=== PATIENT | female | born 1980 | race Caucasian/White ===

== ENCOUNTER 2020-06-14 08:00 | Outpatient (RCR) | payer MEDICAID, SELFPAY | END 2020-06-21 08:44 | disposition other institution (70) | LOC: HO.PT 08:00 | PROVIDERS: PCP Family Medicine; Visit Provider Neurological Surgery | DX: M79.601 Pain in right arm (principal) | CPT/HCPCS: 97110; 97140; 97162; 97530 ==

== ENCOUNTER → 2020-12-06 08:44 | Outpatient (BNVA) | payer MEDICAID, SELFPAY | PROVIDERS: Visit Provider Student in an Organized Health Care Education/Training Program | DX: M05.9 Rheumatoid arthritis with rheumatoid factor, unspecified (principal); Z79.899 Other long term (current) drug therapy | CPT/HCPCS: 99212 ==

== ENCOUNTER 2021-02-16 09:30 | Outpatient (REF) | payer MEDICAID, SELFPAY ==
[2021-02-16 10:20] LABS: MANUAL DIFF FLAG NO
[2021-02-16 10:25] LABS: Basophils Percent Auto 0.2 % (0-2); Eosinophils Absolute Auto 0.1 X10*3/uL (0.0-0.4); Eosinophils Percent Auto 0.9 % (0-4); Hematocrit 32.4 % (37-47); Imm Gran Abs Auto 0.03 X10*3/uL (0.00-0.03); Imm Gran Pct Auto 0.4 % (0.0-0.4); Lymphocytes Absolute Auto 1.7 X10*3/uL (1.2-4.9); Lymphocytes Percent Auto 21.1 % (20-40); Mean Corpuscular HGB Conc 30.9 g/dl (31.0-35.0); Mean Corpuscular Hemoglobin 25.9 pg (27.0-33.0); Mean Corpuscular Volume 83.9 fL (80-98); Mean Platelet Volume 9.6 fL (9.4-12.3); Monocytes Absolute Auto 0.6 X10*3/uL (0.1-1.2); Monocytes Percent Auto 7.2 % (2-11); Neutrophils Absolute Auto 5.8 X10*3/uL (2.0-8.3); Neutrophils Percent Auto 70.2 % (45-73); Platelet Count 301 X10*3/uL (160-400); Red Blood Count 3.86 X10*6/uL (4.20-5.50); Red Cell Distribution Width 16.2 % (11.0-16.0); White Blood Count 8.2 X10*3/uL (4.8-10.8)
[2021-02-16 10:50] LABS: Alanine Aminotransferase 28 U/L (0-31); Alkaline Phosphatase 71 U/L (39-117); Anion Gap 10 (12-20); Aspartate Amino Transferase 23 U/L (5-31); Bilirubin Total 0.3 mg/dL (0.0-1.0); Blood Urea Nitrogen 9 mg/dL (9-16); C Reactive Protein 0.48 mg/dL (< or = 0.50); Calcium 9.3 mg/dL (8.4-10.2); Carbon Dioxide 27 mmol/L (22-29); Chloride 106 mmol/L (96-108); Estimated Glomerular Filt Rate > 60; Glucose Random 121 mg/dL (60-115); Sodium 139 mmol/L (135-145); Total Protein 7.3 g/dL (6.5-8.0)
[2021-02-16 11:39] LABS: HBc Num1 0.11 S/CO (0.00-0.79); HBsAGNum1 0.17 S/CO (0.00-0.99); Hepatitis B Core Antibody Nonreactive (Nonreactive); Hepatitis B Surface Antigen Negative (Negative); ~HepC Num1 0.07 S/CO (0.00-0.79); ~Hepatitis C Antibody Nonreactive (Nonreactive)
[2021-02-16 11:44] LABS: Erythrocyte Sedimentation Rate 11 MM/HR (0-20)
[2021-02-17 08:58] LABS: HBS Num1 89.32 mIU/mL (0-7.99); Hepatitis A Antibody IgM 0.25 Index (0-0.79); ~Hepatitis A Antibody IgM Nonreactive (Nonreactive); ~Hepatitis B Surface Antibody REACTIVE (Nonreactive)
[2021-02-19 16:22] LABS: TS Negative Control Passed; TS Panel A 0; TS Panel B 1; TS Positive Control Passed; TSpotTB Negative (SeeBelow)
== END 2021-02-16 09:31 | disposition home or self-care (01) ==
LOC: HO.LAB 09:30
PROVIDERS: PCP Family Medicine; Visit Provider Student in an Organized Health Care Education/Training Program
DX: Z01.84 Encounter for antibody response examination (principal); Z11.1 Encounter for screening for respiratory tuberculosis; Z11.59 Encounter for screening for other viral diseases; M05.9 Rheumatoid arthritis with rheumatoid factor, unspecified
CPT/HCPCS: 36415; 80053; 85025; 85652; 86140; 86481; 86704; 86706; 86709; 86803; 87340

== ENCOUNTER 2021-05-03 13:44 | Outpatient (REF) | payer MEDICAID, SELFPAY ==
--- NOTE | ~2021-05-03 | MM_ITS ---
EXAMINATION: MM SCREENING DIGITAL BREAST TOMOSYNTHESIS, BILATERAL CLINICAL INFORMATION: Screening. Asymptomatic. The lifetime risk of breast cancer based on the Tyrer-Cuzick Model is 6.4%. COMPARISON: Mammography: May 20, 2019 TECHNIQUE: Digital breast tomosynthesis is performed in both the craniocaudal and mediolateral oblique views along with computer-aided detection (CAD). Synthesized 2D images are generated from the tomosynthesis. FINDINGS: The breasts are heterogeneously dense, which may obscure small masses (ACR BI-RADS breast composition Category c). There are no significant masses, abnormal calcifications, or other abnormalities. MM/MM tomosynthesis screening BI IMPRESSION: There are no significant changes from prior study. ASSESSMENT: BI-RADS 1: Negative RECOMMENDATION: Routine annual mammography screening. This patient's information was entered into a reminder system with a target due date for their next mammogram.
== END 2021-05-03 13:45 | disposition home or self-care (01) ==
LOC: HO.MAMMO 13:44
PROVIDERS: PCP Family Medicine; Visit Provider Family Medicine
DX: Z12.31 Encounter for screening mammogram for malignant neoplasm of breast (principal)
CPT/HCPCS: 77063; 77067

== ENCOUNTER 2021-09-12 08:29 | Outpatient (REF) | payer MEDICAID, SELFPAY ==
[2021-09-12 09:43] LABS: MANUAL DIFF FLAG NO
[2021-09-12 10:22] LABS: Basophils Percent Auto 0.5 % (0-2); Eosinophils Absolute Auto 0.1 X10*3/uL (0.0-0.4); Eosinophils Percent Auto 1.2 % (0-4); Hematocrit 35.2 % (37.0-47.0); Hemoglobin 11.1 g/dl (12.0-16.0); Imm Gran Abs Auto 0.03 X10*3/uL (0.00-0.03); Imm Gran Pct Auto 0.4 % (0.0-0.4); Lymphocytes Absolute Auto 2.1 X10*3/uL (1.2-4.9); Lymphocytes Percent Auto 28.9 % (20-40); Mean Corpuscular HGB Conc 31.5 g/dl (31.0-35.0); Mean Corpuscular Hemoglobin 27.1 pg (27.0-33.0); Mean Corpuscular Volume 85.9 fL (80.0-98.0); Mean Platelet Volume 9.9 fL (9.4-12.3); Monocytes Absolute Auto 0.4 X10*3/uL (0.1-1.2); Monocytes Percent Auto 5.7 % (2-11); Neutrophils Absolute Auto 4.6 x10*3/uL (2.0-8.3); Neutrophils Percent Auto 63.3 % (45-73); Platelet Count 343 X10*3/uL (160-400); Red Cell Distribution Width 15.4 % (11.0-16.0); White Blood Count 7.3 X10*3/uL (4.8-10.8)
[2021-09-12 11:00] LABS: Erythrocyte Sedimentation Rate 17 MM/HR (0-20)
[2021-09-12 11:21] LABS: Alanine Aminotransferase 11 U/L (0-31); Albumin Level 4.1 g/dL (3.5-5.0); Alkaline Phosphatase 64 U/L (39-117); Anion Gap 8 (12-20); Aspartate Amino Transferase 13 U/L (5-31); Bilirubin Total 0.2 mg/dL (0.0-1.0); Blood Urea Nitrogen 10 mg/dL (9-16); C Reactive Protein 0.56 mg/dL (< or = 0.50); Calcium 9.3 mg/dL (8.4-10.2); Carbon Dioxide 27 mmol/L (22-29); Chloride 108 mmol/L (96-108); Estimated Glomerular Filt Rate > 60; Glucose Random 86 mg/dL (60-115); Sodium 139 mmol/L (135-145); Total Protein 7.5 g/dL (6.5-8.0)
== END 2021-09-12 08:30 | disposition home or self-care (01) ==
LOC: HO.LAB 08:29
PROVIDERS: PCP Family Medicine; Visit Provider Nurse Practitioner Family
DX: M05.9 Rheumatoid arthritis with rheumatoid factor, unspecified (principal); Z79.899 Other long term (current) drug therapy
CPT/HCPCS: 36415; 80053; 85025; 85652; 86140; 99212

== ENCOUNTER 2021-11-10 07:52 | Outpatient (REF) | payer MEDICAID, SELFPAY ==
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
--- NOTE | ~2021-11-10 | XR_ITS ---
EXAMINATION: XR SHOULDER-RIGHT XR KNEE-LEFT CLINICAL INFORMATION: Right shoulder and left knee pain. COMPARISON: None TECHNIQUE: 4 views of the right shoulder and 3 upright views of the left knee were obtained. FINDINGS: Right shoulder: The bony alignments are intact. The cortices are intact. Articular margins, joint space appear unremarkable. The soft tissues are unremarkable. Left knee: Mild periarticular osteopenia is noted. The bony alignments are intact. The cortices are intact. No evidence of any joint effusion present. XR/XR knee LT 3V IMPRESSION: 1. Unremarkable radiographic appearance of the right shoulder. 2. Mild periarticular osteopenia left knee, otherwise unremarkable.
[2021-11-10 09:04] LABS: MANUAL DIFF FLAG NO
[2021-11-10 09:15] LABS: Basophils Absolute Auto 0.1 X10*3/uL (0.0-0.2); Basophils Percent Auto 0.8 % (0-2); Eosinophils Absolute Auto 0.1 X10*3/uL (0.0-0.4); Imm Gran Abs Auto 0.05 X10*3/uL (0.00-0.03); Imm Gran Pct Auto 0.8 % (0.0-0.4); Lymphocytes Absolute Auto 1.5 X10*3/uL (1.2-4.9); Lymphocytes Percent Auto 23.3 % (20-40); Mean Corpuscular HGB Conc 31.4 g/dl (31.0-35.0); Mean Corpuscular Hemoglobin 28.1 pg (27.0-33.0); Mean Corpuscular Volume 89.3 fL (80.0-98.0); Mean Platelet Volume 9.1 fL (9.4-12.3); Monocytes Absolute Auto 0.6 X10*3/uL (0.1-1.2); Monocytes Percent Auto 9.3 % (2-11); Neutrophils Absolute Auto 4.2 x10*3/uL (2.0-8.3); Neutrophils Percent Auto 63.8 % (45-73); Platelet Count 225 X10*3/uL (160-400); Red Blood Count 3.92 X10*6/uL (4.20-5.50); Red Cell Distribution Width 16.9 % (11.0-16.0); White Blood Count 6.6 X10*3/uL (4.8-10.8)
[2021-11-10 09:52] LABS: Alanine Aminotransferase 25 U/L (0-31); Albumin Level 3.9 g/dL (3.5-5.0); Alkaline Phosphatase 72 U/L (39-117); Anion Gap 8 (12-20); Aspartate Amino Transferase 17 U/L (5-31); Bilirubin Total 0.2 mg/dL (0.0-1.0); Blood Urea Nitrogen 13 mg/dL (9-16); Calcium 8.9 mg/dL (8.4-10.2); Carbon Dioxide 27 mmol/L (22-29); Chloride 108 mmol/L (96-108); Estimated Glomerular Filt Rate > 60; Glucose Random 87 mg/dL (60-115); Iron 36 mcg/dL (30-160); Percent Iron Saturation 12 % (15-50); Potassium 4.1 mmol/L (3.3-5.1); Sodium 139 mmol/L (135-145); Total Iron Binding Capacity 310 mcg/dL (228-428); Unsaturated Iron Binding 274 ug/dL
[2021-11-10 10:00] LABS: Ferritin 21 ng/mL (10-250)
[2021-11-10 10:08] LABS: Erythrocyte Sedimentation Rate 10 MM/HR (0-20)
== END 2021-11-10 07:53 | disposition home or self-care (01) ==
LOC: HO.LAB 07:52
PROVIDERS: PCP Family Medicine; Visit Provider Nurse Practitioner Family
DX: M05.9 Rheumatoid arthritis with rheumatoid factor, unspecified (principal); M25.562 Pain in left knee; M25.511 Pain in right shoulder; Z79.899 Other long term (current) drug therapy
CPT/HCPCS: 36415; 73030; 73562; 80053; 82728; 83540; 85025; 85652; 86140; 99212

== ENCOUNTER 2022-02-06 09:33 | Outpatient (REF) | payer MEDICAID, SELFPAY ==
[2022-02-06 09:52] LABS: MANUAL DIFF FLAG NO
[2022-02-06 10:32] LABS: Basophils Percent Auto 0.3 % (0-2); Eosinophils Absolute Auto 0.1 X10*3/uL (0.0-0.4); Eosinophils Percent Auto 1.7 % (0-4); Hematocrit 36.5 % (37.0-47.0); Hemoglobin 11.2 g/dl (12.0-16.0); Imm Gran Abs Auto 0.02 X10*3/uL (0.00-0.03); Imm Gran Pct Auto 0.3 % (0.0-0.4); Lymphocytes Absolute Auto 1.6 X10*3/uL (1.2-4.9); Lymphocytes Percent Auto 22.3 % (20-40); Mean Corpuscular HGB Conc 30.7 g/dl (31.0-35.0); Mean Corpuscular Hemoglobin 27.3 pg (27.0-33.0); Mean Platelet Volume 9.7 fL (9.4-12.3); Monocytes Absolute Auto 0.4 X10*3/uL (0.1-1.2); Monocytes Percent Auto 5.7 % (2-11); Neutrophils Percent Auto 69.7 % (45-73); Platelet Count 295 X10*3/uL (160-400); Red Cell Distribution Width 15.2 % (11.0-16.0); White Blood Count 7.2 X10*3/uL (4.8-10.8)
[2022-02-06 11:15] LABS: Alanine Aminotransferase 14 U/L (0-31); Albumin Level 3.9 g/dL (3.5-5.0); Alkaline Phosphatase 60 U/L (39-117); Anion Gap 10 (12-20); Aspartate Amino Transferase 15 U/L (5-31); Bilirubin Total 0.3 mg/dL (0.0-1.0); Blood Urea Nitrogen 12 mg/dL (9-16); C Reactive Protein 0.35 mg/dL (< or = 0.50); Calcium 8.9 mg/dL (8.4-10.2); Carbon Dioxide 26 mmol/L (22-29); Chloride 109 mmol/L (96-108); Estimated Glomerular Filt Rate > 60; Glucose Random 82 mg/dL (60-115); Potassium 4.4 mmol/L (3.3-5.1); Sodium 141 mmol/L (135-145)
[2022-02-06 11:32] LABS: Erythrocyte Sedimentation Rate 12 MM/HR (0-20)
== END 2022-02-06 09:34 | disposition home or self-care (01) ==
LOC: HO.LAB 09:33
PROVIDERS: PCP Family Medicine; Visit Provider Nurse Practitioner Family
DX: M05.9 Rheumatoid arthritis with rheumatoid factor, unspecified (principal)
CPT/HCPCS: 36415; 80053; 85025; 85652; 86140

== ENCOUNTER 2022-02-06 15:35 | Emergency (ER) | payer MEDICAID, SELFPAY ==
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
[2022-02-06 17:44] VITALS: BP 128/68; PULSE 90; RESP 18; TEMP 36.8; O2SAT 100; BMI 28.9
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
[2022-02-06] MEDS: oxyCODONE HCl Immed Release 5 MG TABLET PO (21:57)
[2022-02-06] MEDS: predniSONE 20 MG TABLET 60 MG PO (21:57)
== END 2022-02-06 22:15 | disposition home or self-care (01) ==
PROVIDERS: Emergency Provider Emergency Medicine; PCP Family Medicine
DX: S13.4XXA Sprain of ligaments of cervical spine, initial encounter (principal); M54.12 Radiculopathy, cervical region; M54.2 Cervicalgia; M25.511 Pain in right shoulder; V43.52XA Car driver injured in collision with other type car in traffic accident, initial encounter; Y93.9 Activity, unspecified; Y92.410 Unspecified street and highway as the place of occurrence of the external cause; Y99.9 Unspecified external cause status; Z79.899 Other long term (current) drug therapy
CPT/HCPCS: 72040; 72125; 73030; 99283; 99284

== ENCOUNTER → 2022-02-09 08:09 | Outpatient (BNVA) | payer MEDICAID, SELFPAY | PROVIDERS: PCP Family Medicine; Visit Provider Nurse Practitioner Family | DX: M05.9 Rheumatoid arthritis with rheumatoid factor, unspecified (principal); M25.511 Pain in right shoulder; M25.562 Pain in left knee; Z79.899 Other long term (current) drug therapy | CPT/HCPCS: 99212 ==

== ENCOUNTER 2022-05-09 09:19 | Outpatient (REF) | payer MEDICAID, SELFPAY ==
[2022-05-09 09:29] LABS: MANUAL DIFF FLAG NO
[2022-05-09 10:00] LABS: Basophils Percent Auto 0.5 % (0-2); Eosinophils Absolute Auto 0.1 X10*3/uL (0.0-0.4); Hematocrit 33.5 % (37.0-47.0); Hemoglobin 10.5 g/dl (12.0-16.0); Imm Gran Abs Auto 0.02 X10*3/uL (0.00-0.03); Imm Gran Pct Auto 0.3 % (0.0-0.4); Lymphocytes Absolute Auto 1.8 X10*3/uL (1.2-4.9); Lymphocytes Percent Auto 28.8 % (20-40); Mean Corpuscular HGB Conc 31.3 g/dl (31.0-35.0); Mean Corpuscular Hemoglobin 27.9 pg (27.0-33.0); Mean Corpuscular Volume 88.9 fL (80.0-98.0); Mean Platelet Volume 9.1 fL (9.4-12.3); Monocytes Absolute Auto 0.5 X10*3/uL (0.1-1.2); Monocytes Percent Auto 8.3 % (2-11); Neutrophils Absolute Auto 3.7 x10*3/uL (2.0-8.3); Neutrophils Percent Auto 60.1 % (45-73); Platelet Count 268 X10*3/uL (160-400); Red Blood Count 3.77 X10*6/uL (4.20-5.50); Red Cell Distribution Width 13.9 % (11.0-16.0); White Blood Count 6.1 X10*3/uL (4.8-10.8)
[2022-05-09 10:20] LABS: Alanine Aminotransferase 20 U/L (0-31); Albumin Level 3.9 g/dL (3.5-5.0); Alkaline Phosphatase 62 U/L (39-117); Anion Gap 12 (12-20); Aspartate Amino Transferase 17 U/L (5-31); Bilirubin Total 0.2 mg/dL (0.0-1.0); Blood Urea Nitrogen 13 mg/dL (9-16); C Reactive Protein 0.55 mg/dL (< or = 0.50); Calcium 8.9 mg/dL (8.4-10.2); Carbon Dioxide 25 mmol/L (22-29); Chloride 107 mmol/L (96-108); Estimated Glomerular Filt Rate > 60; Glucose Random 87 mg/dL (60-115); Potassium 3.8 mmol/L (3.3-5.1); Sodium 140 mmol/L (135-145); Total Protein 6.6 g/dL (6.5-8.0)
[2022-05-09 10:43] LABS: Erythrocyte Sedimentation Rate 10 MM/HR (0-20)
== END 2022-05-09 09:20 | disposition home or self-care (01) ==
LOC: HO.LAB 09:19
PROVIDERS: PCP Family Medicine; Visit Provider Nurse Practitioner Family
DX: M05.9 Rheumatoid arthritis with rheumatoid factor, unspecified (principal)
CPT/HCPCS: 36415; 80053; 85025; 85652; 86140

== ENCOUNTER 2022-06-13 12:28 | Emergency (ER) | payer MEDICAID, SELFPAY ==
--- NOTE | ~2022-06-13 | XR_ITS ---
EXAMINATION: XR ABDOMEN KUB CLINICAL INDICATION: Lower abdominal discomfort COMPARISON: None TECHNIQUE: AP view of the abdomen. FINDINGS: Small to moderate amount of formed stool in the right colon. Otherwise, no significant stool burden. No dilated air-filled bowel loops. Gas seen in the rectum. No gross large volume free air. Visualized left lung base grossly clear. No acute osseous injury. XR/XR KUB IMPRESSION: Nonobstructive bowel gas pattern.
[2022-06-13 12:36] VITALS: BP 124/77; BP 130/70; PULSE 110; PULSE 95; RESP 14; TEMP 36.7; O2SAT 98; BMI 29.2
--- NOTE | 2022-06-13 12:36 | ECG_ITS ---
Test Reason : SYNCOPE Blood Pressure : / mmHG Vent. Rate : 092 BPM Atrial Rate : 092 BPM P-R Int : 150 ms QRS Dur : 074 ms QT Int : 350 ms P-R-T Axes : 031 018 009 degrees QTc Int : 432 ms Normal sinus rhythm RSR' or QR pattern in V1 suggests right ventricular conduction delay Otherwise normal ECG No previous ECGs available Referred By: Roxie Conley Electronically Signed By:OSCAR KU MD
--- NOTE | 2022-06-13 13:20 | ED.DIZZY ---
HPI - Dizziness General Chief Complaint: Dizziness Stated Complaint: CHEST PRESSURE FOR DAYS Time Seen by Provider: 06/13/22 12:33 Source: patient and family Mode of arrival: EMS History of Present Illness HPI Narrative: 42-year-old female with history of fibromyalgia and arthritis presents via EMS with a couple of weeks headache, dizziness, continual menstruation for which she has not been evaluated and states that it stopped 5 days ago but then today she was very dizzy with associated nausea and vomiting but denies any diarrhea and states she has had some lower abdominal/pelvic discomfort with pain on urination. Patient is unsure if she ate contaminated food but states that after the vomiting her chest has felt tight. Patient test herself for COVID 3 days ago and was negative. Related Data Home Medications Medication Instructions Recorded Confirmed naproxen 500 mg tablet 500 mg PO BID 12/06/20 09/12/21 tramadol 50 mg tablet 50 mg PO TID PRN 12/06/20 09/12/21 gabapentin 800 mg tablet 800 mg PO TID 11/10/21 11/10/21 baclofen 10 mg tablet 10 mg PO BID 02/09/22 cyclobenzaprine 5 mg tablet 5 mg PO BEDTIME 02/09/22 Previous Rx's Medication Instructions Recorded oxycodone 5 mg tablet 5 mg PO Q6H PRN pain #10 tabs 02/06/22 prednisone 20 mg tablet 60 mg PO DAILY 3 days #9 tabs 02/06/22 ferrous sulfate 325 mg (65 mg 325 mg PO DAILY #90 tabs 04/25/22 iron) tablet folic acid 1 mg tablet 1 mg PO DAILY #30 tabs 04/25/22 methotrexate sodium 2.5 mg tablet 15 mg PO QWEEK #24 tabs 04/25/22 ondansetron 4 mg disintegrating 4 mg PO Q6H PRN nausea and 06/13/22 tablet vomiting #10 tabs Allergies Allergy/AdvReac Type Severity Reaction Status Date / Time No Known Allergies Allergy Verified 02/09/22 08:28 [No Known Allergies*] Review of Systems Review of Systems: Pertinent positives and negatives as stated in HPI 10 point review of systems is otherwise negative. PMFSH Past Medical History Source: nursing notes reviewed Medical History Seropositive rheumatoid arthritis Social History Social History Household Members: Significant Other and Children Housing: Apartment Alcohol intake: current Patient Tobacco Use Status: Never used Tobacco Advance Directives: No Advance Directives Information Provided: Yes Advance Directives Date on File: 05/31/20 Physical Exam Vital Signs: Vital Signs: Last Vital Signs Temp 98.1 F 06/13/22 12:36 Pulse 77 06/13/22 15:09 Resp 14 06/13/22 12:36 BP 111/65 06/13/22 15:09 Pulse Ox 98 06/13/22 12:36 O2 Del Method 06/13/22 12:36 BMI result Body Mass Index 29.2 VITAL SIGNS: Reviewed. GENERAL: Well developed, well nourished, in no acute distress. HEAD: Normocephalic/atraumatic EYES: PERRLA, EOMI EARS: Ext canals without abnormality OROPHARYNX: no oral lesions noted, posterior pharynx clear, no pallor NECK: Supple, no adenopathy LUNGS: Normal breath sounds. No adventitious sounds or accessory muscle use. SpO2<98> CARDIOVASCULAR: Tachycardic rate and rhythm without noted murmurs ABDOMEN: Soft, or abdominal discomfort without rebound, non-distended with bowel sounds. MUSCULOSKELETAL: No tenderness, deformities, or effusions noted on gross inspection. EXTREMITIES: No cyanosis, clubbing or edema. SKIN: Inspection of the skin reveals no rashes, no pallor NEUROLOGIC: Alert and oriented x 4. Strength and sensation to light touch were grossly intact x 4. Course Course Course Narrative: 42-year-old female with history and clinical presentation consistent with menorrhagia which likely contributed to her dizziness and headache and suspect possible early UTI which will be ruled out. Low clinical suspicion for cardiopulmonary etiology, patient is not on control nor does she smoke cigarettes. Patient was rehydrated and provided with antiemetics and on review of all investigations there is no evidence to suggest ACS, PE, pneumonia, acute blood loss anemia in the urine is negative for infection. We will p.o. challenge and patient was informed of all results and instructed to follow-up with her primary care provider and informed that she will be presumptively treated as a gastroenteritis. Patient is feeling much better, tolerating oral intake and is otherwise discharged home in stable condition MDM - Dizziness Lab Data Result diagrams: 06/13/22 14:07 06/13/22 14:07 Labs: Lab Results 06/13/22 06/13/22 06/13/22 Range/Units 14:07 14:07 14:07 WBC 9.9 (4.8-10.8) X10*3/uL RBC 3.66 L (4.20-5.50) X10*6/uL Hgb 10.4 L (12.0-16.0) g/dl Hct 32.8 L (37.0-47.0) % MCV 89.6 (80.0-98.0) fL MCH 28.4 (27.0-33.0) pg MCHC 31.7 (31.0-35.0) g/dl RDW 13.6 (11.0-16.0) % Plt Count 312 (160-400) X10*3/uL MPV 9.1 L (9.4-12.3) fL Immature Gran % (Auto) 0.3 (0.0-0.4) % Neut % (Auto) 79.1 H (45-73) % Lymph % (Auto) 15.5 L (20-40) % [place] % (Auto) 4.6 (2-11) % Eos % (Auto) 0.2 (0-4) % Baso % (Auto) 0.3 (0-2) % Lymph # (Auto) 1.5 (1.2-4.9) X10*3/uL [place] # (Auto) 0.5 (0.1-1.2) X10*3/uL Eos # (Auto) 0.0 (0.0-0.4) X10*3/uL Baso # (Auto) 0.0 (0.0-0.2) X10*3/uL Abs Immat Gran (auto) 0.03 (0.00-0.03) X10*3/uL Absolute Neuts (auto) 7.8 (2.0-8.3) x10*3/uL Absolute Nucleated RBC 0.000 (0.0-0.012) X10*3/uL Nucleated RBC % (auto) 0.0 (0.0-0.2) /100WBC D-Dimer High Sensitivty < 150 NG/ML Sodium 140 (135-145) mmol/L Potassium 4.0 (3.3-5.1) mmol/L Chloride 105 (96-108) mmol/L Carbon Dioxide 24 (22-29) mmol/L Anion Gap 15 (12-20) BUN 8 L (9-16) mg/dL Creatinine 0.71 (0.5-1.4) mg/dL Estim Creat Clear Calc 96.2 Estimated GFR > 60 Random Glucose 93 (60-115) mg/dL Calcium 9.5 D (8.4-10.2) mg/dL Total Bilirubin < 0.2 (0.0-1.0) mg/dL AST 20 (5-31) U/L ALT 22 (0-31) U/L Alkaline Phosphatase 70 (39-117) U/L Troponin I High Sens (<3.5-17.0) ng/L Total Protein 7.2 (6.5-8.0) g/dL Albumin 4.1 (3.5-5.0) g/dL Beta HCG, Quant < 2 mIU/mL Urine Color Urine Appearance Urine pH (5.0-9.0) Ur Specific [place] (1.005-1.025) Urine Protein (Neg-Trace) mg/dL Urine Glucose (UA) (Negative) mg/dL Urine Ketones (Negative) mg/dL Urine Blood (Negative) Urine Nitrite (Negative) Ur Leukocyte Esterase (Negative) Influenza Type A (PCR) (Negative) Influenza Type B (PCR) (Negative) RSV RNA Qual (PCR) (Negative) SARS-CoV-2 RNA (RT-PCR) (Negative) 06/13/22 06/13/22 06/13/22 Range/Units 14:07 14:07 14:10 WBC (4.8-10.8) X10*3/uL RBC (4.20-5.50) X10*6/uL Hgb (12.0-16.0) g/dl Hct (37.0-47.0) % MCV (80.0-98.0) fL MCH (27.0-33.0) pg MCHC (31.0-35.0) g/dl RDW (11.0-16.0) % Plt Count (160-400) X10*3/uL MPV (9.4-12.3) fL Immature Gran % (Auto) (0.0-0.4) % Neut % (Auto) (45-73) % Lymph % (Auto) (20-40) % [place] % (Auto) (2-11) % Eos % (Auto) (0-4) % Baso % (Auto) (0-2) % Lymph # (Auto) (1.2-4.9) X10*3/uL [place] # (Auto) (0.1-1.2) X10*3/uL Eos # (Auto) (0.0-0.4) X10*3/uL Baso # (Auto) (0.0-0.2) X10*3/uL Abs Immat Gran (auto) (0.00-0.03) X10*3/uL Absolute Neuts (auto) (2.0-8.3) x10*3/uL Absolute Nucleated RBC (0.0-0.012) X10*3/uL Nucleated RBC % (auto) (0.0-0.2) /100WBC D-Dimer High Sensitivty NG/ML Sodium (135-145) mmol/L Potassium (3.3-5.1) mmol/L Chloride (96-108) mmol/L Carbon Dioxide (22-29) mmol/L Anion Gap (12-20) BUN (9-16) mg/dL Creatinine (0.5-1.4) mg/dL Estim Creat Clear Calc Estimated GFR Random Glucose (60-115) mg/dL Calcium (8.4-10.2) mg/dL Total Bilirubin (0.0-1.0) mg/dL AST (5-31) U/L ALT (0-31) U/L Alkaline Phosphatase (39-117) U/L Troponin I High Sens < 3.5 (<3.5-17.0) ng/L Total Protein (6.5-8.0) g/dL Albumin (3.5-5.0) g/dL Beta HCG, Quant mIU/mL Urine Color Yellow Urine Appearance Clear Urine pH 7.0 (5.0-9.0) Ur Specific [place] <= 1.005 (1.005-1.025) Urine Protein Negative (Neg-Trace) mg/dL Urine Glucose (UA) Negative (Negative) mg/dL Urine Ketones Negative (Negative) mg/dL Urine Blood Negative (Negative) Urine Nitrite Negative (Negative) Ur Leukocyte Esterase Negative (Negative) Influenza Type A (PCR) NEGATIVE (Negative) Influenza Type B (PCR) NEGATIVE (Negative) RSV RNA Qual (PCR) NEGATIVE (Negative) SARS-CoV-2 RNA (RT-PCR) NEGATIVE (Negative) ECG Data Attestation: I personally reviewed and interpreted this ECG as follows: Prior ECG tracings: not available for review Interpretation: Normal sinus rhythm, HR-92, no STEMI, SC/QRS/QTC are within normal limits. Discharge Plan Discharge Clinical Impression: Gastroenteritis, Headache Patient Disposition: Home, Self-Care Instructions: Gastroenteritis (ED), General Headache (ED) Additional Instructions: 1. Tylenol 1000 mg, por v?a oral, cada 6 horas seg?n sea necesario para controlar el dolor. No exceda los 4000 mg dentro de las 24 horas. 2. Ibuprofeno 400 mg, por v?a oral con leche o alimentos, cada 6 horas seg?n sea necesario para controlar el dolor. Puede huseyin [place] medicamento con Tylenol ya que no interact?an entre s?. 3. Travon un seguimiento con bryant proveedor de atenci?n primaria llamando a la oficina en los pr?ximos 1 a 2 d?as. Si no tiene un proveedor de atenci?n primaria, establezca edd lo antes posible. Regrese a la julia de emergencias si los s?ntomas empeoran. Prescriptions: New ondansetron 4 mg tablet,disintegrating 4 mg PO Q6H PRN (Reason: nausea and vomiting) Qty: 10 0RF No Action folic acid 1 mg tablet 1 mg PO DAILY Qty: 30 4RF methotrexate sodium 2.5 mg tablet 15 mg PO QWEEK Qty: 24 0RF Rx Instructions: 6 tabs once per week ferrous sulfate 325 mg (65 mg iron) tablet 325 mg PO DAILY Qty: 90 0RF prednisone 20 mg tablet 60 mg PO DAILY 3 Days Qty: 9 0RF oxycodone 5 mg tablet 5 mg PO Q6H PRN (Reason: pain) Qty: 10 0RF Rx Instructions: Partial Fill upon patient request. tramadol 50 mg tablet 50 mg PO TID PRN naproxen 500 mg tablet 500 mg PO BID gabapentin 800 mg tablet 800 mg PO TID cyclobenzaprine 5 mg tablet 5 mg PO BEDTIME baclofen 10 mg tablet 10 mg PO BID Referrals: Yasmin Ortiz DO [Primary Care Provider] - Stand Alone Forms: Work/School Release Print Language: Cuban
[2022-06-13] MEDS: 0.9 % Sodium Chloride 1,000 ML 999 ML IV (14:00)
[2022-06-13] MEDS: ondansetron HCL 4 MG/2 ML VIAL IVPUSH (14:00)
[2022-06-13 14:15] LABS: MANUAL DIFF FLAG NO
[2022-06-13 14:17] LABS: Basophils Percent Auto 0.3 % (0-2); Eosinophils Percent Auto 0.2 % (0-4); Hematocrit 32.8 % (37.0-47.0); Hemoglobin 10.4 g/dl (12.0-16.0); Imm Gran Abs Auto 0.03 X10*3/uL (0.00-0.03); Imm Gran Pct Auto 0.3 % (0.0-0.4); Lymphocytes Absolute Auto 1.5 X10*3/uL (1.2-4.9); Lymphocytes Percent Auto 15.5 % (20-40); Mean Corpuscular HGB Conc 31.7 g/dl (31.0-35.0); Mean Corpuscular Hemoglobin 28.4 pg (27.0-33.0); Mean Corpuscular Volume 89.6 fL (80.0-98.0); Mean Platelet Volume 9.1 fL (9.4-12.3); Monocytes Absolute Auto 0.5 X10*3/uL (0.1-1.2); Monocytes Percent Auto 4.6 % (2-11); Neutrophils Absolute Auto 7.8 x10*3/uL (2.0-8.3); Neutrophils Percent Auto 79.1 % (45-73); Platelet Count 312 X10*3/uL (160-400); Red Blood Count 3.66 X10*6/uL (4.20-5.50); Red Cell Distribution Width 13.6 % (11.0-16.0); White Blood Count 9.9 X10*3/uL (4.8-10.8)
[2022-06-13 14:20] LABS: Appearance Urine Clear; Color Urine Yellow; Glucose Urine UA Negative (Negative); Leukocyte Esterase Urine Negative (Negative); Nitrite Urine Negative (Negative); Specific Gravity - Urine <= 1.005 (1.005-1.025); Urine Blood Negative (Negative); Urine Ketones Negative (Negative); Urine Protein Negative (Neg-Trace)
[2022-06-13 14:26] LABS: D Dimer High Sensitivity < 150 NG/ML
[2022-06-13 14:39] LABS: Alanine Aminotransferase 22 U/L (0-31); Albumin Level 4.1 g/dL (3.5-5.0); Alkaline Phosphatase 70 U/L (39-117); Anion Gap 15 (12-20); Aspartate Amino Transferase 20 U/L (5-31); Bilirubin Total < 0.2 mg/dL (0.0-1.0); Blood Urea Nitrogen 8 mg/dL (9-16); Calcium 9.5 mg/dL (8.4-10.2); Carbon Dioxide 24 mmol/L (22-29); Chloride 105 mmol/L (96-108); Creatinine Clr Calc Pharmacy 96.2; Estimated Glomerular Filt Rate > 60; Glucose Random 93 mg/dL (60-115); Sodium 140 mmol/L (135-145); Total Protein 7.2 g/dL (6.5-8.0)
[2022-06-13 14:44] LABS: HCG Quantitative < 2 mIU/mL; Troponin-I High Sensitivity < 3.5 ng/L (<3.5-17.0)
[2022-06-13 14:57] LABS: Influenza A PCR NEGATIVE (Negative); Influenza B PCR NEGATIVE (Negative); Resp Syncy Virus RNA Qual PCR NEGATIVE (Negative); SARS COV2 PCR INHOUSE NEGATIVE (Negative)
[2022-06-13] MEDS: Lidocaine HCl Viscous 2 % 15 ML SOLUTION 10 ML MUCOUS MEM (15:07)
[2022-06-13] MEDS: Magnesium Hydrox/Alum Hydrox 30 ML ORAL.SUSP PO (15:07)
[2022-06-13] MEDS: Acetaminophen 325 MG TABLET 975 MG PO (15:07)
[2022-06-13 15:09] VITALS: BP 111/65; PULSE 77
[2022-06-13] MEDS: diphenhydrAMINE HCL 50 MG/ML VIAL 25 MG IVPUSH (17:25)
[2022-06-13] MEDS: Metoclopramide HCl 10 MG/2 ML VIAL IVPUSH (17:29)
== END 2022-06-13 19:16 | disposition home or self-care (01) ==
PROVIDERS: Emergency Provider Student in an Organized Health Care Education/Training Program; PCP Family Medicine
DX: K52.9 Noninfective gastroenteritis and colitis, unspecified (principal); R42 Dizziness and giddiness; R07.89 Other chest pain; M79.7 Fibromyalgia; R51.9 Headache, unspecified; Z20.822 Contact with and (suspected) exposure to COVID-19; Z79.899 Other long term (current) drug therapy
CPT/HCPCS: 0241U; 36415; 74018; 80053; 81003; 84484; 84702; 85025; 85379; 93005; 96361; 96374; 96375; 99284; J1200; J2405; J2765

== ENCOUNTER 2022-09-18 12:16 | Outpatient (REF) | payer MEDICAID, SELFPAY ==
[2022-09-18 13:31] LABS: Iron 52 mcg/dL (30-160); Percent Iron Saturation 17 % (15-50); Total Iron Binding Capacity 312 mcg/dL (228-428); Unsaturated Iron Binding 260 ug/dL
[2022-09-18 13:47] LABS: Ferritin 18 ng/mL (10-250)
== END 2022-09-18 12:17 | disposition home or self-care (01) ==
LOC: HO.LAB 12:16
PROVIDERS: PCP Family Medicine; Visit Provider Nurse Practitioner Family
DX: D64.9 Anemia, unspecified (principal)
CPT/HCPCS: 36415; 82728; 83540

== ENCOUNTER → 2022-09-20 07:59 | Outpatient (BNVA) | payer MEDICAID, SELFPAY | PROVIDERS: PCP Family Medicine; Visit Provider Nurse Practitioner Family | DX: M05.9 Rheumatoid arthritis with rheumatoid factor, unspecified (principal); M25.511 Pain in right shoulder; Z79.899 Other long term (current) drug therapy | CPT/HCPCS: 99212 ==

== ENCOUNTER 2022-10-23 09:13 | Outpatient (REF) | payer MEDICAID, SELFPAY ==
[2022-10-23 09:23] LABS: MANUAL DIFF FLAG NO
[2022-10-23 09:44] LABS: Basophils Percent Auto 0.4 % (0-2); Eosinophils Absolute Auto 0.1 X10*3/uL (0.0-0.4); Eosinophils Percent Auto 1.3 % (0-4); Hematocrit 34.8 % (37.0-47.0); Hemoglobin 10.9 g/dl (12.0-16.0); Imm Gran Abs Auto 0.04 X10*3/uL (0.00-0.03); Imm Gran Pct Auto 0.5 % (0.0-0.4); Lymphocytes Percent Auto 24.2 % (20-40); Mean Corpuscular HGB Conc 31.3 g/dl (31.0-35.0); Mean Corpuscular Hemoglobin 26.5 pg (27.0-33.0); Mean Corpuscular Volume 84.7 fL (80.0-98.0); Mean Platelet Volume 8.8 fL (9.4-12.3); Monocytes Absolute Auto 0.4 X10*3/uL (0.1-1.2); Monocytes Percent Auto 5.2 % (2-11); Neutrophils Absolute Auto 5.6 x10*3/uL (2.0-8.3); Neutrophils Percent Auto 68.4 % (45-73); Platelet Count 326 X10*3/uL (160-400); Red Blood Count 4.11 X10*6/uL (4.20-5.50); Red Cell Distribution Width 17.6 % (11.0-16.0); White Blood Count 8.2 X10*3/uL (4.8-10.8)
[2022-10-23 10:13] LABS: Alanine Aminotransferase 17 U/L (0-31); Aspartate Amino Transferase 16 U/L (5-31); C Reactive Protein 0.78 mg/dL (< or = 0.50); Estimated Glomerular Filt Rate > 60
[2022-10-23 10:44] LABS: Erythrocyte Sedimentation Rate 17 MM/HR (0-20)
== END 2022-10-23 09:14 | disposition home or self-care (01) ==
LOC: HO.LAB 09:13
PROVIDERS: PCP Family Medicine; Visit Provider Nurse Practitioner Family
DX: M05.9 Rheumatoid arthritis with rheumatoid factor, unspecified (principal); Z79.899 Other long term (current) drug therapy
CPT/HCPCS: 36415; 82565; 84450; 84460; 85025; 85652; 86140

== ENCOUNTER 2022-11-06 19:02 | Emergency (ER) | payer MEDICAID, SELFPAY ==
--- NOTE | ~2022-11-06 | US_ITS ---
EXAMINATION: US PELVIS CLINICAL INFORMATION: Dizziness with vaginal bleeding COMPARISON: None TECHNIQUE: Ultrasound of the pelvis is performed using both transabdominal and transvaginal transducers along with Doppler. Transvaginal imaging is performed due to inadequate visualization transabdominally. FINDINGS: Uterus: The uterus is retroverted and measures 11.0 x 5.3 x 5.4 cm. The double wall endometrial thickness is 11 mm. The uterus is smooth in contour and has slightly heterogeneous myometrial echogenicity. No visible fibroid. Nabothian cysts are present. Adnexa: Both ovaries are visualized. There is normal symmetric color flow to the adnexa. There is no ovarian torsion. There is no pelvic ascites or fluid collection. Right ovary measures 1.8 x 2.8 x 1.5 cm for a volume of 4.0 mL Left ovary measures 1.7 x 2.5 x 1.7 cm for a volume of 4.0 mL US/US pelvic and transvaginal IMPRESSION: No significant abnormality is seen.
--- NOTE | ~2022-11-06 | XR_ITS ---
EXAMINATION: XR CHEST CLINICAL INFORMATION: Dizziness. Vaginal bleeding. COMPARISON: Rib and chest radiographs dated 03/14/2019. TECHNIQUE: 2 views of the chest were obtained. FINDINGS: The lungs are clear. The cardiomediastinal silhouette is normal in size. There is no pleural effusion or pneumothorax. No acute osseous abnormality. XR/XR chest 2V IMPRESSION: No acute cardiopulmonary findings.
--- NOTE | ~2022-11-06 | US_ITS ---
EXAMINATION: US PELVIS CLINICAL INFORMATION: Dizziness with vaginal bleeding COMPARISON: None TECHNIQUE: Ultrasound of the pelvis is performed using both transabdominal and transvaginal transducers along with Doppler. Transvaginal imaging is performed due to inadequate visualization transabdominally. FINDINGS: Uterus: The uterus is retroverted and measures 11.0 x 5.3 x 5.4 cm. The double wall endometrial thickness is 11 mm. The uterus is smooth in contour and has slightly heterogeneous myometrial echogenicity. No visible fibroid. Nabothian cysts are present. Adnexa: Both ovaries are visualized. There is normal symmetric color flow to the adnexa. There is no ovarian torsion. There is no pelvic ascites or fluid collection. Right ovary measures 1.8 x 2.8 x 1.5 cm for a volume of 4.0 mL Left ovary measures 1.7 x 2.5 x 1.7 cm for a volume of 4.0 mL US/US pelvic ovarian doppler IMPRESSION: No significant abnormality is seen.
[2022-11-06 19:23] VITALS: BP 124/73; PULSE 101; RESP 18; TEMP 36.9; O2SAT 100; BMI 31.6
--- NOTE | 2022-11-06 19:23 | ED.HA ---
HPI - Headache General Chief Complaint: Vaginal Bleeding <LARRY Rick - Last Filed: 11/06/22 19:28> Stated Complaint: Headaches/dizziness/ body hurts <LARRY Rick - Last Filed: 11/06/22 19:28> Time Seen by Provider: 11/06/22 23:21 <LARRY Rick - Last Filed: 11/06/22 19:28> Source: patient <Dread Blancas MD - Last Filed: 11/07/22 03:20> Mode of arrival: ambulatory <Dread Blancas MD - Last Filed: 11/07/22 03:20> Limitations: language barrier (Irish speaking only, protective officer used.) <Dread Blancas MD - Last Filed: 11/07/22 03:20> History of Present Illness HPI Narrative: 42-year-old female who presents emergency department for evaluation of dysfunctional vaginal bleeding. She states that her menses were regular until May of 2022. She states since then she has been bleeding continually. She states that she will have heavy menses for 1-3 days and then will have spotting for several days. She states that over the past week the bleeding has become more severe and she is as per day and she has noted large blood clots on the pads. She states that she did see her PCP who ordered an outpatient ultrasound however the patient had to go to [place] for a family emergency and was unable to complete the workup. She does not have a infectious diseases physician. She states that today she was bleeding heavily. She was feeling, lightheaded, dizzy and was having headache. States that her body felt very heavy and she was lethargic as well. She denied fever, chills, rhinorrhea, sore throat, cough, nausea, vomiting or diarrhea. <Dread Blancas MD - Last Filed: 11/07/22 03:20> Related Data Home Medications: Home Medications Medication Instructions Recorded Confirmed naproxen 500 mg tablet 500 mg PO BID 12/06/20 09/12/21 tramadol 50 mg tablet 50 mg PO TID PRN 12/06/20 09/12/21 gabapentin 800 mg tablet 800 mg PO TID 11/10/21 11/10/21 duloxetine 30 mg capsule,delayed 30 mg PO DAILY 09/20/22 release (Cymbalta) acetaminophen 650 mg 650 mg PO Q8H 10/05/22 tablet,extended release (Tylenol Arthritis Pain) baclofen 20 mg tablet 20 mg PO BID 10/05/22 cyclobenzaprine 10 mg tablet 10 mg PO BEDTIME 10/05/22 diclofenac sodium 1 % topical gel 2 g topical BID PRN 10/05/22 (Arthritis Pain (diclofenac)) docusate sodium 100 mg capsule 100 mg PO BID 10/05/22 (Colace) lidocaine 5 % topical patch 1 patch topical DAILY 10/05/22 naloxone 4 mg/actuation nasal 4 mg intranasal Q2M PRN 10/05/22 spray (Narcan) naproxen 500 mg tablet (Naprosyn) 500 mg PO BID 10/05/22 pantoprazole 40 mg tablet,delayed 40 mg PO DAILY 10/05/22 release sumatriptan succinate 50 mg tablet See Rx Instructions PO .COMPLEX 10/05/22 (Imitrex) Previous Rx's Medication Instructions Recorded methotrexate sodium 2.5 mg tablet 15 mg PO QWEEK #24 tabs 04/25/22 ondansetron 4 mg disintegrating 4 mg PO Q6H PRN nausea and 06/13/22 tablet vomiting #10 tabs folic acid 1 mg tablet 1 mg PO DAILY #30 tabs 10/18/22 ferrous sulfate 325 mg (65 mg 325 mg PO DAILY #90 tabs 10/25/22 iron) tablet <LARRY Rick - Last Filed: 11/06/22 19:28> Allergies/Adverse Reactions: Allergies Allergy/AdvReac Type Severity Reaction Status Date / Time No Known Allergies Allergy Verified 09/20/22 08:25 [No Known Allergies*] <LARRY Rick - Last Filed: 11/06/22 19:28> Review of Systems Review of Systems: Yes all other systems are reviewed and are negative <Dread Blancas MD - Last Filed: 11/07/22 03:20> [facility] Past Medical History [facility] Narrative: Past medical history: GERD, anemia, hemorrhoids, seropositive rheumatoid arthritis treated with methotrexate. Social history: She denies tobacco, alcohol and drug use. <Dread Blancas MD - Last Filed: 11/07/22 03:20> Medical History: Medical History Seropositive rheumatoid arthritis <LARRY Rick - Last Filed: 11/06/22 19:28> Surgical History: Surgical History Hx of appendectomy <LARRY Rick - Last Filed: 11/06/22 19:28> Family History Family History: Family History Father Cancer Mother Diabetes Hypertension Stroke Hypothyroidism Hypercholesteremia <LARRY Rick - Last Filed: 11/06/22 19:28> Social History Social History: Social History Household Members: Significant Other and Children Housing: Apartment Alcohol intake: current Patient Tobacco Use Status: Former Tobacco user Quit Date: 1999 Advance Directives: No Advance Directives Information Provided: No Advance Directives Date on File: 05/31/20 <LARRY Rick - Last Filed: 11/06/22 19:28> Physical Exam Vital Signs: Vital Signs: Last Vital Signs Temp 98.0 F 11/07/22 02:19 Pulse 80 11/07/22 02:19 Resp 14 11/07/22 02:19 BP 111/68 11/07/22 02:19 Pulse Ox 99 11/07/22 02:17 O2 Del Method Room Air 11/07/22 02:17 BMI result Body Mass Index 31.6 <LARRY Rick - Last Filed: 11/06/22 19:28> Vital Signs: Last Vital Signs Temp 98.0 F 11/07/22 02:19 Pulse 80 11/07/22 02:19 Resp 14 11/07/22 02:19 BP 111/68 11/07/22 02:19 Pulse Ox 99 11/07/22 02:17 O2 Del Method Room Air 11/07/22 02:17 BMI result Body Mass Index 31.6 <Dread Blancas MD - Last Filed: 11/07/22 03:20> Const: Other: Awake, alert, female patient, very pleasant and cooperative in no distress <Dread Blancas MD - Last Filed: 11/07/22 03:20> HEENT: Head: Yes normal to inspection, Yes normocephalic and Yes atraumatic <Dread Blancas MD - Last Filed: 11/07/22 03:20> Ears: external ears normal <Dread Blancas MD - Last Filed: 11/07/22 03:20> General nose exam: Normal external nose present <Dread Blancas MD - Last Filed: 11/07/22 03:20> Face and sinus: Yes normal facial exam <MD Chantelle Boston Last Filed: 11/07/22 03:20> Mouth: Normal oral and palatal mucosa present <MD Chantelle Boston Last Filed: 11/07/22 03:20> Throat: Yes posterior oropharynx normal <MD Chantelle Boston Last Filed: 11/07/22 03:20> Eyes: General: appearance normal, both eyes and all related structures <Dread Blancas MD - Last Filed: 11/07/22 03:20> Pupils: Equal, round and reactive pupils present <MD Chantelle Boston Last Filed: 11/07/22 03:20> Neck: Neck: Yes normal visual inspection, Yes no lymphadenopathy, Yes trachea midline and Yes supple <Dread Blancas MD - Last Filed: 11/07/22 03:20> Chest: Chest palpation & inspection: normal inspection of the chest and normal palpation of entire chest wall <Dread Blancas MD - Last Filed: 11/07/22 03:20> Resp: Effort & Inspection: normal respiratory effort and able to speak in complete sentences <MD Chantelle Boston Last Filed: 11/07/22 03:20> Auscultation: clear to auscultation bilaterally <MD Chantelle Boston Last Filed: 11/07/22 03:20> Cardio: Rate: regular rate <MD Chantelle Boston Last Filed: 11/07/22 03:20> Rhythm: regular rhythm <MD Chantelle Boston Last Filed: 11/07/22 03:20> Heart sounds: S1 normal heart sound present, S2 normal heart sound present and no murmurs <Dread Blancas MD - Last Filed: 11/07/22 03:20> GI: Inspection: Yes normal to inspection <Dread Blancas MD - Last Filed: 11/07/22 03:20> Palpation (GI): Soft to palpation, Tenderness to palpation present (GI) suprapubicly (Model) and no guarding <Dread Blancas MD - Last Filed: 11/07/22 03:20> Auscultation: normal bowel sounds <Dread Blancas MD - Last Filed: 11/07/22 03:20> : External Female Exam: normal external appearance <Dread Blancas MD - Last Filed: 11/07/22 03:20> Speculum Exam - Vagina: vaginal bleeding (Dark thin blood, clear with 6 large cotton swabs) <Dread Blancas MD - Last Filed: 11/07/22 03:20> Speculum Exam - Cervix: Cervical tenderness present (My) <Dread Blancas MD - Last Filed: 11/07/22 03:20> Bimanual exam- vagina & uterus: Cervical tenderness present (My) and other (Cervical os not visual, feels irregular, question poyp) <Dread Blancas MD - Last Filed: 11/07/22 03:20> Bimanual Exam- Adnexa, other: No adnexal tenderness <Dread Blancas MD - Last Filed: 11/07/22 03:20> OB/external & speculum: vaginal bleeding (Dark thin blood, clear with 6 large cotton swabs) <Dread Blancas MD - Last Filed: 11/07/22 03:20> Skin: General skin exam: no rashes or lesions noted <Dread Blancas MD - Last Filed: 11/07/22 03:20> Neuro: Cranial nerves: Yes CN's II-XII intact bilaterally and Yes Equal, round and reactive pupils present <Dread Blancas MD - Last Filed: 11/07/22 03:20> Cognition (Neuro): normal cognition <Dread Blancas MD - Last Filed: 11/07/22 03:20> Motor exam (neuro): 5/5 motor strength present throughout <Dread Blancas MD - Last Filed: 11/07/22 03:20> Extrem: General: Yes normal to inspection <Dread Blancas MD - Last Filed: 11/07/22 03:20> Psych: Appearance: grossly normal <Dread Blancas MD - Last Filed: 11/07/22 03:20> Speech and movement: Normal speech and movement present <Dread Blancas MD - Last Filed: 11/07/22 03:20> Affect: normal affect <Dread Blancas MD - Last Filed: 11/07/22 03:20> Attitude: cooperative <Dread Blancas MD - Last Filed: 11/07/22 03:20> Thought process: Normal thought process present <Dread Blancas MD - Last Filed: 11/07/22 03:20> Thought content: Normal thought content present <Dread Blancas MD - Last Filed: 11/07/22 03:20> Course Course Course Narrative: RME 19:25PM - 42yoF dizziness/lightheadedness, headaches, body aches started today and since May she has had her menstrual period although increasing vaginal bleeding with clots for the past 4 days. She reports she called her PCP and they ordered an ultrasound for tomorrow and she has a follow-up on November 13 although she does not feel like she can wait that long due to the clots that she is passing. 9-10 pads daily that are soaked with clots. Reports suprapubic abdominal pain. Reports she went to another provider a few weeks ago was toe she had anemia. Denies any fevers, nausea/vomiting, change in vision, chest pain or shortness of breath, palpitations or any other symptoms complaints or concerns at this time. Plan: Ovarian/Doppler/transvaginal ultrasound, UA, chest x-ray an EKG, type and screen, labs. Patient to be seen in the ED for further evaluation treatment <LARRY Rick - Last Filed: 11/06/22 19:28> Medications Administered Discontinued Medications Generic Name Dose Route Start Last Admin Trade Name Freq PRN Reason Stop Dose Admin Morphine Sulfate 4 mg 11/07/22 01:13 11/07/22 01:38 Morphine Sulfate 4 Mg/Ml Cartridge IVPUSH 11/07/22 01:14 4 mg ONCE STA Administration Protocol Ondansetron HCl 4 mg 11/07/22 01:13 11/07/22 01:38 Ondansetron Hcl 4 Mg/2 Ml Vial IVPUSH 11/07/22 01:14 4 mg ONCE ONE Administration <LARRY Rick - Last Filed: 11/06/22 19:28> Medications Administered Discontinued Medications Generic Name Dose Route Start Last Admin Trade Name Freq PRN Reason Stop Dose Admin Morphine Sulfate 4 mg 11/07/22 01:13 11/07/22 01:38 Morphine Sulfate 4 Mg/Ml Cartridge IVPUSH 11/07/22 01:14 4 mg ONCE STA Administration Protocol Ondansetron HCl 4 mg 11/07/22 01:13 11/07/22 01:38 Ondansetron Hcl 4 Mg/2 Ml Vial IVPUSH 11/07/22 01:14 4 mg ONCE ONE Administration <Dread Blancas MD - Last Filed: 11/07/22 03:20> Medical Decision Making Medical Decision Making MDM Narrative: 42-year-old female who presents emergency department for evaluation of dysfunctional vaginal bleed since May of 2022. Patient reports bleeding every day, 1-3 days heavy then spotting for period of time. The bleeding has become worse over the past week and she has been soaking through fall pads a day, she has noted blood clots also on the pads . She has become symptomatic with lightheadedness, dizziness come fatigued is a for bodies heavy pain. On examination the patient did have dark blood in her vagina with no blood clots, this was swabbed away with 6 large Q-tip swabs. I was not able to fully visualize the cervical loss but what I could see looked irregular. On manual exam the cervical os feels irregular and concerned that she may have a polyp. She had [id number] cervical motion tenderness and tenderness palpation over her adnexa bilaterally. My interpretation of the patient's laboratory evaluation is as follows: Anemia H&H of 8.2 and 26. This was compared to an H&H of 10.9 and 34.8 approximately a 1-2 unit drop. Potassium 3.2. Quantitative beta-hCG below detectable limits. COVID-19, influenza and RSV negative. I did discuss the patient's presentation and her laboratory evaluation with the covering infectious diseases physician, Dr. Maxwell Strauss. After this discussion I did order a unit packed RBCs. A new OB pad was placed on the patient and we will monitor how many pads she bleeds to over the next several hours while she is getting her transfusion. If her bleeding is minimal then the plan will be to have her follow-up and Dr. Strauss's office this morning at 08:30 hours for evaluation. If the bleeding continues or becomes severe then Dr. Carlos A jj will see here in the emergency department. [id number]: Start physician observation: The patient H&H did not go up after 1 unit of packed red blood cells therefore she was ordered to get a 2nd unit of packed red blood cells transfused we will repeat the H&H 1 hour after the transfusion is complete. The patient will be kept in the emergency department for observation to determine how many pads she bleeds through per hour, if she is stable then she can discharge from the emergency department and her can take her to Dr. Strauss his office prior to 08:30 a.m.. At the end of my shift, patient's care was turned over to my colleague, Dr. Norton. <Dread Blancas MD - Last Filed: 11/07/22 03:20> Differential Diagnosis Differential diagnosis includes was not limited to dysfunctional uterine bleeding , uterine fibroids, uterine cancer, cervical polyp <Dread Blancas MD - Last Filed: 11/07/22 03:20> Consult Healthcare Provider Management of the patient was discussed with: Head Silverman (Dr. Maxwell Strauss) <Dread Blancas MD - Last Filed: 11/07/22 03:20> Lab Data [facility] Lab Attestation statement: I reviewed the patient's lab results. <Dread Blancas MD - Last Filed: 11/07/22 03:20> Please see [facility] for discussion <Dread Blancas MD - Last Filed: 11/07/22 03:20> Result Diagrams: 11/06/22 20:32 03/28/23 20:32 <LARRY Rick - Last Filed: 11/06/22 19:28> Labs: Lab Results 11/06/22 11/06/22 11/06/22 Range/Units 20:32 20:32 20:32 WBC 6.8 (4.8-10.8) X10*3/uL RBC 3.05 L D (4.20-5.50) X10*6/uL Hgb 8.2 L D (12.0-16.0) g/dl Hct 26.1 L D (37.0-47.0) % MCV 85.6 (80.0-98.0) fL MCH 26.9 L (27.0-33.0) pg MCHC 31.4 (31.0-35.0) g/dl RDW 16.6 H (11.0-16.0) % Plt Count 271 (160-400) X10*3/uL MPV 9.3 L (9.4-12.3) fL Immature Gran % (Auto) 0.3 (0.0-0.4) % Neut % (Auto) 60.7 (45-73) % Lymph % (Auto) 31.4 (20-40) % Scott % (Auto) 6.0 (2-11) % Eos % (Auto) 1.0 (0-4) % Baso % (Auto) 0.6 (0-2) % Lymph # (Auto) 2.1 (1.2-4.9) X10*3/uL Scott # (Auto) 0.4 (0.1-1.2) X10*3/uL Eos # (Auto) 0.1 (0.0-0.4) X10*3/uL Baso # (Auto) 0.0 (0.0-0.2) X10*3/uL Abs Immat Gran (auto) 0.02 (0.00-0.03) X10*3/uL Absolute Neuts (auto) 4.1 (2.0-8.3) x10*3/uL Absolute Nucleated RBC 0.000 (0.0-0.012) X10*3/uL Nucleated RBC % (auto) 0.0 (0.0-0.2) /100WBC PT 11.5 (10.0-13.1) SEC INR 1.0 (0.9-1.1) Sodium 140 (135-145) mmol/L Potassium 3.2 L (3.3-5.1) mmol/L Chloride 109 H (96-108) mmol/L Carbon Dioxide 25 (22-29) mmol/L Anion Gap 9 L (12-20) BUN 9 (9-16) mg/dL Creatinine 0.93 (0.5-1.4) mg/dL Estim Creat Clear Calc 76.4 Estimated GFR > 60 Random Glucose 109 (60-115) mg/dL Calcium 8.3 L D (8.4-10.2) mg/dL Magnesium 1.9 (1.6-2.6) mg/dL Total Bilirubin < 0.2 (0.0-1.0) mg/dL AST 13 (5-31) U/L ALT 12 (0-31) U/L Alkaline Phosphatase 70 (39-117) U/L Total Protein 6.1 L (6.5-8.0) g/dL Albumin 3.5 (3.5-5.0) g/dL Lipase 33 (8-78) U/L Beta HCG, Quant mIU/mL Influenza Type A (PCR) (Negative) Influenza Type B (PCR) (Negative) RSV RNA Qual (PCR) (Negative) SARS-CoV-2 RNA (RT-PCR) (Negative) Blood Type Antibody Screen Crossmatch 11/06/22 11/06/22 11/06/22 Range/Units 20:32 20:32 20:32 WBC (4.8-10.8) X10*3/uL RBC (4.20-5.50) X10*6/uL Hgb (12.0-16.0) g/dl Hct (37.0-47.0) % MCV (80.0-98.0) fL MCH (27.0-33.0) pg MCHC (31.0-35.0) g/dl RDW (11.0-16.0) % Plt Count (160-400) X10*3/uL MPV (9.4-12.3) fL Immature Gran % (Auto) (0.0-0.4) % Neut % (Auto) (45-73) % Lymph % (Auto) (20-40) % Scott % (Auto) (2-11) % Eos % (Auto) (0-4) % Baso % (Auto) (0-2) % Lymph # (Auto) (1.2-4.9) X10*3/uL Scott # (Auto) (0.1-1.2) X10*3/uL Eos # (Auto) (0.0-0.4) X10*3/uL Baso # (Auto) (0.0-0.2) X10*3/uL Abs Immat Gran (auto) (0.00-0.03) X10*3/uL Absolute Neuts (auto) (2.0-8.3) x10*3/uL Absolute Nucleated RBC (0.0-0.012) X10*3/uL Nucleated RBC % (auto) (0.0-0.2) /100WBC PT (10.0-13.1) SEC INR (0.9-1.1) Sodium (135-145) mmol/L Potassium (3.3-5.1) mmol/L Chloride (96-108) mmol/L Carbon Dioxide (22-29) mmol/L Anion Gap (12-20) BUN (9-16) mg/dL Creatinine (0.5-1.4) mg/dL Estim Creat Clear Calc Estimated GFR Random Glucose (60-115) mg/dL Calcium (8.4-10.2) mg/dL Magnesium (1.6-2.6) mg/dL Total Bilirubin (0.0-1.0) mg/dL AST (5-31) U/L ALT (0-31) U/L Alkaline Phosphatase (39-117) U/L Total Protein (6.5-8.0) g/dL Albumin (3.5-5.0) g/dL Lipase (8-78) U/L Beta HCG, Quant < 2 mIU/mL Influenza Type A (PCR) NEGATIVE (Negative) Influenza Type B (PCR) NEGATIVE (Negative) RSV RNA Qual (PCR) NEGATIVE (Negative) SARS-CoV-2 RNA (RT-PCR) NEGATIVE (Negative) Blood Type O Positive Antibody Screen NEGATIVE Crossmatch See Detail 11/07/22 Range/Units 02:29 WBC (4.8-10.8) X10*3/uL RBC (4.20-5.50) X10*6/uL Hgb 8.8 L (12.0-16.0) g/dl Hct 26.8 L (37.0-47.0) % MCV (80.0-98.0) fL MCH (27.0-33.0) pg MCHC (31.0-35.0) g/dl RDW (11.0-16.0) % Plt Count (160-400) X10*3/uL MPV (9.4-12.3) fL Immature Gran % (Auto) (0.0-0.4) % Neut % (Auto) (45-73) % Lymph % (Auto) (20-40) % Scott % (Auto) (2-11) % Eos % (Auto) (0-4) % Baso % (Auto) (0-2) % Lymph # (Auto) (1.2-4.9) X10*3/uL Scott # (Auto) (0.1-1.2) X10*3/uL Eos # (Auto) (0.0-0.4) X10*3/uL Baso # (Auto) (0.0-0.2) X10*3/uL Abs Immat Gran (auto) (0.00-0.03) X10*3/uL Absolute Neuts (auto) (2.0-8.3) x10*3/uL Absolute Nucleated RBC (0.0-0.012) X10*3/uL Nucleated RBC % (auto) (0.0-0.2) /100WBC PT (10.0-13.1) SEC INR (0.9-1.1) Sodium (135-145) mmol/L Potassium (3.3-5.1) mmol/L Chloride (96-108) mmol/L Carbon Dioxide (22-29) mmol/L Anion Gap (12-20) BUN (9-16) mg/dL Creatinine (0.5-1.4) mg/dL Estim Creat Clear Calc Estimated GFR Random Glucose (60-115) mg/dL Calcium (8.4-10.2) mg/dL Magnesium (1.6-2.6) mg/dL Total Bilirubin (0.0-1.0) mg/dL AST (5-31) U/L ALT (0-31) U/L Alkaline Phosphatase (39-117) U/L Total Protein (6.5-8.0) g/dL Albumin (3.5-5.0) g/dL Lipase (8-78) U/L Beta HCG, Quant mIU/mL Influenza Type A (PCR) (Negative) Influenza Type B (PCR) (Negative) RSV RNA Qual (PCR) (Negative) SARS-CoV-2 RNA (RT-PCR) (Negative) Blood Type Antibody Screen Crossmatch <LARRY Rick - Last Filed: 11/06/22 19:28> Lab Results 11/06/22 11/06/22 11/06/22 Range/Units 20:32 20:32 20:32 WBC 6.8 (4.8-10.8) X10*3/uL RBC 3.05 L D (4.20-5.50) X10*6/uL Hgb 8.2 L D (12.0-16.0) g/dl Hct 26.1 L D (37.0-47.0) % MCV 85.6 (80.0-98.0) fL MCH 26.9 L (27.0-33.0) pg MCHC 31.4 (31.0-35.0) g/dl RDW 16.6 H (11.0-16.0) % Plt Count 271 (160-400) X10*3/uL MPV 9.3 L (9.4-12.3) fL Immature Gran % (Auto) 0.3 (0.0-0.4) % Neut % (Auto) 60.7 (45-73) % Lymph % (Auto) 31.4 (20-40) % Scott % (Auto) 6.0 (2-11) % Eos % (Auto) 1.0 (0-4) % Baso % (Auto) 0.6 (0-2) % Lymph # (Auto) 2.1 (1.2-4.9) X10*3/uL Scott # (Auto) 0.4 (0.1-1.2) X10*3/uL Eos # (Auto) 0.1 (0.0-0.4) X10*3/uL Baso # (Auto) 0.0 (0.0-0.2) X10*3/uL Abs Immat Gran (auto) 0.02 (0.00-0.03) X10*3/uL Absolute Neuts (auto) 4.1 (2.0-8.3) x10*3/uL Absolute Nucleated RBC 0.000 (0.0-0.012) X10*3/uL Nucleated RBC % (auto) 0.0 (0.0-0.2) /100WBC PT 11.5 (10.0-13.1) SEC INR 1.0 (0.9-1.1) Sodium 140 (135-145) mmol/L Potassium 3.2 L (3.3-5.1) mmol/L Chloride 109 H (96-108) mmol/L Carbon Dioxide 25 (22-29) mmol/L Anion Gap 9 L (12-20) BUN 9 (9-16) mg/dL Creatinine 0.93 (0.5-1.4) mg/dL Estim Creat Clear Calc 76.4 Estimated GFR > 60 Random Glucose 109 (60-115) mg/dL Calcium 8.3 L D (8.4-10.2) mg/dL Magnesium 1.9 (1.6-2.6) mg/dL Total Bilirubin < 0.2 (0.0-1.0) mg/dL AST 13 (5-31) U/L ALT 12 (0-31) U/L Alkaline Phosphatase 70 (39-117) U/L Total Protein 6.1 L (6.5-8.0) g/dL Albumin 3.5 (3.5-5.0) g/dL Lipase 33 (8-78) U/L Beta HCG, Quant mIU/mL Influenza Type A (PCR) (Negative) Influenza Type B (PCR) (Negative) RSV RNA Qual (PCR) (Negative) SARS-CoV-2 RNA (RT-PCR) (Negative) Blood Type Antibody Screen Crossmatch 11/06/22 11/06/22 11/06/22 Range/Units 20:32 20:32 20:32 WBC (4.8-10.8) X10*3/uL RBC (4.20-5.50) X10*6/uL Hgb (12.0-16.0) g/dl Hct (37.0-47.0) % MCV (80.0-98.0) fL MCH (27.0-33.0) pg MCHC (31.0-35.0) g/dl RDW (11.0-16.0) % Plt Count (160-400) X10*3/uL MPV (9.4-12.3) fL Immature Gran % (Auto) (0.0-0.4) % Neut % (Auto) (45-73) % Lymph % (Auto) (20-40) % Scott % (Auto) (2-11) % Eos % (Auto) (0-4) % Baso % (Auto) (0-2) % Lymph # (Auto) (1.2-4.9) X10*3/uL Scott # (Auto) (0.1-1.2) X10*3/uL Eos # (Auto) (0.0-0.4) X10*3/uL Baso # (Auto) (0.0-0.2) X10*3/uL Abs Immat Gran (auto) (0.00-0.03) X10*3/uL Absolute Neuts (auto) (2.0-8.3) x10*3/uL Absolute Nucleated RBC (0.0-0.012) X10*3/uL Nucleated RBC % (auto) (0.0-0.2) /100WBC PT (10.0-13.1) SEC INR (0.9-1.1) Sodium (135-145) mmol/L Potassium (3.3-5.1) mmol/L Chloride (96-108) mmol/L Carbon Dioxide (22-29) mmol/L Anion Gap (12-20) BUN (9-16) mg/dL Creatinine (0.5-1.4) mg/dL Estim Creat Clear Calc Estimated GFR Random Glucose (60-115) mg/dL Calcium (8.4-10.2) mg/dL Magnesium (1.6-2.6) mg/dL Total Bilirubin (0.0-1.0) mg/dL AST (5-31) U/L ALT (0-31) U/L Alkaline Phosphatase (39-117) U/L Total Protein (6.5-8.0) g/dL Albumin (3.5-5.0) g/dL Lipase (8-78) U/L Beta HCG, Quant < 2 mIU/mL Influenza Type A (PCR) NEGATIVE (Negative) Influenza Type B (PCR) NEGATIVE (Negative) RSV RNA Qual (PCR) NEGATIVE (Negative) SARS-CoV-2 RNA (RT-PCR) NEGATIVE (Negative) Blood Type O Positive Antibody Screen NEGATIVE Crossmatch See Detail 11/07/22 Range/Units 02:29 WBC (4.8-10.8) X10*3/uL RBC (4.20-5.50) X10*6/uL Hgb 8.8 L (12.0-16.0) g/dl Hct 26.8 L (37.0-47.0) % MCV (80.0-98.0) fL MCH (27.0-33.0) pg MCHC (31.0-35.0) g/dl RDW (11.0-16.0) % Plt Count (160-400) X10*3/uL MPV (9.4-12.3) fL Immature Gran % (Auto) (0.0-0.4) % Neut % (Auto) (45-73) % Lymph % (Auto) (20-40) % Scott % (Auto) (2-11) % Eos % (Auto) (0-4) % Baso % (Auto) (0-2) % Lymph # (Auto) (1.2-4.9) X10*3/uL Scott # (Auto) (0.1-1.2) X10*3/uL Eos # (Auto) (0.0-0.4) X10*3/uL Baso # (Auto) (0.0-0.2) X10*3/uL Abs Immat Gran (auto) (0.00-0.03) X10*3/uL Absolute Neuts (auto) (2.0-8.3) x10*3/uL Absolute Nucleated RBC (0.0-0.012) X10*3/uL Nucleated RBC % (auto) (0.0-0.2) /100WBC PT (10.0-13.1) SEC INR (0.9-1.1) Sodium (135-145) mmol/L Potassium (3.3-5.1) mmol/L Chloride (96-108) mmol/L Carbon Dioxide (22-29) mmol/L Anion Gap (12-20) BUN (9-16) mg/dL Creatinine (0.5-1.4) mg/dL Estim Creat Clear Calc Estimated GFR Random Glucose (60-115) mg/dL Calcium (8.4-10.2) mg/dL Magnesium (1.6-2.6) mg/dL Total Bilirubin (0.0-1.0) mg/dL AST (5-31) U/L ALT (0-31) U/L Alkaline Phosphatase (39-117) U/L Total Protein (6.5-8.0) g/dL Albumin (3.5-5.0) g/dL Lipase (8-78) U/L Beta HCG, Quant mIU/mL Influenza Type A (PCR) (Negative) Influenza Type B (PCR) (Negative) RSV RNA Qual (PCR) (Negative) SARS-CoV-2 RNA (RT-PCR) (Negative) Blood Type Antibody Screen Crossmatch <Dread Blancas MD - Last Filed: 11/07/22 03:20> Radiology Impression Discussion of test interpretation with radiology: I have reviewed the radiologist's reading. <Dread Blancas MD - Last Filed: 11/07/22 03:20> Radiologist Impression: XR chest 2V IMPRESSION: No acute cardiopulmonary findings. Dictated By:Parker Goodman MDSigned By:<Electronically signed by Parker Goodman MD in [place]>11/06/22 2100 US PELVIS CLINICAL INFORMATION: Dizziness with vaginal bleeding COMPARISON: None TECHNIQUE: Ultrasound of the pelvis is performed using both transabdominal and transvaginal transducers along with Doppler. Transvaginal imaging is performed due to inadequate visualization transabdominally. FINDINGS: Uterus: The uterus is retroverted and measures 11.0 x 5.3 x 5.4 cm. The double wall endometrial thickness is 11 mm. The uterus is smooth in contour and has slightly heterogeneous myometrial echogenicity. No visible fibroid. Nabothian cysts are present. Adnexa: Both ovaries are visualized. There is normal symmetric color flow to the adnexa. There is no ovarian torsion. There is no pelvic ascites or fluid collection. Right ovary measures 1.8 x 2.8 x 1.5 cm for a volume of 4.0 mL Left ovary measures 1.7 x 2.5 x 1.7 cm for a volume of 4.0 mL US/US pelvic and transvaginal IMPRESSION: No significant abnormality is seen. Dictated By:Som Oglesbyigned <Dread Blancas MD - Last Filed: 11/07/22 03:20> Discharge Plan Discharge Clinical Impression: DUB (dysfunctional uterine bleeding), Symptomatic anemia <LARRY Rick - Last Filed: 11/06/22 19:28> Patient Disposition: Still a Patient <LARRY Rick - Last Filed: 11/06/22 19:28> Additional Instructions: Dr. Carlos A zarate wants to see you in his office this morning at 08:30. <LARRY Rick - Last Filed: 11/06/22 19:28> Prescriptions: No Action methotrexate sodium 2.5 mg tablet 15 mg PO QWEEK Qty: 24 0RF Rx Instructions: 6 tabs once per week acetaminophen [Tylenol Arthritis Pain] 650 mg tablet extended release 650 mg PO Q8H baclofen 20 mg tablet 20 mg PO BID docusate sodium [Colace] 100 mg capsule 100 mg PO BID cyclobenzaprine 10 mg tablet 10 mg PO BEDTIME diclofenac sodium [Arthritis Pain (diclofenac)] 1 % gel 2 g topical BID PRN Rx Instructions: apply to single elbow, wrist or hand; for hand includes palm/fingers/back of hand sumatriptan succinate [Imitrex] 50 mg tablet See Rx Instructions PO .COMPLEX Rx Instructions: take 1 tab at onset of headache; if no relief may repeat 1 tab after at least 2 hrs; max = 4 tabs/24 hr PO lidocaine 5 % adhesive patch,medicated 1 patch topical DAILY Rx Instructions: leave on most painful area for up to 12 hrs naproxen [Naprosyn] 500 mg tablet 500 mg PO BID naloxone [Narcan] 4 mg/actuation spray,non-aerosol 4 mg intranasal Q2M PRN Rx Instructions: spray 1 dose into ONE nostril; alternate nostrils w each dose until help arrives pantoprazole 40 mg tablet,delayed release (/EC) 40 mg PO DAILY folic acid 1 mg tablet 1 mg PO DAILY Qty: 30 4RF ferrous sulfate 325 mg (65 mg iron) tablet 325 mg PO DAILY Qty: 90 0RF ondansetron 4 mg tablet,disintegrating 4 mg PO Q6H PRN (Reason: nausea and vomiting) Qty: 10 0RF tramadol 50 mg tablet 50 mg PO TID PRN naproxen 500 mg tablet 500 mg PO BID gabapentin 800 mg tablet 800 mg PO TID duloxetine [Cymbalta] 30 mg capsule,delayed release(DR/EC) 30 mg PO DAILY <LARRY Rick - Last Filed: 11/06/22 19:28> Referrals: Maxwell Strauss MD [Physician] - 11/07/22 1:24 am <LARRY Rick - Last Filed: 11/06/22 19:28>
--- NOTE | 2022-11-06 19:26 | ECG_ITS ---
Test Reason : BLEED Blood Pressure : / mmHG Vent. Rate : 089 BPM Atrial Rate : 089 BPM P-R Int : 132 ms QRS Dur : 076 ms QT Int : 360 ms P-R-T Axes : 036 017 016 degrees QTc Int : 438 ms Normal sinus rhythm Normal ECG When compared with ECG of 13-JUN-2022 12:37, No significant change was found Referred By: Paloma Teague Electronically Signed By:LIAM NGUYEN
[2022-11-06 20:39] LABS: MANUAL DIFF FLAG NO
[2022-11-06 20:49] LABS: Basophils Percent Auto 0.6 % (0-2); Eosinophils Absolute Auto 0.1 X10*3/uL (0.0-0.4); Hematocrit 26.1 % (37.0-47.0); Hemoglobin 8.2 g/dl (12.0-16.0); Imm Gran Abs Auto 0.02 X10*3/uL (0.00-0.03); Imm Gran Pct Auto 0.3 % (0.0-0.4); Lymphocytes Absolute Auto 2.1 X10*3/uL (1.2-4.9); Lymphocytes Percent Auto 31.4 % (20-40); Mean Corpuscular HGB Conc 31.4 g/dl (31.0-35.0); Mean Corpuscular Hemoglobin 26.9 pg (27.0-33.0); Mean Corpuscular Volume 85.6 fL (80.0-98.0); Mean Platelet Volume 9.3 fL (9.4-12.3); Monocytes Absolute Auto 0.4 X10*3/uL (0.1-1.2); Neutrophils Absolute Auto 4.1 x10*3/uL (2.0-8.3); Neutrophils Percent Auto 60.7 % (45-73); Platelet Count 271 X10*3/uL (160-400); Red Blood Count 3.05 X10*6/uL (4.20-5.50); Red Cell Distribution Width 16.6 % (11.0-16.0); White Blood Count 6.8 X10*3/uL (4.8-10.8)
[2022-11-06 21:04] LABS: Alanine Aminotransferase 12 U/L (0-31); Albumin Level 3.5 g/dL (3.5-5.0); Alkaline Phosphatase 70 U/L (39-117); Anion Gap 9 (12-20); Aspartate Amino Transferase 13 U/L (5-31); Bilirubin Total < 0.2 mg/dL (0.0-1.0); Blood Urea Nitrogen 9 mg/dL (9-16); Calcium 8.3 mg/dL (8.4-10.2); Carbon Dioxide 25 mmol/L (22-29); Chloride 109 mmol/L (96-108); Creatinine Clr Calc Pharmacy 76.4; Estimated Glomerular Filt Rate > 60; Glucose Random 109 mg/dL (60-115); Lipase 33 U/L (8-78); Magnesium 1.9 mg/dL (1.6-2.6); Potassium 3.2 mmol/L (3.3-5.1); Sodium 140 mmol/L (135-145); Total Protein 6.1 g/dL (6.5-8.0)
[2022-11-06 21:16] LABS: HCG Quantitative < 2 mIU/mL
[2022-11-06 21:30] LABS: Influenza A PCR NEGATIVE (Negative); Influenza B PCR NEGATIVE (Negative); Resp Syncy Virus RNA Qual PCR NEGATIVE (Negative); SARS COV2 PCR INHOUSE NEGATIVE (Negative)
[2022-11-06 21:31] LABS: Prothrombin Time 11.5 SEC (10.0-13.1)
[2022-11-06 22:54] VITALS: BP 114/67; PULSE 92; RESP 14; TEMP 36.5; O2SAT 98
--- NOTE | 2022-11-06 23:02 | PC.NURSE ---
Pt aox4 resting at the bedside in no apparent distress. Breaths are even, regular, and unlabored. Abd is soft and tender. Skin warm pink and dry. VSS. Reports lower abd pain 6/10. Pending urine sample and physician eval. Will continue to monitor.
--- NOTE | 2022-11-06 23:12 | PC.NURSE ---
Pt unable to provide urine sample.
[2022-11-07] VITALS (9 sets, daily range): BP systolic 106–121; BP diastolic 64–74; PULSE 69–98; RESP 12–16; TEMP 36.5–36.8; O2SAT 99–100
--- NOTE | 2022-11-07 00:05 | P.CONOB_ITS ---
[facility] - CN: HPI Data of Consult Consult date: 11/07/22 Primary Care Provider: Unknown Physician Consult Narrative Narrative: I was consulted at 11:[address] Jared Blancas on Dilcia Cross who is a 42 year old female presented to emergency room history of abnormal irregular heavy menstrual cycle associated with passage of blood clots over the last 5 months, her vaginal bleeding got heavier over the last week.? The patient is complaining of feeling lightheaded, lethargic, dizzy and was having headache, no fever, chills, no nausea, vomiting or diarrhea. cc:: CC: OB [facility] Past Medical History Medical History Seropositive rheumatoid arthritis Family History Family History Father Cancer Mother Diabetes Hypertension Stroke Hypothyroidism Hypercholesteremia Surgical History Surgical History Hx of appendectomy Social History Social History Household Members: Significant Other and Children Housing: Apartment Alcohol intake: current Alcohol intake frequency: does not drink Patient Tobacco Use Status: Former Tobacco user Quit Date: 1999 Smoked in Last 30 Days: No Use of substances other than those prescribed or required for medical reasons: No Advance Directives: No Advance Directives Information Provided: No Advance Directives Date on File: 05/31/20 Patient : No Meds Allergies Allergy/AdvReac Type Severity Reaction Status Date / Time No Known Allergies Allergy Verified 09/20/22 08:25 [No Known Allergies*] Home Medications Medication Instructions Recorded Confirmed Last Taken Type naproxen 500 mg tablet 500 mg PO BID 12/06/20 09/12/21 Unknown History tramadol 50 mg tablet 50 mg PO TID PRN 12/06/20 09/12/21 Unknown History gabapentin 800 mg tablet 800 mg PO TID 11/10/21 11/10/21 Unknown History duloxetine 30 mg capsule,delayed 30 mg PO DAILY 09/20/22 Unknown History release (Cymbalta) acetaminophen 650 mg 650 mg PO Q8H 10/05/22 Unknown History tablet,extended release (Tylenol Arthritis Pain) baclofen 20 mg tablet 20 mg PO BID 10/05/22 Unknown History cyclobenzaprine 10 mg tablet 10 mg PO BEDTIME 10/05/22 Unknown History diclofenac sodium 1 % topical gel 2 g topical BID PRN 10/05/22 Unknown History (Arthritis Pain (diclofenac)) docusate sodium 100 mg capsule 100 mg PO BID 10/05/22 Unknown History (Colace) lidocaine 5 % topical patch 1 patch topical DAILY 10/05/22 Unknown History naloxone 4 mg/actuation nasal 4 mg intranasal Q2M PRN 10/05/22 Unknown History spray (Narcan) naproxen 500 mg tablet (Naprosyn) 500 mg PO BID 10/05/22 Unknown History pantoprazole 40 mg tablet,delayed 40 mg PO DAILY 10/05/22 Unknown History release sumatriptan succinate 50 mg tablet See Rx Instructions PO .COMPLEX 10/05/22 Unknown History (Imitrex) [facility] [employer] [facility] Physical Exam Vitals Vital signs: Temp Pulse Resp BP Pulse Ox O2 Del Method 97.7 F 92 14 114/67 98 Room Air 11/06/22 22:54 11/06/22 22:54 11/06/22 22:54 11/06/22 22:54 11/06/22 22:54 11/06/22 22:54 BMI result Body Mass Index 31.6 Additional Comments: Reported by Dr. Blancas as the following: Abdominal exam: Mild tenderness no guarding or rebound Pelvic exam: Blood per vagina, Dark thin blood, clear with 6 large cotton swabs, mild cervical tenderness, no adnexal or uterine tenderness, no evidence of active bleeding [facility] [employer] [facility] - Results Labs 11/06/22 20:32 11/06/22 20:32 Labs: Short CBC 11/06/22 Range/Units 20:32 WBC 6.8 (4.8-10.8) X10*3/uL Hgb 8.2 L D (12.0-16.0) g/dl Hct 26.1 L D (37.0-47.0) % Plt Count 271 (160-400) X10*3/uL BMP 11/06/22 20:32 Sodium 140 Potassium 3.2 L Chloride 109 H Carbon Dioxide 25 BUN 9 Creatinine 0.93 Calcium 8.3 L D Liver Function 11/06/22 Range/Units 20:32 Total Bilirubin < 0.2 (0.0-1.0) mg/dL AST 13 (5-31) U/L ALT 12 (0-31) U/L Alkaline Phosphatase 70 (39-117) U/L Albumin 3.5 (3.5-5.0) g/dL Antibody Screen Antibody Screen NEGATIVE 11/06/22 20:32 Imaging US - abdomen: Radiologist's impression: ITS Impressions Doppler Study Ultrasound 11/06/22 19:46 IMPRESSION: No significant abnormality is seen. Pelvic/Transvag US 11/06/22 19:46 IMPRESSION: No significant abnormality is seen. Chest X-Ray 11/06/22 20:09 IMPRESSION: No acute cardiopulmonary findings. Assessment and Plan (1) Abnormal uterine bleeding: Status: Acute Plan Recommended the following to Dr. Blancas: Transfuse 1-2 units of packed RBC and keep the patient in the emergency room for observation for few hours for vaginal bleeding; if there is no evidence of active vaginal bleeding and the patient symptoms improve with stable vital signs , discharge the patient home to be seen in my office at 08:00 this morning for an evaluation, endometrial biopsy to rule out endometrial pathology including endometrial hyperplasia, polyp and /or endometrial malignancy and possible levo norgestrel IUD insertion. Otherwise, the patient is to stay in the emergency room if heavy bleeding continues, vital signs are unstable or patient's symptoms do not improve, and to please call me back, will treat according. I spent a total of 20 minutes reviewing the chart, communicated the emergency room provider and documenting in the medical record Time Spent With Patient Time: Total time managing care of this patient today ____ minutes.
--- NOTE | 2022-11-07 01:02 | PC.NURSE ---
Pt aox4 resting at the beside in no apparent distress. One unit of RBC's started with no complications. Consent form on file. Pt aware of plan of care. Will continue to monitor at the bedside.
--- NOTE | 2022-11-07 01:16 | PC.NURSE ---
Pt aox4 resting at the bedside in no apparent distress. Breaths are even regular and unlabored. NSR on monitor with HR 95. VSS. Denies chest pain, sob, fever/chills. One unit of RBC's transfusing with no complications. Will continue to monitor.
[2022-11-07] MEDS: ondansetron HCL 4 MG/2 ML VIAL IVPUSH (01:38)
[2022-11-07] MEDS: Morphine Sulfate 4 MG/ML CARTRIDGE IVPUSH (01:38)
--- NOTE | 2022-11-07 02:20 | PC.NURSE ---
One unit of RBC's completed with no complications. Pt tolerated well. VSS
[2022-11-07 02:34] LABS: Hematocrit 26.8 % (37.0-47.0); Hemoglobin 8.8 g/dl (12.0-16.0)
--- NOTE | 2022-11-07 03:28 | PC.NURSE ---
Pt aox4 resting at the bedside in no apparent distress. Second unit of RBC'S started with no complications. VSS. Will continue to monitor at the bedside.
--- NOTE | 2022-11-07 03:40 | PC.NURSE ---
Second unit of RBC's transfusing. VSS. Pt tolerating well.
--- NOTE | 2022-11-07 04:32 | PC.NURSE ---
Second unit of RBC's transfused with no complications or reactions. VSS. Pt aware of plan of care.
--- NOTE | 2022-11-07 05:44 | PC.NURSE ---
Pt aox4 resting at the bedside in no apparent distress. VSS. IV line removed with no complications. Pt tolerated well. Discharge instructions reviewed with pt. Pt verbalizes understanding.
[2022-11-07 05:46] LABS: Appearance Urine Clear; Color Urine Yellow; Glucose Urine UA Negative (Negative); Leukocyte Esterase Urine Negative (Negative); Nitrite Urine Negative (Negative); PH 5.5 (5.0-9.0); Specific Gravity - Urine 1.015 (1.005-1.025); UMIC TRIGGER UACC YES; Urine Blood Large (3+) (Negative); Urine Ketones Negative (Negative); Urine Protein Negative (Neg-Trace)
[2022-11-07 06:00] LABS: Bacteria Urine None Seen (None Seen); Hyaline Casts Urine 0-2 /LPF (0-2); RBC Urine >20 /HPF (0-2); Squamous Epithelial Cell Urine 0-2 /HPF (0-2); WBC Urine 0-5 /HPF (0-5)
== END 2022-11-07 05:45 | disposition home or self-care (01) ==
PROVIDERS: Emergency Medicine Emergency Medical Services; Physician Assistant Medical; Emergency Provider Internal Medicine
DX: N93.8 Other specified abnormal uterine and vaginal bleeding (principal); D64.9 Anemia, unspecified; Z79.899 Other long term (current) drug therapy; Z20.822 Contact with and (suspected) exposure to COVID-19; Z20.828 Contact with and (suspected) exposure to other viral communicable diseases
CPT/HCPCS: 0241U; 36415; 36430; 71046; 76830; 76856; 80053; 81001; 83690; 83735; 84702; 85014; 85018; 85025; 85610; 86850; 86900; 86901; 86923; 93005; 93975; 96374; 96375; 99285; J2270; J2405; P9016

== ENCOUNTER 2022-11-07 | Outpatient (REF) | payer MEDICAID, SELFPAY | END 2022-11-07 00:01 | disposition home or self-care (01) | LOC: HO.US | PROVIDERS: PCP Family Medicine; Visit Provider Family Medicine | DX: N93.9 Abnormal uterine and vaginal bleeding, unspecified (principal); Z30.430 Encounter for insertion of intrauterine contraceptive device | CPT/HCPCS: 57500; 58100; 58110; 58300; 99212; J7298 ==

== ENCOUNTER 2022-11-07 09:53 | Outpatient (REF) | payer MEDICAID, SELFPAY ==
[2022-11-07 13:15] LABS: CT PCR NOT DETECTED (Not Detect.); NG PCR NOT DETECTED (Not Detect.)
[2022-11-09 09:28] LABS: HPV mRNA E6/E7 rflx Not Detected (Not Detected)
== END 2022-11-07 09:54 | disposition home or self-care (01) ==
LOC: HO.LNP 09:53
PROVIDERS: Visit Provider Obstetrics & Gynecology
DX: Z12.4 Encounter for screening for malignant neoplasm of cervix (principal); Z11.51 Encounter for screening for human papillomavirus (HPV); N88.9 Noninflammatory disorder of cervix uteri, unspecified; N93.8 Other specified abnormal uterine and vaginal bleeding; N93.9 Abnormal uterine and vaginal bleeding, unspecified
CPT/HCPCS: 0353U; 87624; 88142; 88305

== ENCOUNTER 2022-11-20 07:57 | Outpatient (REF) | payer MEDICAID, SELFPAY ==
[2022-11-20 09:07] LABS: Hematocrit 34.4 % (37.0-47.0); Hemoglobin 11.1 g/dl (12.0-16.0); Mean Corpuscular HGB Conc 32.3 g/dl (31.0-35.0); Mean Corpuscular Hemoglobin 28.3 pg (27.0-33.0); Mean Corpuscular Volume 87.8 fL (80.0-98.0); Mean Platelet Volume 8.9 fL (9.4-12.3); Platelet Count 287 X10*3/uL (160-400); Red Blood Count 3.92 X10*6/uL (4.20-5.50); Red Cell Distribution Width 15.9 % (11.0-16.0); White Blood Count 7.4 X10*3/uL (4.8-10.8)
[2022-11-20 10:01] LABS: HCG Quantitative < 2 mIU/mL; TSH reflex Free T4 0.29 uIU/mL (0.32-4.0)
[2022-11-20 11:20] LABS: Free T4 (Free Thyroxine) 0.92 ng/dL (0.71-1.85)
== END 2022-11-20 07:58 | disposition home or self-care (01) ==
LOC: HO.LAB 07:57
PROVIDERS: PCP Family Medicine; Visit Provider Obstetrics & Gynecology
DX: N88.9 Noninflammatory disorder of cervix uteri, unspecified (principal); N93.9 Abnormal uterine and vaginal bleeding, unspecified
CPT/HCPCS: 36415; 81025; 84439; 84443; 84702; 85027; 99212

== ENCOUNTER → 2022-12-21 07:58 | Outpatient (BNVA) | payer MEDICAID, SELFPAY | PROVIDERS: PCP Family Medicine; Visit Provider Nurse Practitioner Family | DX: M05.9 Rheumatoid arthritis with rheumatoid factor, unspecified (principal) | CPT/HCPCS: 99212 ==

== ENCOUNTER 2023-01-31 07:34 | Outpatient (REF) | payer MEDICAID, SELFPAY ==
[2023-01-31 07:47] LABS: MANUAL DIFF FLAG NO
[2023-01-31 08:03] LABS: Basophils Percent Auto 0.4 % (0-2); Eosinophils Absolute Auto 0.1 X10*3/uL (0.0-0.4); Eosinophils Percent Auto 1.6 % (0-4); Hematocrit 37.8 % (37.0-47.0); Imm Gran Abs Auto 0.03 X10*3/uL (0.00-0.03); Imm Gran Pct Auto 0.4 % (0.0-0.4); Lymphocytes Absolute Auto 1.6 X10*3/uL (1.2-4.9); Lymphocytes Percent Auto 24.1 % (20-40); Mean Corpuscular HGB Conc 31.7 g/dl (31.0-35.0); Mean Corpuscular Volume 88.1 fL (80.0-98.0); Mean Platelet Volume 9.4 fL (9.4-12.3); Monocytes Absolute Auto 0.5 X10*3/uL (0.1-1.2); Monocytes Percent Auto 7.2 % (2-11); Neutrophils Absolute Auto 4.5 x10*3/uL (2.0-8.3); Neutrophils Percent Auto 66.3 % (45-73); Platelet Count 292 X10*3/uL (160-400); Red Blood Count 4.29 X10*6/uL (4.20-5.50); Red Cell Distribution Width 15.4 % (11.0-16.0); White Blood Count 6.8 X10*3/uL (4.8-10.8)
[2023-01-31 08:17] LABS: Alanine Aminotransferase 11 U/L (0-31); Albumin Level 3.7 g/dL (3.5-5.0); Alkaline Phosphatase 61 U/L (39-117); Anion Gap 11 (12-20); Aspartate Amino Transferase 14 U/L (5-31); Bilirubin Total 0.4 mg/dL (0.0-1.0); Blood Urea Nitrogen 13 mg/dL (9-16); C Reactive Protein 0.68 mg/dL (< or = 0.50); Calcium 9.2 mg/dL (8.4-10.2); Carbon Dioxide 24 mmol/L (22-29); Chloride 107 mmol/L (96-108); Estimated Glomerular Filt Rate > 60; Glucose Random 96 mg/dL (60-115); Potassium 3.8 mmol/L (3.3-5.1); Sodium 138 mmol/L (135-145); Total Protein 7.1 g/dL (6.5-8.0)
[2023-01-31 09:55] LABS: Erythrocyte Sedimentation Rate 10 MM/HR (0-20)
[2023-02-01 05:46] LABS: HBS Num1 65.36 mIU/mL (0-7.99); HBc Num1 0.07 S/CO (0.00-0.79); HBsAGNum1 0.47 S/CO (0.00-0.99); Hepatitis A Antibody IgM 0.26 Index (0-0.79); Hepatitis B Core Antibody Nonreactive (Nonreactive); Hepatitis B Surface Antigen Negative (Negative); ~Hepatitis A Antibody IgM Nonreactive (Nonreactive); ~Hepatitis B Surface Antibody REACTIVE (Nonreactive); ~Hepatitis C Antibody Nonreactive (Nonreactive)
[2023-02-02 16:29] LABS: TS Negative Control Passed; TS Panel A 0; TS Panel B 1; TS Positive Control Passed; TSpotTB Negative (Negative)
== END 2023-01-31 07:35 | disposition home or self-care (01) ==
LOC: HO.LAB 07:34
PROVIDERS: Visit Provider Nurse Practitioner Family
DX: M05.9 Rheumatoid arthritis with rheumatoid factor, unspecified (principal)
CPT/HCPCS: 36415; 80053; 85025; 85652; 86140; 86481; 86704; 86706; 86709; 86803; 87340

== ENCOUNTER 2023-03-01 10:43 | Outpatient (REF) | payer MEDICAID, SELFPAY ==
--- NOTE | ~2023-03-01 | XR_ITS ---
EXAMINATION: XR HAND, BILATERAL CLINICAL INFORMATION: Pain. No injury. COMPARISON: Frontal view right hand and wrist 04/26/14 Frontal view left hand 04/30/18 TECHNIQUE: Three views of the right hand. Three views of the left hand. FINDINGS: There is no acute fracture or subluxation. No suspicious focal bony lesion. No aggressive periosteal new bone formation. MINERALIZATION: Normal. ALIGNMENT: Normal. SOFT TISSUE CALCIFICATIONS: None. JOINT SPACES: Maintained. OSTEOPHYTES: None. CYSTS/EROSIONS: None. SOFT TISSUE SWELLING: None. OTHER: None. XR/XR hand LT min 3V IMPRESSION: No acute fracture or subluxation. No significant arthritic changes No suspicious interval change
--- NOTE | ~2023-03-01 | XR_ITS ---
EXAMINATION: XR HAND, BILATERAL CLINICAL INFORMATION: Pain. No injury. COMPARISON: Frontal view right hand and wrist 04/26/14 Frontal view left hand 04/30/18 TECHNIQUE: Three views of the right hand. Three views of the left hand. FINDINGS: There is no acute fracture or subluxation. No suspicious focal bony lesion. No aggressive periosteal new bone formation. MINERALIZATION: Normal. ALIGNMENT: Normal. SOFT TISSUE CALCIFICATIONS: None. JOINT SPACES: Maintained. OSTEOPHYTES: None. CYSTS/EROSIONS: None. SOFT TISSUE SWELLING: None. OTHER: None. XR/XR hand RT min 3V IMPRESSION: No acute fracture or subluxation. No significant arthritic changes No suspicious interval change
== END 2023-03-01 10:44 | disposition home or self-care (01) ==
LOC: HO.XRAY 10:43
PROVIDERS: PCP Family Medicine; Visit Provider Nurse Practitioner Family
DX: M79.641 Pain in right hand (principal); M79.642 Pain in left hand
CPT/HCPCS: 73130

== ENCOUNTER 2023-04-03 12:11 | Outpatient (REF) | payer MEDICAID, SELFPAY ==
[2023-04-03 14:32] LABS: Anion Gap 10 (12-20); Blood Urea Nitrogen 12 mg/dL (9-16); Calcium 9.5 mg/dL (8.4-10.2); Carbon Dioxide 25 mmol/L (22-29); Chloride 107 mmol/L (96-108); Estimated Glomerular Filt Rate > 60; Glucose Random 74 mg/dL (60-115); Iron 98 mcg/dL (30-160); Percent Iron Saturation 40 % (15-50); Potassium 3.6 mmol/L (3.3-5.1); Sodium 138 mmol/L (135-145); Total Iron Binding Capacity 244 mcg/dL (228-428); Unsaturated Iron Binding 146 ug/dL
[2023-04-03 14:38] LABS: Ferritin 52 ng/mL (10-250); Free T4 (Free Thyroxine) 0.85 ng/dL (0.71-1.85); Thyroid Stimulating Hormone 0.29 uIU/mL (0.32-4.0)
== END 2023-04-03 12:12 | disposition home or self-care (01) ==
LOC: HO.HHCL 12:11
PROVIDERS: Visit Provider Family Medicine
DX: R79.89 Other specified abnormal findings of blood chemistry (principal); D64.9 Anemia, unspecified
CPT/HCPCS: 36415; 80048; 82728; 83540; 84439; 84443

== ENCOUNTER 2023-04-10 08:27 | Outpatient (AMB) | payer MEDICAID, SELFPAY ==
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
[2023-04-10 08:40] VITALS: BP 148/68; PULSE 101; TEMP 37.5; O2SAT 97; BMI 29.6
== END 2023-04-10 09:33 | disposition home or self-care (01) ==
PROVIDERS: PCP Family Medicine; Visit Provider Internal Medicine Rheumatology
DX: M05.79 Rheumatoid arthritis with rheumatoid factor of multiple sites without organ or systems involvement (principal); M75.81 Other shoulder lesions, right shoulder; R76.8 Other specified abnormal immunological findings in serum; M79.7 Fibromyalgia
CPT/HCPCS: 99215

== ENCOUNTER → 2023-04-10 08:27 | Outpatient (BNVA) | payer MEDICAID, SELFPAY | PROVIDERS: PCP Family Medicine; Visit Provider Internal Medicine Rheumatology | DX: M75.81 Other shoulder lesions, right shoulder (principal); M79.7 Fibromyalgia; R76.8 Other specified abnormal immunological findings in serum; Z87.891 Personal history of nicotine dependence | CPT/HCPCS: 99212 ==

== ENCOUNTER 2023-04-23 08:09 | Outpatient (REF) | payer MEDICAID, SELFPAY | END 2023-04-23 08:10 | disposition home or self-care (01) | LOC: HO.MAMMO 08:09 | PROVIDERS: PCP Family Medicine; Visit Provider Family Medicine | DX: Z12.31 Encounter for screening mammogram for malignant neoplasm of breast (principal) | CPT/HCPCS: 77063; 77067 ==

== ENCOUNTER → 2023-04-23 08:12 | Outpatient (BNV) | payer MEDICAID, SELFPAY | PROVIDERS: PCP Family Medicine; Visit Provider Radiology Diagnostic Radiology | DX: Z12.31 Encounter for screening mammogram for malignant neoplasm of breast (principal) | CPT/HCPCS: 77063; 77067 ==

== ENCOUNTER 2023-04-24 08:09 | Outpatient (AMB) | payer MEDICAID, SELFPAY ==
[2023-04-24 08:15] VITALS: BP 130/70; BMI 29.6
--- NOTE | 2023-04-24 08:15 | A.OFFVIS_ITS ---
Intake Vital Signs 04/24/23 08:15 Height 5 ft 2 in Weight 162 lb BMI 29.6 BP 130/70 Intake Visit Reasons: 3 month Follow up Repairer Hairspring Required: Yes Repairer Hairspring Language: Laser Beam Machine Operator Name: Mary Alice Saleh Information Interpreted: non-clinical & clinical Engineering Program Analyst: Engineering Program Analyst Present (Mary Alice) Allergies No Known Allergies [No Known Allergies*] Allergy (Verified 04/24/23 08:16) Is last menstrual period known: Yes Last menstrual period: 04/07/23 Post menopausal: No HPI HPI Comments History of Present Illness Details Presenting for 3 month follow-up regarding abnormal uterine bleeding after Mirena IUD insertion. The patient is doing well, her menstrual cycles back to normal very light , she has been iron sulfate 325 mg p.o. t.i.d., H&H done on 02/01 was 12/37.8 up from 8.8/26.8 on 11/07 in the emergency room. The patient is complaining of vaginal discharge associated with foul odor PFSH Medical History Seropositive rheumatoid arthritis Surgical History Hx of appendectomy Family History Father Cancer Mother Diabetes Hypertension Stroke Hypothyroidism Hypercholesteremia Social History Household Members: Significant Other and Children Housing: Apartment Alcohol intake: current Alcohol intake frequency: does not drink Patient Tobacco Use Status: Former Tobacco user Quit Date: 1999 Advance Directives Date on File: 05/31/20 Female Reproductive History Menstrual Date of last menstrual period: 04/07/23 control method: progestin IUCD Date of last pap smear: 11/07/22 (negative) Review of Systems Const All systems reviewed & are unremarkable except as noted in HPI and below Physical Exam Vital Signs: Last Vital Signs BP 130/70 04/24/23 08:15 BMI result Body Mass Index 29.6 General: Yes no CVA tenderness External Female Exam: normal external appearance and normal appearance of the urethra Speculum Exam - Vagina: normal appearance of the vagina, normal palpation, no lesions and no masses Speculum Exam - Cervix: normal appearance of the cervix, normal palpation, no lesions, no masses and nontender Bimanual exam- vagina & uterus: normal bimanual exam, normal palpation, uterine size normal, normal palpation, uterine shape normal, No Cervical tenderness present and non-tender Bimanual Exam- Adnexa, other: normal adnexae Back/Spine/Pelvis Back: no CVA tenderness Assessment & Plan Assessment & Plan (1) Abnormal uterine bleeding: Code(s): N93.9 - Abnormal uterine and vaginal bleeding, unspecified Plan: Urine test done in the office was negative. Discussed with the patient the most recent results of her H&H being normal. Instructions given to the patient to discontinue iron sulfate, schedule annual exam appointment in 6 months and to call back in case of recurrence of her abnormal uterine (2) Bacterial vaginosis: Code(s): N76.0 - Acute vaginitis; B96.89 - Other specified bacterial agents as the cause of diseases classified elsewhere Plan: GC and chlamydia cultures with BV panel taken. Will treat with Flagyl 500 mg p.o. b.i.d. x 7 days, Instructions given to the patient to refrain from sexual activity or to use condoms consistently and correctly during the BV treatment regimen, not to douch, it might increase the risk for relapse, and to call if symptoms persist or recur. Medications: New metronidazole 500 mg PO BID 7 days 14 tabs 0RF Coding Level of Care Code Est Pt Level 3 (59441) Diagnoses Abnormal uterine bleeding N93.9 Bacterial vaginosis N76.0; B96.89
== END 2023-04-24 08:48 | disposition home or self-care (01) ==
PROVIDERS: PCP Family Medicine; Visit Provider Obstetrics & Gynecology
DX: N93.9 Abnormal uterine and vaginal bleeding, unspecified (principal); N76.0 Acute vaginitis; B96.89 Other specified bacterial agents as the cause of diseases classified elsewhere
CPT/HCPCS: 99213

== ENCOUNTER 2023-04-24 08:09 | Outpatient (REF) | payer MEDICAID, SELFPAY ==
[2023-04-25 04:54] LABS: CT PCR NOT DETECTED (Not Detect.); NG PCR NOT DETECTED (Not Detect.)
[2023-04-25 11:36] LABS: BV Int Neg Control Negative (Negative); BV Int Pos Control Positive (Positive)
== END 2023-04-24 08:10 | disposition home or self-care (01) ==
LOC: HO.LNP 08:09
PROVIDERS: PCP Family Medicine; Visit Provider Obstetrics & Gynecology
DX: N93.9 Abnormal uterine and vaginal bleeding, unspecified (principal); N76.0 Acute vaginitis; B96.89 Other specified bacterial agents as the cause of diseases classified elsewhere
CPT/HCPCS: 0353U; 87480; 87510; 87660; 99212

== ENCOUNTER 2023-05-14 15:38 | Outpatient (AMB) | payer MEDICAID, SELFPAY ==
--- NOTE | 2023-05-14 15:41 | MHC.OFFVIS ---
Intake Vital Signs 05/14/23 15:42 Height 5 ft 2 in Weight 160 lb 7.944 oz BMI 29.4 BP 100/62 Blood Pressure Location Rt brachial Position Sitting Pulse 83 Pulse Source Palpation Intake Visit Reasons: Low TSH, CONFIRMED Intake Note: New patient present today for low TSH office visit. Diamond Die Polisher Required: Yes Diamond Die Polisher Language: Fuel Attendant Name: Elio, Medical Staff Information Interpreted: non-clinical & clinical Accompanied by: Self / Same As Patient Allergies No Known Allergies [No Known Allergies*] Allergy (Verified 05/14/23 15:42) HPI HPI Comments History of Present Illness Details 42 YO F with who is seen in consultation for slightly low TSH level. No hx of thyroid problems Currently [denies] any dysphagia or hoarseness of voice. Denies sensation of swelling in the neck or difficulty breathing while lying flat. Denies any tenderness in the neck. Denies any palpitations, tremors, weight loss, frequent bowel movements. Denies any ocular complaints, blurred or double vision. Denies hair loss, dry skin, +heat intolerance, inability to lose weight , -confusion. Denies any history of head or neck irradiation. Denies any family history of thyroid cancer or thyroid problems No use of steroids Labs: [facility] Medical History (Updated 05/14/23 @ 15:54 by Robert Merritt MD) Abnormal TSH Seropositive rheumatoid arthritis Surgical History Hx of appendectomy Family History Father Cancer Mother Diabetes Hypertension Stroke Hypothyroidism Hypercholesteremia Social History Household Members: Significant Other and Children Housing: Apartment Alcohol intake: current Alcohol intake frequency: does not drink Patient Tobacco Use Status: Former Tobacco user Quit Date: 1999 Advance Directives Date on File: 05/31/20 Physical Exam Vital Signs: Last Vital Signs Pulse 83 05/14/23 15:42 BP 100/62 05/14/23 15:42 BMI result Body Mass Index 29.4 HEENT reveals absence of lid lag , stare or proptosis or eyebrow loss. Thyroid gland measure gms . No nodules or tenderness palpated. There is no cervical adenopathy palpated. Lungs CTA. Heart S1, S2 Reg R/R -M/R/G. Abdominal exam benign. Skin exam reveals absence of dryness or thyroid dermopathy or vitiligo. Nail exam reveals absence of thyroid acropachy or oncholysis. Neurologic exam reveals 2+ reflexes . Muscle Strength is 5/5 proximally. There are no tremors in upper extremities. Assessment & Plan Assessment & Plan (1) Abnormal TSH: Code(s): R79.89 - Other specified abnormal findings of blood chemistry Plan: This is a 42-year-old female found to have a slightly low TSH level. Differential includes laboratory error versus mild hyperthyroidism due to Graves disease. The plan is to repeat a TSH, free T4 and free T3 at [facility] lab to verify. If TSH >0.1 with normal free T4 and free T3, would continue to observe and send patient back to primary care provider. If TSH declines further to <0.1, will then pursue the etiology with further workup Coding Level of Care Code New Pt Level 4 (18609) Diagnoses Abnormal TSH R79.89
[2023-05-14 15:42] VITALS: BP 100/62; PULSE 83; BMI 29.4
== END 2023-05-14 16:17 | disposition home or self-care (01) ==
PROVIDERS: PCP Family Medicine; Visit Provider Internal Medicine Endocrinology, Diabetes & Metabolism
DX: R79.89 Other specified abnormal findings of blood chemistry (principal)
CPT/HCPCS: 99204

== ENCOUNTER → 2023-05-14 15:38 | Outpatient (BNVA) | payer MEDICAID, SELFPAY | PROVIDERS: Visit Provider Internal Medicine Endocrinology, Diabetes & Metabolism ==

== ENCOUNTER 2023-05-30 10:04 | Outpatient (REF) | payer MEDICAID, SELFPAY ==
[2023-05-30 15:09] LABS: CT PCR NOT DETECTED (Not Detect.); NG PCR NOT DETECTED (Not Detect.)
[2023-05-31 11:13] LABS: BV Int Neg Control Negative (Negative); BV Int Pos Control Positive (Positive)
== END 2023-05-30 10:05 | disposition home or self-care (01) ==
LOC: HO.LNP 10:04
PROVIDERS: PCP Family Medicine; Visit Provider Obstetrics & Gynecology
DX: N76.0 Acute vaginitis (principal); B96.89 Other specified bacterial agents as the cause of diseases classified elsewhere
CPT/HCPCS: 0353U; 87480; 87510; 87660; 99212

== ENCOUNTER 2023-05-30 10:04 | Outpatient (AMB) | payer MEDICAID, SELFPAY ==
[2023-05-30 10:07] VITALS: BP 110/70; BMI 29.0
--- NOTE | 2023-05-30 10:07 | MHC.OFFVIS ---
Intake Vital Signs 05/30/23 10:07 Height 5 ft 2 in Weight 158 lb 11.725 oz BMI 29.0 BP 110/70 Intake Visit Reasons: Vaginal discharge ? BV Director Biology Required: Yes Director Biology Language: Formulator Compounder Name: Mary Alice TURPIN Information Interpreted: non-clinical & clinical Speeder Frame Tender: Speeder Frame Tender Present (Mary Alice TURPIN) Accompanied by: Self / Same As Patient Allergies No Known Allergies [No Known Allergies*] Allergy (Verified 05/30/23 10:12) Is last menstrual period known: No (mirena) HPI HPI Comments History of Present Illness Details Presenting complaining of recurrence of her vaginal discharge associated with foul odor. The patient was diagnosed BV few weeks ago, cardinal a vaginalis was positive on BV panel, was treated with metronidazole 500 mg p.o. b.i.d. for 7 days her symptoms improved for a couple of weeks but recurred. STD screen was negative [facility] Medical History Abnormal TSH Seropositive rheumatoid arthritis Surgical History Hx of appendectomy Family History Father Cancer Mother Diabetes Hypertension Stroke Hypothyroidism Hypercholesteremia Social History Household Members: Significant Other and Children Housing: Apartment Alcohol intake: current Alcohol intake frequency: does not drink Patient Tobacco Use Status: Former Tobacco user Quit Date: 1999 Advance Directives Date on File: 05/31/20 Female Reproductive History Menstrual control method: progestin IUCD Review of Systems Const All systems reviewed & are unremarkable except as noted in HPI and below Physical Exam Vital Signs: Last Vital Signs BP 110/70 05/30/23 10:07 BMI result Body Mass Index 29.0 General: Yes no CVA tenderness External Female Exam: normal external appearance and normal appearance of the urethra Speculum Exam - Vagina: normal appearance of the vagina, normal palpation, no lesions and no masses Speculum Exam - Cervix: normal appearance of the cervix, normal palpation, no lesions, no masses and nontender Bimanual exam- vagina & uterus: normal bimanual exam, normal palpation, uterine size normal, normal palpation, uterine shape normal, No Cervical tenderness present and non-tender Bimanual Exam- Adnexa, other: normal adnexae Back/Spine/Pelvis Back: no CVA tenderness Assessment & Plan Assessment & Plan (1) Bacterial vaginosis: Code(s): N76.0 - Acute vaginitis; B96.89 - Other specified bacterial agents as the cause of diseases classified elsewhere Plan: GC/CT with BV panel collected. Will treat with clindamycin cream 2%, one 5 mg applicator intravaginally at bedtime for 7 days. Instructions given to patient not have unprotected intercourse for a week, to call in case symptoms not improve or recur. If there is evidence of recurrent BV, will treat with CDC recurrent BV protocol regiment. All questions answered, the patient verbalized understanding Orders: Orders Bacterial Vaginosis Panel Today B96.89 - Other specified bacterial agents as the cause of diseases classified elsewhere, N76.0 - Acute vaginitis CT NG by PCR Today B96.89 - Other specified bacterial agents as the cause of diseases classified elsewhere, N76.0 - Acute vaginitis Medications: New clindamycin phosphate 2% for 3 days 1 appful vaginal BEDTIME 40 grams 0RF 7 days Coding Level of Care Code Est Pt Level 3 (11011) Diagnoses Bacterial vaginosis N76.0; B96.89
== END 2023-05-30 12:24 | disposition home or self-care (01) ==
PROVIDERS: PCP Family Medicine; Visit Provider Obstetrics & Gynecology
DX: N76.0 Acute vaginitis (principal); B96.89 Other specified bacterial agents as the cause of diseases classified elsewhere
CPT/HCPCS: 99213

== ENCOUNTER 2023-06-18 07:19 | Outpatient (REF) | payer MEDICAID, SELFPAY ==
--- NOTE | ~2023-06-18 | MR_ITS ---
EXAMINATION: MR SHOULDER WITHOUT CONTRAST, RIGHT CLINICAL INFORMATION: Right shoulder pain. COMPARISON: Multiple priors including most recent right shoulder radiographs dated 02/06/2022 and MRI dated 04/18/2016. TECHNIQUE: MRI of the shoulder without contrast was performed on a high-field scanner. FINDINGS: ROTATOR CUFF: Minimal supraspinatus tendinosis. No rotator cuff tendon tear. No muscle atrophy or fatty infiltration. BICEPS: Intact. CORACOACROMIAL ARCH: The undersurface of the acromion is curved with no subacromial spur. Moderate acromioclavicular osteoarthritis with mild edema. Fluid within the subacromial-subdeltoid bursa, consistent with mild bursitis and increased when compared to the prior examination. LABRUM/CAPSULE: Intermediate signal within the undersurface of the superior labrum which could represent normal variation versus degeneration or a nondisplaced undersurface tear. This appears new when compared to the prior examination. Intact joint capsule. GLENOHUMERAL JOINT/MARROW: Unremarkable. MR/MR shoulder RT wo con IMPRESSION: 1. Minimal supraspinatus tendinosis. No rotator cuff tendon tear. 2. Moderate acromioclavicular osteoarthritis with mild edema, similar when compared to the prior examination. 3. Intermediate signal within the undersurface of the superior labrum which could represent normal variation versus degeneration or a nondisplaced undersurface tear. This appears new when compared to the prior examination.
== END 2023-06-18 07:20 | disposition home or self-care (01) ==
LOC: HO.MRI 07:19
PROVIDERS: PCP Family Medicine; Visit Provider Internal Medicine Rheumatology
DX: M75.81 Other shoulder lesions, right shoulder (principal)
CPT/HCPCS: 73221

== ENCOUNTER 2023-07-10 07:57 | Outpatient (AMB) | payer MEDICAID, SELFPAY ==
--- NOTE | 2023-07-10 08:05 | MHC.OFFVIS ---
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 The patient describes her pain as sharp in nature. Her pain has gotten worse over the last few years in spite of continued non operative treatments. She has done physical therapy for 12 weeks over the last 6 months which aggravated her pain. She has also tried Tylenol and anti-inflammatory medicines which gave her minimal relief. She has had injections in the past which gave her no relief. Allergies No Known Allergies [No Known Allergies*] Allergy (Verified 05/30/23 10:12) Medication List - Last Reconciled 07/10/23 by Jayce Short MD acetaminophen ER (Tylenol Arthritis Pain) 650 mg PO Q8H baclofen 20 mg PO BID clindamycin phosphate 2% 1 appful vaginal BEDTIME 7 days cyclobenzaprine 10 mg PO BEDTIME diclofenac sodium 1% (Arthritis Pain (diclofenac)) 2 grams topical BID PRN docusate sodium (Colace) 100 mg PO BID duloxetine (Cymbalta) 30 mg PO DAILY gabapentin 800 mg PO TID levonorgestrel (Mirena) intrauterine lidocaine 5% 1 patch topical DAILY metronidazole 500 mg PO BID 7 days naloxone 4 mg/actuation (Narcan) 4 mg intranasal Q2M PRN naproxen (Naprosyn) 500 mg PO BID ondansetron 4 mg PO Q6H PRN pantoprazole 40 mg PO DAILY sumatriptan succinate (Imitrex) take 1 tab at onset of headache; if no relief may repeat 1 tab after at least 2 hrs; max = 4 tabs/24 hr PO tramadol 50 mg PO TID PRN PFSH Medical History Abnormal TSH Seropositive rheumatoid arthritis Surgical History Hx of appendectomy Family History Father Cancer Mother Diabetes Hypertension Stroke Hypothyroidism Hypercholesteremia Social History Household Members: Significant Other and Children Housing: Apartment Alcohol intake: current Alcohol intake frequency: does not drink Patient Tobacco Use Status: Former Tobacco user Quit Date: 1999 Advance Directives Date on File: 05/31/20 Physical Exam Vital Signs: BMI result Body Mass Index 28.9 Const Other: Well-nourished well-developed very friendly female awake alert and oriented x3 in no acute distress Lungs - clear to auscultation bilaterally with symmetric expansion Cardiovascular exam - regular rate and rhythm Abdominal exam - soft nontender nondistended Extrem Other: Bilateral upper extremity examination shows good capillary refill, no skin lesions noted, normal sensation light touch Right shoulder examination shows decreased range of motion when compared to her left shoulder, 4+ out of 5 strength with supraspinatus testing, positive impingement signs, tenderness over her acromioclavicular joint, no instability Results Reviewed Results Reviewed: MRI of the right shoulder shows severe acromioclavicular joint narrowing, a type 3 acromion, no acute bony abnormalities Assessment & Plan Assessment & Plan (1) Impingement of right shoulder: Code(s): M25.811 - Other specified joint disorders, right shoulder Plan Ms. Willian Cross presents with progressively worsening right shoulder pain due to impingement syndrome and acromioclavicular joint arthritis as well as adhesive capsulitis. I had a lengthy discussion with the patient regarding the treatment options. At this point she has failed continued non operative treatments. The risks and benefits of right shoulder surgery were discussed at length with the patient. The patient wishes to proceed with surgery. Surgery will most likely involve right shoulder diagnostic arthroscopy with distal clavicle excision, acromioplasty, anterior capsular release and manipulation under anesthesia. The patient will contact my office to pick a surgery date. She will follow-up as instructed. Feel free to call me at any time should questions regarding her orthopedic management arise. Thank you very much for asking me to see this very pleasant patient. I spent 22 minutes in reviewing the patient's records and imaging studies, seeing the patient and documenting in the medical record. Coding Level of Care Code New Pt Level 2 (20595) Diagnoses Impingement of right shoulder M25.811
[2023-07-10 08:06] VITALS: BMI 28.9
== END 2023-07-10 08:28 | disposition home or self-care (01) ==
PROVIDERS: PCP Family Medicine; Referring Provider Family Medicine; Visit Provider Orthopaedic Surgery
DX: M25.811 Other specified joint disorders, right shoulder (principal)
CPT/HCPCS: 99202

== ENCOUNTER → 2023-07-10 07:57 | Outpatient (BNVA) | payer MEDICAID, SELFPAY | PROVIDERS: PCP Family Medicine; Visit Provider Orthopaedic Surgery | DX: M25.811 Other specified joint disorders, right shoulder (principal) | CPT/HCPCS: 99202 ==

== ENCOUNTER 2023-08-09 07:56 | Day surgery (SDC) | payer MEDICAID, SELFPAY ==
[2023-08-06 16:52] VITALS: BMI 28.3
--- NOTE | 2023-08-08 09:45 | P.CONAN_ITS ---
Documented by User: Telma Mcnally NP 08/08/23 09:46 HPI - Anesthesia Eval Consult details Narrative: 43yo F for Right Shoulder Arthroscopy, distal clavicle excision, acromioplasty, capsular release manipulation PMFSH Active Problems Active Problems: All Active Problems (Updated 08/06/23 @ 16:44 by Regina Mercer RN) Impingement of right shoulder (Acute) Bacterial vaginosis (Acute) Cyclic citrullinated peptide (CCP) antibody positive (Acute) Tendinitis of right rotator cuff (Acute) Fibromyalgia (Acute) IUD check up (Acute) Abnormal cervix finding (Acute) Abnormal uterine bleeding (Acute) Seborrheic keratosis (Acute) GERD (gastroesophageal reflux disease) (Acute) Anemia (Acute) Acne vulgaris (Acute) Chronic constipation (Acute) Hemorrhoids (Acute) Migraine (Acute) 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 (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) Abnormal TSH (Acute) Seropositive rheumatoid arthritis (Acute) Past Medical History Medical History (Updated 08/06/23 @ 16:44 by Regina Mercer RN) Right shoulder pain Rheumatoid arthritis Hx of nausea and vomiting Constipation History of blood transfusion Anemia GERD (gastroesophageal reflux disease) Migraines Fibromyalgia Abnormal TSH Seropositive rheumatoid arthritis Family History Family History Father Cancer Mother Diabetes Hypertension Stroke Hypothyroidism Hypercholesteremia Surgical History Surgical History (Updated 08/06/23 @ 16:44 by Regina Mercer RN) Hx of cervical discectomy Hx of appendectomy Social History Social History (Updated 08/06/23 @ 16:49 by Regina Mercer RN) Household Members: Significant Other and Children Household Members Other:: son Housing: Apartment Are you a primary residential care officer to a significant other at home: No Do you presently have visiting nurse or other home services: No Alcohol intake: current Alcohol intake frequency: does not drink Patient Tobacco Use Status: Former Tobacco user Quit Date: 1999 Tobacco use type: Cigarette Use of substances other than those prescribed or required for medical reasons: No Are you DNR?: No Advance Directives: Yes Advance Directives Information Provided: No Advance Directives on File: Yes Advance Directives Date on File: 05/31/20 Recently lost weight without trying: No Nutrition Risks: No Nutritional Risk Patient : No : No Meds Allergies Allergy/AdvReac Type Severity Reaction Status Date / Time No Known Allergies Allergy Verified 08/06/23 16:44 [No Known Allergies*] Active Medications: Current Medications Cefazolin Sodium/Dextrose (Ancef) 2 gm in 50 mls @ 100 mls/hr IV PREOP ONE Stop: 08/09/23 07:12 Home Medications Medication Instructions Recorded Confirmed Last Taken Type tramadol 50 mg tablet 50 mg PO TID PRN Pain 12/06/20 08/06/23 Unknown History gabapentin 800 mg tablet 800 mg PO TID 11/10/21 08/06/23 Unknown History duloxetine 30 mg capsule,delayed 30 mg PO DAILY 09/20/22 08/06/23 Unknown History release (Cymbalta) diclofenac sodium 1 % topical gel 2 g topical BID PRN Pain 10/05/22 08/06/23 Unknown History (Arthritis Pain (diclofenac)) docusate sodium 100 mg capsule 100 mg PO BID 10/05/22 08/06/23 Unknown History (Colace) lidocaine 5 % topical patch 1 patch topical DAILY 10/05/22 08/06/23 Unknown History naloxone 4 mg/actuation nasal 4 mg intranasal Q2M PRN Opioid 10/05/22 08/06/23 Unknown History spray (Narcan) Overdose pantoprazole 40 mg tablet,delayed 40 mg PO DAILY 10/05/22 08/06/23 Unknown History release sumatriptan succinate 50 mg tablet See Rx Instructions PO .COMPLEX 10/05/22 08/06/23 Unknown History (Imitrex) levonorgestrel 21 mcg/24 hours (8 intrauterine 11/20/22 07/10/23 Unknown History yrs) 52 mg intrauterine device (Mirena) hydroxyzine HCl PRN Anxiety 08/06/23 08/06/23 Unknown History Exam Height,Weight and Vital Signs: Height 5 ft 2 in Weight 70.307 kg Pertinent Lab Results Pertinent Lab Results: Laboratory Tests 01/31/23 04/03/23 07:46 12:17 WBC 6.8 Hgb 12.0 Hct 37.8 Plt Count 292 Sodium 138 Potassium 3.6 Chloride 107 Carbon Dioxide 25 BUN 12 Creatinine 0.70 Assessment and Plan Assessment Anesthesia Assessment: Chart Reviewed Documented by User: Alvarado Padilla MD 08/09/23 08:06 [facility] Past Medical History Medical History (Updated 08/06/23 @ 16:44 by Regina Mercer RN) Right shoulder pain Rheumatoid arthritis Hx of nausea and vomiting Constipation History of blood transfusion Anemia GERD (gastroesophageal reflux disease) Migraines Fibromyalgia Abnormal TSH Seropositive rheumatoid arthritis Family History Family History Father Cancer Mother Diabetes Hypertension Stroke Hypothyroidism Hypercholesteremia Family history of problems with anesthesia: No Surgical History Surgical History (Updated 08/06/23 @ 16:44 by Regina Mercer, RN) Hx of cervical discectomy Hx of appendectomy History of Problems with Anesthesia: No Social History Social History (Updated 08/06/23 @ 16:49 by Regina Mercer RN) Household Members: Significant Other and Children Household Members Other:: son Housing: Apartment Are you a primary residential care officer to a significant other at home: No Do you presently have visiting nurse or other home services: No Alcohol intake: current Alcohol intake frequency: does not drink Patient Tobacco Use Status: Former Tobacco user Quit Date: 1999 Tobacco use type: Cigarette Use of substances other than those prescribed or required for medical reasons: No Are you DNR?: No Advance Directives: Yes Advance Directives Information Provided: No Advance Directives on File: Yes Advance Directives Date on File: 05/31/20 Recently lost weight without trying: No Nutrition Risks: No Nutritional Risk Patient : No : No Meds Allergies Allergy/AdvReac Type Severity Reaction Status Date / Time No Known Allergies Allergy Verified 08/06/23 16:44 [No Known Allergies*] Home Medications Medication Instructions Recorded Confirmed Last Taken Type tramadol 50 mg tablet 50 mg PO TID PRN Pain 12/06/20 08/06/23 Unknown History gabapentin 800 mg tablet 800 mg PO TID 11/10/21 08/06/23 Unknown History duloxetine 30 mg capsule,delayed 30 mg PO DAILY 09/20/22 08/06/23 Unknown History release (Cymbalta) diclofenac sodium 1 % topical gel 2 g topical BID PRN Pain 10/05/22 08/06/23 Unknown History (Arthritis Pain (diclofenac)) docusate sodium 100 mg capsule 100 mg PO BID 10/05/22 08/06/23 Unknown History (Colace) lidocaine 5 % topical patch 1 patch topical DAILY 10/05/22 08/06/23 Unknown History naloxone 4 mg/actuation nasal 4 mg intranasal Q2M PRN Opioid 10/05/22 08/06/23 Unknown History spray (Narcan) Overdose pantoprazole 40 mg tablet,delayed 40 mg PO DAILY 10/05/22 08/06/23 Unknown History release sumatriptan succinate 50 mg tablet See Rx Instructions PO .COMPLEX 10/05/22 08/06/23 Unknown History (Imitrex) levonorgestrel 21 mcg/24 hours (8 intrauterine 11/20/22 07/10/23 Unknown History yrs) 52 mg intrauterine device (Mirena) hydroxyzine HCl PRN Anxiety 08/06/23 08/06/23 Unknown History Exam Airway Mallampati Class: II TM Dist: >3cm Neck ROM: Limited Heart: rrr Lungs: cta Assessment and Plan Assessment Anesthesia Assessment: Anesthesia Plan Discussed Final Anesthetic Review Family History of Problems with Anesthesia: No History of Problems with Anesthesia: No NPO: Yes ASA Class: III Final Preanesthetic Review: No Changes in Pt Med Stat, Meds/Allgs Chart Reviewed, Consent Obtained/Reviewed and Anes Risks/Benef Reviewed Patient Risk: Intermediate Procedure Risk: Intermediate Anesthetic Plan Anesthetic Plan: GA, Regional Block and Agree w/ Assess. and Plan Disposition: Standard PACU
[2023-08-09] VITALS (9 sets, daily range): BP systolic 117–142; BP diastolic 67–99; PULSE 63–89; RESP 16; TEMP 36.2–36.5; O2SAT 96–100; BMI 27.7
[2023-08-09 08:31] LABS: UPreg QC Valid YES; Urine Pregnancy NEGATIVE (NEGATIVE)
[2023-08-09] MEDS: Lactated Ringers 1,000 ML 100 ML IVCONT (08:34)
--- NOTE | 2023-08-09 11:41 | PM.OP ---
Brief Operative Note Date of Service: 08/09/23 Pre-op diagnosis: Right shoulder impingement syndrome, right shoulder acromioclavicular joint arthritis Post-op diagnosis: same Procedure: Right shoulder diagnostic arthroscopy with right shoulder arthroscopic distal clavicle excision, right shoulder arthroscopic acromioplasty Implants: none Surgeon: Jayce Short MD Anesthesia: GLMA and regional Was an Off Premise Service Representative used for this Procedure?: No Estimated blood loss (mL): 10 Pathology: none sent Condition: stable Disposition: PACU
--- NOTE | 2023-08-09 11:42 | P.OP_ITS ---
Operative Note Operative Note Date of Service: 08/09/23 Narrative: After the patient was identified as Dilcia Cross and her right shoulder was initialed by myself the patient was brought to the holding area where a right shoulder interscalene regional block was performed by the anesthesiologist in routine fashion. The patient was then brought to the operating room where general anesthesia was induced by the anesthesiologist in routine fashion. The patient was given 2 g of IV Ancef preoperatively for infection prophylaxis. Examination under anesthesia of the patient's right shoulder showed full passive range of motion of the patient's left shoulder when compared to the left. The patient was gently positioned in the beach chair position with all bony prominences well padded. The patient's right shoulder region and upper extremity were prepped and draped in sterile fashion. A formal time-out was completed. A #11 scalpel blade was used to make a posterior portal 2 cm inferior and 1 cm medial to the posterolateral corner of the acromion. Blunt trocar technique was used to enter the glenohumeral joint in routine fashion. An anterior portal was made just lateral to the coracoid process after proper positioning was confirmed using a spinal needle. Diagnostic arthroscopy showed minimal degenerative changes of the glenoid and humeral head articular surfaces. There was no evidence of rotator cuff tearing. There was no evidence of injury to the biceps tendon or its insertion onto the glenoid. There was no inflammation of the anterior joint capsule. The arthroscope was then placed from the posterior portal into the subacromial space. A lateral portal was made 2 fingerbreadths lateral to the anterior lateral corner of the acromion. The ArthroCare Wand was used to ablate soft tissues along the undersurface of the acromion as well as to excise the coracoacromial ligament. There was a sharp spur along the undersurface of the acromion which was removed using the hooded bur. The arthroscope was then placed into the lateral portal and the acrom ioplasty was completed with the bur in the posterior portal using the posterior aspect of the acromion as a cutting block. The ArthroCare Wand was then brought in through the anterior portal and was used to ablate soft tissues along the acromioclavicular joint and distal clavicle. The posterior and superior ligamentous structures were left intact. A distal clavicle excision of 8 mm was performed using the hooded bur. Any remaining bursal tissue was removed using the arthroscopic shaver. The subacromial space was irrigated and then drained. All arthroscopic instruments were removed. The 3 portals were closed with 3-0 nylon interrupted suture. The subacromial space was injected with Marcaine. Dry sterile dressing was placed over all incisions. The patient's right upper extremity was placed into a sling. The patient was awoken and extubated in the operating room. The patient was transferred to the recovery room in stable condition.
[2023-08-09] MEDS: cefTRIAXone sodium 1 GM in 0.9 % Sodium Chloride 50 ML IV (12:04)
== END 2023-08-09 14:17 | disposition home or self-care (01) ==
PROVIDERS: Nurse Practitioner; PCP Family Medicine; Visit Provider Orthopaedic Surgery
PROC: (CPT 29805; principal; 2023-08-09 09:40)
DX: M75.41 Impingement syndrome of right shoulder (principal); M19.011 Primary osteoarthritis, right shoulder; M75.01 Adhesive capsulitis of right shoulder; M05.9 Rheumatoid arthritis with rheumatoid factor, unspecified; Z79.899 Other long term (current) drug therapy; Z87.891 Personal history of nicotine dependence
CPT/HCPCS: 29824; 29826; 81025; J0171; J0690; J0696; J1100; J1885; J2704; J2795

== ENCOUNTER → 2023-08-09 07:56 | Outpatient (BNV) | payer MEDICAID, SELFPAY | PROVIDERS: PCP Family Medicine; Visit Provider Orthopaedic Surgery | DX: M75.41 Impingement syndrome of right shoulder (principal); M19.011 Primary osteoarthritis, right shoulder | CPT/HCPCS: 29824; 29826 ==

== ENCOUNTER 2023-08-22 09:16 | Outpatient (AMB) | payer MEDICAID, SELFPAY ==
--- NOTE | 2023-08-22 09:18 | A.OFFVIS_ITS ---
Intake Intake Visit Reasons: PO-Rt Shld 08/09/23 Intake Note: Dilcia jj 43 year old female presents today for a post operative right shoulder , DOS 08/09/23 Patient reports about 3-4 days ago she had a fall on the stairs and is now having an increase of pain. 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 Name: [id number] Allergies No Known Allergies [No Known Allergies*] Allergy (Verified 08/22/23 09:24) Medication List - Last Reconciled 08/22/23 by Go Taylor PA-C acetaminophen ER (Tylenol Arthritis Pain) 650 mg PO Q8H baclofen 20 mg PO BID PRN clindamycin phosphate 2% 1 appful vaginal BEDTIME 7 days cyclobenzaprine 10 mg PO BEDTIME diclofenac sodium 1% (Arthritis Pain (diclofenac)) 2 grams topical BID PRN docusate sodium (Colace) 100 mg PO BID duloxetine (Cymbalta) 30 mg PO DAILY gabapentin 800 mg PO TID [hydroxyzine HCl PRN] ibuprofen 800 mg PO Q8H PRN 30 days levonorgestrel (Mirena) intrauterine lidocaine 5% 1 patch topical DAILY metronidazole 500 mg PO BID 7 days naloxone 4 mg/actuation (Narcan) 4 mg intranasal Q2M PRN naproxen (Naprosyn) 500 mg PO BID ondansetron 4 mg PO Q6H PRN oxycodone 5 mg PO Q6H PRN pantoprazole 40 mg PO DAILY sumatriptan succinate (Imitrex) take 1 tab at onset of headache; if no relief may repeat 1 tab after at least 2 hrs; max = 4 tabs/24 hr PO tramadol 50 mg PO TID PRN HPI PO-Rt Shld 08/09/23 HPI Details 42-year-old female who returns to the [facility] today with an computer system specialist for post-op right shoulder , 08/09/[address] Short. She reports she sustained a fall on the stairs about 3 days ago which aggravated her pain. She takes oxycodone for her pain with benefits. She is doing well otherwise and has no other concerns today. [facility] Medical History Right shoulder pain Rheumatoid arthritis Hx of nausea and vomiting Constipation History of blood transfusion Anemia GERD (gastroesophageal reflux disease) Migraines Fibromyalgia Abnormal TSH Seropositive rheumatoid arthritis Surgical History Hx of cervical discectomy Hx of appendectomy Family History Father Cancer Mother Diabetes Hypertension Stroke Hypothyroidism Hypercholesteremia Social History Household Members: Significant Other and Children Household Members Other:: son Housing: Apartment Are you a primary care mgr to a significant other at home: No Do you presently have visiting nurse or other home services: No Alcohol intake: current Alcohol intake frequency: does not drink Patient Tobacco Use Status: Former Tobacco user Quit Date: 1999 Tobacco use type: Cigarette Advance Directives Date on File: 05/31/20 Review of Systems Const All systems reviewed & are unremarkable except as noted in HPI and below Physical Exam Extrem Other: Right shoulder: Incision clean, dry and intact. No erythema or drainage. Forward flexion to 100 degrees, external rotation to 90 degrees. NVI. Results Reviewed Results Reviewed: Pre-op diagnosis: Right shoulder impingement syndrome, right shoulder acromioclavicular joint arthritis Post-op diagnosis: same Procedure: Right shoulder diagnostic arthroscopy with right shoulder arthroscopic distal clavicle excision, right shoulder arthroscopic acromioplasty Implants: none Surgeon: Jayce Short MD Assessment & Plan Assessment & Plan (1) Impingement of right shoulder: Code(s): M25.811 - Other specified joint disorders, right shoulder Plan Sutures removed today, steri strips applied. I put her on course of physical therapy to work on ROM, periscapular stabilization and RTC strengthening. I did give her a refill of oxycodone 5 mg to take every 6-8 hours as needed along with a prescription of ibuprofen to help with her discomfort. I would like to see her back in [address] Short, sooner if needed. Orders: Orders PT Evaluation and Treatment Today M25.811 - Other specified joint disorders, right shoulder Medications: New ibuprofen 800 mg PO Q8H PRN 90 tabs 3RF pain 30 days S52.209D - Unspecified fracture of shaft of unspecified ulna, subsequent encounter for closed fracture with routine healing Changed From oxycodone Partial Fill upon patient request. 10 mg (2 x 5 mg) PO Q4H PRN 40 tabs 0RF pain To oxycodone Partial Fill upon patient request. 5 mg PO Q6H PRN 28 tabs 0RF pain Patient Instructions: Scribed for Go Taylor PA-C, by Peterson Vega manager medical writing, on 08/22/2023 at 9:00 AM EST. I, Go Taylor PA-C, have personally reviewed and agree with the information entered by the scribe. Coding Level of Care Code Global (92018) Diagnoses Impingement of right shoulder M25.811
== END 2023-08-22 09:52 | disposition home or self-care (01) ==
LOC: HO.HOS 09:16
PROVIDERS: PCP Family Medicine; Visit Provider Physician Assistant
DX: M25.811 Other specified joint disorders, right shoulder (principal)
CPT/HCPCS: 99024

== ENCOUNTER → 2023-08-22 09:16 | Outpatient (BNVA) | payer MEDICAID, SELFPAY | PROVIDERS: PCP Family Medicine; Visit Provider Physician Assistant | DX: M25.811 Other specified joint disorders, right shoulder (principal) | CPT/HCPCS: 99212 ==

== ENCOUNTER 2023-09-19 08:56 | Outpatient (AMB) | payer MEDICAID, SELFPAY ==
--- NOTE | 2023-09-19 08:57 | MHC.OFFVIS ---
Intake Intake Visit Reasons: PO-Rt Shld 08/09/23 Intake Note: Dilcia is a 43 year old female who presents for her post operative appointment of her Right shoulder 08/09/2023 . The patient reports continued moderate discomfort in her right shoulder. She denies any fevers or chills. She continues taking oxycodone as needed for discomfort. She continues to go to formal physical therapy. 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 Name: [id number] Allergies No Known Allergies [No Known Allergies*] Allergy (Verified 09/19/23 09:05) Medication List - Last Reconciled 09/19/23 by Jayce Short MD acetaminophen ER (Tylenol Arthritis Pain) 650 mg PO Q8H baclofen 20 mg PO BID PRN clindamycin phosphate 2% 1 appful vaginal BEDTIME 7 days cyclobenzaprine 10 mg PO BEDTIME diclofenac sodium 1% (Arthritis Pain (diclofenac)) 2 grams topical BID PRN docusate sodium (Colace) 100 mg PO BID duloxetine (Cymbalta) 30 mg PO DAILY gabapentin 800 mg PO TID [hydroxyzine HCl PRN] ibuprofen 800 mg PO Q8H PRN 30 days levonorgestrel (Mirena) intrauterine lidocaine 5% 1 patch topical DAILY metronidazole 500 mg PO BID 7 days naloxone 4 mg/actuation (Narcan) 4 mg intranasal Q2M PRN naproxen (Naprosyn) 500 mg PO BID ondansetron 4 mg PO Q6H PRN oxycodone 5 mg PO Q8H PRN oxycodone 5 mg PO Q8H PRN pantoprazole 40 mg PO DAILY sumatriptan succinate (Imitrex) take 1 tab at onset of headache; if no relief may repeat 1 tab after at least 2 hrs; max = 4 tabs/24 hr PO tramadol 50 mg PO TID PRN PFSH Medical History (Updated 09/19/23 @ 09:26 by Jayce Short MD) Right shoulder pain Rheumatoid arthritis Hx of nausea and vomiting Constipation History of blood transfusion Anemia GERD (gastroesophageal reflux disease) Migraines Fibromyalgia Abnormal TSH Seropositive rheumatoid arthritis Surgical History Hx of cervical discectomy Hx of appendectomy Family History Father Cancer Mother Diabetes Hypertension Stroke Hypothyroidism Hypercholesteremia Social History Household Members: Significant Other and Children Household Members Other:: son Housing: Apartment Are you a primary director of healthcare systems to a significant other at home: No Do you presently have visiting nurse or other home services: No Alcohol intake: current Alcohol intake frequency: does not drink Patient Tobacco Use Status: Former Tobacco user Quit Date: 1999 Tobacco use type: Cigarette Advance Directives Date on File: 05/31/20 Physical Exam Extrem Other: Physical examination of the patient's right shoulder shows that the surgical incisions are well healed, no erythema, slightly decreased range of motion when compared to her left shoulder, mild to moderate discomfort with range of motion, no instability Assessment & Plan Assessment & Plan (1) Right shoulder pain: Code(s): M25.511 - Pain in right shoulder Plan Ms. Willian Cross continues to do fairly well after undergoing right shoulder arthroscopic surgery on 03/09/2023. I discussed with the patient the fact that her discomfort will continue to improve over the next few months. She will continue focusing on range of motion exercises to prevent stiffness. I did refill her prescription for oxycodone. She will contact me prior to her follow-up appointment in 2 months should any questions or concerns arise. Feel free to call me at any time should questions regarding her orthopedic management arise. Medications: New oxycodone Partial Fill upon patient request. 5 mg PO Q8H PRN 30 tabs 0RF pain Coding Level of Care Code Global (22979) Diagnoses Right shoulder pain M25.511
== END 2023-09-19 09:25 | disposition home or self-care (01) ==
PROVIDERS: PCP Family Medicine; Visit Provider Orthopaedic Surgery
DX: M25.511 Pain in right shoulder (principal)
CPT/HCPCS: 99024

== ENCOUNTER → 2023-09-19 08:56 | Outpatient (BNVA) | payer MEDICAID, SELFPAY | PROVIDERS: PCP Family Medicine; Visit Provider Orthopaedic Surgery | DX: M25.511 Pain in right shoulder (principal) | CPT/HCPCS: 99212 ==

== ENCOUNTER 2023-09-24 08:00 | Outpatient (RCR) | payer MEDICAID, SELFPAY ==
--- NOTE | 2023-10-23 10:57 | MHC.PT.DC ---
[facility] [place] Office [place] Office [place] Office [address] Fallon Gray [address] [phone] F: [phone] F: [phone] F: [phone] F: [phone] Physical Therapy Discharge Report Diagnosis: SHOULDER PAIN (KP) Date of Surgery: 08/09/23 Date of Evaluation: 09/06/23 Date of Discharge: 10/23/23 Treatments to Date: 5 Cancellations to Date: 0 No Shows to Date: 0 Discharge Status: Patient Elected to Stop Recommend MD Follow-up Visit Non-compliance Discharge Summary: At last attended visit note states Pt presents with pain in the R shoulder, is unable to complete UT stretch using the R arm. Limited ROM during snow angels. Pain is not made worse during exercises but pt is preseverating on pain during exercises. The pt then No Showed for last two scheduled visits and we were unable to reach pt by phone. Current status is unknown. As pt appears unable to fuly participate on PT due to pain we recommend MD follow up. Electronically signed by: Ashley Cantor PT DPT Please sign and return to therapist. Thank you for your referral.
== END 2023-10-23 10:57 | disposition home or self-care (01) ==
LOC: HO.PT 08:00
PROVIDERS: PCP Family Medicine; Visit Provider Physician Assistant
DX: M25.811 Other specified joint disorders, right shoulder (principal)
CPT/HCPCS: 97110; 97140; 97161

== ENCOUNTER 2023-10-04 09:36 | Outpatient (REF) | payer MEDICAID, SELFPAY ==
[2023-10-04 11:40] LABS: Hematocrit 38.5 % (37.0-47.0); Hemoglobin 12.3 g/dl (12.0-16.0); Mean Corpuscular HGB Conc 31.9 g/dl (31.0-35.0); Mean Corpuscular Hemoglobin 29.1 pg (27.0-33.0); Mean Platelet Volume 9.8 fL (9.4-12.3); Platelet Count 333 X10*3/uL (160-400); Red Blood Count 4.23 X10*6/uL (4.20-5.50); Red Cell Distribution Width 13.8 % (11.0-16.0); White Blood Count 10.2 X10*3/uL (4.8-10.8)
[2023-10-04 11:50] LABS: Estimated Average Glucose 88 mg/dL; Hemoglobin A1c % 4.7 % (<6.0)
[2023-10-04 12:04] LABS: Alanine Aminotransferase 16 U/L (0-31); Alkaline Phosphatase 85 U/L (39-117); Anion Gap 10 (12-20); Aspartate Amino Transferase 13 U/L (5-31); Bilirubin Direct < 0.2 mg/dL (0.0-0.5); Bilirubin Total 0.2 mg/dL (0.0-1.0); Blood Urea Nitrogen 13 mg/dL (9-16); Calcium 9.3 mg/dL (8.4-10.2); Carbon Dioxide 28 mmol/L (22-29); Chloride 107 mmol/L (96-108); Cholesterol 149 mg/dL (<200); Estimated Glomerular Filt Rate > 60; Glucose Random 61 mg/dL (60-115); HDL Cholesterol 50 mg/dL (>40); Iron 81 mcg/dL (30-160); LDL Cholesterol Calculated 82 mg/dL (<100); Percent Iron Saturation 34 % (15-50); Sodium 141 mmol/L (135-145); Total Iron Binding Capacity 240 mcg/dL (228-428); Total Protein 7.7 g/dL (6.5-8.0); Triglycerides 88 mg/dL (<150); Unsaturated Iron Binding 159 ug/dL
[2023-10-04 12:21] LABS: Ferritin 80 ng/mL (10-250); Free T4 (Free Thyroxine) 0.92 ng/dL (0.71-1.85); Thyroid Stimulating Hormone 0.31 uIU/mL (0.32-4.0); Vitamin D 25-OH Total 31.5 ng/mL (>30)
[2023-10-04 12:23] LABS: Folate 13.6 ng/mL (> or = 4.0); Vitamin B12 368 pg/mL (200-900)
== END 2023-10-04 09:37 | disposition home or self-care (01) ==
LOC: HO.HHCL 09:36
PROVIDERS: Visit Provider Family Medicine
DX: D64.9 Anemia, unspecified (principal); Z00.00 Encounter for general adult medical examination without abnormal findings
CPT/HCPCS: 36415; 80048; 80061; 80076; 82306; 82607; 82728; 82746; 83036; 83540; 84439; 84443; 85027

== ENCOUNTER 2023-11-19 08:51 | Outpatient (AMB) | payer MEDICAID, SELFPAY ==
--- NOTE | 2023-11-19 08:54 | MHC.OFFVIS ---
Intake Intake Visit Reasons: OV-Rt Shld 08/09/23 Intake Note: Dilcia is a 43 year old female who presents for her post operative appointment of her Right shoulder 08/09/2023 . Patient states she has a little pain she can't lay on her shoulder without pain. She was doing physical therapy but it was causing more pain. She denies any fevers or chills. She is due to follow-up with the Rheumatology service in the near future. Perinatal Breastfeeding Assistant Name: [id number] Allergies No Known Allergies [No Known Allergies*] Allergy (Verified 11/19/23 09:05) Medication List - Last Reconciled 11/19/23 by Jayce Short MD acetaminophen ER (Tylenol Arthritis Pain) 650 mg PO Q8H baclofen 20 mg PO BID PRN clindamycin phosphate 2% 1 appful vaginal BEDTIME 7 days cyclobenzaprine 10 mg PO BEDTIME diclofenac sodium 1% (Arthritis Pain (diclofenac)) 2 grams topical BID PRN docusate sodium (Colace) 100 mg PO BID duloxetine (Cymbalta) 30 mg PO DAILY gabapentin 800 mg PO TID [hydroxyzine HCl PRN] ibuprofen 800 mg PO Q8H PRN 30 days levonorgestrel (Mirena) intrauterine lidocaine 5% 1 patch topical DAILY metronidazole 500 mg PO BID 7 days naloxone 4 mg/actuation (Narcan) 4 mg intranasal Q2M PRN naproxen (Naprosyn) 500 mg PO BID ondansetron 4 mg PO Q6H PRN oxycodone 5 mg PO Q8H PRN oxycodone 5 mg PO Q24H PRN pantoprazole 40 mg PO DAILY sumatriptan succinate (Imitrex) take 1 tab at onset of headache; if no relief may repeat 1 tab after at least 2 hrs; max = 4 tabs/24 hr PO tramadol 50 mg PO TID PRN PFSH Medical History Right shoulder pain Rheumatoid arthritis Hx of nausea and vomiting Constipation History of blood transfusion Anemia GERD (gastroesophageal reflux disease) Migraines Fibromyalgia Abnormal TSH Seropositive rheumatoid arthritis Surgical History Hx of cervical discectomy Hx of appendectomy Family History Father Cancer Mother Diabetes Hypertension Stroke Hypothyroidism Hypercholesteremia Social History Household Members: Significant Other and Children Household Members Other:: son Housing: Apartment Are you a primary personal care service provider to a significant other at home: No Do you presently have visiting nurse or other home services: No Alcohol intake: current Alcohol intake frequency: does not drink Patient Tobacco Use Status: Former Tobacco user Quit Date: 1999 Tobacco use type: Cigarette Advance Directives Date on File: 05/31/20 Physical Exam Const Other: Well-nourished well-developed very friendly female awake alert and oriented x3 in no acute distress Extrem Other: Bilateral upper extremity examination shows good capillary refill, no skin lesions noted, normal sensation light touch Right shoulder examination shows that the surgical incisions are well healed, no erythema, almost full range motion when compared to her left shoulder, minimal discomfort with range of motion Assessment & Plan Assessment & Plan (1) Right shoulder pain: Code(s): M25.511 - Pain in right shoulder Plan Ms. Willian Cross is doing well after undergoing right shoulder arthroscopic surgery on 08/09/2023. She will continue with her home stretching program to prevent stiffness. The do's and don'ts of lifting were discussed at length with the patient. She may have some residual discomfort due to her rheumatoid arthritis and her fibromyalgia. She will follow up with the rheumatoid Service as scheduled. She will contact me prior to her follow-up appointment in 3 months should any questions or concerns arise. Feel free to call me at any time should questions regarding her orthopedic management arise. I spent 22 minutes in reviewing the patient's records and imaging studies, seeing the patient and documenting in the medical record. Coding Level of Care Code Est Pt Level 2 (12518) Diagnoses Right shoulder pain M25.511
== END 2023-11-19 09:19 | disposition home or self-care (01) ==
PROVIDERS: PCP Family Medicine; Visit Provider Orthopaedic Surgery
DX: M25.511 Pain in right shoulder (principal)
CPT/HCPCS: 99213

== ENCOUNTER → 2023-11-19 08:51 | Outpatient (BNVA) | payer MEDICAID, SELFPAY | PROVIDERS: PCP Family Medicine; Visit Provider Orthopaedic Surgery | DX: M25.511 Pain in right shoulder (principal) | CPT/HCPCS: 99212 ==

== ENCOUNTER 2024-02-18 08:45 | Outpatient (AMB) | payer MEDICAID, SELFPAY ==
--- NOTE | 2024-02-18 08:53 | MHC.OFFVIS ---
Intake Visit Reasons: Neck pain Intake Note: Dilcia is a 43 year old female who presents with complaints of progressively worsening neck pain which radiates down her right arm to her right hand. The patient states that she did undergo cervical spine surgery at another facility 3-4 years ago. She states that initially she got good relief from the surgery. She states that her neck pain has gotten worse over the last year in spite of continued non operative treatments. She also reports intermittent weakness in her right arm. She did undergo right shoulder arthroscopic surgery on 08/09/2023. She reports minimal discomfort in her right shoulder. She has taken Tylenol and anti-inflammatory medicines which gave her minimal relief. She has also done physical therapy which aggravated her symptoms. She has failed the last 6 weeks of conservative treatment. Allergies No Known Allergies [No Known Allergies*] Allergy (Verified 02/18/24 08:53) Medication List - Last Reconciled 02/18/24 by Jayce Short MD acetaminophen ER (Tylenol Arthritis Pain) 650 mg PO Q8H baclofen 20 mg PO BID PRN clindamycin phosphate 2% 1 appful vaginal BEDTIME 7 days cyclobenzaprine 10 mg PO BEDTIME diclofenac sodium 1% (Arthritis Pain (diclofenac)) 2 grams topical BID PRN docusate sodium (Colace) 100 mg PO BID duloxetine (Cymbalta) 30 mg PO DAILY gabapentin 800 mg PO TID [hydroxyzine HCl PRN] ibuprofen 800 mg PO Q8H PRN 30 days levonorgestrel (Mirena) intrauterine lidocaine 5% 1 patch topical DAILY naloxone 4 mg/actuation (Narcan) 4 mg intranasal Q2M PRN naproxen (Naprosyn) 500 mg PO BID ondansetron 4 mg PO Q6H PRN pantoprazole 40 mg PO DAILY sumatriptan succinate (Imitrex) take 1 tab at onset of headache; if no relief may repeat 1 tab after at least 2 hrs; max = 4 tabs/24 hr PO tramadol 50 mg PO TID PRN PFSH Medical History Right shoulder pain Rheumatoid arthritis Hx of nausea and vomiting Constipation History of blood transfusion Anemia GERD (gastroesophageal reflux disease) Migraines Fibromyalgia Abnormal TSH Seropositive rheumatoid arthritis Surgical History Hx of cervical discectomy Hx of appendectomy Family History Father Cancer Mother Diabetes Hypertension Stroke Hypothyroidism Hypercholesteremia Social History Household Members: Significant Other and Children Household Members Other:: son Housing: Apartment Are you a primary long term care phlebotomist to a significant other at home: No Do you presently have visiting nurse or other home services: No Alcohol intake: current Alcohol intake frequency: does not drink Patient Tobacco Use Status: Former Tobacco user Tobacco use type: Cigarette Advance Directives Date on File: 05/31/20 Physical Exam Const Other: Well-nourished well-developed very friendly female awake alert and oriented x3 in no acute distress Neck Other: Cervical spine examination shows pain with range of motion, right-sided paraspinal muscle tenderness, positive Spurling's test, 4/5 strength with testing of her right biceps and wrist extensors when compared to 5/5 strength on her left side Assessment & Plan Assessment & Plan (1) Neck pain: Code(s): M54.2 - Cervicalgia Category: Medical Plan Ms. Willian Wayne presents with progressively worsening neck pain which radiates into her right arm with associated right arm weakness possibly due to cervical stenosis versus a disc herniation. Thus, I will send her for an MRI of her cervical spine for further evaluation. I will see her back once the MRI is completed to discuss the findings and treatment options. She will contact me prior to her MRI should her symptoms worsen in any way. Feel free to call me at any time should questions regarding her orthopedic management arise. I spent 20 minutes in reviewing the patient's records and imaging studies, seeing the patient and documenting in the medical record. Orders: Orders MR cervical spine wo con Today M54.2 - Cervicalgia Coding Level of Care Code Est Pt Level 3 (66496) Diagnoses Neck pain M54.2
== END 2024-02-18 08:59 | disposition home or self-care (01) ==
PROVIDERS: PCP Family Medicine; Referring Provider Family Medicine; Visit Provider Orthopaedic Surgery
DX: M54.2 Cervicalgia (principal)
CPT/HCPCS: 99213

== ENCOUNTER → 2024-02-18 08:45 | Outpatient (BNVA) | payer MEDICAID, SELFPAY | PROVIDERS: PCP Family Medicine; Visit Provider Orthopaedic Surgery | DX: M54.2 Cervicalgia (principal) | CPT/HCPCS: 99212 ==

== ENCOUNTER 2024-03-12 07:59 | Outpatient (AMB) | payer MEDICAID, SELFPAY ==
--- NOTE | 2024-03-12 08:12 | A.OFFVIS_ITS ---
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 Complaining of vulvovaginal itching with no foul odor. In addition, the patient is interested in STD screen Last Pap/HPV was negative in 11/01 Last Mammogram was BI-RADS 1 in 05/04 [facility] Medical History Right shoulder pain Rheumatoid arthritis Hx of nausea and vomiting Constipation History of blood transfusion Anemia GERD (gastroesophageal reflux disease) Migraines Fibromyalgia Abnormal TSH Seropositive rheumatoid arthritis Surgical History Hx of cervical discectomy Hx of appendectomy Family History Father Cancer Mother Diabetes Hypertension Stroke Hypothyroidism Hypercholesteremia Social History Household Members: Significant Other and Children Household Members Other:: son Housing: Apartment Are you a primary career services representative to a significant other at home: No Do you presently have visiting nurse or other home services: No Alcohol intake: current Alcohol intake frequency: does not drink Patient Tobacco Use Status: Former Tobacco user Tobacco use type: Cigarette Advance Directives Date on File: 05/31/20 Female Reproductive History Menstrual control method: progestin IUCD Total pregnancies: 6 Full term: 2 Number of Living Children: 2 Ab spontaneous: 4 Date of last pap smear: 11/07/22 Date of Mammogram: 04/23/23 Review of Systems Const All systems reviewed & are unremarkable except as noted in HPI and below Card Reports as per HPI Resp Reports as per HPI GI Reports as per HPI and Reports no additional complaints Reports as per HPI Physical Exam Vital Signs: Last Vital Signs BP 112/66 03/12/24 08:16 BMI result Body Mass Index 28.0 Const General: cooperative, healthy appearing and comfortable Chest Chest palpation & inspection: normal inspection of the chest and normal palpation of entire chest wall Breast/axilla inspection: normal inspection of the breasts and normal inspection of the axillae Breast/axilla palpation: normal palpation of the breasts, normal palpation of the axillae and no axillary lymphadenopathy Resp Effort & Inspection: normal respiratory effort Auscultation: clear to auscultation bilaterally Percussion: percussion normal Cardio Palpation: normal PMI Rate: regular rate Rhythm: regular rhythm Heart sounds: no murmurs and no rubs Peripheral pulses: Peripheral pulses 2+ throughout GI Inspection: Yes normal to inspection Palpation (GI): Soft to palpation, nontender, no guarding, not rigid and No hepatosplenomegaly present Percussion: Yes normal to percussion Auscultation: normal bowel sounds Rectal Exam - Female: deferred General: Yes bladder normal to palpation External Female Exam: No lesion Speculum Exam - Vagina: normal appearance of the vagina, normal palpation, normal vaginal discharge and not erythematous Speculum Exam - Cervix: normal appearance of the cervix and normal palpation Bimanual exam- vagina & uterus: normal bimanual exam, normal palpation, uterine size normal, bladder normal to palpation, consistency normal and normal palpation Bimanual Exam- Adnexa, other: normal adnexae, no masses and no tenderness Assessment & Plan Assessment & Plan (1) Well woman exam: Code(s): Z01.419 - Encounter for gynecological examination (general) (routine) without abnormal findings Category: Medical Plan: Cotesting not indicated this year. Instructions given the patient to schedule next screen Mammogram in 05/05. Counseled the patient about the recommended dietary allowance of 1000 mg of Calcium & 600 IU of vitamin D. The patient was instructed to perform monthly self-breast exams and to schedule an annual exam in a year; All questions answered and the patient verbalized understanding. Instructed the patient to schedule annual exam in a year (2) Vulvovaginitis due to Siomara: Code(s): B37.31 - Acute candidiasis of vulva and vagina Category: Medical Plan: GC/CT, Bacterial Vaginosis panel taken, Terazol 0.8% q.h.s. for 3 days was sent to the patient's pharmacy. The patient was instructed to call if symptoms don't improve in 48 hours. (3) Screen for STD (sexually transmitted disease): Code(s): Z11.3 - Encounter for screening for infections with a predominantly sexual mode of transmission Category: Medical Plan: STD screening tests done includes: BV panel for trichomonas, GC/CT will send patient for serology std screening for HIV, RPR, Hep b s Ag, HepC Ab. Instructions given the patient to schedule a follow-up appointment for repeat serology screen in 6 months for possible false negatives. Orders: Orders HIV Ab/Ag Today Z20.2 - Contact with and (suspected) exposure to infections with a predominantly sexual mode of transmission Syphilis Screen Today Z20.2 - Contact with and (suspected) exposure to infections with a predominantly sexual mode of transmission Hepatitis B Surface Antigen Today Z20.2 - Contact with and (suspected) exposure to infections with a predominantly sexual mode of transmission Hepatitis C Antibody Today Z20.2 - Contact with and (suspected) exposure to infections with a predominantly sexual mode of transmission Medications: New terconazole 0.8% 1 appful vaginal BEDTIME 3 days 20 grams 0RF Coding Level of Care Code Est Pt Prev Care 40-64y(96965) Diagnoses Well woman exam Z01.419 Vulvovaginitis due to Siomara B37.31 Screen for STD (sexually transmitted disease) Z11.3
[2024-03-12 08:16] VITALS: BP 112/66; BMI 28.0
== END 2024-03-12 08:31 | disposition home or self-care (01) ==
PROVIDERS: PCP Family Medicine; Referring Provider Family Medicine; Visit Provider Obstetrics & Gynecology
DX: Z01.419 Encounter for gynecological examination (general) (routine) without abnormal findings (principal); B37.31 Acute candidiasis of vulva and vagina; Z11.3 Encounter for screening for infections with a predominantly sexual mode of transmission
CPT/HCPCS: 99396

== ENCOUNTER 2024-03-12 07:59 | Outpatient (REF) | payer MEDICAID, SELFPAY ==
[2024-03-12 09:51] LABS: Syphilis Screen Nonreactive (Nonreactive)
[2024-03-12 09:53] LABS: HBsAGNum1 0.25 S/CO (0.00-0.99); HIV AB/AG Nonreactive (Nonreactive); HIV Num 1 0.04 S/CO (0.00-0.99); Hepatitis B Surface Antigen Negative (Negative); ~HepC Num1 0.12 S/CO (0.00-0.79); ~Hepatitis C Antibody Nonreactive (Nonreactive)
[2024-03-12 15:22] LABS: Bacterial Vaginosis PCR NEGATIVE (Negative); Candida Group PCR DETECTED (Not Detect); Candida glab krusei PCR NOT DETECTED (Not Detect); Trichomonas vaginalis PCR NOT DETECTED (Not Detect)
[2024-03-12 15:45] LABS: CT PCR NOT DETECTED (Not Detect.); NG PCR NOT DETECTED (Not Detect.)
== END 2024-03-12 08:00 | disposition home or self-care (01) ==
LOC: HO.LAB 07:59
PROVIDERS: PCP Family Medicine; Visit Provider Obstetrics & Gynecology
DX: Z01.419 Encounter for gynecological examination (general) (routine) without abnormal findings (principal); Z11.4 Encounter for screening for human immunodeficiency virus [HIV]; Z11.3 Encounter for screening for infections with a predominantly sexual mode of transmission; Z20.2 Contact with and (suspected) exposure to infections with a predominantly sexual mode of transmission; B37.31 Acute candidiasis of vulva and vagina
CPT/HCPCS: 0352U; 36415; 86780; 86803; 87340; 87389; 87491; 87591; 99396

== ENCOUNTER 2024-03-12 08:45 | Outpatient (REF) | payer MEDICAID, SELFPAY | END 2024-03-12 08:46 | disposition home or self-care (01) | LOC: HO.LNP 08:45 | PROVIDERS: Visit Provider Obstetrics & Gynecology | DX: Z13.89 Encounter for screening for other disorder (principal) ==

== ENCOUNTER 2024-03-24 18:47 | Emergency (ER) | payer MEDICAID, SELFPAY ==
[2024-03-24 19:10] VITALS: BP 136/79; PULSE 87; RESP 16; TEMP 37.1; O2SAT 99; BMI 28.8
[2024-03-24 20:21] VITALS: BP 140/95; PULSE 83; RESP 18; TEMP 36.6; O2SAT 99
--- NOTE | 2024-03-24 21:12 | ED_ITS ---
HPI - General Adult General Chief complaint: Extremity Problem Stated complaint: neck/ear pain Time Seen by Provider: 03/24/24 19:58 Source: patient Mode of arrival: ambulatory Limitations: no limitations History of Present Illness ED Provider: Dr. Jodi Esparza HPI narrative: Patient comes to the emergency room complaining of chronic right shoulder pain for approximately 10+ months now. Patient has had MRIs, shoulder surgery. Patient states that she is still having pain for the last 10 months. Patient states that now when she sleeps she has worsening pain. Patient denies any new injuries. Denies numbness tingling of the arm, patient states that the pain is localized in the suprascapular area on the right Related Data Home Medications ?Medication ?Instructions ?Recorded ?Confirmed tramadol 50 mg tablet 50 mg PO TID PRN Pain 12/06/20 02/18/24 gabapentin 800 mg tablet 800 mg PO TID 11/10/21 02/18/24 duloxetine 30 mg capsule,delayed 30 mg PO DAILY 09/20/22 02/18/24 release (Cymbalta) diclofenac sodium 1 % topical gel 2 g topical BID PRN Pain 10/05/22 02/18/24 (Arthritis Pain (diclofenac)) docusate sodium 100 mg capsule 100 mg PO BID 10/05/22 02/18/24 (Colace) lidocaine 5 % topical patch 1 patch topical DAILY 10/05/22 02/18/24 naloxone 4 mg/actuation nasal 4 mg intranasal Q2M PRN Opioid 10/05/22 02/18/24 spray (Narcan) Overdose pantoprazole 40 mg tablet,delayed 40 mg PO DAILY 10/05/22 02/18/24 release sumatriptan succinate 50 mg tablet See Rx Instructions PO .COMPLEX 10/05/22 02/18/24 (Imitrex) levonorgestrel 21 mcg/24 hr (up to intrauterine 11/20/22 02/18/24 8 years) 52 mg intrauterine device (Mirena) hydroxyzine HCl PRN Anxiety 08/06/23 02/18/24 levonorgestrel 21 mcg/24 hr (up to intrauterine 03/12/24 8 years) 52 mg intrauterine device (Mirena) Previous Rx's ?Medication ?Instructions ?Recorded ondansetron 4 mg disintegrating 4 mg PO Q6H PRN nausea and 06/13/22 tablet vomiting #10 tabs acetaminophen 650 mg 650 mg PO Q8H #90 tabs 03/05/23 tablet,extended release (Tylenol Arthritis Pain) cyclobenzaprine 10 mg tablet 10 mg PO BEDTIME #30 tabs 03/05/23 naproxen 500 mg tablet (Naprosyn) 500 mg PO BID #60 tabs 03/05/23 clindamycin phosphate 2 % vaginal 1 appful vaginal BEDTIME 7 days 05/30/23 cream #40 grams baclofen 20 mg tablet 20 mg PO BID PRN for muscle spasm 07/22/23 #60 tabs ibuprofen 800 mg tablet 800 mg PO Q8H PRN pain 30 days #90 08/22/23 tabs clotrimazole-betamethasone 1 1 appl topical BID 5 days #45 grams 03/12/24 %-0.05 % topical cream terconazole 0.8 % vaginal cream 1 appful vaginal BEDTIME 3 days 03/12/24 #20 grams oxycodone 5 mg tablet 5 mg PO BID PRN pain #7 tabs 03/24/24 Allergies Allergy/AdvReac Type Severity Reaction Status Date / Time No Known Allergies Allergy Verified 03/24/24 19:13 [No Known Allergies*] Review of Systems Review of Systems: Constitutional : No Weight loss, No Fever, No Chills, No Night Sweats, No Fatigue, No Malaise ENT/Mouth : No Hearing loss, No Ear Pain, No Nasal Congestion, No Sinus Pain, No Hoarseness, No sore throat, No Rhinorrhea, No Swallowing Difficulty Eyes: No Eye Pain, No Swelling, No Redness, No Foreign Body, No Discharge, No Vision Changes Cardiovascular : No Chest Pain, No SOB, No Dyspnea on Exertion, No Orthopnea, No Edema, No Palpitations Respiratory : No Cough, No Sputum, No Wheezing, No Smoke Exposure, No Dyspnea Gastrointestinal : No Nausea, No Vomiting, No Diarrhea, No Constipation, No abdominal Pain, No Hematochezia, No Melena Genitourinary : no irregular bleeding, No Dysuria, No Urinary Frequency, No Hematuria, No Urinary Incontinence, No Urgency, No Flank Pain, No Urinary Flow Changes, No Hesitancy Musculoskeletal : Chronic pain in the suprascapular area on the right Skin : No Skin Lesions, No rash Neuro : No Weakness, No Numbness, No Paresthesias, No Loss of Consciousness, No Dizziness, No Headache Psych : No Anxiety/Panic, No Depression, No SI/HI/AH/VH, No Social Issues, Heme/Lymph: No Bruising, No Bleeding,No Lymphadenopathy Endocrine : No Polyuria, No Polydipsia, No Temperature Intolerance [facility] Past Medical History Medical History Right shoulder pain Rheumatoid arthritis Hx of nausea and vomiting Constipation History of blood transfusion Anemia GERD (gastroesophageal reflux disease) Migraines Fibromyalgia Abnormal TSH Seropositive rheumatoid arthritis Surgical History Hx of cervical discectomy Hx of appendectomy Family History Family History Father Cancer Mother Diabetes Hypertension Stroke Hypothyroidism Hypercholesteremia Social History Social History Household Members: Significant Other and Children Household Members Other:: son Housing: Apartment Are you a primary care manager to a significant other at home: No Do you presently have visiting nurse or other home services: No Alcohol intake: current Alcohol intake frequency: does not drink Patient Tobacco Use Status: Former Tobacco user Tobacco use type: Cigarette Advance Directives: No Advance Directives Information Provided: No Advance Directives Date on File: 05/31/20 Do you have a plan to hurt others: No Plan Physical Exam ED Vital Signs: Vital Signs - 24 hr 03/24/24 19:10 03/24/24 20:21 Temperature 98.8 F 97.8 F Pulse Rate 87 83 Respiratory Rate 16 18 Blood Pressure 136/79 140/95 H Pulse Oximetry 99 99 Oxygen Delivery Method Room Air Room Air BMI result Body Mass Index 28.8 Const Other: Appearance: Alert. Oriented X3. No acute distress. Eyes: Pupils equal, round and reactive to light. ENT: Pharynx normal. Neck: Normal inspection. Neck supple. No lymph nodes noted. No crepitus CVS: Normal heart rate and rhythm. Pulses normal. Normal S1 and S2 Respiratory: No respiratory distress. Breath sounds normal. No Wheezing. No rales Abdomen: Soft and nontender. No rigidity. No distention. Skin: Skin warm and dry. Normal skin color. Normal skin turgor. Extremities: No lower extremity edema. No Lacerations. No Rash normal range of motion, able to abduct the arm Neuro: Oriented X 3. No motor deficit. No sensory deficit. Moving all extremities. No slurred speech. CN 2 through 12 grossly intact Psych: calm, cooperative, normal affect Medical Decision Making Medical Decision Making MDM Narrative: I reviewed patient's MRI from 2022, patient likely had tendonitis versus osteoarthritis or a small tear. Patient states she had shoulder surgery after the MRI. Patient is scheduled for an MRI next week -I discussed with the patient that at this time, from here in emergency room, we can provide her with pain medication. However, we will not be able to provide a definitive cure. Patient instructed to follow-up with her orthopedics surgeon, patient may need physical therapy -patient agrees with plan Differential Diagnosis Differential Diagnoses: The differential diagnosis associated with the presentation includes (Chronic right shoulder pain, chronic supraclavicular pain on the right) Discharge Plan Discharge Clinical Impression: Musculoskeletal pain Patient Disposition: Home, Self-Care Instructions: Musculoskeletal Pain (ED) Additional Instructions: Please follow-up with your primary care physician tomorrow. If you have any worsening or new symptoms, please return to the emergency room or call 911 Prescriptions: New oxycodone 5 mg tablet 5 mg PO BID PRN (Reason: pain) Qty: 7 0RF Rx Instructions: Partial Fill upon patient request. No Action docusate sodium [Colace] 100 mg capsule 100 mg PO BID diclofenac sodium [Arthritis Pain (diclofenac)] 1 % gel 2 g topical BID PRN (Reason: Pain) Rx Instructions: apply to single elbow, wrist or hand; for hand includes palm/fingers/back of hand sumatriptan succinate [Imitrex] 50 mg tablet See Rx Instructions PO .COMPLEX Rx Instructions: take 1 tab at onset of headache; if no relief may repeat 1 tab after at least 2 hrs; max = 4 tabs/24 hr PO lidocaine 5 % adhesive patch,medicated 1 patch topical DAILY Rx Instructions: leave on most painful area for up to 12 hrs naloxone [Narcan] 4 mg/actuation spray,non-aerosol 4 mg intranasal Q2M PRN (Reason: Opioid Overdose) Rx Instructions: spray 1 dose into ONE nostril; alternate nostrils w each dose until help arrives pantoprazole 40 mg tablet,delayed release (DR/EC) 40 mg PO DAILY naproxen [Naprosyn] 500 mg tablet 500 mg PO BID Qty: 60 5RF acetaminophen [Tylenol Arthritis Pain] 650 mg tablet extended release 650 mg PO Q8H Qty: 90 5RF cyclobenzaprine 10 mg tablet 10 mg PO BEDTIME Qty: 30 3RF baclofen 20 mg tablet 20 mg PO BID PRN (Reason: for muscle spasm) Qty: 60 0RF ondansetron 4 mg tablet,disintegrating 4 mg PO Q6H PRN (Reason: nausea and vomiting) Qty: 10 0RF hydroxyzine HCl PRN (Reason: Anxiety) tramadol 50 mg tablet 50 mg PO TID PRN (Reason: Pain) gabapentin 800 mg tablet 800 mg PO TID duloxetine [Cymbalta] 30 mg capsule,delayed release(DR/EC) 30 mg PO DAILY Mirena 21 mcg/24 hr (8 yrs) 52 mg intrauterine device intrauterine terconazole 0.8 % cream 1 appful vaginal BEDTIME 3 Days Qty: 20 0RF clotrimazole-betamethasone 1-0.05 % cream 1 appl topical BID 5 Days Qty: 45 0RF Mirena 21 mcg/24 hours (8 yrs) 52 mg intrauterine device intrauterine clindamycin phosphate 2 % cream 1 appful vaginal BEDTIME 7 Days Qty: 40 0RF Rx Instructions: for 3 days ibuprofen 800 mg tablet 800 mg PO Q8H PRN (Reason: pain) 30 Days Qty: 90 3RF Print Language: Chinese
[2024-03-24] MEDS: Ketorolac Tromethamine 60 MG/2 ML VIAL IM (21:23)
[2024-03-24 21:33] VITALS: BP 140/95; PULSE 83; RESP 18; TEMP 36.6; O2SAT 99
== END 2024-03-24 21:34 | disposition home or self-care (01) ==
PROVIDERS: Emergency Provider Emergency Medicine; PCP Family Medicine
DX: M25.511 Pain in right shoulder (principal)
CPT/HCPCS: 96372; 99283; 99284; J1885

== ENCOUNTER 2024-03-31 07:20 | Outpatient (REF) | payer MEDICAID, SELFPAY ==
--- NOTE | ~2024-03-31 | MR_ITS ---
EXAMINATION: MR CERVICAL SPINE WITHOUT CONTRAST CLINICAL INFORMATION: Cervicalgia. COMPARISON: CT scan of the cervical spine 02/06/2022. MRI scan of the cervical spine 04/22/2019. TECHNIQUE: MRI of the cervical spine was obtained using routine sequences without contrast. FINDINGS: VERTEBRAL BODIES AND PARASPINAL SOFT TISSUES: There is overall straightening of the normal cervical lordosis. The study redemonstrates an interbody device/prosthetic intervertebral disc replacement at C5-C6. The hardware causes moderate susceptibility artifact. Intervertebral disc heights are slightly narrowed at C3-C4 and C4-C5. Vertebral body heights are maintained and no fractures are demonstrated. Overall, marrow signal is homogenous. There are a few nonenlarged cervical lymph nodes at multiple levels in the neck. The other regional soft tissues are unremarkable. CERVICOMEDULLARY JUNCTION AND VISUALIZED POSTERIOR FOSSA: There is a partially empty sella. The cerebellar tonsils have normal contour and position. Posterior fossa structures are unremarkable. Accounting for artifact, spinal cord signal appears normal. SPINAL LEVELS: C2-C3: The facet joints appear normal bilaterally. Posterior disc contour is normal. There is no spinal cord compression or central stenosis. The neural foramina are patent bilaterally. C3-C4: The facets appear normal bilaterally. There is a small soft disc protrusion in the midline which indents the thecal sac and impinges on the ventral spinal cord, but there is no central stenosis or cord compression. The neural foramina are patent bilaterally. C4-C5: The facet joints appear normal bilaterally. There is a small right paracentral soft disc protrusion without mass effect. There is no spinal cord compression or central stenosis. The neural foramina are patent bilaterally. C5-C6: The facet joints appear normal bilaterally. Posterior vertebral body contours appear normal and there is no cord compression or central stenosis. The neural foramina are patent bilaterally. C6-C7: The facet joints appear normal bilaterally. Posterior disc contour is normal. There is no spinal cord compression or central stenosis. The neural foramina are patent bilaterally. C7-T1: The facet joints appear normal bilaterally. Posterior disc contour is normal. There is no spinal cord compression or central stenosis. The neural foramina are patent bilaterally. MR/MR cervical spine wo con IMPRESSION: 1. The study redemonstrates an interbody device/prosthetic intervertebral disc replacement at C5-C6. There is no spinal cord compression or central stenosis. The neural foramina are patent. 2. At C3-C4 there is a small soft disc protrusion in the midline which indents the thecal sac and impinges on the ventral spinal cord, but there is no central stenosis or cord compression. The neural foramina are patent. 3. At C4-C5 there is a small right paracentral soft disc protrusion without mass effect. There is no spinal cord compression or central stenosis. The neural foramina are patent. Electronically signed by: Ramiro Pollack MD 04/17/2024 01:51 PM EDT RP
== END 2024-03-31 07:21 | disposition home or self-care (01) ==
LOC: HO.MRI 07:20
PROVIDERS: PCP Family Medicine; Visit Provider Orthopaedic Surgery
DX: M54.2 Cervicalgia (principal)
CPT/HCPCS: 72141

== ENCOUNTER 2024-04-16 09:18 | Outpatient (AMB) | payer MEDICAID, SELFPAY ==
--- NOTE | 2024-04-16 09:19 | MHC.OFFVIS ---
Intake Visit Reasons: MRI Neck follow up Intake Note: Dilcia is a 43 year old female who presents with complaints of progressively worsening neck pain which radiates down her right arm to her right hand. The patient states that she did undergo cervical spine surgery at another facility 3-4 years ago. She states that initially she got good relief from the surgery. She states that her neck pain has gotten worse over the last year in spite of continued non operative treatments. She also reports intermittent weakness in her right arm. She did undergo right shoulder arthroscopic surgery on 08/09/2023. She reports minimal to moderate discomfort in her right shoulder. She has taken Tylenol, , anti-inflammatory medicines, muscle relaxants, gabapentin and oxycodone which gave her minimal relief. She has also done physical therapy which aggravated her symptoms. She states that she has been to the emergency room on 2 occasions because of her pain. Crop And Soil Scientist Required: Yes Crop And Soil Scientist Language: Crop Nutrition Scientist Services: Crop And Soil Scientist Present Crop And Soil Scientist Name: RaulPAPI/JOSHUA Allergies No Known Allergies [No Known Allergies*] Allergy (Verified 04/16/24 09:19) Medication List - Last Reconciled 04/16/24 by Jayce Short MD acetaminophen ER (Tylenol Arthritis Pain) 650 mg PO Q8H baclofen 20 mg PO BID PRN clindamycin phosphate 2% 1 appful vaginal BEDTIME 7 days clotrimazole-betamethasone 1-0.05 % 1 appl topical BID 5 days cyclobenzaprine 10 mg PO BEDTIME diclofenac sodium 1% (Arthritis Pain (diclofenac)) 2 grams topical BID PRN docusate sodium (Colace) 100 mg PO BID duloxetine (Cymbalta) 30 mg PO DAILY gabapentin 800 mg PO TID [hydroxyzine HCl PRN] ibuprofen 800 mg PO Q8H PRN 30 days levonorgestrel (Mirena) intrauterine levonorgestrel (Mirena) intrauterine lidocaine 5% 1 patch topical DAILY naloxone 4 mg/actuation (Narcan) 4 mg intranasal Q2M PRN naproxen (Naprosyn) 500 mg PO BID ondansetron 4 mg PO Q6H PRN oxycodone 5 mg PO BID PRN pantoprazole 40 mg PO DAILY sumatriptan succinate (Imitrex) take 1 tab at onset of headache; if no relief may repeat 1 tab after at least 2 hrs; max = 4 tabs/24 hr PO terconazole 0.8% 1 appful vaginal BEDTIME 3 days tramadol 50 mg PO TID PRN PFSH Medical History Right shoulder pain Rheumatoid arthritis Hx of nausea and vomiting Constipation History of blood transfusion Anemia GERD (gastroesophageal reflux disease) Migraines Fibromyalgia Abnormal TSH Seropositive rheumatoid arthritis Surgical History Hx of cervical discectomy Hx of appendectomy Family History Father Cancer Mother Diabetes Hypertension Stroke Hypothyroidism Hypercholesteremia Social History Household Members: Significant Other and Children Household Members Other:: son Housing: Apartment Are you a primary career development manager to a significant other at home: No Do you presently have visiting nurse or other home services: No Alcohol intake: current Alcohol intake frequency: does not drink Patient Tobacco Use Status: Former Tobacco user Tobacco use type: Cigarette Advance Directives Date on File: 05/31/20 Physical Exam Neck Other: Cervical spine examination shows right-sided paraspinal muscle tenderness, pain with range of motion, positive Spurling's test Results Reviewed Results Reviewed: MRI of the patient's cervical spine was performed on 03/31/2024, no official report is yet available, possible central stenosis by my reading Assessment & Plan Assessment & Plan (1) Cervical stenosis of spinal canal: Code(s): M48.02 - Spinal stenosis, cervical region Category: Medical Plan Ms. Willian Cross presents with progressively worsening neck pain which radiates down her right arm possibly due to cervical stenosis. Although the official radiology report is not available I will put in a referral for an evaluation in our neurosurgery department here at [facility] because of the severity of her symptoms. She will continue taking her pain medicine regimen for now. She will follow-up as instructed. Feel free to call me should any questions regarding her orthopedic management arise. I spent 21 minutes in reviewing the patient's records and imaging studies, seeing the patient and documenting in the medical record. Orders: Referrals Neuro Spine Referral M48.02 - Spinal stenosis, cervical region Coding Level of Care Code Est Pt Level 3 (27454) Complex EM visit Add On G2961 Diagnoses Cervical stenosis of spinal canal M48.02
== END 2024-04-16 09:41 | disposition home or self-care (01) ==
PROVIDERS: PCP Family Medicine; Referring Provider Family Medicine; Visit Provider Orthopaedic Surgery
DX: M48.02 Spinal stenosis, cervical region (principal)
CPT/HCPCS: 99213

== ENCOUNTER → 2024-04-16 09:18 | Outpatient (BNVA) | payer MEDICAID, SELFPAY | PROVIDERS: PCP Family Medicine; Visit Provider Orthopaedic Surgery | DX: M48.02 Spinal stenosis, cervical region (principal); M25.511 Pain in right shoulder | CPT/HCPCS: 99212 ==

== ENCOUNTER 2024-04-20 13:33 | Outpatient (AMB) | payer MEDICAID, SELFPAY ==
--- NOTE | 2024-04-20 13:43 | A.SPINEOV_ITS ---
Intake Visit Reasons: neck pain Intake Note: Ms. Willian Cross is here today c/o neck pain. Wire Communications Engineer Required: Yes Wire Communications Engineer Name: Tablet Allergies No Known Allergies [No Known Allergies*] Allergy (Verified 04/16/24 09:19) Assessment & Plan Assessment & Plan (1) Cervical stenosis of spinal canal: Code(s): M48.02 - Spinal stenosis, cervical region Category: Medical Plan Dear Dr. Short, Thank you for referring Dilcia to our office today. She is a pleasant 43 y/o female who comes in today with a chief complaint of right-sided neck and shoulder pain. She denies any radiation of the pain down her arm. She reports this has been ongoing for the past couple of years, and never fully resolved from her previous C5-6 cervical fusion surgery. She reports the surgery was completed by Dr. Landry at [facility] roughly 3-4 years ago. When describing the pain she says it is severe in nature and is keeping her awake at night. She denies any alleviating/aggravating factors. She is currently taking Tylenol, baclofen, diclofenac gel, gabapentin, ibuprofen all in an attempt to help mitigate her pain. She is also taken oxycodone and tramadol in the past. She denies any numbness/tingling/weakness in her upper extremities. She denies any difficulties with ambulation or issues with dexterity. PMH: Rheumatoid arthritis, migraines, hemorrhoids, chronic constipation, anemia, seborrheic keratosis, abnormal uterine bleeding, fibromyalgia. Social hx: The patient does not smoke, reports no substance use. Medications: Tramadol, oxycodone, Zofran, pantoprazole, sumatriptan, ondansetron, naproxen, lidocaine patches, ibuprofen, baclofen, diclofenac, gabapentin, Mirena, duloxetine. Allergies: NKDA. Physical exam: The patient has 5/5 strength in her upper and lower extremities. She has no significant sensational deficits. Her reflexes are 2+ intact. She rises from a seated position without difficulty and ambulates without issue. Her gait is non spastic. She has no issues with articulation. (-) Lhermitte's, (-) clonus, (-) Cabrera's, (-) bilateral straight leg raise. Imaging review: MRI of the cervical spine completed here at [facility] appears to show stable placement of surgical construct on axial view. Unfortunately orientation on sagittal is not possible due to the implant interacting with the magnetic resonance imaging. No obvious indication of myelomalacia or signal change. No significant central canal or bilateral foraminal stenosis. Impression: Dilcia is a pleasant 43-year-old female comes in today with a chief complaint of right-sided neck/shoulder pain. This has been ongoing since her previous C5-6 cervical fusion surgery and did not improve despite cervical interventions which attempted to solve her problem. It is difficult to get a clear view on sagittal imaging of the surgical construct, however the axial views extremely reassuring as it shows no obvious foraminal stenosis. I believe that the patient's symptoms are unrelated to the cervical spine in terms of neuroanatomy / impingement. I recommend the patient follow-up with one of our physiatry colleagues to discuss pain control options. Her symptoms very well may be residual from surgery, or could be related to her rheumatoid arthritis/fibromyalgia. Thank you for allowing us to care for your patient. The total time spent with this visit with this patient was 45 minutes reviewing history, physical exam, MRI imaging review, and implementation of treatment plan or further diagnostic testing Virgilio Archer MD,PhD [facility] Orders: Referrals Pain Management Referral M48.02 - Spinal stenosis, cervical region Coding Level of Care Code New Pt Level 4 (68065) Diagnoses Cervical stenosis of spinal canal M48.02
== END 2024-04-20 14:45 | disposition home or self-care (01) ==
PROVIDERS: PCP Family Medicine; Referring Provider Orthopaedic Surgery; Visit Provider Physician Assistant
DX: M48.02 Spinal stenosis, cervical region (principal)
CPT/HCPCS: 99204

== ENCOUNTER → 2024-04-20 13:33 | Outpatient (BNVA) | payer MEDICAID, SELFPAY | PROVIDERS: PCP Family Medicine; Visit Provider Physician Assistant | DX: M48.02 Spinal stenosis, cervical region (principal) | CPT/HCPCS: 99212 ==

== ENCOUNTER 2024-05-01 09:01 | Outpatient (REF) | payer MEDICAID, SELFPAY ==
[2024-05-01 11:40] LABS: Hematocrit 41.3 % (37.0-47.0); Hemoglobin 12.9 g/dl (12.0-16.0); Mean Corpuscular HGB Conc 31.2 g/dl (31.0-35.0); Mean Corpuscular Hemoglobin 27.7 pg (27.0-33.0); Mean Corpuscular Volume 88.8 fL (80.0-98.0); Mean Platelet Volume 9.7 fL (9.4-12.3); Platelet Count 298 X10*3/uL (160-400); Red Blood Count 4.65 X10*6/uL (4.20-5.50); White Blood Count 6.7 X10*3/uL (4.8-10.8)
[2024-05-01 12:15] LABS: Estimated Average Glucose 103 mg/dL; Hemoglobin A1c % 5.2 % (<6.0)
[2024-05-01 12:18] LABS: Alanine Aminotransferase 16 U/L (0-31); Albumin Level 3.9 g/dL (3.5-5.0); Alkaline Phosphatase 62 U/L (39-117); Anion Gap 9 (12-20); Aspartate Amino Transferase 17 U/L (5-31); Bilirubin Direct 0.2 mg/dL (0.0-0.5); Bilirubin Total 0.3 mg/dL (0.0-1.0); Blood Urea Nitrogen 8 mg/dL (9-16); Calcium 8.9 mg/dL (8.4-10.2); Carbon Dioxide 26 mmol/L (22-29); Chloride 108 mmol/L (96-108); Cholesterol 160 mg/dL (<200); Estimated Glomerular Filt Rate > 60; Glucose Random 82 mg/dL (60-115); HDL Cholesterol 49 mg/dL (>40); Iron 98 mcg/dL (30-160); LDL Cholesterol Calculated 96 mg/dL (<100); Percent Iron Saturation 42 % (15-50); Sodium 139 mmol/L (135-145); Total Iron Binding Capacity 231 mcg/dL (228-428); Total Protein 7.5 g/dL (6.5-8.0); Triglycerides 79 mg/dL (<150); Unsaturated Iron Binding 133 ug/dL
[2024-05-01 12:20] LABS: Ferritin 118 ng/mL (10-250); Free T4 (Free Thyroxine) 0.86 ng/dL (0.71-1.85); Thyroid Stimulating Hormone 0.32 uIU/mL (0.32-4.0); Vitamin D 25-OH Total 36.1 ng/mL (>30)
[2024-05-01 12:23] LABS: Folate 14.1 ng/mL (> or = 4.0); Vitamin B12 360 pg/mL (200-900)
[2024-05-01 12:25] LABS: Hepatitis A Antibody IgG REACTIVE (Nonreactive); ~Hepatitis A Antibody IgG 2.33 S/CO (0.00-0.99)
[2024-05-01 12:28] LABS: HBS Num1 70.68 mIU/mL (0-7.99); HBc Num1 0.23 S/CO (0.00-0.79); HBsAGNum1 0.47 S/CO (0.00-0.99); HIV AB/AG Nonreactive (Nonreactive); HIV Num 1 0.05 S/CO (0.00-0.99); Hepatitis B Core Antibody Nonreactive (Nonreactive); Hepatitis B Surface Antigen Negative (Negative); ~HepC Num1 0.11 S/CO (0.00-0.79); ~Hepatitis B Surface Antibody REACTIVE (Nonreactive); ~Hepatitis C Antibody Nonreactive (Nonreactive)
[2024-05-01 13:37] LABS: CT PCR NOT DETECTED (Not Detect.); NG PCR NOT DETECTED (Not Detect.)
[2024-05-04 15:39] LABS: RPR Rapid Plasma Reagin NON-REACTIVE (NON-REACTIVE)
== END 2024-05-01 09:02 | disposition home or self-care (01) ==
LOC: HO.HHCL 09:01
PROVIDERS: Visit Provider Family Medicine
DX: Z00.00 Encounter for general adult medical examination without abnormal findings (principal); F41.9 Anxiety disorder, unspecified; D64.9 Anemia, unspecified; G43.909 Migraine, unspecified, not intractable, without status migrainosus; M06.9 Rheumatoid arthritis, unspecified; M79.7 Fibromyalgia; M25.511 Pain in right shoulder; G89.29 Other chronic pain; K59.09 Other constipation; Z68.39 Body mass index [BMI] 39.0-39.9, adult; Z23 Encounter for immunization
CPT/HCPCS: 36415; 80048; 80061; 80076; 82306; 82607; 82728; 82746; 83036; 83540; 84439; 84443; 85027; 86592; 86704; 86706; 86708; 86803; 87340; 87389; 87491; 87591

== ENCOUNTER 2024-05-20 07:48 | Outpatient (AMB) | payer MEDICAID, SELFPAY ==
--- NOTE | 2024-05-20 07:50 | MHC.OFFVIS ---
Vital Signs 05/20/24 07:52 Height 5 ft 2 in Weight 159 lb 2.78 oz BMI 29.1 BP 112/78 Blood Pressure Location Rt brachial Position Sitting Pulse 95 Pulse Source Pulse Oximeter Pulse Oximetry (%) 97 Oxygen Delivery Method Room Air Intake Visit Reasons: FM/CM Intake Note: Patient presents for FM. Regulatory Affairs Specialist Required: Yes Regulatory Affairs Specialist Language: Health Physicist Services: Regulatory Affairs Specialist Present Regulatory Affairs Specialist Name: Eduardo [id number] Information Interpreted: non-clinical & clinical Allergies No Known Allergies [No Known Allergies*] Allergy (Verified 05/20/24 07:53) Medication List - Last Reconciled 05/20/24 by Padmini Cleary MD acetaminophen ER (Tylenol Arthritis Pain) 650 mg PO Q8H baclofen 20 mg PO BID PRN clindamycin phosphate 2% 1 appful vaginal BEDTIME 7 days clotrimazole-betamethasone 1-0.05 % 1 appl topical BID 5 days cyclobenzaprine 10 mg PO BEDTIME diclofenac sodium 1% (Arthritis Pain (diclofenac)) 2 grams topical BID PRN docusate sodium (Colace) 100 mg PO BID duloxetine (Cymbalta) 30 mg PO DAILY gabapentin 800 mg PO TID [hydroxyzine HCl PRN] ibuprofen 800 mg PO Q8H PRN 30 days levonorgestrel (Mirena) intrauterine levonorgestrel (Mirena) intrauterine lidocaine 5% 1 patch topical DAILY naloxone 4 mg/actuation (Narcan) 4 mg intranasal Q2M PRN naproxen (Naprosyn) 500 mg PO BID ondansetron 4 mg PO Q6H PRN oxycodone 5 mg PO BID PRN pantoprazole 40 mg PO DAILY sumatriptan succinate (Imitrex) take 1 tab at onset of headache; if no relief may repeat 1 tab after at least 2 hrs; max = 4 tabs/24 hr PO terconazole 0.8% 1 appful vaginal BEDTIME 3 days HPI Comments Details: This is a 43-year-old female with history of fibromyalgia and previously diagnosed with rheumatoid arthritis who presents for follow-up. Patient has a strong positive anti CCP antibody. She was on methotrexate for approximately 3 years without much improvement. It was discontinued sometime in 2021. Patient states that she has pain, swelling and stiffness of her hands in the morning that lasts about 30 minutes, improves with oxycodone and naproxen. She also gets pain in her elbows, knees and ankles. This is in addition to her total body pain which is there all the time [facility] Medical History Right shoulder pain Rheumatoid arthritis Hx of nausea and vomiting Constipation History of blood transfusion Anemia GERD (gastroesophageal reflux disease) Migraines Fibromyalgia Abnormal TSH Seropositive rheumatoid arthritis Surgical History Hx of cervical discectomy Hx of appendectomy Family History Father Cancer Mother Diabetes Hypertension Stroke Hypothyroidism Hypercholesteremia Social History Household Members: Significant Other and Children Household Members Other:: son Housing: Apartment Are you a primary care coordinator to a significant other at home: No Do you presently have visiting nurse or other home services: No Alcohol intake: current Alcohol intake frequency: does not drink Patient Tobacco Use Status: Former Tobacco user Tobacco use type: Cigarette Advance Directives Date on File: 05/31/20 Female Reproductive History Menstrual control method: progestin IUCD Total pregnancies: 6 Full term: 2 Number of Living Children: 2 Ab spontaneous: 4 Review of Systems Musc Reports arthralgias, Reports joint swelling and Reports stiffness Physical Exam Vital Signs: Last Vital Signs Pulse 95 05/20/24 07:52 BP 112/78 05/20/24 07:52 Pulse Ox 97 05/20/24 07:52 Oxygen Delivery Method Room Air 05/20/24 07:52 BMI result Body Mass Index 29.1 Const General: cooperative, healthy appearing and comfortable Nutritional Appearance: overweight Orientation/consciousness: patient oriented x3 Limitations: no limitations HEENT Head: Yes normocephalic and Yes atraumatic Mouth: moist mucous membranes Resp Effort & Inspection: normal respiratory effort and able to speak in complete sentences Auscultation: clear to auscultation bilaterally Cardio Rate: regular rate Rhythm: regular rhythm Skin General skin exam: no rashes or lesions noted Neuro General: patient oriented x3 Extrem Other: Puffy hands without significant swelling Bilateral tender wrists and pain with flexion-extension Bilateral diffusely tender MCPs and PIP is, only minimal DIP tenderness Bilateral knee pain with flexion and extension R>L Bilateral ankle tenderness Assessment & Plan Assessment & Plan (1) Cyclic citrullinated peptide (CCP) antibody positive: Code(s): R76.8 - Other specified abnormal immunological findings in serum Category: Medical Plan: This is a 43-year-old female previously diagnosed with CCP positive rheumatoid arthritis who presents for follow-up. She was on methotrexate for about 3 years which was discontinued due to continued pain. Patient continues to have pain and morning stiffness of her hands associated with swelling On exam she has puffy hands but no significant swelling but multiple tender joints. I will order a right hand MRI to evaluate for inflammatory arthritis Plan I spent 20 minutes reviewing patient's chart, evaluating patient, ordering diagnostic workup, counseling patient and documenting in the chart Orders: Orders MR hand RT w con Today M05.9 - Rheumatoid arthritis with rheumatoid factor, unspecified Medications: Changed From naproxen (Naprosyn) 500 mg PO BID 60 tabs 5RF M05.9 - Rheumatoid arthritis with rheumatoid factor, unspecified To naproxen (Naprosyn) 500 mg PO BID PRN 60 tabs 1RF pain M05.9 - Rheumatoid arthritis with rheumatoid factor, unspecified Coding Level of Care Code Est Pt Level 3 (86352) Diagnoses Cyclic citrullinated peptide (CCP) antibody positive R76.8
[2024-05-20 07:52] VITALS: BP 112/78; PULSE 95; O2SAT 97; BMI 29.1
== END 2024-05-20 08:16 | disposition home or self-care (01) ==
PROVIDERS: PCP Family Medicine; Referring Provider Family Medicine; Visit Provider Student in an Organized Health Care Education/Training Program
DX: R76.8 Other specified abnormal immunological findings in serum (principal)
CPT/HCPCS: 99213

== ENCOUNTER → 2024-05-20 07:48 | Outpatient (BNVA) | payer MEDICAID, SELFPAY | PROVIDERS: PCP Family Medicine; Visit Provider Student in an Organized Health Care Education/Training Program | DX: R76.8 Other specified abnormal immunological findings in serum (principal); M79.7 Fibromyalgia | CPT/HCPCS: 99212 ==

== ENCOUNTER 2024-07-14 09:49 | Outpatient (REF) | payer MEDICAID, SELFPAY | END 2024-07-14 09:50 | disposition home or self-care (01) | LOC: HO.HOSX 09:49 | PROVIDERS: Visit Provider Orthopaedic Surgery | DX: Z13.89 Encounter for screening for other disorder (principal) ==

== ENCOUNTER 2024-07-17 10:17 | Outpatient (REF) | payer MEDICAID, SELFPAY | END 2024-07-17 10:18 | disposition home or self-care (01) | LOC: HO.XRAY 10:17 | PROVIDERS: PCP Family Medicine; Visit Provider Orthopaedic Surgery | DX: M25.561 Pain in right knee (principal) | CPT/HCPCS: 73562 ==

== ENCOUNTER 2024-07-21 08:22 | Outpatient (REF) | payer MEDICAID, SELFPAY ==
[2024-07-21] MEDS: gadobutroL 7.5 ML VIAL IVPUSH (09:19)
== END 2024-07-21 08:23 | disposition home or self-care (01) ==
LOC: HO.MRI 08:22
PROVIDERS: PCP Family Medicine; Visit Provider Student in an Organized Health Care Education/Training Program
DX: M05.9 Rheumatoid arthritis with rheumatoid factor, unspecified (principal)
CPT/HCPCS: 73220; A9585

== ENCOUNTER 2024-08-17 13:58 | Outpatient (REF) | payer MEDICAID, SELFPAY ==
[2024-08-17 16:39] LABS: Hematocrit 39.5 % (37.0-47.0); Hemoglobin 12.5 g/dl (12.0-16.0)
[2024-08-17 16:49] LABS: Iron 77 mcg/dL (30-160); Percent Iron Saturation 31 % (15-50); Total Iron Binding Capacity 246 mcg/dL (228-428); Unsaturated Iron Binding 169 ug/dL
== END 2024-08-17 13:59 | disposition home or self-care (01) ==
LOC: HO.HHCL 13:58
PROVIDERS: Visit Provider Nurse Practitioner Primary Care
DX: D64.9 Anemia, unspecified (principal)
CPT/HCPCS: 36415; 83540; 85014; 85018

== ENCOUNTER 2024-09-23 16:01 | Outpatient (REF) | payer MEDICAID, SELFPAY ==
--- NOTE | ~2024-09-23 | XR_ITS ---
EXAMINATION: XR LUMBAR SPINE 2-3 VIEWS HISTORY: fall COMPARISON: There are no prior studies for comparison. FINDINGS: AP, lateral, and coned down views of the lumbar spine are submitted. Osseous mineralization is normal. Five nonrib-bearing lumbar vertebral bodies are identified, maintaining normal height and alignment without evidence of fracture or spondylolisthesis. The intervertebral disc spaces are preserved. The posterior elements are intact. An IUD is noted in the midline of the pelvis. XR/XR lumbar spine 2-3V IMPRESSION: Unremarkable examination of the lumbar spine. Electronically signed by: Robert Mcintosh MD 09/24/2024 07:14 AM [facility]
--- OUTSIDE RECORDS SUMMARY | 2024-09-23 16:34 | XMS_ITS | Encounter Summary ---
Author Organization [employer] Address [address] [place] [address] Care Team Providers Care Boardmarker Name Role Phone Yasmin Ortiz DO Primary Care Provider [phone] Reason for Visit * Reason Onset Date Comments Med Refill 03/26/2023 Encounter Details Date Type Department Care Team ([facility] Contact Info) Description 03/26/2023 Telephone [facility] [address] [place], [place] [phone] Yasmin Ortiz DO [address] [place], [place] [phone] Med Refill Social History Tobacco Use Types Packs/Day Years Used Date Smoking Tobacco: Former Cigarettes Passive Smoke Exposure: Past Smokeless Tobacco: Never Alcohol Use Standard Drinks/Week Comments Never 0 (1 standard drink = 0.6 oz pur e alcohol) Depression Answer Date Recorded Patient Health Questionnaire-9 Score 2 04/20/2024 Patient Health Questionnaire-9 Score 2 04/20/2024 Last PHQ-9: Questionnaire Data Not on file 0 04/20/2024 Housing Stability Answer Date Recorded What is your housing situation today? I have mariluz gaffney 02/25/[address] you li ve. Do you have problems with any of the following? None of the above 02/25/2024 Food Insecurity Answer Date Recorded Within the past 12 months, y ou worried that your food would run out before you got money to buy more: Never True 02/25/2024 Within the past 12 months,th e food you bought just didn't last and you didn't have enough money to get more: Never True Transportation Answer Date Recorded In the past 12 months, has l ack of transportation kept you from medical appts, meetings, work or from getting things needed for daily living? No 02/25/2024 Utilities Answer Date Recorded In the past 12 months, has t he electric, gas, oil or water company threatened to shut off services in your home? No 02/25/2024 Depression Answer Date Recorded Patient Health Questionnaire-2 Score 0 04/20/2024 Internet Access Answer Date Recorded Internet Access Q1 Yes 04/10/2024 Internet Access Q2 Not on file 04/10/2024 Comments Unknown Sex and Gender Information Value Date Recorded Sex Assigned at Female 06/11/2022 10:21 AM EDT Legal Sex Female 10:21 AM EDT Gender Identity Female 06/11/2022 10:21 AM EDT Sexual Orientation Straight 06/11/2022 10 :21 AM EDT documented as of this encounter Miscellaneous Notes * Telephone Encounter - Meredith Stapleton - 03/26/2023 9:26 AM EDT Tc from pt requesting a refill for tramadol 50 mg documented in this encounter Plan of Treatment Upcoming Encounters Date Type Department Care Team (Late st Contact Info) Description 11/18/2024 9:00 AM EDT Clinical Support [facility] [address] [place] [address] Annalise Barajas RN documented as of this encounter Visit Diagnoses Not on filedocumented in this encounter Additional Health Concerns Assessment Noted Time PHQ-9 Depression Total Score: 0 12/22/19 23 10:44 AM EDT documented as of this encounter Care Teams Boardmarker Relationship Specialty Start Date End Date Yasmin Ortiz DO [address] [place] [address] PCP - General Family Medicine 06/22/13 documented as of this encounter
--- OUTSIDE RECORDS SUMMARY | 2024-09-23 16:35 | XMS_ITS | Encounter Summary ---
Author Organization [employer] Address [address] [place] [address] Care Team Providers Care Matcher [employer] Name Role Phone Yasmin Ortiz DO Primary Care Provider + [phone] Reason for Referral * Imaging (Routine) - Closed Specialty Diagnoses / Procedures Referred By Vivian t Referred To Contact Diagnoses Abnormal uterine bleeding Procedures US Pelvis Transvaginal Yasmin Ortiz DO [address] [place] [address] Phone: tel: fax: [facility] [place] MRI and CT Scan [address] [place] [address] Phone: tel: fax: Referral ID Status Reason Start Date Expiration Date Visits Re quested Visits Authorized [id number] Closed 10/18/2022 04/16/2023 1 1 * Imaging (Routine) - Closed Specialty Diagnoses / Procedures Referred By Contac t Referred To Contact Diagnoses Abnormal uterine bleeding Procedures Us Pelvis complete Yasmin Ortiz DO [address] [place] [address] Phone: tel: fax: [facility] [place] MRI and CT Scan [address], [place] Phone: tel: fax: Referral ID Status Reason Start Date Expiration Date Visits Re quested Visits Authorized [id number] Closed 10/18/2022 04/16/2023 1 1 Encounter Details Date Type Department Care Team (Late Contact Info) Description 10/18/2022 Orders Only [address] [address] Yasmin Ortiz DO [address] [place] [address] Abnormal uterine bleeding (Primary Dx) Social History Tobacco Use Types Packs/Day Years Used Date Smoking Tobacco: Former Cigarettes Smokeless Tobacco: Never Comments Unknown Sex and Gender Information Value Date Recorded Sex Assigned at Female 06/11/2022 10:21 AM EDT Legal Sex Female 10:21 AM EDT Gender Identity Female 06/11/2022 10:21 AM EDT Sexual Orientation Straight 06/11/2022 10 :21 AM EDT documented as of this encounter Plan of Treatment Upcoming Encounters Date Type Department Care Team (Late Contact Info) Description 11/18/2024 9:00 AM EDT Clinical Support [address] [address] Annalise Barajas, [employer] Scheduled Orders Name Type Priority Associated Diagnoses Orde r Schedule Us Pelvis complete Imaging Routine Abnormal uterine bleeding Expected: 10/18/2022, Expires: 10/19/2023 US Pelvis Transvaginal Imaging Routine Abnormal uterine bleeding Expected: 10/18/2022, Expires: 10/19/2023 documented as of this encounter Visit Diagnoses Diagnosis Abnormal uterine bleeding- Primary Unspecified disorder of menstruation and other abnormal bleeding from female genital tract documented in this encounter Care Teams Matcher Leather Parts Relationship Specialty Start Date End Date Yasmin Ortiz DO [address] [place] [id number] PCP - General Family Medicine 06/22/13 documented as of this encounter
--- OUTSIDE RECORDS SUMMARY | 2024-09-23 16:35 | XMS_ITS | Encounter Summary ---
Author Organization [employer] Address [address] [place] [address] Care Team Providers Care Advanced Practice Professional Name Role Phone Yasmin Ortiz DO Primary Care Provider + [phone] Reason for Visit * Reason Comments Med Refill Encounter Details Date Type Department Care Team ([facility] st Contact Info) Description 07/19/2023 Refill [facility] [address] [place], [place] [phone] Yasmin Ortiz DO [address] [place] [address] Seborrheic dermatitis Social History Tobacco Use Types Packs/Day Years Used Date Smoking Tobacco: Former Cigarettes Passive Smoke Exposure: Past Smokeless Tobacco: Never Alcohol Use Standard Drinks/Week Comments Never 0 (1 standard drink = 0.6 oz pur e alcohol) Depression Answer Date Recorded Patient Health Questionnaire-9 Score 10 06/03/2023 Patient Health Questionnaire-9 Score 10 06/03/2023 Last PHQ-9: Questionnaire Data Not on file 1 Housing Stability Answer Date Recorded What is your housing situation today? I have mariluz gaffney 05/27/[address] you li ve. Do you have problems with any of the following? None of the above 05/27/2023 Food Insecurity Answer Date Recorded Within the past 12 months, y ou worried that your food would run out before you got money to buy more: Never True 05/27/2023 Within the past 12 months,th e food you bought just didn't last and you didn't have enough money to get more: Never True Transportation Answer Date Recorded In the past 12 months, has l ack of transportation kept you from medical appts, meetings, work or from getting things needed for daily living? No 05/27/2023 Utilities Answer Date Recorded In the past 12 months, has t he electric, gas, oil or water company threatened to shut off services in your home? No 05/27/2023 Depression Answer Date Recorded Patient Health Questionnaire-2 Score 3 06/03/2023 Comments Unknown Sex and Gender Information Value [...] Description 11/18/2024 9:00 AM EDT Clinical Support [facility] [address] [place] [id number] Annalise Barajas RN documented as of this encounter Visit Diagnoses Diagnosis Seborrheic dermatitis Unspecified seborrheic dermatitis documented in this encounter Additional Health Concerns Assessment Noted Time PHQ-9 Depression Total Score: 10 023 8:17 AM EDT documented as of this encounter Care Teams Advanced Practice Professional Relationship Specialty Start Date End Date Yasmin Ortiz DO [address] [place] [id number] PCP - General Family Medicine 06/22/13 documented as of this encounter
--- OUTSIDE RECORDS SUMMARY | 2024-09-23 16:35 | XMS_ITS | Encounter Summary ---
Author Organization [employer] Address [address] [place] [address] Care Team Providers Care Final Touch Up Painter Name Role Phone Yasmin Ortiz DO Primary Care Provider + [phone] Encounter Details Date Type Department Care Team (Late st Contact Info) Description 09/23/2024 Telephone [facility] [address] [place] [address] Bairon, Inez, OD [address] [place] [address] Social History Tobacco Use Types Packs/Day Years [...] Description 11/18/2024 9:00 AM EDT Clinical Support [facility] [address] [place] [address] Annalise Barajas RN documented as of this encounter Visit Diagnoses Not on filedocumented in this encounter Additional Health Concerns Assessment Noted Time PHQ-9 Depression Total Score: 2 04/20/20 24 9:42 AM EDT documented as of this encounter Care Teams Final Touch Up Painter Relationship Specialty Start Date End Date Yasmin Ortiz DO [address] [place] [phone] PCP - General Family Medicine 06/22/13 documented as of this encounter
--- OUTSIDE RECORDS SUMMARY | 2024-09-23 16:35 | XMS_ITS | Encounter Summary ---
Author Organization [employer] Address [address] [place] [address] Care Team Providers Care Suction Plate Carrier Cleaner Name Role Phone Yasmin Ortiz DO Primary Care Provider [phone] Reason for Visit * Reason Onset Date Comments Appointment Request 04/09/2024 Encounter Details Date Type Department Care Team ([facility] Contact Info) Description 04/09/2024 Telephone [facility] [address] [place], [place] [phone] Yasmin Ortiz DO [address] [place], [place] [phone] Appointment Request Social History Tobacco Use Types Packs/Day Years Used Date Smoking Tobacco: Former Cigarettes Passive Smoke Exposure: Past Smokeless Tobacco: Never Alcohol Use Standard Drinks/Week Comments Never 0 (1 standard drink = 0.6 oz pur e alcohol) Depression Answer Date Recorded Patient Health Questionnaire-9 Score 13 08/30/2023 Patient Health Questionnaire-9 Score 13 08/30/2023 Last PHQ-9: Questionnaire Data Not on file 0 08/30/2023 Housing Stability Answer Date Recorded What is [...] Answer Date Recorded Patient Health Questionnaire-2 Score 4 08/30/2023 Internet Access Answer Date Recorded Internet Access [...] encounter Miscellaneous Notes * Telephone Encounter - Sixto Rodríguez - 04/09/2024 2:02 PM EDT Tc from pt requesting PE with pcp. Please contact pt at [phone]. documented in this encounter Plan of Treatment Upcoming Encounters Date Type Department Care Team (Late st Contact Info) Description 11/18/2024 9:00 AM EDT Clinical Support [facility] [address] [place] [address] Annalise Barajas RN documented as of this encounter Visit Diagnoses Not on filedocumented in this encounter Additional Health Concerns Assessment Noted Time PHQ-9 Depression Total Score: 13 024 9:49 AM EST documented as of this encounter Care Teams Suction Plate Carrier Cleaner Relationship Specialty Start Date End Date Yasmin Ortiz DO [address] [place] [address] PCP - General Family Medicine 06/22/13 documented as of this encounter
--- OUTSIDE RECORDS SUMMARY | 2024-09-23 16:35 | XMS_ITS | Encounter Summary ---
Author Organization [employer] Address [address] [place] [address] Care Team Providers Care Fresh Foods Clerk Name Role Phone Yasmin Ortiz DO Primary Care Provider + [phone] Encounter Details Date Type Department Care Team (Late st Contact Info) Description 09/23/2024 2:40 PM EST Office Visit [facility] [address], [place] [phone] Lumbar back pain (Primary Dx); Pain Social History Tobacco Use Types Packs/Day Years [...] AM EDT documented as of this encounter Last Filed Vital Signs Vital Sign Reading Time Taken Comments Blood Pressure 110/71 09/23/2024 2:38 PM EST Pulse 91 09/23/2024 2:38 PM EST Temperature 36.8 ??C (98.2 ??F) 09/23/2024 2:38 PM ES T Respiratory Rate 17 09/23/2024 2:38 PM EST Oxygen Saturation 98% 09/23/2024 2:38 PM EST Inhaled Oxygen Concentration - - Weight 70.3 kg (155 lb) 09/23/2024 2:38 PM EST Height 157.5 cm (5' 2 ) 09/23/2024 2:38 PM EST Body Mass Index 28.35 09/23/2024 2:38 PM EST documented in this encounter Miscellaneous Notes * Patient Education Note - Juany Montoya NP - 09/23/2024 8:39 PM EST Images from the original note were not included. Patient Education Table of Contents Back Exercises To view videos and all your education online visit, [email or web address] or scan this QR code with your smartphone. Access to this content will in one year. Back Exercises The following exercises strengthen the muscles that help to support the trunk (torso) and back. They also help to keep the lower back flexible. Doing these exercises can help to prevent or lessen existing low back pain. If you have back pain or discomfort, try doing these exercises 2?3 times each day or as told by your health care provider. As your pain improves, do them once each day, but increase the number of times that you repeat the steps for each exercise (do more repetitions). To prevent the recurrence of back pain, continue to do these exercises once each day or as told by your health care provider. Do exercises exactly as told by your health care provider and adjust them as directed. It is normalto feel mild stretching, pulling, tightness, or discomfort as you do these exercises, but you should stop right away if you feel sudden pain or your pain gets worse. Exercises Single knee to chest Repeat these steps 3?5 times for each le. Lie on your back on a firm bed or the floor with your legs extended. Bring one knee to your chest. Your other leg should stay extended and in contact with the floor. Hold your knee in place by grabbing your knee or thigh with both hands and hold. Pull on your knee until you feel a gentle stretch in your lower back or buttocks. Hold the stretch for 10?30 seconds. Slowly release and straighten your leg. Pelvic tilt Repeat these steps 5?10 times: 1. Lie on your back on a firm bed or the floor with your legs extended. Bend your knees so they are pointing toward the ceiling and your feet are flat on the floor. Tighten your lower abdominal muscles to press your lower back against the floor. This motion will tilt your pelvis so your tailbone points up toward the ceiling instead of pointing to your feet or the floor. With gentle tension and even breathing, hold this position for 5?10 seconds. Cat-cow Repeat these steps until your lower back becomes more flexible: 1. Get into a safxk-djv-trjyw position on a firm bed or the floor. Keep your hands under your shoulders, and keep your knees under your hips. You may place padding under your knees for comfort. Let your head hang down toward your chest. Contract your abdominal muscles and point your tailbone toward the floor so your lower back becomes rounded like the back of a cat. Hold this position for 5 seconds. Slowly lift your head, let your abdominal muscles relax, and point your tailbone up toward the ceiling so your back forms a sagging arch like the back of a cow. Hold this position for 5 seconds. Press-ups Repeat these steps 5?10 times: 1. Lie on your abdomen (face-down) on a firm bed or the floor. Place your palms near your head, about shoulder-width apart. Keeping your back as relaxed as possible and keeping your hips on the floor, slowly straighten yourarms to raise the top half of your body and lift your shoulders. Do not use your back muscles to raise your upper torso. You may adjust the placement of your hands to make yourself more comfortable. Hold this position for 5 seconds while you keep your back relaxed. Slowly return to lying flat on the floor. Bridges Repeat these steps 10 times: 1. Lie on your back on a firm bed or the floor. Bend your knees so they are pointing toward the ceiling and your feet are flat on the floor. Your arms should be flat at your sides, next to your body. Tighten your buttocks muscles and lift your buttocks off the floor until your waist is at almost the same height as your knees. You should feel the muscles working in your buttocks and the back of your thighs. If you do not feel these muscles, slide your feet 1?2 inches (2.5?5 cm) farther away fromyour buttocks. Hold this position for 3?5 seconds. Slowly lower your hips to the starting position, and allow your buttocks muscles to relax completely. If this exercise is too easy, try doing it with your arms crossed over your chest. Abdominal crunches Repeat these steps 5?10 times: 1. Lie on your back on a firm bed or the floor with your legs extended. Bend your knees so they are pointing toward the ceiling and your feet are flat on the floor. Cross your arms over your chest. Tip your chin slightly toward your chest without bending your neck. Tighten your abdominal muscles and slowly raise your torso high enough to lift your shoulder bladesa tiny bit off the floor. Avoid raising your torso higher than that because it can put too much stress on your lower back and does not help to strengthen your abdominal muscles. Slowly return to your starting position. Back lifts Repeat these steps 5?10 times: 1. Lie on your abdomen (face-down) with your arms at your sides, and rest your forehead on the floor. Tighten the muscles in your legs and your buttocks. Slowly lift your chest off the floor while you keep your hips pressed to the floor. Keep the back of your head in line with the curve in your back. Your eyes should be looking at the floor. Hold this position for 3?5 seconds. Slowly return to your starting position. Contact a health care provider if: Your back pain or discomfort gets much worse when you do an exercise. Your worsening back pain or discomfort does not lessen within 2 hours after you exercise. If you have any of these problems, stop doing these exercises right away. Do not do them again unless your health care provider says that you can. Get help right away if: You develop sudden, severe back pain. If this happens, stop doing the exercises right away. Do not do them again unless your health care provider says that you can. This information is not intended to replace advice given to you by your health care provider. Make sure you discuss any questions you have with your health care provider. Document Released: 2005-09-05 Document Updated: 2023-09-01 Document Reviewed: 2021-10-11 Elsevier Patient Education ? 2023 [employer] documented in this encounter Plan of Treatment Upcoming Encounters Date Type Department Care Team (Late st Contact Info) Description 11/18/2024 9:00 AM EDT Clinical Support [facility] [address] [place] [address] Annalise Barajas RN Scheduled Orders Name Type Priority Associated Diagnoses Orde r Schedule XR Lumbar Spine 2-3 Views Imaging Routine Lumbar back pain Expected: 09/23/2024, Expires: 09/23/2025 documented as of this encounter Visit Diagnoses Diagnosis Lumbar back pain- Primary Lumbago Pain Generalized pain documented in this encounter Additional Health Concerns Assessment Noted Time PHQ-9 Depression Total Score: 2 04/20/20 24 9:42 AM EDT documented as of this encounter Care Teams Fresh Foods Clerk Relationship Specialty Start Date End Date Yasmin Ortiz DO [address] [place] [address] PCP - General Family Medicine 06/22/13 documented as of this encounter
--- OUTSIDE RECORDS SUMMARY | 2024-09-23 16:35 | XMS_ITS | Encounter Summary ---
Author Organization [employer] Address [address] [place] [address] Care Team Providers Care Pricing Strategist Name Role Phone Diana Yasmin Primary Care Provider + [phone] Encounter Details Date Type Department Care Team (Latest Contact Info) Description 08/24/2024 Travel Social History Tobacco Use Types Packs/Day Years [...] Description 11/18/2024 9:00 AM EDT Clinical Support [facility] [address] [place] [address] Annalise Barajas RN documented as of this encounter Visit Diagnoses Not on filedocumented in this encounter Additional Health Concerns Assessment Noted Time PHQ-9 Depression Total Score: 2 04/20/20 24 9:42 AM EDT documented as of this encounter Care Teams Pricing Strategist Relationship Specialty Start Date End Date Yasmin Ortiz DO [address] [place] [address] PCP - General Family Medicine 06/22/13 documented as of this encounter
--- OUTSIDE RECORDS SUMMARY | 2024-09-23 16:35 | XMS_ITS | Clinical Summary ---
Author Organization [facility] Address [address] [place] [address] Care Team Providers Care Sole Molder Name Role Phone Yasmin Ortiz DO Primary Care Provider Social History Tobacco Use Types Packs/Day Years Used Date Smoking Tobacco: Never Assessed Sex and Gender Information Value Date Recorded Sex Assigned at Not on file Gender Identity Not on file Sexual Orientation Not on file Plan of Treatment Health Maintenance Due Date Last Done Comments Hepatitis B Vaccines (1 of 3 - 3-dose series) 1980 Hepatitis C Screening 1980 COVID-19 Vaccine (#1) 1980 Depression Screening 1992 Preventative Health Evaluation 1998 DTap / Tdap / Td (1 - Tdap) 1999 Cervical Cancer Screening (P ap Smear) 2001 Influenza Vaccine (#1) 2024 Pneumococcal Vaccine Aged Out No long er eligible based on patient's age to complete this topic RSV Ped < 20 months Aged Out No longe r eligible based on patient's age to complete this topic Care Teams Sole Molder Relationship Specialty Start Date End Date Yasmin Ortiz DO [address] [place] [id number] PCP - General Family Medicine 04/28/19
--- OUTSIDE RECORDS SUMMARY | 2024-09-23 16:35 | XMS_ITS | Encounter Summary ---
Author Organization [employer] Address [address] [place] [address] Care Team Providers Care Marketing Communications Leader Name Role Phone Yasmin Ortiz DO Primary Care Provider [phone] Reason for Visit * Reason Onset Date Comments Nurse Triage 04/12/2023 Encounter Details Date Type Department Care Team ([facility] st Contact Info) Description 04/12/2023 Telephone [facility] [address] [place], [place] [phone] Yasmin Ortiz DO [address] [place], [place] [phone] Nurse Triage Social History Tobacco Use Types Packs/Day Years Used Date Smoking Tobacco: Former Cigarettes Passive Smoke Exposure: Past Smokeless Tobacco: Never Alcohol Use Standard Drinks/Week Comments Never 0 (1 standard drink = 0.6 oz pur e alcohol) Depression Answer Date Recorded Patient Health Questionnaire-9 Score 0 12/21/2022 Depression Answer Date Recorded Patient Health Questionnaire-2 Score 0 12/21/2022 Comments Unknown Sex and Gender Information Value Date Recorded Sex Assigned at Female 06/11/2022 10:21 AM EDT Legal Sex Female 10:21 AM EDT Gender Identity Female 06/11/2022 10:21 AM EDT Sexual Orientation Straight 06/11/2022 10 :21 AM EDT documented as of this encounter Miscellaneous Notes * Telephone Encounter - Hetal Bond - 04/12/2023 2:44 PM EDT Symptom: Skin Lump (back area) Outcome: Schedule an appointment to be seen within 3 days Reason: Caller denied all higher acuity questions The caller accepted this outcome Patient speaks upper sorbian. documented in this encounter Plan of Treatment Upcoming Encounters Date Type Department Care Team (Late st Contact Info) Description 11/18/2024 9:00 AM EDT Clinical Support [facility] [address] [place] [address] Annalise Barajas RN documented as of this encounter Visit Diagnoses Not on filedocumented in this encounter Additional Health Concerns Assessment Noted Time PHQ-9 Depression Total Score: 0 12/22/19 23 10:44 AM EDT documented as of this encounter Care Teams Marketing Communications Leader Relationship Specialty Start Date End Date Yasmin Ortiz DO [address] [place] [id number] PCP - General Family Medicine 06/22/13 documented as of this encounter
--- OUTSIDE RECORDS SUMMARY | 2024-09-23 16:35 | XMS_ITS | Clinical Summary ---
Author Organization [employer] Address [address] [place] [address] Care Team Providers Care Central Supply Supervisor Name Role Phone Diana Yasmin Primary Care Provider [phone] Allergies No known active allergies Medications * This document contains information received from the source organization and may not represent a complete record from that organization. multivitamin with minerals (Centrum) 9-200 mg-mcg tablet split tablet take 1 tablet by oral route every day with food 021 Active ferrous sulfate 325 (65 Fe) MG tablet Take 1 tablet by mouth 1 (one) time each day. 022 Active folic acid (Folvite) 1 MG tablet Take 1 tablet by mouth 1 (one) time each day. Active naloxone (Narcan) 4 mg/0.1 mL nasal spray Administer 0.1 mL into affected nostril(s). 022 Active sodium chloride ([place]) 0.65 % nasal spray 1-2 spray on each nostril every 2-3 hours as needed for nasal congestion 022 Active ketoconazole (NIZOral) 2 % shampooIndicati ons:Seborrheic dermatitis APPLY TOPICALLY 1 (ONE) TIME PER WEEK. 120 mL 1 023 Active Clobetasol Propionate 0.05 % shampooIndicati ons:Seborrheic dermatitis Use twice weekly 118 mL 3 024 Active hydrOXYzine pamoate (Vistaril) 25 MG capsule Take 1 capsule (25 mg) by mouth every 6 (six) hours if needed for anxiety. 60 capsule 1 024 Active traZODone (Desyrel) 50 MG tablet Take 1-2 tablets (50-100 mg) by mouth if needed at bedtime for sleep. 60 tablet 3 024 Active melatonin 5 MG tablet Take 1-2 tablets (5-10 mg) by mouth if needed at bedtime (insomnia). 60 tablet 3 Active betamethasone dipropionate 0.05 % creamIndication s:Acne vulgaris Apply topically if needed in the morning and at bedtime for rash. 45 g 1 024 Active acetaminophen (Tylenol 8 Hour) 650 MG ER tablet Take 1 tablet (650 mg) by mouth every 8 (eight) hours if needed for mild pain. 50 tablet 1 024 Active baclofen (Lioresal) 20 MG tabletIndicatio ns:Muscle spasm Take 1 tablet (20 mg) by mouth if needed in the morning and at bedtime for muscle spasms. 60 tablet 3 Active docusate sodium (Stool Softener) 100 MG capsule TAKE 1 CAPSULE BY MOUTH TWICE A DAY 180 capsule 024 Active Diclofenac Sodium 1 % gelIndications: Chronic right shoulder pain APPLY (2G) BY TOPICAL ROUTE 2 TIMES EVERY DAY TO THE AFFECTED AREA(S) 100 g Active cyclobenzaprine (Flexeril) 10 MG tabletIndicatio ns:Other chronic pain take 1 tablet by oral route at bedtime as needed for MM SPASM or PAIN 30 tablet 3 Active cetirizine (ZyrTEC) 10 MG tablet Take 1 tablet (10 mg) by mouth Once per day. 90 tablet 024 Active gabapentin (Neurontin) 800 MG tabletIndicatio ns:Other chronic pain Take 1 tablet by mouth three times a day 90 tablet Active lidocaine (Lidoderm) 5 % patch Apply 1 patch topically Once per day. 30 patch 024 2024 Active SUMAtriptan (Imitrex) 50 MG tabletIndicatio ns:Nonintractab le chronic migraine take 1 Tablet by oral route once at onset of PORTER, may repeat after 2 hours if headache returns 9 tablet 2 024 Active sertraline (Zoloft) 100 MG tablet Take 1 tablet (100 mg) by mouth Once per day. 90 tablet 024 2024 Active sennosides (Senna-Time) 8.6 MG tablet TAKE 2 TABLETS BY MOUTH DAILY NEEDED ESTRENIMIENTO 180 tablet 1 Active pantoprazole (ProtoNix) 40 MG EC tablet take 1 tablet by oral route every day before meal 90 tablet 1 Active triamcinolone (Nasacort Allergy 24HR) 55 MCG/ACT nasal inhaler Administer 2 sprays into each nostril Once per day. 16.5 g 3 Active busPIRone (Buspar) 5 MG tablet Take 1 tablet (5 mg) by mouth 2 times daily. 60 tablet 3 024 2024 Active lactulose (Chronulac) 10 GM/15ML solution Take 15 mL (10 g) by mouth if needed in the morning and at bedtime (constipation). 473 mL 2 Active naloxone (Narcan) 4 mg/0.1 mL nasal sprayIndication s:Chronic right shoulder pain Administer 1 spray (4 mg) into affected nostril(s) if needed for opioid reversal. May repeat every 2-3 minutes if needed, alternating nostrils, until medical assistance becomes available. 2 each 3 025 2025 Active oxyCODONE (Roxicodone) 5 MG immediate release tabletIndicatio ns:Chronic right shoulder pain Take 1 tablet (5 mg) by mouth every 6 (six) hours if needed for severe pain for up to 28 days. 112 tablet 025 2024 Active naproxen (Naprosyn) 500 MG tabletIndicatio ns:Pain,Lumbar back pain take 1 tablet (500MG) by oral route 2 times every day with food as needed for PAIN 40 tablet 025 Active naproxen (Naprosyn) 500 MG tabletIndicatio ns:Pain take 1 tablet (500MG) by oral route 2 times every day with food as needed for PAIN 40 tablet 2 02/26/ 023 2024 Discontinued(R eorder (will not trigger notification to Pharmacy)) meclizine (Antivert) 25 MG tabletIndicatio ns:Dizziness Take 1 tablet (25 mg) by mouth if needed in the morning, at noon, and at bedtime for dizziness for up to 10 days. 30 tablet 025 2024 oxyCODONE (Roxicodone) 5 MG immediate release tabletIndicatio ns:Chronic right shoulder pain Take 1 tablet (5 mg) by mouth every 6 (six) hours if needed for severe pain for up to 28 days. 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 04/20/2024 Fibromyalgia 04/20/2024 Depression 06/03/2023 Anxiety 12/24/2022 Assessment & Plan (10/16/2023 11:31 AM EST): With probable depression, sx significantly improved -she denies any SI/HI -she has the number for crisis -she agrees to increase zoloft to 50mg daily, consider trial at bedtime -encouraged hydroxyzine prn -awaiting new therapist at Assessment & Plan (08/30/2023 10:06 AM EST): During IBH Consult Dilcia presenting with depressed mood, loss of interests/pleasure , changes in sleep difficulty falling asleep, trouble concentrating, thoughts of worthlessness or guilt, fatigue/loss of energy, inappropriate guilt , hopelessness, difficulty concentrating and excessive worry/anxiety, difficulty controlling worry, restless/keyed up/On edge, easily fatigued, difficulty concentrating/Mind going blank , irritability, muscle tension, and sleep disturbance difficulty falling asleep; for a period of 18+ mo, for all symptoms in the context of divorce/separation and marriage. Dilcia reported symptoms have been part of her everyday on and off. End of marriage is main stressor for symptoms. Family problems and life stressors are also contributing to depressive and anxiety sx. PLAN: (check all that apply) Continue with current services (defined as services in the past 12 months) . Dilcia has been added to a wait list for OP individual therapy with Willy Whaley. Dilcia said she called agency and was assured her turn is coming up. No other referral needed at this time. clinician will follow-up with pt as needed. Acne vulgaris 01/17/2018 Chronic right shoulder pain 12/20/2015 Anemia 06/22/2015 Chronic constipation 06/22/2015 Chronic gastroesophageal reflux disease 06/22/20 15 Chronic migraine 06/22/2015 Resolved Problems Problem Noted Date Diagnosed Date Resolved Date Tendinitis of right rotator cuff 04/20/2024 04/20/2024 Marital problem 06/03/2023 04/20/2024 Depression, unspecified 06/03/2023 09/0 04/2024 Assessment & Plan (08/30/2023 10:06 AM EST): During IBH Consult Dilcia presenting with depressed mood, loss of interests/pleasure , changes in sleep difficulty falling asleep, trouble concentrating, thoughts of worthlessness or guilt, fatigue/loss of energy, inappropriate guilt , hopelessness, difficulty concentrating and excessive worry/anxiety, difficulty controlling worry, restless/keyed up/On edge, easily fatigued, difficulty concentrating/Mind going blank , irritability, muscle tension, and sleep disturbance difficulty falling asleep; for a period of 18+ mo, for all symptoms in the context of divorce/separation and marriage. Dilcia reported symptoms have been part of her everyday on and off. End of marriage is main stressor for symptoms. Family problems and life stressors are also contributing to depressive and anxiety sx. PLAN: (check all that apply) Continue with current services (defined as services in the past 12 months) . Dilcia has been added to a wait list for OP individual therapy with Willy Whaley. Dilcia said she called agency and was assured her turn is coming up. No other referral needed at this time. clinician will follow-up with pt as needed. Senile hyperkeratosis 01/17/20182022 Encounters Date Type Department Care Team Description 09/23/2024 2:40 PM EST Office Visit [facility] [address] [place] [address] Lumbar back pain (Primary Dx); Pain 09/23/2024 Telephone [facility] [address] [place] [address] Inez Waddell, XOCHITL 09/21/2024 Refill [facility] [address] [place] [address] Yasmin Ortiz DO Chronic right shoulder pain 08/24/2024 Travel 08/20/2024 Telephone [facility] [address] [place] [phone] Geraldine Smiley MA Recall Appt 08/19/2024 9:00 AM EST Clinical Support [address] [address] Annalise Barajas, teacher dramatics right shoulder pain (Primary Dx) 08/19/[address] [address] Annalise Barajas RN Chronic right shoulder pain 08/19/2024 Travel 08/19/[address] [address] Annalise Barajas RN Recommend ASSEMBLER PING PONG TABLE Tier 2 08/17/2024 1:40 PM EST Office Visit [facility] [address] [place] [phone] Ladi Shaffer ANP Anemia, unspecified type (Primary Dx); Viral URI; Dizziness 08/17/[address] [address] Yasmin Ortiz DO Nurse Triage 07/21/2024 Orders Only [facility] External Provider, [facility] 07/17/2024 Orders Only [facility] External Provider, [facility] 07/16/[address] [address] Yasmin Ortiz DO Chronic right shoulder pain from Last 3 Months Immunizations Name Administration Dates Next Due Influenza injectable quadriv alent IIV4 with preservative 04/29/2018,05/03/2016,06/22/2015 Influenza injectable quadriv alent preservative free 05/21/2023,09/12/2022,05/05/2021,2019,05/11/2019 Influenza, IIV3, injectable 04/19/2014 Influenza, Split (incl. shahab fied surface antigen) 06/22/2013 Influenza, seasonal, injecta ble, preservative free 05/12/2024 [place] SARS-CoV-2 Vaccination 11/19/2020 MMR 04/09/2024 Pfizer Covid-19 Vaccine 12+ 05/12/2024, 3,08/22/2021 Pfizer Covid-19 Vaccine 12+ Bivalent 08/03/2022 Tdap 04/20/2024,04/19/2014 Family History Medical History Relation Name Comments Cancer Father Asthma Mother Diabetes Mother Hypertension Mother Stroke Mother Relation Name Status Comments Father Mother Social History Tobacco Use Types Packs/Day Years Used Date Smoking Tobacco: Former Cigarettes Passive Smoke Exposure: Past Smokeless Tobacco: Never Tobacco Cessation:Counseling Given: Not Answered Alcohol Use Standard Drinks/Week Comments Never 0 [...] Orientation Straight 06/11/2022 10 :21 AM EDT Last Filed Vital Signs Vital Sign Reading [...] Mass Index 28.35 09/23/2024 2:38 PM EST Plan of Treatment Upcoming Encounters Date Type Department Care Team (Late st Contact Info) Description 11/18/2024 9:00 AM EDT Clinical Support [facility] [address] [place] [phone] Annalise Barajas, RN Health Maintenance Due Date Last Done Comments Alcohol/Substance Use Screening 1992 Family Planning (PISQ) 1995 Hepatitis B Vaccines (1 of 3 - 19+ 3-dose series) 1999 SDOH Screening 02/24/2025 02/25/2024 Depression Screening 04/20/2025 04/20/2024, 04/20/20 24 Mammogram 04/23/2025 04/23/2023, 04/13, 05/03/2021, Additional history exists Tobacco Screening 09/23/2025 09/23/2024 Pap Smear 11/07/2025 11/07/2022, 10/27/2021 Cervical Cancer Screening 11/08/2027 HPV/Cotest 11/08/2027 11/07/2022, 10/10, 12/07/2016 Zoster Vaccines (1 of 2) 2030 DTaP/Tdap/Td Vaccines (3 - Td or Tdap) 04/20/2034 04/20/2024, 04/19/2014 RSV Patients and Patients Aged 60 years or older (1 - 1-dose 75+ series) 2055 HIV Screening Completed 05/01/2024, 08/0 08/2023, 12/19/2022, Additional history exists Hepatitis C Screening Completed 05/01/2024 , 03/12/2024, 12/19/2022, Additional history exists COVID-19 Vaccine Completed 05/12/2024, 05/2023, 08/03/2022, Additional history exists Influenza Vaccine Completed 05/12/2024, , 09/12/2022, Additional history exists HIB Vaccines Aged Out No longer eligi ble based on patient's age to complete this topic HPV Vaccines Aged Out No longer eligi ble based on patient's age to complete this topic Hepatitis A Vaccines Aged Out No long er eligible based on patient's age to complete this topic IPV Vaccines Aged Out No longer eligi ble based on patient's age to complete this topic Meningococcal Vaccine Aged Out No vitaliy huber eligible based on patient's age to complete this topic Pneumococcal Vaccine: Pediatrics (0 to 5 Years) and At-Risk Patients (6 to 49) Years) Aged Out No longer eligible based on patient's age to complete this topic RSV under 20 months Aged Out No longe r eligible based on patient's age to complete this topic Rotavirus Vaccines Aged Out No longer eligible based on patient's age to complete this topic Procedures Procedure Name Priority Date/Time Associated Diagnosis Comments POCT YOEL-14 URINE DRUG SCREEN Routine 08/19/2024 8:51 AM EST Chronic right shoulder pain IRON AND TOTAL IRON BINDING CAPACITY Routine 08/17/2024 1:59 PM EST Anemia, unspecified type HEMOGLOBIN + HEMATOCRIT Routine 08/17/2024 1:59 PM EST Anemia, unspecified type POCT INFLUENZA B (ID NOW RAPID MOLECULAR) Routine 08/17/2024 1:39 PM EST Viral URI POCT INFLUENZA A (ID NOW RAPID MOLECULAR) Routine 08/17/2024 1:39 PM EST Viral URI POCT RAPID COVID ANTIGEN Routine 08/17/2024 1:39 PM EST Viral URI MR HAND W AND WO CONTRAST RIGHT Routine 07/21/2024 8:43 AM EST XR KNEE 3 VIEWS RIGHT Routine 07/17/2024 10:35 AM EST HEPATITIS C AB W/REFL TO HCV RNA, QN, PCR Routine 05/01/2024 9:04 AM EDT Routine history and physical examination of adult Anxiety Anemia, unspecified type Chronic migraine Rheumatoid arthritis, involving unspecified site, unspecified whether rheumatoid factor present (CMS/HCC) Fibromyalgia Chronic right shoulder pain Chronic constipation BMI 29.0-29.9,adult Encounter for immunization HIV 1/2 ANTIGEN/ANTIBODY, FOURTH GENERATION W/RFL Routine 05/01/2024 9:04 AM EDT Routine history and physical examination of adult Anxiety Anemia, unspecified type Chronic migraine Rheumatoid arthritis, involving unspecified site, unspecified whether rheumatoid factor present (CMS/HCC) Fibromyalgia Chronic right shoulder pain Chronic constipation BMI 29.0-29.9,adult Encounter for immunization BI MAMMOGRAM SCREENING TOMOSYNTHESIS BILATERAL Routine 04/23/2023 8:28 AM EDT HPV MRNA E6/E7 REFLEX TO HPV 16, 18/45 Routine 11/07/2022 9:53 AM EDT PAP SMEAR Routine 11/07/2022 9:53 AM EDT from Last 3 Months or Most Recently Relevant to Health Maintenance Results * POCT YOEL-14 Urine Drug Screen (08/19/2024 8:51 AM EST) TCA, Urine Positive Oxycodone Screen, Urine Positive Urine Urine specimen obtained by clean catch procedure / Unknown 08/19/2024 8:51 AM EST Annalise Marsh RN - 08/19/2024 8:51 AM EST UTOX cup Lot#[id number] Exp. 05/06/26 Internal Pass Control Yasmin Ortiz DO POINT OF CARE TEST ENTER/ELLI T ORDERABLES Final Result * Iron And Total Iron Binding Capacity (08/17/2024 1:59 PM EST) Pathologist [facility] Iron 77 30 - 160 mcg/dL [facility] Total Iron Binding Capacity 246 228 - 428 mcg/dL [facility] Percent Iron Saturation 31 15 - 50 % [facility] Unsaturated Iron Binding 169 ug/dL [facility] Blood Venous blood specimen / Unknown 08/17/2024 1:59 PM EST 08/17/2024 4:16 PM EST Ladi Shaffer ANP LAB BLOOD ORDERABLES Final Resul t Performing Organization Address City/[facility]/ZIP Co de Phone Number [facility] [address] [place] [phone] * Hemoglobin and Hematocrit (08/17/2024 1:59 PM EST) [facility] Hemoglobin 12.5 12.0 - 16.0 g/dl [facility] Hematocrit 39.5 37.0 - 47.0 % [facility] Blood Venous blood specimen / Unknown 08/17/2024 1:59 PM EST 08/17/2024 4:16 PM EST Ladi Shaffer ANP LAB BLOOD ORDERABLES Final Resul t Performing Organization Address City/[facility]/ZIP Co de Phone Number [facility] [address] [place] [phone] * Influenza B (ID NOW Rapid Molecular) (08/17/2024 1:39 PM EST) Pathologist [facility] Influenza B Negative Negative, Indeterminate [facility] Swab 08/17/2024 1:39 PM EST Ladi Shaffer ANP POINT OF CARE TEST ENTER/EDIT OR DERABLES Final Result Performing Organization Address [facility] de Phone Number [facility] [address] [place] [phone] * Influenza A (ID NOW Rapid Molecular) (08/17/2024 1:39 PM EST) Influenza A Negative Negative, Indeterminate [facility] Swab 08/17/2024 1:39 PM EST Ladi Shaffer ANP POINT OF CARE TEST ENTER/EDIT OR DERABLES Final Result Performing Organization Address [facility] Phone Number [facility] [address] [place] [phone] * POCT Rapid COVID Ag (08/17/2024 1:39 PM EST) Rapid COVID Ag Negative [facility] Swab 08/17/2024 1:39 PM EST us Ladi Shaffer ANP POINT OF CARE TEST ENTER/EDIT OR DERABLES Final Result Performing Organization Address [facility] Phone Number [facility] [address] [place] [phone] * MR Hand w/ and w/o Contrast Right (07/21/2024 8:43 AM EST) Anatomical Region Laterality Modality Upper Extremities, Hand Right Magnetic Resonance 07/21/2024 8:43 AM EST Narrative 07/27/2024 4:36 PM EST ? [facility] ?[address] ?[place] [address] ? Magnetic Resonance Report ? Signed ? Patient: Dorsey Tay,Maitee ?MR#: ?? [id number] ? : 1980 ?Acct:[id number] ? Age/Sex: 44 / F ?ADM Date: 12/10/24 ? Loc: HO.MRI ? Attending Dr: Padmini Cleary MD ? Ordering Physician: Padmini Cleary MD ?? Date of Service: 07/21/24 ?? Procedure(s): MR hand RT wo/w con ?? Accession Number(s): [id number] ? cc: Yasmin Ortiz DO; Padmini Cleary MD ? EXAMINATION: ?? MRI HAND WITHOUT AND WITH CONTRAST, RIGHT ? CLINICAL INFORMATION: ?? Right hand pain for 3 months. Rheumatoid arthritis. ? COMPARISON: ?? Radiographs 03/01/2023 ? TECHNIQUE: ?? MRI without and with intravenous administration of 7 mL of Gadavist is ?? performed on the right hand. ? FINDINGS: ?? There are no joint effusions. No abnormal synovial thickening or ?? enhancement. No periarticular erosions. ? Bone marrow signal is normal. ? Flexor and extensor tendons appear intact with no abnormal enhancing ?? tenosynovitis. ? There is a small ganglion or joint recess volar to the radial styloid ?? which is a common finding. ? MR/MR hand RT wo/w con ?? IMPRESSION: ?? Unremarkable examination. No evidence of an active inflammatory ?? arthritis. ? Electronically signed by: ??Kwame Celaya MD ??07/27/2024 04:33 PM ?? EST RP ? Dictated By: ?Kwame Celaya MD ? Signed By: ?<Electronically signed by Kwame Celaya MD in OV> ? 07/27/24 1633 ? DD/ 0843 ? TD/TT: 07/21/[address] ? Mix Maker: DM ? Procedure Note Anders Robles - 07/27/[address] [address] Magnetic Resonance Report Signed Patient: Guille MartinezQi#: [id number] : 1980Acct:[id number] Age/Sex: 44 / FADM Date: 07/21/24 Loc: HO.MRI Attending Dr: Padmini Cleary MD Ordering Physician: Padmini Cleary MD Date of Service: 07/21/24 Procedure(s): MR hand RT wo/w con Accession Number(s): [id number] cc: Yasmin Ortiz DO; Padmini Cleary MD EXAMINATION: MRI HAND WITHOUT AND WITH CONTRAST, RIGHT CLINICAL INFORMATION: Right hand pain for 3 months. Rheumatoid arthritis. COMPARISON: Radiographs 03/01/2023 TECHNIQUE: MRI without and with intravenous administration of 7 mL of Gadavist is performed on the right hand. FINDINGS: There are no joint effusions. No abnormal synovial thickening or enhancement. No periarticular erosions. Bone marrow signal is normal. Flexor and extensor tendons appear intact with no abnormal enhancing tenosynovitis. There is a small ganglion or joint recess volar to the radial styloid which is a common finding. MR/MR hand RT wo/w con IMPRESSION: Unremarkable examination. No evidence of an active inflammatory arthritis. Electronically signed by: Kwame Celaya MD 07/27/2024 04:33 PM EST Dictated By: Kwame Celaya MD Signed By: <Electronically signed by Kwame Celaya MD inOV> 07/27/24 1633 DD/ 0843 TD/TT: 07/21/24 0925 Mix Maker: TORIBIO [facility] External Provider IMG MRI PROCEDURES Edited Result - Final * XR Knee 3 Views Right (07/17/2024 10:35 AM EST) Anatomical Region Laterality Modality Lower Extremities, Knee Right Radiogra phic Imaging 07/17/2024 10:3 5 AM EST Narrative 08/04/2024 11:30 AM EST ? [facility] ?[address] ?[place] [address] ?XRay Report ? Signed ? Patient: Dorseymakeda Cross,Sulmae ?MR#: ?? [id number] ? : 1980 ?Acct:[id number] ? Age/Sex: 44 / F ?ADM Date: 12/06/24 ? Loc: HO.XRAY ? Attending Dr: Jayce Short MD ? Ordering Physician: Jayce Short MD ?? Date of Service: 07/17/24 ?? Procedure(s): XR knee RT 3V ?? Accession Number(s): [id number] ? cc: Yasmin Ortiz DO; Jayce Short MD ? EXAMINATION: ?? XR KNEE RIGHT ? CLINICAL INFORMATION: ?? Pain in right knee M25.561. ? COMPARISON: ?? None available ? TECHNIQUE: ?? Three views of the right knee. ? FINDINGS: ?? No fracture or joint effusion. Alignment is anatomic. Joint spaces are ?? maintained. No abnormal soft tissue calcification. ? XR/XR knee RT 3V ?? IMPRESSION: ?? Normal right knee. ? Electronically signed by: ??Anirudh Royal MD ??08/04/2024 11:27 AM EST RP ? Dictated By: ?Anirudh Royal MD ? Signed By: ?<Electronically signed by Anirudh Royal MD in OV> ? 08/04/24 1127 ? DD/ 1035 ? TD/TT: 07/17/24 1038 ? Mix Maker: ? Procedure Note Margaret, Anders - 08/04/[address] [address] XRay Report Signed Patient: Ivania Martinez#: [id number] : 1980Acct:[id number] Age/Sex: 44 / FADM Date: 07/17/24 Loc: [facility] Attending Dr: Jayce Short MD Ordering Physician: Jayce Short MD Date of Service: 07/17/24 Procedure(s): XR knee RT 3V Accession Number(s): [id number] cc: Yasmin Ortiz DO; Jayce Short MD EXAMINATION: XR KNEE RIGHT CLINICAL INFORMATION: Pain in right knee M25.561. COMPARISON: None available TECHNIQUE: Three views of the right knee. FINDINGS: No fracture or joint effusion. Alignment is anatomic. Joint spaces are maintained. No abnormal soft tissue calcification. XR/XR knee RT 3V IMPRESSION: Normal right knee. Electronically signed by: Anirudh Royal MD 08/04/2024 11:27 AM EST Dictated By: Anirudh Royal MD Signed By: <Electronically signed by Anirudh Royal MD in OV> 08/04/24 1127 DD/ 1035 TD/TT: 07/17/24 1038 Mix Maker: [facility] External Provider IMG XR PROCEDURES Edited Result - Final * Hepatitis C Antibody with Reflex to HCV, RNA, Quantitative, Real-Time PCR (05/01/2024 9:04 AM EDT) Hepatitis C Antibody Nonreactive Nonreactive [facility] Comment:Antibodies to HCV no t detected; does not exclude early acuteHCV infection. Blood Venous blood specimen / Unknown 05/01/2024 9:04 AM EDT 05/01/2024 11:27 AM EDT Yasmin Ortiz DO LAB BLOOD ORDERABLES Final R esult [facility] [address] [place] [phone] * HIV-1/2 Antigen and Antibodies, Fourth Generation, with Reflexes (05/01/2024 9:04 AM EDT) HIV AB/AG Nonreactive Nonreactive [facility] Comment:HIV-1 p24 Ag and/or HIV-1/HIV-2 Ab not detected.A test result that is nonreactive does not exclude thepossibility of exposure to or infection with HIV-1 and/orHIV-2. Nonreactive results in this assay for individualswith prior exposure to HIV-1 and/or HIV-2 may be due toantigen and antibody levels that are below the limit ofdetection of this assay.The [employer] HIV Ag/Ab Combo assay result andsupplemental assay results should be interpreted inconjunction with the patient's clinical presentation,history and other laboratory results. If the results areinconsistent with clinical evidence, additional testing issuggested to confirm the result. Blood Venous blood specimen / Unknown 05/01/2024 9:04 AM EDT 05/01/2024 11:27 AM EDT us Yasmin Ortiz DO LAB BLOOD ORDERABLES Final R esult [facility] [address] [place] [address] [phone] * BI Mammogram Screening Tomosynthesis Bilateral (04/23/2023 8:28 AM EDT) Anatomical Region Laterality Modality Breast Bilateral Mammography 04/23/2023 8:28 AM EDT Narrative 05/09/2023 1:08 PM EDT ? [facility] ? [address] ?[place] [address] ? Mammography Report ? Signed ? Patient: Dilcia Martinez ?MR#: ?? [id number] ? : 1980 ?Acct:[id number] ? Age/Sex: 42 / F ?ADM Date: 04/23/23 ? Loc: HO.MAMMO ? Attending Carolyn Ortiz DO ? Ordering Physician: Maxwell Strauss MD ?Results: 1Negativ ?? e ? Date of Service: 04/23/23 ?Follow Up: 1 Year From Orig ?? inal Mammogram ? Procedure(s): MM tomosynthesis screening BI ?? Accession Number(s): [id number] ? cc: Yasmin Ortiz DO; Maxwell Strauss MD ? EXAMINATION: ?? MM SCREENING DIGITAL BREAST TOMOSYNTHESIS, BILATERAL ? CLINICAL INFORMATION: ? Screening. Asymptomatic. ? COMPARISON: ?? Mammography: This study is compared with prior exams dating back to ?? 2019. ? TECHNIQUE: ?? Digital breast tomosynthesis is performed in both the craniocaudal and ?? mediolateral oblique views along with computer-aided detection (CAD). ?? Synthesized 2D images are generated from the tomosynthesis. ? FINDINGS: ?? The breasts are heterogeneously dense, which may obscure small masses ?? (ACR BI-RADS breast composition Category c). ? There are no significant masses, abnormal calcifications, or other ?? abnormalities. ? MM/MM tomosynthesis screening BI ?? IMPRESSION: ?? No mammographic evidence of malignancy. ? ASSESSMENT: ? BI-RADS BI-RADS 1 - Negative ? RECOMMENDATION: ?? Routine annual mammography screening. ? 1 year F/U ? This examination should not preclude the clinical evaluation of a ?? suspicious palpable abnormality. ? This patient's information was entered into a reminder system with a ?? target due date for their next mammogram. ? Dictated By: ?Carmen Dooley MD ? Signed By: ?<Electronically signed by Carmen Dooley MD in OV> ? 05/09/23 1304 ? DD/ 7 ? TD/TT: ? Mix Maker: ? Procedure Note Anders Robles - 05/09/2023 [facility] [address] [place] [address] Mammography Report Signed Patient: Sulma MartinezRoberth#: [id number] : 1980Acct:[id number] Age/Sex: 42 / FADM Date: 04/23/23 Loc: [facility]ELLA Attending Dr: Yasmin Ortiz DO Ordering Physician: Maxwell Straussesults: 1Negativ e Date of Service: 04/23/23Follow Up: 1 Year From Orig inal Mammogram Procedure(s): MM tomosynthesis screening BI Accession Number(s): [id number] cc: Yasmin Ortiz DO; Maxwell Strauss MD EXAMINATION: MM SCREENING DIGITAL BREAST TOMOSYNTHESIS, BILATERAL CLINICAL INFORMATION: Screening. Asymptomatic. COMPARISON: Mammography: This study is compared with prior exams dating back to 2019. TECHNIQUE: Digital breast tomosynthesis is performed in both the craniocaudal and mediolateral oblique views along with computer-aided detection (CAD). Synthesized 2D images are generated from the tomosynthesis. FINDINGS: The breasts are heterogeneously dense, which may obscure small masses (ACR BI-RADS breast composition Category c). There are no significant masses, abnormal calcifications, or other abnormalities. MM/MM tomosynthesis screening BI IMPRESSION: No mammographic evidence of malignancy. ASSESSMENT: BI-RADS BI-RADS 1 - Negative RECOMMENDATION: Routine annual mammography screening. 1 year F/U This examination should not preclude the clinical evaluation of a suspicious palpable abnormality. This patient's information was entered into a reminder system with a target due date for their next mammogram. Dictated By: Carmen Dooley MD Signed By: <Electronically signed by Carmen Dooley MD in OV> 05/09/23 1304 DD/ TD/TT: Mix Maker: [facility] External Provider IMG BI PROCEDURES Final Result * HPV mRNA E6/E7 w/Reflex to HPV Genotypes 16, 18/45 (11/07/2022 9:53 AM EDT) HPV nRNA E6/E7 Not Detected Not Detected [facility] Comment:Methodology: Transcr iption-Mediated AmplificationThis assay detects E6/E7 viral messenger RNA (mRNA) from 14high-risk HPV types (16,18,31,33,35,39,45,51,52,56,58,59,66,68).Cervical sources are required for HPV testing.If a vaginal source from a patient who has had atotal hysterectomy with removal of cervix wassubmitted, please contact the testing laboratoryfor alternative testing options.For additional information, please refer tohttp://education.[employer]/faq/LXD206i2(This link if provided for information/educational purposes only.)THIS TEST WAS PERFORMED AT:[facility] [place] [id number] ASCENCIO MD HPV mRNA E6/E7 TNP [facility] HPV 16 RNA TNP [facility] HPV 18/45 RNA TNP [facility] 11/07/2022 9:53 AM EDT 11/07/2022 11:30 AM EDT us [facility] External Provider LAB CYT OLOGY ORDERABLES Final Result [facility] [address] [place] [address] [phone] * Pap Smear (11/07/2022 9:53 AM EDT) 11/07/2022 9:53 AM EDT 11/07/2022 11:30 AM EDT Narrative [facility] - 11/12/2022 12:10 PM EDT ----- ------- Name: Dilcia Martinez ?Age/Sex: 42/F ? : 1980 Unit#: [id number] ?? Attend Dr: Maxwell Strauss MD ?Re11/07/22 ?Status: DEP REF ? Location: HO.LNP ?Disch: ? ----- ------- SPEC : [id number] ? RECD: 11/07/22 ? STATUS: ??SOUT ? REQ NUM: [id number] ? BRANDON: 11/07/22 ? SUBM DR: Maxwell Strauss MD ? ENTERED: ??11/07/22 ?SP TYPE: Pap Smr ?OTHR : ? ORDERED: ??Pap Smear ? Interpretation ?? Satisfactory for evaluation. ?? Negative for intraepithelial lesion or malignancy. ? HPV mRNA E6/E7: ?NOT DETECTED ? This assay detects E6/E7 viral messenger RNA (mRNA) from 14 high-risk HPV types (16, 18, ?? 31, 33, 35, 39, 45, 51, 52, 56, 58, 59, 66, 68) ? HPV testing performed by [facility], [place], [place]. ??See reference laboratory ?? portion of the EMR for entire report. ?Clinical Information LMP: Unknown Previous PAP test: Unknown ? Material Received ?? ThinPrep-Cervical ----- ------- Signed (signature on file) Raisa Shirin Pena 11/12/221209 ? ----- ------- ? END OF REPORT ? [facility] External Provider LAB [facility] OLOG ORDERABLES Final Result [facility] [address] [place] [phone] from Last 3 Months or Most Recently Relevant to Health Maintenance [facility] Care Teams Central Supply Supervisor Relationship Specialty Start Date End Date Yasmin Ortiz DO [address] [place] [address] PCP - General Family Medicine 06/22/13
--- OUTSIDE RECORDS SUMMARY | 2024-09-23 16:35 | XMS_ITS | Encounter Summary ---
Author Organization [employer] Address [address] [place] [address] Care Team Providers Care Primer Charger Name Role Phone Yasmin Ortiz DO Primary Care Provider [phone] Reason for Visit * Reason Onset Date Comments Med Refill 09/21/2024 Encounter Details Date Type Department Care Team ([facility] st Contact Info) Description 09/21/[address] [facility] [address] [place] [address] Yasmin Ortiz DO [address] [place] [address] Chronic right shoulder pain Social History Tobacco Use Types Packs/Day Years [...] encounter Miscellaneous Notes * Telephone Encounter - Nadeem Hauser - 09/21/2024 12:19 PM EST TC from pt requesting medication refill. Medications needing refill : oxyCODONE (Roxicodone) 5 MG immediate release tablet To be sent to: [address] [facility] documented in this encounter Plan of Treatment Upcoming Encounters Date Type Department Care Team (Late st Contact Info) Description 11/18/2024 9:00 AM EDT Clinical Support [facility] [address] [place] [address] Annalise Barajas, SUMIT documented as of this encounter Visit Diagnoses Diagnosis Chronic right shoulder pain Pain in joint, shoulder region documented in this encounter Additional Health Concerns Assessment Noted Time PHQ-9 Depression Total Score: 2 04/20/20 24 9:42 AM EDT documented as of this encounter Care Teams Primer Charger Relationship Specialty Start Date End Date Yasmin Ortiz DO [address] [place] [address] PCP - General Family Medicine 06/22/13 documented as of this encounter
--- OUTSIDE RECORDS SUMMARY | 2024-09-23 16:35 | XMS_ITS | Encounter Summary ---
Author Organization [employer] Address [address] [place] [address] Care Team Providers Care Marketing And Promotions Manager Name Role Phone Yasmin Ortiz DO Primary Care Provider [phone] Reason for Visit * Reason Onset Date Comments Reschedule 07/08/2023 Encounter Details Date Type Department Care Team ([facility] Contact Info) Description 07/08/2023 Telephone [facility] [address] [place], [place] [phone] Yasmin Ortiz DO [address] [place], [place] [phone] Reschedule Social History Tobacco Use Types Packs/Day Years [...] encounter Miscellaneous Notes * Telephone Encounter - Andra Gabo - 07/08/2023 3:49 PM EST Tc from pt requesting to r/s 07/01 [facility] appointment. Please contact pt for scheduling at [phone] (Kiswahili) documented in this encounter Plan of Treatment Upcoming Encounters Date Type Department Care Team (Late st Contact Info) Description 11/18/2024 9:00 AM EDT Clinical Support [facility] [address] [place] [address] Annalise Barajas, RN documented as of this encounter Visit Diagnoses Not on filedocumented in this encounter Additional Health Concerns Assessment Noted Time PHQ-9 Depression Total Score: 10 023 8:17 AM EDT documented as of this encounter Care Teams Marketing And Promotions Manager Relationship Specialty Start Date End Date Yasmin Ortiz DO [address] [place] [address] PCP - General Family Medicine 06/22/13 documented as of this encounter
--- OUTSIDE RECORDS SUMMARY | 2024-09-23 16:35 | XMS_ITS | Encounter Summary ---
Author Organization [employer] Address [address] [place] [address] Care Team Providers Care Foil Cutter Name Role Phone Yasmin Ortiz DO Primary Care Provider + [phone] Reason for Visit * Reason Comments Med Refill Encounter Details Date Type Department Care Team ([facility] st Contact Info) Description 09/19/2023 Refill [facility] [address] [place], [place] [phone] Vashti Niño MD [address] [place] [address] Nonintractable chronic migraine Social History Tobacco Use Types Packs/Day Years [...] Recorded Patient Health Questionnaire-2 Score 4 08/30/2023 Comments Unknown Sex and Gender Information Value [...] Description 11/18/2024 9:00 AM EDT Clinical Support [facility] [address] [place] [phone] Annalise Barajas RN documented as of this encounter Visit Diagnoses Diagnosis Nonintractable chronic migraine documented in this encounter Additional Health Concerns Assessment Noted Time PHQ-9 Depression Total Score: 13 024 9:49 AM EST documented as of this encounter Care Teams Foil Cutter Relationship Specialty Start Date End Date Yasmin Ortiz DO [address] [place] [address] PCP - General Family Medicine 06/22/13 documented as of this encounter
== END 2024-09-23 16:02 | disposition home or self-care (01) ==
LOC: HO.HHCX 16:01
PROVIDERS: Visit Provider Nurse Practitioner
DX: M54.50 Low back pain, unspecified (principal)
CPT/HCPCS: 72100

== ENCOUNTER → 2024-09-23 16:01 | Outpatient (BNV) | payer MEDICAID, SELFPAY | PROVIDERS: Visit Provider Radiology Diagnostic Radiology | DX: S39.92XA Unspecified injury of lower back, initial encounter (principal); W19.XXXA Unspecified fall, initial encounter | CPT/HCPCS: 72100 ==

== ENCOUNTER 2024-11-09 08:28 | Outpatient (AMB) | payer MEDICAID, SELFPAY ==
--- NOTE | 2024-11-09 08:30 | A.OFFVIS_ITS ---
Vital Signs 11/09/24 08:31 Height 5 ft 2 in Weight 159 lb BMI 29.1 Intake Visit Reasons: Left knee pain and giving way Intake Note: Dilcia is a 44 year old female who presents with complaints of progressively worsening left knee pain and giving way. She also has intermittent right knee discomfort. She states that her right knee discomfort is tolerable to her at this time. She states that she injured her left knee approximately 1 year ago. She twisted her knee and had acute onset of pain. She has failed the last 6 weeks of conservative treatment which has included a home exercise program, Tylenol, anti-inflammatory medicines and baclofen. She states that her left knee will give out several times per day. Neurocritical Care Physician Required: Yes Neurocritical Care Physician Language: Professor Of English Services: Neurocritical Care Physician Present Neurocritical Care Physician Name: RaulPAPI/JOSHUA Allergies No Known Allergies [No Known Allergies*] Allergy (Verified 11/09/24 08:34) Medication List - Last Reconciled 11/09/24 by Jayce Short MD acetaminophen ER (Tylenol Arthritis Pain) 650 mg PO Q8H baclofen 20 mg PO BID PRN clindamycin phosphate 2% 1 appful vaginal BEDTIME 7 days clotrimazole-betamethasone 1-0.05 % 1 appl topical BID 5 days cyclobenzaprine 10 mg PO BEDTIME diclofenac sodium 1% (Arthritis Pain (diclofenac)) 2 grams topical BID PRN docusate sodium (Colace) 100 mg PO BID duloxetine (Cymbalta) 30 mg PO DAILY gabapentin 800 mg PO TID [hydroxyzine HCl PRN] ibuprofen 800 mg PO Q8H PRN 30 days levonorgestrel (Mirena) intrauterine lidocaine 5% 1 patch topical DAILY naloxone 4 mg/actuation (Narcan) 4 mg intranasal Q2M PRN naproxen (Naprosyn) 500 mg PO BID PRN ondansetron 4 mg PO Q6H PRN oxycodone 5 mg PO BID PRN pantoprazole 40 mg PO DAILY sumatriptan succinate (Imitrex) take 1 tab at onset of headache; if no relief may repeat 1 tab after at least 2 hrs; max = 4 tabs/24 hr PO terconazole 0.8% 1 appful vaginal BEDTIME 3 days PFSH Medical History Right shoulder pain Rheumatoid arthritis Hx of nausea and vomiting Constipation History of blood transfusion Anemia GERD (gastroesophageal reflux disease) Migraines Fibromyalgia Abnormal TSH Seropositive rheumatoid arthritis Surgical History Hx of cervical discectomy Hx of appendectomy Family History Father Cancer Mother Diabetes Hypertension Stroke Hypothyroidism Hypercholesteremia Social History Household Members: Significant Other and Children Household Members Other:: son Housing: Apartment Are you a primary direct care staffer to a significant other at home: No Do you presently have visiting nurse or other home services: No Alcohol intake: current Alcohol intake frequency: does not drink Patient Tobacco Use Status: Former Tobacco user Tobacco use type: Cigarette Advance Directives Date on File: 05/31/20 Physical Exam Vital Signs: BMI result Body Mass Index 29.1 Const Other: Well-nourished well-developed very friendly female awake alert and oriented x3 in no acute distress Extrem Other: Bilateral lower extremity examination shows good capillary refill, no skin lesions noted, normal sensation light touch Left knee examination shows a minimal effusion, minimal crepitus with range of motion, tenderness along her medial joint line, positive Ken's test, no instability Results Reviewed Results Reviewed: X-rays of the patient's knee show mild diffuse joint space narrowing, no acute bony abnormalities Assessment & Plan Assessment & Plan (1) Tear of medial meniscus of left knee: Code(s): S83.242A - Other tear of medial meniscus, current injury, left knee, initial encounter Category: Medical Plan Ms. Willian Cross presents with progressively worsening left knee pain and mechanical symptoms most likely due to a medial meniscus tear. Thus, I will send the patient for an MRI of her left knee for further evaluation. I will see her back once the MRI is completed to discuss the findings and treatment options. I spent 21 minutes in reviewing the patient's records and imaging studies, seeing the patient and documenting in the medical record. Orders: Orders MR knee LT wo con Today S83.242A - Other tear of medial meniscus, current injury, left knee, initial encounter Coding Level of Care Code Est Pt Level 3 (22278) Complex EM visit Add On G2211 Diagnoses Tear of medial meniscus of left knee S89.557O
[2024-11-09 08:31] VITALS: BMI 29.1
== END 2024-11-09 08:45 | disposition home or self-care (01) ==
LOC: HO.HOS 08:29
PROVIDERS: Visit Provider Orthopaedic Surgery
DX: S83.242A Other tear of medial meniscus, current injury, left knee, initial encounter (principal)
CPT/HCPCS: 99213

== ENCOUNTER → 2024-11-09 08:28 | Outpatient (BNVA) | payer MEDICAID, SELFPAY | PROVIDERS: Visit Provider Orthopaedic Surgery | DX: S83.242A Other tear of medial meniscus, current injury, left knee, initial encounter (principal); X58.XXXA Exposure to other specified factors, initial encounter; Y93.9 Activity, unspecified; Y92.9 Unspecified place or not applicable; Y99.9 Unspecified external cause status | CPT/HCPCS: 99212 ==

== ENCOUNTER 2024-11-19 08:28 | Outpatient (AMB) | payer MEDICAID, SELFPAY ==
--- NOTE | 2024-11-19 08:30 | MHC.OFFVIS ---
Vital Signs 11/19/24 08:36 Height 5 ft 2 in Weight 159 lb BMI 29.1 Intake Visit Reasons: OV follow up neck pain Intake Note: Dilcia is a 43 year old female who presents with complaints of progressively worsening neck pain which radiates down her right arm to her right hand. The patient states that she did undergo cervical spine surgery at another facility 3-4 years ago. She states that initially she got good relief from the surgery. She states that her neck pain has gotten worse over the last year in spite of continued non operative treatments. She also reports intermittent weakness in her right arm. She did undergo right shoulder arthroscopic surgery on 08/09/2023. She reports minimal to moderate discomfort in her right shoulder. She has taken Tylenol, , anti-inflammatory medicines, muscle relaxants, gabapentin and oxycodone which gave her minimal relief. She has also done physical therapy which aggravated her symptoms. She states that she has been to the emergency room on 2 occasions because of her pain. Go Cart Mechanic Required: Yes Go Cart Mechanic Language: Grey Goods Examiner Name: PAPI Carter/JOSHUA Allergies No Known Allergies [No Known Allergies*] Allergy (Verified 11/09/24 08:34) Medication List - Last Reconciled 11/19/24 by Jayce Short MD acetaminophen ER (Tylenol Arthritis Pain) 650 mg PO Q8H baclofen 20 mg PO BID PRN clindamycin phosphate 2% 1 appful vaginal BEDTIME 7 days clotrimazole-betamethasone 1-0.05 % 1 appl topical BID 5 days cyclobenzaprine 10 mg PO BEDTIME diclofenac sodium 1% (Arthritis Pain (diclofenac)) 2 grams topical BID PRN docusate sodium (Colace) 100 mg PO BID duloxetine (Cymbalta) 30 mg PO DAILY gabapentin 800 mg PO TID [hydroxyzine HCl PRN] ibuprofen 800 mg PO Q8H PRN 30 days levonorgestrel (Mirena) intrauterine lidocaine 5% 1 patch topical DAILY naloxone 4 mg/actuation (Narcan) 4 mg intranasal Q2M PRN naproxen (Naprosyn) 500 mg PO BID PRN ondansetron 4 mg PO Q6H PRN oxycodone 5 mg PO BID PRN pantoprazole 40 mg PO DAILY sumatriptan succinate (Imitrex) take 1 tab at onset of headache; if no relief may repeat 1 tab after at least 2 hrs; max = 4 tabs/24 hr PO terconazole 0.8% 1 appful vaginal BEDTIME 3 days PFSH Medical History Right shoulder pain Rheumatoid arthritis Hx of nausea and vomiting Constipation History of blood transfusion Anemia GERD (gastroesophageal reflux disease) Migraines Fibromyalgia Abnormal TSH Seropositive rheumatoid arthritis Surgical History Hx of cervical discectomy Hx of appendectomy Family History Father Cancer Mother Diabetes Hypertension Stroke Hypothyroidism Hypercholesteremia Social History Household Members: Significant Other and Children Household Members Other:: son Housing: Apartment Are you a primary lawn care technician to a significant other at home: No Do you presently have visiting nurse or other home services: No Alcohol intake: current Alcohol intake frequency: does not drink Patient Tobacco Use Status: Former Tobacco user Tobacco use type: Cigarette Advance Directives Date on File: 05/31/20 Physical Exam Vital Signs: BMI result Body Mass Index 29.1 Neck Other: Cervical spine examination shows positive Spurling's test, pain with range of motion, right-sided paraspinal muscle tenderness Extrem Other: Right shoulder examination shows that the surgical incisions are well healed, no erythema, almost full range of motion when compared to her left shoulder, mild discomfort with range of motion Assessment & Plan Assessment & Plan (1) Cervical stenosis of spinal canal: Code(s): M48.02 - Spinal stenosis, cervical region Category: Medical Plan Dilcia presents with neck pain which radiates into her right arm due to early degenerative disc disease. The patient was seen in our neurosurgery department. No further surgery was recommended. They did recommend that the patient follow-up with a shoes salesperson. The patient does not wish to see Dr. Guevara. Thus, I will refer her to Dr. Londono in our pain management department. She will follow-up as instructed. I spent 21 minutes in reviewing the patient's records and imaging studies, seeing the patient and documenting in the medical record. Orders: Referrals Pain Management Referral M48.02 - Spinal stenosis, cervical region Coding Level of Care Code Est Pt Level 3 (40088) Complex EM visit Add On G2211 Diagnoses Cervical stenosis of spinal canal M48.02
[2024-11-19 08:36] VITALS: BMI 29.1
--- OUTSIDE RECORDS SUMMARY | 2024-11-19 08:39 | XMS_ITS | Encounter Summary ---
Author Organization [employer] Address [address] [place] [address] Care Team Providers Care Fuel Management Handler Name Role Phone Yasmin Ortiz DO Primary Care Provider [phone]- [phone] Reason for Visit * Reason Onset Date Comments Nurse Triage 04/12/2023 Encounter Details Date Type Department Care Team ([facility] st Contact Info) Description 04/12/2023 Telephone [facility] [address] [place] [address] Yasmin Ortiz DO [address] [place], [place] [phone] Nurse Triage Social History Tobacco Use Types [...] The caller accepted this outcome Patient speaks israeli. documented in this encounter Plan of Treatment Upcoming Encounters Date Type Department Care Team (Late st Contact Info) Description 11/20/2024 10:00 AM EDT Office Visit [address] [address] Yasmin Ortiz DO [address] [place] [phone] 01/20/2025 9:00 AM EDT Clinical Support [address] [phone] Annalise Barajas RN documented as of this encounter Visit Diagnoses Not on filedocumented in this encounter Additional Health Concerns Assessment Noted Time PHQ-9 Depression Total Score: 0 12/22/19 23 10:44 AM EDT documented as of this encounter Care Teams Fuel Management Handler Relationship Specialty Start Date End Date Yasmin Ortiz DO [address] [place] [phone] PCP - General Family Medicine 06/22/13 documented as of this encounter
--- OUTSIDE RECORDS SUMMARY | 2024-11-19 08:39 | XMS_ITS | Encounter Summary ---
Author Organization [employer] Address [address] 7[address] [place] [address] Care Team Providers Care Sorting Supervisor Name Role Phone Yasmin Ortiz DO Primary Care Provider [phone] Reason for Visit * Reason Onset Date Comments Appointment Request 04/09/2024 Encounter Details Date Type Department Care Team ([facility] Contact Info) Description 04/09/2024 Telephone [facility] [address] [place], [place] [phone] Yasmin Ortiz DO [address] [place], [place] [phone] Appointment Request Social History Tobacco Use Types [...] PE with pcp. Please contact pt at [phone]. documented in this encounter Plan of Treatment Upcoming Encounters Date Type Department Care Team (Late st Contact Info) Description 11/20/2024 10:00 AM EDT Office Visit [facility] [address] [place] [address] Yasmin Ortiz DO [address] [place] [address] 01/20/2025 9:00 AM EDT Clinical Support [facility] [address] [place] [address] Annalise Barajas RN documented as of this encounter Visit Diagnoses Not on filedocumented in this encounter Additional Health Concerns Assessment Noted Time PHQ-9 Depression Total Score: 13 024 9:49 AM EST documented as of this encounter Care Teams Sorting Supervisor Relationship Specialty Start Date End Date Yasmin Ortiz DO [address] [place] [phone] PCP - General Family Medicine 06/22/13 documented as of this encounter
--- OUTSIDE RECORDS SUMMARY | 2024-11-19 08:39 | XMS_ITS | Encounter Summary ---
Author Organization [employer] Address [address] [facility] [address] [place] [address] Care Team Providers Care Radiology Clerk Name Role Phone Yasmin Ortiz DO Primary Care Provider + [phone] Reason for Visit * Reason Comments Med Refill Encounter Details Date Type Department Care Team ([facility] st Contact Info) Description 07/19/2023 Refill [facility] [address] [place], [place] [phone] Yasmin Ortiz DO [address] [place] [address] Seborrheic dermatitis Social History Tobacco Use Types [...] Description 11/20/2024 10:00 AM EDT Office Visit [address] [address] Yasmin Ortiz DO [address] [place] [address] 01/20/2025 9:00 AM EDT Clinical Support [address] [address] Annalise Barajas, SUMIT documented as of this encounter Visit Diagnoses Diagnosis Seborrheic dermatitis Unspecified seborrheic dermatitis documented in this encounter Additional Health Concerns Assessment Noted Time PHQ-9 Depression Total Score: 10 023 8:17 AM EDT documented as of this encounter Care Teams Radiology Clerk Relationship Specialty Start Date End Date Yasmin Ortiz DO [address] [place] [address] PCP - General Family Medicine 06/22/13 documented as of this encounter
--- OUTSIDE RECORDS SUMMARY | 2024-11-19 08:39 | XMS_ITS | Clinical Summary ---
Author Organization [employer] Address [address] [address] [address] 7[address] [place] [address] Care Team Providers Care Philanthropy Officer Name Role Phone Diana Yasmin Primary Care Provider [phone] Allergies No known active allergies Medications * This document contains information received from the source organization and may not represent a complete record from that organization. multivitamin with minerals (Centrum) 9-200 mg-mcg tablet split tablet take 1 tablet by oral route every day with food 07/12/20 21 Active ferrous sulfate 325 (65 Fe) MG tablet Take 1 tablet by mouth 1 (one) time each day. 11/11/19 22 Active folic acid (Folvite) 1 MG tablet Take 1 tablet by mouth 1 (one) time each day. Active naloxone (Narcan) 4 mg/0.1 mL nasal spray Administer 0.1 mL into affected nostril(s). 05/31/20 22 Active sodium chloride ([place]) 0.65 % nasal spray 1-2 spray on each nostril every 2-3 hours as needed for nasal congestion 10/05/19 22 Active ketoconazole (NIZOral) 2 % shampooIndicatio ns:Seborrheic dermatitis APPLY TOPICALLY 1 (ONE) TIME PER WEEK. 120 mL 1 07/19/20 23 Active Clobetasol Propionate 0.05 % shampooIndicatio ns:Seborrheic dermatitis Use twice weekly 118 mL 3 10/04/19 24 Active hydrOXYzine pamoate (Vistaril) 25 MG capsule Take 1 capsule (25 mg) by mouth every 6 (six) hours if needed for anxiety. 60 capsule 1 11/06/19 24 Active traZODone (Desyrel) 50 MG tablet Take 1-2 tablets (50-100 mg) by mouth if needed at bedtime for sleep. 60 tablet 3 11/15/19 24 Active melatonin 5 MG tablet Take 1-2 tablets (5-10 mg) by mouth if needed at bedtime (insomnia). 60 tablet 3 11/15/19 24 Active betamethasone dipropionate 0.05 % creamIndications :Acne vulgaris Apply topically if needed in the morning and at bedtime for rash. 45 g 1 03/12/20 24 Active acetaminophen (Tylenol 8 Hour) 650 MG ER tablet Take 1 tablet (650 mg) by mouth every 8 (eight) hours if needed for mild pain. 50 tablet 1 04/20/20 24 Active baclofen (Lioresal) 20 MG tabletIndication s:Muscle spasm Take 1 tablet (20 mg) by mouth if needed in the morning and at bedtime for muscle spasms. 60 tablet 3 04/20/20 24 Active docusate sodium (Stool Softener) 100 MG capsule TAKE 1 CAPSULE BY MOUTH TWICE A DAY 180 capsule 1 04/20/20 24 Active Diclofenac Sodium 1 % gelIndications:C hronic right shoulder pain APPLY (2G) BY TOPICAL ROUTE 2 TIMES EVERY DAY TO THE AFFECTED AREA(S) 100 g 1 04/20/20 24 Active cyclobenzaprine (Flexeril) 10 MG tabletIndication s:Other chronic pain take 1 tablet by oral route at bedtime as needed for MM SPASM or PAIN 30 tablet 3 04/20/20 24 Active cetirizine (ZyrTEC) 10 MG tablet Take 1 tablet (10 mg) by mouth Once per day. 90 tablet 1 04/20/20 24 Active gabapentin (Neurontin) 800 MG tabletIndication s:Other chronic pain Take 1 tablet by mouth three times a day 90 tablet 3 04/20/20 24 Active lidocaine (Lidoderm) 5 % patch Apply 1 patch topically Once per day. 30 patch 3 04/20/20 24 025 Active SUMAtriptan (Imitrex) 50 MG tabletIndication s:Nonintractable chronic migraine take 1 Tablet by oral route once at onset of PORTER, may repeat after 2 hours if headache returns 9 tablet 2 04/20/20 24 Active sertraline (Zoloft) 100 MG tablet Take 1 tablet (100 mg) by mouth Once per day. 90 tablet 04/20/20 24 025 Active sennosides (Senna-Time) 8.6 MG tablet TAKE 2 TABLETS BY MOUTH DAILY NEEDED ESTRENIMIENTO 180 tablet 1 04/20/20 24 Active pantoprazole (ProtoNix) 40 MG EC tablet take 1 tablet by oral route every day before meal 90 tablet 1 04/20/20 24 Active triamcinolone (Nasacort Allergy 24HR) 55 MCG/ACT nasal inhaler Administer 2 sprays into each nostril Once per day. 16.5 g 3 04/20/20 24 Active busPIRone (Buspar) 5 MG tablet Take 1 tablet (5 mg) by mouth 2 times daily. 60 tablet 3 04/20/20 24 025 Active lactulose (Chronulac) 10 GM/15ML solution Take 15 mL (10 g) by mouth if needed in the morning and at bedtime (constipation). 473 mL 2 04/20/20 24 Active naloxone (Narcan) 4 mg/0.1 mL nasal sprayIndications :Chronic right shoulder pain Administer 1 spray (4 mg) into affected nostril(s) if needed for opioid reversal. May repeat every 2-3 minutes if needed, alternating nostrils, until medical assistance becomes available. 2 each 3 08/19/19 25 026 Active naproxen (Naprosyn) 500 MG tabletIndication s:Pain,Lumbar back pain take 1 tablet (500MG) by oral route 2 times every day with food as needed for PAIN 40 tablet 09/23/19 25 Active oxyCODONE (Roxicodone) 5 MG immediate release tabletIndication s:Chronic right shoulder pain Take 1 tablet (5 mg) by mouth every 6 (six) hours if needed for severe pain for up to 28 days. Do not start before October 21, 2024. 112 tablet 10/22/19 25 025 Active Problems Problem Noted Date Diagnosed Date Seropositive rheumatoid arthritis 04/20/2024 Seborrheic keratosis 04/20/2024 offc spec methotrexate user 04/20/2024 Fibromyalgia 04/20/2024 Depression 06/03/2023 [...] wait list for OP individual therapy with [facility]. Dilcia said she called [facility] and was assured her turn is coming [...] 04/20/2024 Marital problem 06/03/2023 04/20/2024 Depression, unspecified 06/03/2023/0 04/2024 Assessment & Plan (08/30/2023 10:06 AM [...] wait list for OP individual therapy with [facility]. Dilcia said she called [facility] and was assured her turn is coming up. No other referral needed at this time. clinician will follow-up with pt as needed. Senile hyperkeratosis 01/17/20182022 Encounters Date Type Department Care Team Description 11/18/2024 Refill [facility] [address] [place] [address] Yasmin Ortiz DO Chronic right shoulder pain 11/13/2024 Patient Outreach [facility] [address] [place], [place] [phone] Yasmin Ortiz DO Pre-visit Planning (SDOH negative, Tobacco screening negative. ) 11/05/2024 Telephone [facility] [address] [place] [address] Yasmin Ortiz DO 10/23/2024 Population Health Risk Score [facility] Department [address] [phone] Provider, Population Health Generic 10/19/2024 Refill [facility] [address] [place] [address] Yasmin Ortiz DO Chronic right shoulder pain 09/29/2024 Travel 09/25/2024 Telephone [facility] [address] [place] [address] Juany Montoya NP 09/23/2024 2:40 PM EST Office Visit [facility] [address] [place] [address] Juany Montoya NP Lumbar back pain (Primary Dx); Pain 09/23/2024 Telephone [facility] [address] [place] [address] Inez Waddell, OD 09/21/2024 Refill [facility] [address] [place] [address] Yasmin Ortiz DO Chronic right shoulder pain 08/24/2024 Travel from Last 3 Months Immunizations Name Administration Dates Next Due Influenza injectable quadriv alent IIV4 with preservative 04/29/2018,05/03/2016,06/22/2015 Influenza injectable quadriv alent preservative free 05/21/2023,09/12/2022,05/05/2021,2019,05/11/2019 Influenza, IIV3, injectable 04/19/2014 Influenza, Split (incl. shahab fied surface antigen) 06/22/2013 Influenza, seasonal, injecta ble, preservative free 05/12/2024 [place] SARS-CoV-2 Vaccination 11/19/2020 MMR 04/09/2024 Pfizer Covid-19 Vaccine 12+ 05/12/2024,,08/22/2021 Pfizer Covid-19 Vaccine 12+ Bivalent 08/03/2022 Tdap [...] Description 11/20/2024 10:00 AM EDT Office Visit [facility] [address] [place] [address] Yasmin Ortiz DO [address] [place] [address] 01/20/2025 9:00 AM EDT Clinical Support [facility] [address] [place] [address] Annalise Barajas, RN Health Maintenance Due Date Last Done Comments Alcohol/Substance Use Screening 1992 Family Planning (PISQ) 1995 Hepatitis B Vaccines (1 of 3 - 19+ 3-dose series) 1999 Depression Screening 04/20/2025 04/20/2024, 04/20/20 24 Mammogram 04/23/2025 04/23/2023, 04/13, 05/03/2021, Additional history exists Tobacco Screening 09/23/2025 09/23/2024 Pap Smear 11/07/2025 11/07/2022, 10/27/2021 SDOH Screening 11/13/2025 11/13/2024 Cervical Cancer Screening 11/08/2027 HPV/Cotest 11/08/2027 11/07/2022, [...] Procedure Name Priority Date/Time Associated Diagnosis Comments XR LUMBAR SPINE 2-3 VIEWS Routine 09/23/2024 4:01 PM EST Lumbar back pain HEPATITIS C AB W/REFL TO HCV RNA, [...] Recently Relevant to Health Maintenance Results * XR Lumbar Spine 2-3 Views (09/23/2024 4:01 PM EST) Anatomical Region Laterality Modality Spine, L-spine Radiographic Brianna ging 09/23/2024 4:01 PM EST Narrative 09/24/2024 7:17 AM EST ?[facility] ?[address] ?[place] [address] ?XRay Report ? Signed ? Patient: Dorseymakeda Cross,Maitee ?MR#: ?? [id number] ? : 1980 ?Acct:[id number] ? Age/Sex: 44 / F ?ADM Date: 09/23/24 ? Loc: HO.HHCX ? Attending Dr: Juany Montoya ? Ordering Physician: Juany Montoya ?? Date of Service: 09/23/24 ?? Procedure(s): XR lumbar spine 2-3V ?? Accession Number(s): [id number] ? cc: Juany Montoya ? EXAMINATION: ??XR LUMBAR SPINE 2-3 VIEWS ? HISTORY: fall ? COMPARISON: There are no prior studies for comparison. ? FINDINGS: ??AP, lateral, and coned down views of the lumbar spine are ?? submitted. ??Osseous mineralization is normal. ??Five nonrib-bearing ?? lumbar vertebral bodies are identified, maintaining normal height and ?? alignment without evidence of fracture or spondylolisthesis. ??The ?? intervertebral disc spaces are preserved. ??The posterior elements are ?? intact. ??An IUD is noted in the midline of the pelvis. ? XR/XR lumbar spine 2-3V ?? IMPRESSION: ?? Unremarkable examination of the lumbar spine. ? Electronically signed by: ??Robert Mcintosh MD ??09/24/2024 07:14 AM EST ?? RP ? Dictated By: ?Robert Mcintosh MD ? Signed By: ?<Electronically signed by Robert Mcintosh MD in OV> ?09/24/24 0714 ? DD/ 1601 ? TD/TT: 09/23/24 1619 ? J2Ee Developer: ? Procedure Note Anders Robles - 09/24/[address] [address] XRay Report Signed Patient: Willian Ivania Cross#: [id number] : 1980Acct:[id number] Age/Sex: 44 / FADM Date: 09/23/24 Loc: HO.HHCX Attending Dr: Juany Montoya Ordering Physician: Juany Montoya Date of Service: 09/23/24 Procedure(s): XR lumbar spine 2-3V Accession Number(s): [id number] cc: Juany Montoya EXAMINATION: XR LUMBAR SPINE 2-3 VIEWS HISTORY: fall COMPARISON: There are no prior studies for comparison. FINDINGS: AP, lateral, and coned down views of the lumbar spine are submitted. Osseous mineralization is normal. Five nonrib-bearing lumbar vertebral bodies are identified, maintaining normal height and alignment without evidence of fracture or spondylolisthesis. The intervertebral disc spaces are preserved. The posterior elements are intact. An IUD is noted in the midline of the pelvis. XR/XR lumbar spine 2-3V IMPRESSION: Unremarkable examination of the lumbar spine. Electronically signed by: Robert Mcintosh MD 09/24/2024 07:14 AM [facility] Dictated By: Robert Mcintosh MD Signed By: <Electronically signed by Robert Mcintosh MD in OV> 09/24/24 0714 DD/ 1601 TD/TT: 09/23/24 1619 J2Ee Developer: Juany Montoya [employer] IMG XR PROCEDURES Edited Result - Final * Hepatitis C Antibody with Reflex to HCV, RNA, Quantitative, Real-Time PCR (05/01/2024 9:04 AM EDT) Hepatitis C Antibody Nonreactive Nonreactive [facility] Comment:Antibodies to HCV no t detected; does not exclude early acuteHCV infection. Blood Venous blood specimen / Unknown 05/01/2024 9:04 AM EDT 05/01/2024 11:27 AM EDT Yasmin Ortiz DO LAB BLOOD ORDERABLES Final R esult [facility] [address] [place] [phone] * HIV-1/2 Antigen and Antibodies, Fourth Generation, with Reflexes (05/01/2024 9:04 AM EDT) HIV AB/AG Nonreactive Nonreactive [facility] Comment:HIV-1 p24 Ag and/or HIV-1/HIV-2 Ab not detected.A test result that is nonreactive does not exclude thepossibility of exposure to or infection with HIV-1 and/orHIV-2. Nonreactive results in this assay for individualswith prior exposure to HIV-1 and/or HIV-2 may be due toantigen and antibody levels that are below the limit ofdetection of this assay.The [employer] HIV Ag/Ab Combo assay result andsupplemental assay results should be interpreted inconjunction with the patient's clinical presentation,history and other laboratory results. If the results areinconsistent with clinical evidence, additional testing issuggested to confirm the result. Blood Venous blood specimen / Unknown 05/01/2024 9:04 AM EDT 05/01/2024 11:27 AM EDT us Yasmin Ortiz DO LAB BLOOD ORDERABLES Final R esult [facility] [address] [place] [phone] * BI Mammogram Screening Tomosynthesis Bilateral (04/23/2023 8:28 AM EDT) Anatomical Region Laterality Modality Breast Bilateral Mammography 04/23/2023 8:28 AM EDT Narrative 05/09/2023 1:08 PM EDT ? [facility] ? [address] ?[place] [address] ? Mammography Report ? Signed ? Patient: Dorsey Tay,Maitee ?MR#: ?? [id number] ? : 1980 ?Acct:[id number] ? Age/Sex: 42 / F ?ADM Date: 04/23/ ? Loc: HO.MAMMO ? Attending Dr: Yasmin Ortiz DO ? Ordering Physician: Maxwell Strauss MD ?Results: 1Negativ ?? e ? Date of Service: 04/23/23 ?Follow Up: 1 Year From Orig ?? inal Mammogram ? Procedure(s): MM tomosynthesis screening BI ?? Accession Number(s): [id number] ? cc: Yasmin Ortiz DO; Maxwell Strauss [...] in OV> ? 05/09/23 1304 ? DD/ ? TD/TT: ? J2Ee Developer: ? Procedure Note Donotuseinterpreter, Image - 05/09/2023 [facility] [address] [place], [place] [address] Mammography Report Signed Patient: Guille MartinezR#: [id number] : 1980Acct:[id number] Age/Sex: 42 / FADM Date: 04/23/23 Loc: HO.MAMMO Attending Dr: Yasmin Ortiz DO Ordering Physician: Maxwell Strauss MDResults: 1Negativ e Date of Service: 04/23/23Follow Up: 1 Year From Orig inal Mammogram Procedure(s): MM tomosynthesis screening BI Accession Number(s): [id number] cc: Yasmin Ortiz DO; Maxwell Strauss MD [...] Dooley MD in OV> 05/09/23 1304 DD/ 0828 TD/TT: J2Ee Developer: [facility] External Provider IMG BI PROCEDURES Final Result * HPV mRNA E6/E7 w/Reflex to HPV Genotypes 16, 18/45 (11/07/2022 9:53 AM EDT) HPV nRNA E6/E7 Not Detected Not Detected [facility] Comment:Methodology: Transcr iption-Mediated AmplificationThis assay detects E6/E7 viral messenger RNA (mRNA) from 14high-risk HPV types (16,18,31,33,35,39,45,51,52,56,58,59,66,68).Cervical sources are required for HPV testing.If a vaginal source from a patient who has had atotal hysterectomy with removal of cervix wassubmitted, please contact the testing laboratoryfor alternative testing options.For additional information, please refer tohttp://education.Apofore/faq/XGB570z8(This link if provided for information/educational purposes only.)THIS TEST WAS PERFORMED AT:[facility] [place] [phone] ASCENCIO MD HPV mRNA E6/E7 TNP [facility] HPV 16 RNA [facility] HPV 18/45 RNA [facility] 11/07/2022 9:53 AM EDT 11/07/2022 11:30 AM EDT [facility] External Provider LAB CYT OLOGY ORDERABLES Final Result [facility] [address] [place] [phone] * Pap Smear (11/07/2022 9:53 AM EDT) 11/07/2022 9:53 AM EDT 11/07/2022 11:30 AM EDT Narrative [facility] - 11/12/2022 12:10 PM EDT ----- ------- Name: Dilcia Martinez ?Age/Sex: 42/F ? : 1980 Unit#: [id number] ?? Attend Dr: Maxwell Strauss MD ?Re11/07/22 ?Status: DEP REF ? Location: HO.LNP ?Disch: ? ----- ------- SPEC : [id number] ? RECD: 11/07/22 ? STATUS: ??SOUT ? REQ NUM: [id number] ? BRANDON: 11/07/22 ? SUBM DR: Maxwell [...] 66, 68) ? HPV testing performed by [facility], [place], [place]. ??See reference laboratory ?? portion of the EMR for entire report. ?Clinical Information LMP: Unknown Previous PAP test: Unknown ? Material Received ?? ThinPrep-Cervical ----- ------- Signed (signature on file) Raisa Carpio Jean 11/12/22 1210 ? ----- ------- ? END OF REPORT ? [facility] External Provider LAB CYT OLOGY ORDERABLES Final Result [facility] [address] [place] [address] [phone] from Last 3 Months or Most Recently Relevant to Health Maintenance Insurance [employer] C3 Care Teams Philanthropy Officer Relationship Specialty Start Date End Date Yasmin Ortiz DO [address] [place] [address] PCP - General Family Medicine 06/22/13
--- OUTSIDE RECORDS SUMMARY | 2024-11-19 08:39 | XMS_ITS | Encounter Summary ---
Author Organization [employer] Address [address] [place] [address] Care Team Providers Care Filenet P8 Developer Name Role Phone Yasmin Ortiz DO Primary Care Provider [phone]- [phone] Reason for Visit * Reason Onset Date Comments Med Refill 11/18/2024 Encounter Details Date Type Department Care Team ([facility] st Contact Info) Description 11/18/2024 Refill [facility] [address] [place] [address] Yasmin Ortiz DO [address] [place] [address] Chronic right shoulder pain Social History Tobacco [...] encounter Miscellaneous Notes * Telephone Encounter - Ginette Breen RN - 11/18/2024 11:57 AM EDT [facility] reviewed, pt. Last picked up 28 day supply 10/21/24, rx due and pended * Telephone Encounter - Lidya Church - 11/18/2024 9:28 AM EDT TC from pt requesting medication refill. Medications needing refill : oxyCODONE (Roxicodone) 5 MG immediate release tablet To be sent to: [facility] [place] - [address] [facility] documented in this encounter Plan of Treatment Upcoming Encounters Date Type Department Care Team (Late st Contact Info) Description 11/20/2024 10:00 AM EDT Office Visit [facility] [address] [place] [address] Yasmin Ortiz DO [address] [place] [address] 01/20/2025 9:00 AM EDT Clinical Support [facility] [address] [place] [address] Annalise Barajas, SUMIT documented as of this encounter Visit Diagnoses Diagnosis Chronic right shoulder pain Pain in joint, shoulder region documented in this encounter Additional Health Concerns Assessment Noted Time PHQ-9 Depression Total Score: 2 04/20/20 24 9:42 AM EDT documented as of this encounter Care Teams [employer]enet P8 Developer Relationship Specialty Start Date End Date Yasmin Ortiz DO [address] [place] [address] PCP - General Family Medicine 06/22/13 documented as of this encounter
--- OUTSIDE RECORDS SUMMARY | 2024-11-19 08:39 | XMS_ITS | Encounter Summary ---
Author Organization [employer] Address [address] [facility] [facility] [address] [address] [place] [address] Care Team Providers Care Music Intern Name Role Phone Yasmin Ortiz DO Primary Care Provider [phone] Reason for Visit * Reason Onset Date Comments Reschedule 07/08/2023 Encounter Details Date Type Department Care Team ([facility] Contact Info) Description 07/08/2023 Telephone [facility] [address] [place], [place] [phone] Yasmin Ortiz DO [address] [place], [place] [phone] Reschedule Social History Tobacco Use Types Packs/Day [...] Miscellaneous Notes * Telephone Encounter - Andra Ayon - 07/08/2023 3:49 PM EST Tc from pt requesting to r/s 07/01 banner appointment. Please contact pt for scheduling at [phone] (Finnish) documented in this encounter Plan of Treatment Upcoming Encounters Date Type Department Care Team (Late st Contact Info) Description 11/20/2024 10:00 AM EDT Office Visit [facility] [address] [place] [address] Yasmin Ortiz DO [address] [place] [address] 01/20/2025 9:00 AM EDT Clinical Support [facility] [address] [place] [phone] Annalise Barajas, SUMIT documented as of this encounter Visit Diagnoses Not on filedocumented in this encounter Additional Health Concerns Assessment Noted Time PHQ-9 Depression Total Score: 10 023 8:17 AM EDT documented as of this encounter Care Teams Music Intern Relationship Specialty Start Date End Date Yasmin Ortiz DO [address] [place] [address] PCP - General Family Medicine 06/22/13 documented as of this encounter
--- OUTSIDE RECORDS SUMMARY | 2024-11-19 08:39 | XMS_ITS | Clinical Summary ---
Author Organization [facility] Address [address] [place] [address] Care Team Providers Care Quilter Fixer Name Role Phone Yasmin Ortiz DO Primary [...] age to complete this topic Care Teams Quilter Fixer Relationship Specialty Start Date End Date Yasmin Ortiz DO [address] [place] [phone] PCP - General Family Medicine 04/28/19
--- OUTSIDE RECORDS SUMMARY | 2024-11-19 08:39 | XMS_ITS | Encounter Summary ---
Author Organization [employer] Address [address] [place] [address] Care Team Providers Care Real Estate Paralegal Name Role Phone Yasmin Ortiz DO Primary Care Provider + [phone] Reason for Visit * Reason Comments Med Refill Encounter Details Date Type Department Care Team ([facility] st Contact Info) Description 09/19/2023 Refill [facility] CH[facility] MED & PEDS [address] [place], [place] [phone] Vashti Niño MD [address] [place] [address] Nonintractable chronic migraine Social History Tobacco Use [...] Description 11/20/2024 10:00 AM EDT Office Visit [address] [address] Yasmin Ortiz DO [address] [place] [address] 01/20/2025 9:00 AM EDT Clinical Support [address] [address] Annalise Barajas, SUMIT documented as of this encounter Visit Diagnoses Diagnosis Nonintractable chronic migraine documented in this encounter Additional Health Concerns Assessment Noted Time PHQ-9 Depression Total Score: 13 024 9:49 AM EST documented as of this encounter Care Teams Real Estate Paralegal Relationship Specialty Start Date End Date Yasmin Ortiz DO [address] [place] [address] PCP - General Family Medicine 06/22/13 documented as of this encounter
--- OUTSIDE RECORDS SUMMARY | 2024-11-19 08:39 | XMS_ITS | Encounter Summary ---
Author Organization [employer] Address [address] [facility] 7[address] [place] [address] Care Team Providers Care Roll Repairer Name Role Phone Yasmin Ortiz DO Primary Care Provider + [phone] Reason for Referral * Imaging (Routine) - Closed Specialty Diagnoses / Procedures Referred By Vivian t Referred To Contact Diagnoses Abnormal uterine bleeding Procedures US Pelvis Transvaginal Yasmin Ortiz DO [address] [place] [address] Phone: tel: fax: [facility] MRI and CT Scan [address] [place] [address] Phone: tel: fax: Referral ID Status Reason Start Date Expiration Date Visits Re quested Visits Authorized [id number] Closed 10/18/2022 04/16/2023 1 1 * Imaging (Routine) - Closed Specialty Diagnoses / Procedures Referred By Contac t Referred To Contact Diagnoses Abnormal uterine bleeding Procedures Us Pelvis complete Yasmin Ortiz DO [address] [place] [address] Phone: tel: fax: [facility] MRI and CT Scan [address], [place] Phone: tel: fax: Referral ID Status Reason Start Date Expiration Date Visits Re quested Visits Authorized [id number] Closed 10/18/2022 04/16/2023 1 1 Encounter Details Date Type Department Care Team (Late Contact Info) Description 10/18/2022 Orders Only [address] [address] [place] [address] Abnormal uterine bleeding (Primary Dx) Social History [...] Department Care Team (Late Contact Info) Description 11/20/2024 10:00 AM EDT Office Visit [address] [address] Yasmin Ortiz DO [address] [place] [address] 01/20/2025 9:00 AM EDT Clinical Support [address] [address] Annalise Barajas RN Scheduled Orders Name Type [...] tract documented in this encounter Care Teams Roll Repairer Relationship Specialty Start Date End Date Yasmin Ortiz DO [address] [place] [address] PCP - General Family Medicine 06/22/13 documented as of this encounter
== END 2024-11-19 08:42 | disposition home or self-care (01) ==
LOC: HO.HOS 08:28
PROVIDERS: Visit Provider Orthopaedic Surgery
DX: M48.02 Spinal stenosis, cervical region (principal)
CPT/HCPCS: 99213

== ENCOUNTER → 2024-11-19 08:28 | Outpatient (BNVA) | payer MEDICAID, SELFPAY | PROVIDERS: Visit Provider Orthopaedic Surgery | DX: M48.02 Spinal stenosis, cervical region (principal) | CPT/HCPCS: 99212 ==

== ENCOUNTER → 2024-11-26 07:26 | Outpatient (BNV) | payer MEDICAID, SELFPAY | PROVIDERS: PCP Family Medicine; Visit Provider Radiology Diagnostic Radiology | DX: S83.242A Other tear of medial meniscus, current injury, left knee, initial encounter (principal) | CPT/HCPCS: 73721 ==

== ENCOUNTER 2024-11-26 07:56 | Outpatient (REF) | payer MEDICAID, SELFPAY ==
--- NOTE | ~2024-11-26 | MR_ITS ---
CLINICAL HISTORY: S83.242A - Other tear of medial meniscus, current injury, left knee, ini... MR left knee without gadolinium Comparison: None Findings: Menisci are intact. Degenerative signal is present within the medial meniscal posterior horn without extension to an articular surface. Mild edema signal within the adjacent meniscocapsular region. Cruciate ligaments are intact. Collateral ligaments are intact. No significant osteoarthritis. No significant knee joint effusion or Carrizales's cyst. Patellar retinacula and iliotibial band are intact. Quadriceps, patellar, popliteus, and flexor tendons are intact. IMPRESSION: Mild degenerative signal within the medial meniscal posterior horn and mild associated meniscocapsular injury without evidence of meniscal tear. This document has been electronically signed by: Haile Carrillo DO on 11/27/2024 11:10:51
--- OUTSIDE RECORDS SUMMARY | 2024-11-26 08:10 | XMS_ITS | Clinical Summary ---
Author Organization [facility] Address [address] [place] [address] Care Team Providers Care Health Technician Name Role Phone Yasmin Ortiz DO Primary [...] age to complete this topic Care Teams Health Technician Relationship Specialty Start Date End Date Yasmin Ortiz DO [address] [place] [id number] PCP - General Family Medicine 04/28/19
== END 2024-11-26 07:57 | disposition home or self-care (01) ==
LOC: HO.MRI 07:56
PROVIDERS: PCP Family Medicine; Visit Provider Orthopaedic Surgery
DX: S83.242A Other tear of medial meniscus, current injury, left knee, initial encounter (principal)
CPT/HCPCS: 73721

== ENCOUNTER 2024-12-30 08:02 | Outpatient (AMB) | payer MEDICAID, SELFPAY ==
--- NOTE | 2024-12-30 08:04 | MHC.OFFVIS ---
Vital Signs 12/30/24 08:06 Height 5 ft 2 in Weight 159 lb BMI 29.1 Intake Visit Reasons: OV- MRI review of left knee Intake Note: Dilcia is a 44 year old female who presents today for review of her left knee MRI results. She describes her left knee pain as sharp in nature. Her pain has gotten worse over the last year in spite of continued non operative treatments. She has failed the last 3 months of conservative treatment which has included muscle relaxants, Tylenol, anti-inflammatory medicines, physical therapy exercises and a home exercise program. At this point her left knee pain is interfering with her activities of daily living and her ability to sleep well through the night. She wishes to hold off on surgery if at all possible. She has had cortisone injections in the past which gave her minimal relief. Public Health Sanitarian Required: Yes Public Health Sanitarian Language: Loss Prevention And Safety Manager Services: Public Health Sanitarian Present Public Health Sanitarian Name: RaulPAPI/JOSHUA Allergies No Known Allergies [No Known Allergies*] Allergy (Verified 12/30/24 08:06) Medication List - Last Reconciled 12/30/24 by Jayce Short MD acetaminophen ER (Tylenol Arthritis Pain) 650 mg PO Q8H baclofen 20 mg PO BID PRN clotrimazole-betamethasone 1-0.05 % 1 appl topical BID 5 days cyclobenzaprine 10 mg PO BEDTIME diclofenac sodium 1% (Arthritis Pain (diclofenac)) 2 grams topical BID PRN docusate sodium (Colace) 100 mg PO BID duloxetine (Cymbalta) 30 mg PO DAILY gabapentin 800 mg PO TID [hydroxyzine HCl PRN] ibuprofen 800 mg PO Q8H PRN 30 days levonorgestrel (Mirena) intrauterine lidocaine 5% 1 patch topical DAILY naloxone 4 mg/actuation (Narcan) 4 mg intranasal Q2M PRN naproxen (Naprosyn) 500 mg PO BID PRN ondansetron 4 mg PO Q6H PRN pantoprazole 40 mg PO DAILY sumatriptan succinate (Imitrex) take 1 tab at onset of headache; if no relief may repeat 1 tab after at least 2 hrs; max = 4 tabs/24 hr PO terconazole 0.8% 1 appful vaginal BEDTIME 3 days [facility] Medical History Right shoulder pain Rheumatoid arthritis Hx of nausea and vomiting Constipation History of blood transfusion Anemia GERD (gastroesophageal reflux disease) Migraines Fibromyalgia Abnormal TSH Seropositive rheumatoid arthritis Surgical History Hx of cervical discectomy Hx of appendectomy Family History Father Cancer Mother Diabetes Hypertension Stroke Hypothyroidism Hypercholesteremia Social History Household Members: Significant Other and Children Household Members Other:: son Housing: Apartment Are you a primary insurance healthcare consultant to a significant other at home: No Do you presently have visiting nurse or other home services: No Alcohol intake: current Alcohol intake frequency: does not drink Patient Tobacco Use Status: Former Tobacco user Tobacco use type: Cigarette Advance Directives Date on File: 05/31/20 Physical Exam Vital Signs: BMI result Body Mass Index 29.1 Const Other: Well-nourished well-developed very friendly female awake alert and oriented x3 in no acute distress Extrem Other: Bilateral lower extremity examination shows good capillary refill, no skin lesions noted, normal sensation light touch Left knee examination shows a minimal effusion, mild crepitus with range of motion, pain with range of motion, negative Ken's test, no instability Results Reviewed Results Reviewed: Standing full weight-bearing x-rays of the patient's left knee show mild diffuse joint space narrowing, no acute bony abnormalities MRI of the patient's left knee shows mild diffuse degenerative changes, no evidence of meniscus or ligamentous injury Assessment & Plan Assessment & Plan (1) Osteoarthritis of left knee: Code(s): M17.12 - Unilateral primary osteoarthritis, left knee Category: Medical Plan Ms. Willian Cross presents with left knee pain due to osteoarthritis. I had a lengthy discussion with the patient regarding the treatment options. She wishes to hold off on surgery for as long as possible. I agree with this plan. I will see whether or not the patient's insurance company will cover a viscosupplementation injection, such as Durolane, for her left knee. I will see her back once the injection is available. Feel free to call me at any time should questions regarding her orthopedic management arise. I spent 20 minutes in reviewing the patient's records and imaging studies, seeing the patient and documenting in the medical record. Coding Level of Care Code Est Pt Level 3 (14720) Complex EM visit Add On G2211 Diagnoses Osteoarthritis of left knee M17.12
[2024-12-30 08:06] VITALS: BMI 29.1
--- OUTSIDE RECORDS SUMMARY | 2024-12-30 09:16 | XMS_ITS | Encounter Summary ---
Author Organization [employer] Address [address] [facility] [address] [place] [address] Care Team Providers Care Office Equipment Technician Name Role Phone Yasmin Ortiz DO Primary Care Provider + [phone] Reason for Referral * Imaging (Routine) - Closed Specialty Diagnoses / Procedures Referred By Vivian t Referred To Contact Diagnoses Abnormal uterine bleeding Procedures US Pelvis Transvaginal Yasmin Ortiz DO [address] [place] [address] Phone: tel: fax: [facility] [address] [place] [address] Phone: tel: fax: Referral ID Status Reason Start Date Expiration Date Visits Re quested Visits Authorized [id number] Closed 10/18/2022 04/16/2023 1 1 * Imaging (Routine) - Closed Specialty Diagnoses / Procedures Referred By Contac t Referred To Contact Diagnoses Abnormal uterine bleeding Procedures Us Pelvis complete Yasmin Ortiz DO [address] [place] [address] Phone: tel: fax: [facility] Scan [address] [place], [place] Phone: tel: fax: Referral ID Status Reason Start Date Expiration Date Visits Re quested Visits Authorized [id number] Closed 10/18/2022 04/16/2023 1 1 Encounter Details Date Type Department Care Team (Late Contact Info) Description 10/18/2022 Orders Only [facility] MEDICINE [address] [place] [id number] Yasmin rOtiz DO [address] [place] [address] Abnormal uterine bleeding (Primary Dx) Social History [...] Department Care Team (Late Contact Info) Description 01/20/2025 9:00 AM EDT Clinical Support [facility] [address] [place] [address] Annalise Barajas RN 03/19/2025 1:30 PM EDT Office Visit [facility] OPTOMETRY [address] [place] [id number] Inez Waddell, OD [address] [place] [address] Scheduled Orders Name Type Priority Associated Diagnoses [...] tract documented in this encounter Care Teams Office Equipment Technician Relationship Specialty Start Date End Date Yasmin Ortiz DO [address] [place] [address] PCP - General Family Medicine 06/22/13 documented as of this encounter
--- OUTSIDE RECORDS SUMMARY | 2024-12-30 09:17 | XMS_ITS | Encounter Summary ---
Author Organization [employer] Address [address] [place] [address] Care Team Providers Care Speech Instructor Name Role Phone Yasmin Ortiz DO Primary Care Provider + [phone] Reason for Visit * Reason Comments Med Refill Encounter Details Date Type Department Care Team ([facility] st Contact Info) Description 09/19/2023 Refill [facility] CHC MED & PEDS [address] [place], [place] [phone] Vashti Niño MD [address] [place] [address] Nonintractable chronic migraine Social History Tobacco Use [...] Care Team (Late st Contact Info) Description 01/20/2025 9:00 AM EDT Clinical Support [facility] MEDICINE [address] [place] [address] Annalise Barajas RN 03/19/2025 1:30 PM EDT Office Visit [facility] OPTOMETRY [address] [place] [address] Bairon, Inez, OD [address] [place] [address] documented as of this encounter Visit Diagnoses Diagnosis Nonintractable chronic migraine documented in this encounter Additional Health Concerns Assessment Noted Time PHQ-9 Depression Total Score: 13 024 9:49 AM EST documented as of this encounter Care Teams Speech Instructor Relationship Specialty Start Date End Date Yasmin Ortiz DO [address] [place] [address] PCP - General Family Medicine 06/22/13 documented as of this encounter
--- OUTSIDE RECORDS SUMMARY | 2024-12-30 09:17 | XMS_ITS | Clinical Summary ---
Author Organization [employer] Address [address] [facility] 7t [place] [address] Care Team Providers Care Barrel Cap Setter Name Role Phone MirlandeYasmin howard Primary Care Provider + [phone] Allergies No known active allergies Medications * [...] into affected nostril(s). 022 Active sodium chloride ([place]) 0.65 % nasal spray 1-2 spray on [...] at bedtime for sleep. 60 tablet 3 Active melatonin 5 MG tablet Take 1-2 tablets (5-10 mg) by mouth if needed at bedtime (insomnia). 60 tablet 3 Active betamethasone dipropionate 0.05 % creamIndication s:Acne vulgaris Apply topically if needed in the morning and at bedtime for rash. 45 g 1 Active acetaminophen (Tylenol 8 Hour) 650 MG ER tablet Take 1 tablet (650 mg) by mouth every 8 (eight) hours if needed for mild pain. 50 tablet 1 Active docusate sodium (Stool Softener) 100 MG capsule TAKE 1 CAPSULE BY MOUTH TWICE A DAY 180 capsule 1 Active Diclofenac Sodium 1 % gelIndications: Chronic right shoulder pain APPLY (2G) BY TOPICAL ROUTE 2 TIMES EVERY DAY TO THE AFFECTED AREA(S) 100 g 1 Active cyclobenzaprine (Flexeril) 10 MG tabletIndicatio ns:Other chronic pain take 1 tablet by oral route at bedtime as needed for MM SPASM or PAIN 30 tablet 3 Active cetirizine (ZyrTEC) 10 MG tablet Take 1 tablet (10 mg) by mouth Once per day. 90 tablet 1 Active lidocaine (Lidoderm) 5 % patch Apply 1 patch topically Once per day. 30 patch 3 024 2024 Active SUMAtriptan (Imitrex) 50 MG tabletIndicatio ns:Nonintractab le chronic migraine take 1 Tablet by oral route once at onset of PORTER, may repeat after 2 hours if headache returns 9 tablet 2 Active sertraline (Zoloft) 100 MG tablet Take [...] Once per day. 16.5 g 3 Active lactulose (Chronulac) 10 GM/15ML solution Take [...] available. 2 each 3 025 2025 Active naproxen (Naprosyn) 500 MG tabletIndicatio ns:Pain,Lumbar back pain take 1 tablet (500MG) by oral route 2 times every day with food as needed for PAIN 40 tablet 025 Active baclofen (Lioresal) 20 MG tabletIndicatio ns:Muscle spasm TAKE 1 TABLET BY MOUTH NEEDED EVERY MORNING AND EVERY NIGHT AT BEDTIME FOR MUSCLE SPASMS 60 tablet 3 Active busPIRone (Buspar) 5 MG tablet TAKE 1 TABLET BY MOUTH TWICE A DAY 60 tablet 3 025 Active gabapentin (Neurontin) 800 MG tabletIndicatio ns:Other chronic pain Take 1 tablet by mouth three times a day 90 tablet 3 Active oxyCODONE (Roxicodone) 5 MG immediate release tabletIndicatio ns:Chronic right shoulder pain Take 1 tablet (5 mg) by mouth every 6 (six) hours if needed for severe pain for up to 28 days. 112 tablet 025 2024 Active baclofen (Lioresal) 20 MG tabletIndicatio ns:Muscle spasm Take 1 tablet (20 mg) by mouth if needed in the morning and at bedtime for muscle spasms. 60 tablet 3 024 2024 Discontinued gabapentin (Neurontin) 800 MG tabletIndicatio ns:Other chronic pain Take 1 tablet by mouth three times a day 90 tablet 3 024 2024 Discontinued(R eorder (will not trigger notification to Pharmacy)) busPIRone (Buspar) 5 MG tablet Take 1 tablet (5 mg) by mouth 2 times daily. 60 tablet 3 024 2024 Discontinued oxyCODONE (Roxicodone) 5 MG immediate release tabletIndicatio ns:Chronic right shoulder pain Take 1 tablet (5 mg) by mouth every 6 (six) hours if needed for severe pain for up to 28 days. 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 Dilcia said she called agency and was [...] 04/20/2024 Marital problem 06/03/2023 04/20/2024 Depression, unspecified 06/03/202304/2024 Assessment & Plan (08/30/2023 10:06 AM EST): [...] Encounters Date Type Department Care Team Description 12/16/2024 Telephone [facility] [address] [place] [address] Yasmin Ortiz DO Telephone Call 12/15/2024 Refill [facility] [address] [place] [address] Yasmin Ortiz DO Muscle spasm; Other chronic pain 12/14/2024 Refill [facility] [address] [place] [address] Yasmin Ortiz DO Chronic right shoulder pain 11/26/2024 Orders Only [facility] External Provider, [facility] 11/20/2024 Telephone [facility] [address] [place] [address] Yasmin Ortiz DO No Show 11/18/2024 Refill [facility] [address] [place] [address] Yasmin Ortiz DO Chronic right shoulder pain 11/13/2024 Patient Outreach [facility] [address] [place], [place] [phone] Yasmin Ortiz DO Pre-visit Planning (SDOH negative, Tobacco screening negative. ) 11/05/2024 Telephone [facility] [address] [place] [address] Yasmin Ortiz DO 10/23/2024 Population Health Risk Score [facility] () Department [address] [phone] Provider, Population Health Generic 10/19/2024 Refill [facility] [address] [place] [address] Yasmin Ortiz DO Chronic right shoulder pain from Last 3 Months Immunizations Immunization Administration Dates Next Due Influenza injectable quadriv [...] Description 01/20/2025 9:00 AM EDT Clinical Support [facility] [address], [place] [phone] Annalise Barajas RN 03/19/2025 1:30 PM EDT Office Visit [facility] [address] [place] [address] Bairon, Inez, OD [address] [place] [address] Health Maintenance Due Date Last Done Comments Disability Screening 1980 Alcohol/Substance Use Screening 1992 Family Planning (PISQ) [...] patient's age to complete this topic Meningococcal B Vaccine Aged Out No l onger eligible based on patient's age to complete [...] Procedure Name Priority Date/Time Associated Diagnosis Comments MR KNEE WO CONTRAST LEFT Routine 11/27/2024 11:10 AM EDT HEPATITIS C AB W/REFL TO HCV RNA, [...] Recently Relevant to Health Maintenance Results * MR Knee w/o Contrast Left (11/27/2024 11:10 AM EDT) Anatomical Region Laterality Modality Magnetic Resonan ce 11/27/2024 11:1 0 AM EDT Narrative 11/27/2024 11:11 AM EDT ? [facility] ?[address] ?[place] [address] ? Magnetic Resonance Report ? Signed ? Patient: Dilcia Martinez ?MR#: ?? [id number] ? : 1980 ?Acct:[id number] ? Age/Sex: 44 / F ?ADM Date: 11/26/24 ? Loc: HO.MRI ? Attending Dr: Jayce Short MD ? Ordering Physician: Jayce Shrot MD ?? Date of Service: 11/26/24 ?? Procedure(s): MR knee LT wo con ?? Accession Number(s): [id number] ? cc: Yasmin Ortiz DO; Jayce Short MD ? CLINICAL HISTORY: S83.242A - Other tear of medial meniscus, current injury, left knee, ini... ? MR left knee without gadolinium ? Comparison: None ? Findings: ?? Menisci are intact. Degenerative signal is present within the medial ?? meniscal posterior horn without extension to an articular surface. Mild ?? edema signal within the adjacent meniscocapsular region. ?? Cruciate ligaments are intact. ?? Collateral ligaments are intact. ? No significant osteoarthritis. ?? No significant knee joint effusion or Carrizales's cyst. ? Patellar retinacula and iliotibial band are intact. ?? Quadriceps, patellar, popliteus, and flexor tendons are intact. ? IMPRESSION: ?? Mild degenerative signal within the medial meniscal posterior horn and ?? mild associated meniscocapsular injury without evidence of meniscal tear. ? This document has been electronically signed by: Haile Carrillo DO on ?? 11/27/2024 11:10:51 ? Dictated By: ?Haile Carrillo MD ? Signed By: ?<Electronically signed by Haile Carrillo MD in OV> ? 11/27/24 1111 ? DD/ 1110 ? TD/TT: 11/27/24 1110 ? Public Policy Manager: ? Procedure Note Rebeccater, Image - 11/27/2024 [place] [address] Magnetic Resonance Report Signed Patient: Ivania Martinez#: [id number] : 1980Acct:[id number] Age/Sex: 44 / FADM Date: 11/26/24 Loc: HO.MRI Attending Dr: Jayce Short MD Ordering Physician: Jayce Short MD Date of Service: 11/26/24 Procedure(s): MR knee LT wo con Accession Number(s): [id number] cc: Yasmin Ortiz DO; Jayce Short MD CLINICAL HISTORY: S83.242A - Other tear of medial meniscus, currentinjury, left knee, ini... MR left knee without gadolinium Comparison: None Findings: Menisci are intact. Degenerative signal is present within the medial meniscal posterior horn without extension to an articular surface. Mild edema signal within the adjacent meniscocapsular region. Cruciate ligaments are intact. Collateral ligaments are intact. No significant osteoarthritis. No significant knee joint effusion or Carrizales's cyst. Patellar retinacula and iliotibial band are intact. Quadriceps, patellar, popliteus, and flexor tendons are intact. IMPRESSION: Mild degenerative signal within the medial meniscal posterior horn and mild associated meniscocapsular injury without evidence of meniscal tear. This document has been electronically signed by: Haile Carrillo DO on 11/27/2024 11:10:51 Dictated By: Haile Carrillo MD Signed By: <Electronically signed by Haile Carrillo MD in OV> 11/27/24 1111 DD/ 1110 TD/TT: 11/27/24 1110 Public Policy Manager: [facility] External Provider IMG MRI PROCEDURES Edited Result - Final * Hepatitis C Antibody with Reflex to HCV, RNA, Quantitative, Real-Time PCR (05/01/2024 9:04 AM EDT) Hepatitis C Antibody Nonreactive Nonreactive [facility] Comment:Antibodies to HCV no t detected; does not exclude early acuteHCV infection. Blood Venous blood specimen / Unknown 05/01/2024 9:04 AM EDT 05/01/2024 11:27 AM EDT Yasmin Diana GARCIA LAB BLOOD ORDERABLES Final R esult [facility] [address] [place] [phone] * HIV-1/2 Antigen and Antibodies, Fourth Generation, with Reflexes (05/01/2024 9:04 AM EDT) HIV AB/AG Nonreactive Nonreactive [facility] Comment:HIV-1 p24 Ag and/or HIV-1/HIV-2 Ab not detected.A test result that is nonreactive does not exclude thepossibility of exposure to or infection with HIV-1 and/orHIV-2. Nonreactive results in this assay for individualswith prior exposure to HIV-1 and/or HIV-2 may be due toantigen and antibody levels that are below the limit ofdetection of this assay.The [employer] HIV Ag/Ab Combo assay result andsupplemental assay results should be interpreted inconjunction with the patient's clinical presentation,history and other laboratory results. If the results areinconsistent with clinical evidence, additional testing issuggested to confirm the result. Blood Venous blood specimen / Unknown 05/01/2024 9:04 AM EDT 05/01/2024 11:27 AM EDT us Yasmin Wellsmikalanita DO LAB BLOOD ORDERABLES Final R esult [facility] [address] [place] [address] [phone] * BI Mammogram Screening Tomosynthesis Bilateral (04/23/2023 8:28 AM EDT) Anatomical Region Laterality Modality Breast Bilateral Mammography 04/23/2023 8:28 AM EDT Narrative 05/09/2023 1:08 PM EDT ? [facility] ? [address] ?[place] [address] ? Mammography Report ? Signed ? Patient: Dorsey Cross,Maitee ?MR#: ?? [id number] ? : 1980 ?Acct:[id number] ? Age/Sex: 42 / F ?ADM Date: 04/23/ ? Loc: HO.MAMMO ? Attending Dr: Yasmin Ortiz DO ? Ordering Physician: Maxwell Strauss MD ?Results: 1Negativ ?? e ? Date of Service: 04/23/ ?Follow Up: 1 Year From Orig ?? inal Mammogram ? Procedure(s): MM tomosynthesis screening BI ?? Accession Number(s): [id number] ? cc: Yasmin Ortiz DO; Maxwell Strauss [...] 1304 ? DD/ 7 ? TD/TT: ? Public Policy Manager: ? Procedure Note Margaret, Anders - 05/09/2023 [facility] [address] [place] [address] [place] [address] Mammography Report Signed Patient: Sulma MartinezRoberth#: [id number] : 1980Acct:[id number] Age/Sex: 42 / FADM Date: 04/23/23 Loc: HO.MAMMO Attending Dr: Yasmin Ortiz DO Ordering Physician: Maxwell Strauss MDResults: 1Negativ e Date of Service: 04/23/23Follow Up: 1 Year From [facility] ina Mammogram Procedure(s): MM tomosynthesis screening BI Accession Number(s): [id number] cc: Yasmin Ortiz DO; Maxwell Strauss MD [...] in OV> 05/09/23 1304 DD/ 0828 TD/TT: Public Policy Manager: us [facility] External Provider IMG BI PROCEDURES Final Result * HPV mRNA E6/E7 w/Reflex to HPV Genotypes 16, 18/45 (11/07/2022 9:53 AM EDT) HPV nRNA E6/E7 Not Detected Not Detected [facility] Comment:Methodology: Transcr iption-Mediated AmplificationThis assay detects E6/E7 viral messenger RNA (mRNA) from 14high-risk HPV types (16,18,31,33,35,39,45,51,52,56,58,59,66,68).Cervical sources are required for HPV testing.If a vaginal source from a patient who has had atotal hysterectomy with removal of cervix wassubmitted, please contact the testing laboratoryfor alternative testing options.For additional information, please refer [email or web address]/faq/[email or web address](This link if provided for information/educational purposes only.)THIS TEST WAS PERFORMED AT:[facility] [place] [id number] ASCENCIO MD HPV mRNA E6/E7 [facility] HPV 16 RNA TNP [facility] HPV 18/45 RNA [facility] 11/07/2022 9:53 AM EDT 11/07/2022 11:30 AM EDT [facility] External Provider LAB CYT OLOGY ORDERABLES Final Result Performing Organization Address City/State/[facility] Co de Phone Number [facility] [address] [place] [phone] * Pap Smear (11/07/2022 9:53 AM EDT) 11/07/2022 9:53 AM EDT 11/07/2022 11:30 AM EDT Narrative [facility] - 11/12/2022 12:10 PM EDT ----- ------- Name: Dilcia Maritnez ?Age/Sex: 42/F ? : 1980 Unit#: [id number] ?? Attend Dr: Maxwell Strauss MD ?Re11/07/22 ?Status: DEP REF ? Location: HO.LNP ?Disch: ? ----- ------- SPEC : [id number] ? RECD: 11/07/22 ? STATUS: ??SOUT ? REQ NUM: [id number] ? BRANDON: 11/07/22 ? SUBM DR: Maxwell Strauss MD ? ENTERED: ??11/07/22 ?SP TYPE: Pap Smr ?OTHR DR: ? ORDERED: ??Pap Smear ? Interpretation ?? Satisfactory for evaluation. ?? Negative for intraepithelial lesion or malignancy. ? HPV mRNA E6/E7: ?NOT DETECTED ? This assay detects E6/E7 viral messenger RNA (mRNA) from 14 high-risk HPV types (16, 18, ?? 31, 33, 35, 39, 45, 51, 52, 56, 58, 59, 66, 68) ? HPV testing performed by [facility], [place], [place]. ??See reference laboratory ?? portion of the EMR for entire report. ?Clinical Information LMP: Unknown Previous PAP test: Unknown ? Material Received ?? ThinPrep-Cervical ----- ------- Signed (signature on file) Raisa Shirin Pena 11/12/22 1210 ? ----- ------- ? END OF REPORT ? us [facility] External Provider LAB CYT OLOGY ORDERABLES Final Result [facility] [address] [place] [address] [phone] from Last 3 Months or Most Recently Relevant to Health Maintenance Insurance [facility] C3 Care Teams Barrel Cap Setter Relationship Specialty Start Date End Date Yasmin Ortiz DO [address] [place] [address] PCP - General Family Medicine 06/22/13
--- OUTSIDE RECORDS SUMMARY | 2024-12-30 09:20 | XMS_ITS | Encounter Summary ---
Author Organization [employer] Address [address] [place] [address] Care Team Providers Care Money Counter Name Role Phone Yasmin Ortiz DO Primary Care Provider + [phone] Reason for Visit * Reason Comments Med Refill Encounter Details Date Type Department Care Team ([facility] st Contact Info) Description 07/19/2023 Refill [facility] [address] [place], [place] [phone] Yasmin Ortiz DO [address] [place] [address] Seborrheic dermatitis Social History Tobacco Use Types [...] Description 01/20/2025 9:00 AM EDT Clinical Support [facility] [address] [place] [address] Annalise Barajas RN 03/19/2025 1:30 PM EDT Office Visit [facility] [address] [place] [address] Bairon, Inez, OD [address] [place] [address] documented as of this encounter Visit Diagnoses Diagnosis Seborrheic dermatitis Unspecified seborrheic dermatitis documented in this encounter Additional Health Concerns Assessment Noted Time PHQ-9 Depression Total Score: 10 023 8:17 AM EDT documented as of this encounter Care Teams Money Counter Relationship Specialty Start Date End Date Yasmin Ortiz DO [address] [place] [address] PCP - General Family Medicine 06/22/13 documented as of this encounter
--- OUTSIDE RECORDS SUMMARY | 2024-12-30 09:21 | XMS_ITS | Encounter Summary ---
Author Organization [employer] Address [address] [facility] [address] [place] [address] Care Team Providers Care Custom Shoe Designer And Maker Name Role Phone Yasmin Ortiz DO Primary Care Provider [phone] Reason for Visit * Reason Onset Date Comments Appointment Request 04/09/2024 Encounter Details Date Type Department Care Team ([facility] st Contact Info) Description 04/09/2024 Telephone [facility] [address] [place], [place] [phone] Yasmin Ortiz DO [address] [place], [place] [phone] Appointment Request Social History Tobacco Use Types [...] PE with pcp. Please contact pt at [phone]. documented in this encounter Plan of Treatment Upcoming Encounters Date Type Department Care Team (Late st Contact Info) Description 01/20/2025 9:00 AM EDT Clinical Support [facility] [address] [place] [address] Annalise Barajas RN 03/19/2025 1:30 PM EDT Office Visit [facility] [address] [place] [address] Inez Waddell, OD [address] [place] [address] documented as of this encounter Visit Diagnoses Not on filedocumented in this encounter Additional Health Concerns Assessment Noted Time PHQ-9 Depression Total Score: 13 024 9:49 AM EST documented as of this encounter Care Teams Custom Shoe Designer And Maker Relationship Specialty Start Date End Date Yasmin Ortiz DO [address] [place] [address] PCP - General Family Medicine 06/22/13 documented as of this encounter
== END 2024-12-30 08:13 | disposition home or self-care (01) ==
LOC: HO.HOS 08:03
PROVIDERS: PCP Family Medicine; Visit Provider Orthopaedic Surgery
DX: M17.12 Unilateral primary osteoarthritis, left knee (principal)
CPT/HCPCS: 99213

== ENCOUNTER → 2024-12-30 08:02 | Outpatient (BNVA) | payer MEDICAID, SELFPAY | PROVIDERS: PCP Family Medicine; Visit Provider Orthopaedic Surgery | DX: M17.12 Unilateral primary osteoarthritis, left knee (principal) | CPT/HCPCS: 99212 ==

== ENCOUNTER 2025-02-04 08:50 | Outpatient (AMB) | payer MEDICAID, SELFPAY ==
[2025-02-04 08:57] VITALS: BMI 29.1
--- NOTE | 2025-02-04 08:57 | A.OFFVIS_ITS ---
Vital Signs 02/04/25 08:57 Height 5 ft 2 in Weight 159 lb BMI 29.1 Intake Visit Reasons: Inj- Left Knee Euflexxa #1 Intake Note: Dilcia is a 44 year old female who presents today for her fist dose of left knee Euflexxa gel injection. The patient describes her left knee pain as sharp in nature. She has had cortisone injections in the past which gave her minimal relief. She has failed the last 3 months of conservative treatment which has included Tylenol, anti-inflammatory medicines and a home exercise program. Faucet Polisher Required: Yes Faucet Polisher Language: Towel Weaver Services: Faucet Polisher Present Faucet Polisher Name: PAPI Carter Allergies No Known Allergies (No Known Allergies*) Allergy (Verified 02/04/25 08:58) Medication List - Last Reconciled 02/04/25 by Jayce Short MD acetaminophen ER (Tylenol Arthritis Pain) 650 mg PO Q8H baclofen 20 mg PO BID PRN clotrimazole-betamethasone 1-0.05 % 1 appl topical BID 5 days cyclobenzaprine 10 mg PO BEDTIME diclofenac sodium 1% (Arthritis Pain (diclofenac)) 2 grams topical BID PRN docusate sodium (Colace) 100 mg PO BID duloxetine (Cymbalta) 30 mg PO DAILY gabapentin 800 mg PO TID [hydroxyzine HCl PRN] ibuprofen 800 mg PO Q8H PRN 30 days levonorgestrel (Mirena) intrauterine lidocaine 5% 1 patch topical DAILY naloxone 4 mg/actuation (Narcan) 4 mg intranasal Q2M PRN naproxen (Naprosyn) 500 mg PO BID PRN ondansetron 4 mg PO Q6H PRN pantoprazole 40 mg PO DAILY sumatriptan succinate (Imitrex) take 1 tab at onset of headache; if no relief may repeat 1 tab after at least 2 hrs; max = 4 tabs/24 hr PO terconazole 0.8% 1 appful vaginal BEDTIME 3 days PFSH Medical History Right shoulder pain Rheumatoid arthritis Hx of nausea and vomiting Constipation History of blood transfusion Anemia GERD (gastroesophageal reflux disease) Migraines Fibromyalgia Abnormal TSH Seropositive rheumatoid arthritis Surgical History Hx of cervical discectomy Hx of appendectomy Family History Father Cancer Mother Diabetes Hypertension Stroke Hypothyroidism Hypercholesteremia Social History Household Members: Significant Other and Children Household Members Other:: son Housing: Apartment Are you a primary child care provider to a significant other at home: No Do you presently have visiting nurse or other home services: No Alcohol intake: current Alcohol intake frequency: does not drink Patient Tobacco Use Status: Former Tobacco user Tobacco use type: Cigarette Advance Directives Date on File: 05/31/20 Physical Exam Vital Signs: BMI result Body Mass Index 29.1 Const Other: Well-nourished well-developed very friendly female awake alert and oriented x3 in no acute distress Extrem Other: Bilateral lower extremity examination shows good capillary refill, no skin lesions noted, normal sensation light touch Left knee examination shows a minimal effusion, palpable crepitus with range of motion, pain with range of motion, no instability Office Procedures AMB Joint Injection/Aspiration Joint Injection/Aspiration Primary Site: left knee Prep: site was prepped using aseptic technique Injected: 20 mg of (Euflexxa viscosupplementation) and 1% plain lidocaine Procedure: The patient tolerated the procedure well Coding 87995 - Large joint Procedure code (CPT) selection complete Results Reviewed Results Reviewed: X-rays of the patient's left knee taken previously show joint space narrowing, subchondral sclerosis, no acute bony abnormalities Assessment & Plan Assessment & Plan (1) Osteoarthritis of left knee: Code(s): M17.12 - Unilateral primary osteoarthritis, left knee Category: Medical Plan Ms. Willian Cross presents with left knee pain due to osteoarthritis. The risks and benefits of a series of 3 Euflexxa viscosupplementation injections were discussed at length with the patient. The patient wished to proceed. She tolerated the 1st injection well. She will follow up next week as scheduled. Feel free to call me at any time should questions regarding her orthopedic management arise. I spent 22 minutes in reviewing the patient's records and imaging studies, seeing the patient and documenting in the medical record. Orders: Orders AMB Joint Injection/Aspiration Today M17.12 - Unilateral primary osteoarthritis, left knee Coding Level of Care Code Est Pt Level 3 (59995) Complex EM visit Add On G2211 Diagnoses Osteoarthritis of left knee M17.12 CPT Codes Coding - 79527 Large joint: 09063 - Large joint ([id number])
--- OUTSIDE RECORDS SUMMARY | 2025-02-04 09:25 | XMS_ITS | Encounter Summary ---
Author Organization [employer] Address [address] [facility] [address] [place] [address] Care Team Providers Care Tack Driller Name Role Phone Yasmin Ortiz DO Primary Care Provider [phone] Reason for Visit * Reason Onset Date Comments Nurse Triage 04/12/2023 Encounter Details Date Type Department Care Team ([facility] st Contact Info) Description 04/12/2023 Telephone [facility] [address] [place], [place] [phone] Yasmin Ortiz DO [address] [place], [place] [phone] Nurse Triage Social History Tobacco Use Types [...] The caller accepted this outcome Patient speaks colombian. documented in this encounter Plan of Treatment Upcoming Encounters Date Type Department Care Team (Late st Contact Info) Description 03/19/2025 1:30 PM EDT Office Visit [facility] OPT[facility] [address] [place], [place] [phone] Inez Waddell, OD [address] [place] [address] 04/22/2025 9:00 AM EDT Clinical Support [facility] [address] [place], [place] [phone] Annalise Barajas RN documented as of this encounter Visit Diagnoses Not on filedocumented in this encounter Additional Health Concerns Assessment Noted Time PHQ-9 Depression Total Score: 0 12/22/19 23 10:44 AM EDT documented as of this encounter Care Teams Tack Driller Relationship Specialty Start Date End Date Yasmin Ortiz DO [address] [place], [place] [phone] PCP - General Family Medicine 06/22/13 documented as of this encounter
== END 2025-02-04 09:04 | disposition home or self-care (01) ==
LOC: HO.HOS 08:50
PROVIDERS: PCP Family Medicine; Visit Provider Orthopaedic Surgery
DX: M17.12 Unilateral primary osteoarthritis, left knee (principal)
CPT/HCPCS: 20610; 99213

== ENCOUNTER → 2025-02-04 08:50 | Outpatient (BNVA) | payer MEDICAID, SELFPAY | PROVIDERS: PCP Family Medicine; Visit Provider Orthopaedic Surgery | DX: M17.12 Unilateral primary osteoarthritis, left knee (principal); M25.561 Pain in right knee | CPT/HCPCS: 20610; 99212; J2003; J7323 ==

== ENCOUNTER 2025-02-11 08:01 | Outpatient (AMB) | payer MEDICAID, SELFPAY ==
--- NOTE | 2025-02-11 08:03 | MHC.OFFVIS ---
Vital Signs 02/11/25 08:04 Height 5 ft 2 in Weight 159 lb BMI 29.1 Intake Visit Reasons: Inj- Left Knee Euflexxa #2 Intake Note: Dilcia is a 44 year old female who presents today for her second dose of left knee Euflexxa gel injection. The patient states that she got mild relief from the 1st injection. She continues with her home exercise program. Medical Office Specialist Required: Yes Medical Office Specialist Language: Gas Brazer Services: Medical Office Specialist Present Medical Office Specialist Name: PAPI Carter/JOSHUA Allergies No Known Allergies (No Known Allergies*) Allergy (Verified 02/11/25 08:08) Medication List - Last Reconciled 02/11/25 by Jayce Short MD acetaminophen ER (Tylenol Arthritis Pain) 650 mg PO Q8H baclofen 20 mg PO BID PRN clotrimazole-betamethasone 1-0.05 % 1 appl topical BID 5 days cyclobenzaprine 10 mg PO BEDTIME diclofenac sodium 1% (Arthritis Pain (diclofenac)) 2 grams topical BID PRN docusate sodium (Colace) 100 mg PO BID duloxetine (Cymbalta) 30 mg PO DAILY gabapentin 800 mg PO TID [hydroxyzine HCl PRN] ibuprofen 800 mg PO Q8H PRN 30 days levonorgestrel (Mirena) intrauterine lidocaine 5% 1 patch topical DAILY naloxone 4 mg/actuation (Narcan) 4 mg intranasal Q2M PRN naproxen (Naprosyn) 500 mg PO BID PRN ondansetron 4 mg PO Q6H PRN pantoprazole 40 mg PO DAILY sumatriptan succinate (Imitrex) take 1 tab at onset of headache; if no relief may repeat 1 tab after at least 2 hrs; max = 4 tabs/24 hr PO terconazole 0.8% 1 appful vaginal BEDTIME 3 days PFSH Medical History Right shoulder pain Rheumatoid arthritis Hx of nausea and vomiting Constipation History of blood transfusion Anemia GERD (gastroesophageal reflux disease) Migraines Fibromyalgia Abnormal TSH Seropositive rheumatoid arthritis Surgical History Hx of cervical discectomy Hx of appendectomy Family History Father Cancer Mother Diabetes Hypertension Stroke Hypothyroidism Hypercholesteremia Social History Household Members: Significant Other and Children Household Members Other:: son Housing: Apartment Are you a primary medical care evaluation specialist to a significant other at home: No Do you presently have visiting nurse or other home services: No Alcohol intake: current Alcohol intake frequency: does not drink Patient Tobacco Use Status: Former Tobacco user Tobacco use type: Cigarette Advance Directives Date on File: 05/31/20 Physical Exam Vital Signs: BMI result Body Mass Index 29.1 Extrem Other: Left knee examination shows a minimal effusion, palpable crepitus with range of motion, pain with range of motion, no instability Office Procedures AMB Joint Injection/Aspiration Joint Injection/Aspiration Primary Site: left knee Prep: site was prepped using aseptic technique Injected: 20 mg of (Euflexxa viscosupplementation) and 1% plain lidocaine Procedure: The patient tolerated the procedure well Coding 13300 - Large joint Procedure code (CPT) selection complete Results Reviewed Results Reviewed: X-rays of the patient's left knee show joint space narrowing, subchondral sclerosis, no acute bony abnormalities Assessment & Plan Assessment & Plan (1) Osteoarthritis of left knee: Code(s): M17.12 - Unilateral primary osteoarthritis, left knee Category: Medical Plan Dilcia presents with left knee pain due to osteoarthritis. The risks and benefits of a 2nd Euflexxa injection were discussed at length with the patient. The patient wished to proceed. She tolerated the injection well. She will continue with her activity modifications. She will follow up next week as scheduled. Feel free to call me at any time should questions regarding her orthopedic management arise. Orders: Orders AMB Joint Injection/Aspiration Today M17.12 - Unilateral primary osteoarthritis, left knee Coding Level of Care Code Procedure Only Diagnoses Osteoarthritis of left knee M17.12 CPT Codes Coding - 24626 Large joint: 07898 - Large joint ([id number])
[2025-02-11 08:04] VITALS: BMI 29.1
--- OUTSIDE RECORDS SUMMARY | 2025-02-11 08:04 | XMS_ITS | Encounter Summary ---
Author Organization [facility] Address [address] [facility] [address] [place] [address] Care Team Providers Care Minister Of Religion Name Role Phone Yasmin Ortiz DO Primary Care Provider +1- [phone] Reason for Visit * Reason Onset Date Comments Nurse Triage 04/12/2023 Encounter Details Date Type Department Care Team ([facility] st Contact Info) Description 04/12/2023 Telephone [facility] MEDICINE [address] [place], [place] [phone] Yasmin Ortiz DO [address] [place], [place] [phone] Nurse Triage Social History Tobacco Use Types [...] The caller accepted this outcome Patient speaks norwegian. documented in this encounter Plan of Treatment Upcoming Encounters Date Type Department Care Team (Late st Contact Info) Description 03/19/2025 1:30 PM EDT Office Visit [facility] OPTOMETRY [address] [place], [place] [phone] Inez Waddell, OD [address] [place] [address] 04/22/2025 9:00 AM EDT Clinical Support [facility] MEDICINE [address] [place], [place] [phone] Annalise Barajas RN documented as of this encounter Visit Diagnoses Not on filedocumented in this encounter Additional Health Concerns Assessment Noted Time PHQ-9 Depression Total Score: 0 12/22/19 23 10:44 AM EDT documented as of this encounter Care Teams Minister Of Religion Relationship Specialty Start Date End Date Yasmin Ortiz DO [address] [place], [place] [phone] PCP - General Family Medicine 06/22/13 documented as of this encounter
== END 2025-02-11 08:17 | disposition home or self-care (01) ==
LOC: HO.HOS 08:01
PROVIDERS: PCP Family Medicine; Visit Provider Orthopaedic Surgery
DX: M17.12 Unilateral primary osteoarthritis, left knee (principal)
CPT/HCPCS: 20610

== ENCOUNTER → 2025-02-11 08:01 | Outpatient (BNVA) | payer MEDICAID, SELFPAY | PROVIDERS: PCP Family Medicine; Visit Provider Orthopaedic Surgery | DX: M17.12 Unilateral primary osteoarthritis, left knee (principal) | CPT/HCPCS: 20610; J2003; J7323 ==

== ENCOUNTER 2025-02-18 07:55 | Outpatient (AMB) | payer MEDICAID, SELFPAY ==
--- OUTSIDE RECORDS SUMMARY | 2025-02-18 07:57 | XMS_ITS | Encounter Summary ---
Author Organization [email or web address] Address [address] [facility] [address] [place] [address] Care Team Providers Care Pill Coater Name Role Phone Yasmin Ortiz DO Primary Care Provider +1- [phone] Reason for Visit * Reason Onset Date Comments Nurse Triage 04/12/2023 Encounter Details Date Type Department Care Team ([facility] st Contact Info) Description 04/12/2023 Telephone [facility] MEDICINE [address] [place], [place] [phone] Yasmin Ortiz DO [address] [place], [place] [phone] Nurse Triage Social History Tobacco Use Types [...] The caller accepted this outcome Patient speaks emirati. documented in this encounter Plan of Treatment Upcoming Encounters Date Type Department Care Team (Late st Contact Info) Description 03/19/2025 1:30 PM EDT Office Visit [facility] OPTOMETRY [address] [place], [place] [phone] Inez Waddell, OD [address] [place] [address] 04/22/2025 9:00 AM EDT Clinical Support [facility] MEDICINE [address] [place], [place] [phone] Annalise Barajas RN documented as of this encounter Visit Diagnoses Not on filedocumented in this encounter Additional Health Concerns Assessment Noted Time PHQ-9 Depression Total Score: 0 12/22/19 23 10:44 AM EDT documented as of this encounter Care Teams Pill Coater Relationship Specialty Start Date End Date Yasmin Ortiz DO [address] [place], [place] [phone] PCP - General Family Medicine 06/22/13 documented as of this encounter
--- OUTSIDE RECORDS SUMMARY | 2025-02-18 07:57 | XMS_ITS | Clinical Summary ---
Author Organization [facility] Address [address] [place] [address] Care Team Providers Care Stretching Machine Tender Frame Name Role Phone Yasmin Ortiz DO Primary [...] (P ap Smear) 2001 Influenza Vaccine (#1) 2025 Pneumococcal Vaccine Aged Out No long er eligible based on patient's age to complete this topic RSV Ped < 20 months Aged Out No longe r eligible based on patient's age to complete this topic Care Teams Stretching Machine Tender Frame Relationship Specialty Start Date End Date Yasmin Ortiz DO [address] [place] [phone] PCP - General Family Medicine 04/28/19
--- NOTE | 2025-02-18 08:00 | MHC.OFFVIS ---
Intake Visit Reasons: Inj- Left Knee Euflexxa #3 Intake Note: Dilcia is a 44 year old female who presents today for her third dose of left knee Euflexxa gel injection. Allergies No Known Allergies (No Known Allergies*) Allergy (Verified 02/11/25 08:08) Medication List - Last Reconciled 02/18/25 by Jayce Short MD acetaminophen ER (Tylenol Arthritis Pain) 650 mg PO Q8H baclofen 20 mg PO BID PRN clotrimazole-betamethasone 1-0.05 % 1 appl topical BID 5 days cyclobenzaprine 10 mg PO BEDTIME diclofenac sodium 1% (Arthritis Pain (diclofenac)) 2 grams topical BID PRN docusate sodium (Colace) 100 mg PO BID duloxetine (Cymbalta) 30 mg PO DAILY gabapentin 800 mg PO TID [hydroxyzine HCl PRN] ibuprofen 800 mg PO Q8H PRN 30 days levonorgestrel (Mirena) intrauterine lidocaine 5% 1 patch topical DAILY naloxone 4 mg/actuation (Narcan) 4 mg intranasal Q2M PRN naproxen (Naprosyn) 500 mg PO BID PRN ondansetron 4 mg PO Q6H PRN pantoprazole 40 mg PO DAILY sumatriptan succinate (Imitrex) take 1 tab at onset of headache; if no relief may repeat 1 tab after at least 2 hrs; max = 4 tabs/24 hr PO terconazole 0.8% 1 appful vaginal BEDTIME 3 days PFSH Medical History Right shoulder pain Rheumatoid arthritis Hx of nausea and vomiting Constipation History of blood transfusion Anemia GERD (gastroesophageal reflux disease) Migraines Fibromyalgia Abnormal TSH Seropositive rheumatoid arthritis Surgical History Hx of cervical discectomy Hx of appendectomy Family History Father Cancer Mother Diabetes Hypertension Stroke Hypothyroidism Hypercholesteremia Social History Household Members: Significant Other and Children Household Members Other:: son Housing: Apartment Are you a primary youth care specialist to a significant other at home: No Do you presently have visiting nurse or other home services: No Alcohol intake: current Alcohol intake frequency: does not drink Patient Tobacco Use Status: Former Tobacco user Tobacco use type: Cigarette Advance Directives Date on File: 05/31/20 Physical Exam Extrem Other: Left knee examination shows a minimal effusion, palpable crepitus with range of motion, pain with range of motion, no instability Office Procedures AMB Joint Injection/Aspiration Joint Injection/Aspiration Primary Site: left knee Prep: site was prepped using aseptic technique Injected: 20 mg of (Euflexxa viscosupplementation) and 1% plain lidocaine Procedure: The patient tolerated the procedure well Coding 22327 - Large joint Procedure code (CPT) selection complete Results Reviewed Results Reviewed: X-rays of the patient's left knee show joint space narrowing, subchondral sclerosis, no acute bony abnormalities Assessment & Plan Assessment & Plan (1) Osteoarthritis of left knee: Code(s): M17.12 - Unilateral primary osteoarthritis, left knee Category: Medical Plan Ms. Willian Cross presents with left knee pain due to osteoarthritis. The risks and benefits of a 3rd Euflexxa injection were discussed at length with the patient. The patient wished to proceed. She tolerated the injection well. She will continue with her home exercise program. She will contact me prior to her follow-up appointment in 3 months should any questions or concerns arise. Feel free to call me at any time should questions regarding her orthopedic management arise. Orders: Orders AMB Joint Injection/Aspiration Today M17.12 - Unilateral primary osteoarthritis, left knee Coding Level of Care Code Procedure Only Diagnoses Osteoarthritis of left knee M17.12 CPT Codes Coding - 29469 Large joint: 71546 - Large joint ([id number])
== END 2025-02-18 08:16 | disposition home or self-care (01) ==
LOC: HO.HOS 07:56
PROVIDERS: PCP Family Medicine; Visit Provider Orthopaedic Surgery
DX: M17.12 Unilateral primary osteoarthritis, left knee (principal)
CPT/HCPCS: 20610

== ENCOUNTER → 2025-02-18 07:55 | Outpatient (BNVA) | payer MEDICAID, SELFPAY | PROVIDERS: PCP Family Medicine; Visit Provider Orthopaedic Surgery | DX: M17.12 Unilateral primary osteoarthritis, left knee (principal) | CPT/HCPCS: 20610; J2003; J7323 ==

== ENCOUNTER 2025-03-08 09:09 | Outpatient (AMB) | payer MEDICAID, SELFPAY ==
--- NOTE | 2025-03-08 09:25 | A.OFFVIS_ITS ---
Vital Signs 03/08/25 09:26 Height 5 ft 2 in Weight 154 lb BMI 28.2 BP 125/74 Blood Pressure Location Lt brachial Position Sitting Respiration 16 Pulse 74 Pulse Source Pulse Oximeter Pulse Oximetry (%) 98 Oxygen Delivery Method Room Air Intake Visit Reasons: Spinal stenosis, cervical region Sonogram Technician Required: Yes Sonogram Technician Services: Sonogram Technician Present Sonogram Technician Name: [id number] Akua Allergies No Known Allergies (No Known Allergies*) Allergy (Verified 03/08/25 09:29) Medication List - Last Reconciled 03/08/25 by Lary Nevarez LPN acetaminophen ER (Tylenol Arthritis Pain) 650 mg PO Q8H baclofen 20 mg PO BID PRN clotrimazole-betamethasone 1-0.05 % 1 appl topical BID 5 days cyclobenzaprine 10 mg PO BEDTIME diclofenac sodium 1% (Arthritis Pain (diclofenac)) 2 grams topical BID PRN docusate sodium (Colace) 100 mg PO BID duloxetine (Cymbalta) 30 mg PO DAILY gabapentin 800 mg PO TID [hydroxyzine HCl PRN] ibuprofen 800 mg PO Q8H PRN 30 days levonorgestrel (Mirena) intrauterine lidocaine 5% 1 patch topical DAILY naloxone 4 mg/actuation (Narcan) 4 mg intranasal Q2M PRN naproxen (Naprosyn) 500 mg PO BID PRN ondansetron 4 mg PO Q6H PRN pantoprazole 40 mg PO DAILY sumatriptan succinate (Imitrex) take 1 tab at onset of headache; if no relief may repeat 1 tab after at least 2 hrs; max = 4 tabs/24 hr PO terconazole 0.8% 1 appful vaginal BEDTIME 3 days HPI HPI Spinal stenosis, cervical region: Details: History of Present Illness The patient is a 44-year-old female presenting with neck and shoulder pain. The neck and shoulder pain has persisted for the past three years, following a C5-6 anterior cervical discectomy and fusion (ACDF) performed by Dr. Landry at [facility] in 2019. The pain is severe, affecting her sleep, and is not alleviated by any specific factors. She has been using multiple medications including Tylenol, Baclofen, Gabapentin, Ibuprofen, and Baclofen gel, with previous use of Oxycodone and Tramadol, but reports no significant relief. Physical therapy has been attempted without improvement. The patient denies any difficulties with ambulation. She reports that prolonged sitting or lying down exacerbates the pain. Pain Description - Onset: Pain has been present for 3 years. - Quality: Severe pain affecting sleep. - Location: Neck and shoulder. - Exacerbating factors: Prolonged sitting or lying down. - Relieving factors: None identified. Physical Exam - Appears afebrile. - Alert and oriented. - Mood and affect appropriate. - Follows and participates in conversation appropriately. - Respiratory effort is unlabored. - Able to transition from sit to stand unassisted. - Ambulates with bilaterally normal heel strike and toe off. - Able to stand and walk on toes and heels. - Painful cervical ROM Results Pain Management - Affect: Pain is severe and affects sleep. - Analgesia: Current medications include Tylenol, Baclofen, Gabapentin, Ibuprofen, and Baclofen gel; previous use of Oxycodone and Tramadol. - Activities of Daily Living: Pain exacerbated by prolonged sitting or lying down. [facility] Medical History Right shoulder pain Rheumatoid arthritis Hx of nausea and vomiting Constipation History of blood transfusion Anemia GERD (gastroesophageal reflux disease) Migraines Fibromyalgia Abnormal TSH Seropositive rheumatoid arthritis Surgical History Hx of cervical discectomy Hx of appendectomy Family History Father Cancer Mother Diabetes Hypertension Stroke Hypothyroidism Hypercholesteremia Social History Household Members: Significant Other and Children Household Members Other:: son Housing: Apartment Are you a primary veterinarian laboratory animal care to a significant other at home: No Do you presently have visiting nurse or other home services: No Alcohol intake: current Alcohol intake frequency: does not drink Patient Tobacco Use Status: Former Tobacco user Tobacco use type: Cigarette Advance Directives Date on File: 05/31/20 Physical Exam Vital Signs: Last Vital Signs Pulse 74 03/08/25 09:26 Resp 16 03/08/25 09:26 BP 125/74 03/08/25 09:26 Pulse Ox 98 03/08/25 09:26 Oxygen Delivery Method Room Air 03/08/25 09:26 BMI result Body Mass Index 28.2 Assessment & Plan Assessment & Plan (1) Neck pain: Code(s): M54.2 - Cervicalgia Category: Medical Plan Plan - Recommend continuation of physical therapy with emphasis on exercises to restore cervical lordosis. - Consideration of temporary PNS devices for pain relief if exercises do not improve symptoms after 4-6 months. - Discussed potential for cortisone injections, though previous attempts were not beneficial. - Patient to receive a brochure on temporary PNS devices for further co nsideration. Patient was informed and verbally consented to the use of an ambient scribe for clinic note documentation during this visit. Discussion Notes I discussed with the patient the chronic nature of her neck and shoulder pain, emphasizing the importance of physical therapy and exercises to restore cervical curvature. We reviewed the option of cortisone injections, noting that previous attempts were not effective, and introduced the possibility of temporary devices for pain relief. The patient was advised to consider these options and was provided with a brochure for further information. Patient Instructions - Continue physical therapy and focus on exercises to help restore neck curvature. - Review the brochure on temporary devices for pain relief and consider this option if symptoms persist after 4-6 months. - Follow up with the clinic if there is no improvement in symptoms. Orders: Orders PT Evaluation and Treatment 03/08/25 M54.2 - Cervicalgia Coding Level of Care Code New Pt Level 4 (82457) Diagnoses Neck pain M54.2
[2025-03-08 09:26] VITALS: BP 125/74; PULSE 74; RESP 16; O2SAT 98; BMI 28.2
--- OUTSIDE RECORDS SUMMARY | 2025-03-08 10:05 | XMS_ITS | Encounter Summary ---
Author Organization [employer] Address [address] [facility] [address] [place] [address] Care Team Providers Care Production Assistant Name Role Phone Yasmin Ortiz DO Primary Care Provider [phone]- [phone] Reason for Visit * Reason Onset Date Comments Nurse Triage 04/12/2023 Encounter Details Date Type Department Care Team ([facility] st Contact Info) Description 04/12/[address] [facility] MEDICINE [address] [place], [place] [phone] Yasmin Ortiz DO [address] [place], [place] [phone] Nurse Triage Social History Tobacco Use Types [...] The caller accepted this outcome Patient speaks polish. documented in this encounter Plan of Treatment Upcoming Encounters Date Type Department Care Team (Late st Contact Info) Description 03/19/2025 1:30 PM EDT Office Visit [facility] OPTOMETRY [address] [place], [place] [phone] Inez Waddell, OD [address] [place] [address] 04/22/2025 9:00 AM EDT Clinical Support [facility] MEDICINE [address] [place], [place] [phone] Annalise Barajas RN documented as of this encounter Visit Diagnoses Not on filedocumented in this encounter Additional Health Concerns Assessment Noted Time PHQ-9 Depression Total Score: 0 12/22/19 23 10:44 AM EDT documented as of this encounter Care Teams Production Assistant Relationship Specialty Start Date End Date Yasmin Ortiz DO [address] [place], [place] [phone] PCP - General Family Medicine 06/22/13 documented as of this encounter
--- OUTSIDE RECORDS SUMMARY | 2025-03-08 10:05 | XMS_ITS | Clinical Summary ---
Author Organization [facility] Address [address] [place] [address] Care Team Providers Care Fee Clerk Name Role Phone Yasmin Ortiz DO [...] age to complete this topic Care Teams Fee Clerk Relationship Specialty Start Date End Date Yasmin Ortiz DO [address] [place] [phone] PCP - General Family Medicine 04/28/19
== END 2025-03-08 09:55 | disposition home or self-care (01) ==
LOC: HO.PMC 09:18
PROVIDERS: PCP Family Medicine; Visit Provider Internal Medicine
DX: M54.2 Cervicalgia (principal)
CPT/HCPCS: 99204

== ENCOUNTER → 2025-03-08 09:09 | Outpatient (BNVA) | payer MEDICAID, SELFPAY | PROVIDERS: PCP Family Medicine; Visit Provider Internal Medicine | DX: M54.2 Cervicalgia (principal) | CPT/HCPCS: 99202 ==

== ENCOUNTER 2025-03-18 12:21 | Outpatient (REF) | payer MEDICAID, SELFPAY ==
--- OUTSIDE RECORDS SUMMARY | 2025-03-18 12:37 | XMS_ITS | Encounter Summary ---
Author Organization [employer] Address [address] [facility] [address] [place] [address] Care Team Providers Care Maintenance Supervisor Name Role Phone Yasmin Ortiz DO Primary Care Provider [phone]- [phone] Reason for Visit * Reason Onset Date Comments Nurse Triage 04/12/2023 Encounter Details Date Type Department Care Team ([facility] st Contact Info) Description 04/12/2023 Telephone [facility] MEDICINE [address] [place], [place] [phone] Yasmin Ortiz DO [address] [place], [place] [phone] Nurse Triage Social History Tobacco Use Types [...] The caller accepted this outcome Patient speaks vincentian. documented in this encounter Plan of Treatment Upcoming Encounters Date Type Department Care Team (Late st Contact Info) Description 03/19/2025 1:30 PM EDT Office Visit [facility] OPTOMETRY [address] [place], [place] [phone] Inez Waddell, OD [address] [place] [address] 04/22/2025 9:00 AM EDT Clinical Support [facility] MEDICINE [address] [place], [place] [phone] Annalise Barajas RN documented as of this encounter Visit Diagnoses Not on filedocumented in this encounter Additional Health Concerns Assessment Noted Time PHQ-9 Depression Total Score: 0 12/22/19 23 10:44 AM EDT documented as of this encounter Care Teams Maintenance Supervisor Relationship Specialty Start Date End Date Yasmin Ortiz DO [address] [place], [place] [phone] PCP - General Family Medicine 06/22/13 documented as of this encounter
--- OUTSIDE RECORDS SUMMARY | 2025-03-18 12:37 | XMS_ITS | Clinical Summary ---
Author Organization [facility] Address [address] [place] [address] Care Team Providers Care Aircraft Electronics Technical Officer Name Role Phone Yasmin Ortiz DO Primary [...] age to complete this topic Care Teams Aircraft Electronics Technical Officer Relationship Specialty Start Date End Date Yasmin Ortiz DO [address] [place] [phone] PCP - General Family Medicine 04/28/19
== END 2025-03-18 12:22 | disposition home or self-care (01) ==
LOC: HO.MAMMO 12:21
PROVIDERS: PCP Family Medicine; Visit Provider Family Medicine
DX: Z12.31 Encounter for screening mammogram for malignant neoplasm of breast (principal)
CPT/HCPCS: 77063; 77067

== ENCOUNTER → 2025-03-18 12:45 | Outpatient (BNV) | payer MEDICAID, SELFPAY | PROVIDERS: PCP Family Medicine; Visit Provider Radiology Body Imaging | DX: Z12.31 Encounter for screening mammogram for malignant neoplasm of breast (principal) | CPT/HCPCS: 77063; 77067 ==

== ENCOUNTER 2025-04-01 14:47 | Outpatient (REF) | payer MEDICAID, SELFPAY | END 2025-04-01 14:48 | disposition home or self-care (01) | LOC: HO.LAB 14:47 | PROVIDERS: PCP Family Medicine; Visit Provider Advanced Practice Midwife | DX: N89.8 Other specified noninflammatory disorders of vagina (principal); R10.2 Pelvic and perineal pain | CPT/HCPCS: 81003; 99212 ==

== ENCOUNTER 2025-04-01 15:28 | Outpatient (REF) | payer MEDICAID, SELFPAY ==
[2025-04-02 11:13] LABS: Bacterial Vaginosis PCR NEGATIVE (Negative); Candida Group PCR DETECTED (Not Detect); Candida glab krusei PCR NOT DETECTED (Not Detect); Trichomonas vaginalis PCR NOT DETECTED (Not Detect)
[2025-04-02 11:45] LABS: CT PCR NOT DETECTED (Not Detect.); NG PCR NOT DETECTED (Not Detect.)
== END 2025-04-01 15:29 | disposition home or self-care (01) ==
LOC: HO.LNP 15:28
PROVIDERS: Visit Provider Advanced Practice Midwife
DX: Z11.3 Encounter for screening for infections with a predominantly sexual mode of transmission (principal); Z11.8 Encounter for screening for other infectious and parasitic diseases; N89.8 Other specified noninflammatory disorders of vagina
CPT/HCPCS: 81515; 87491; 87591

== ENCOUNTER 2025-06-24 11:39 | Outpatient (REF) | payer MEDICAID, SELFPAY ==
--- OUTSIDE RECORDS SUMMARY | 2025-06-23 15:15 | XMS_ITS | Encounter Summary ---
Author Organization [employer] Address [address] [facility] [address] [address] [place] [address] Care Team Providers Care Product Manager E Commerce Name Role Phone Yasmin Ortiz DO Primary Care Provider + [phone] Encounter Details Date Type Department Care Team (Late st Contact Info) Description 06/23/2025 3:15 PM EST Office Visit [facility] [address] [place], [place] [phone] Yasmin Ortiz DO 230 [place], [place] [phone] Anxiety (Primary Dx); Anemia, unspecified type; Chronic migraine; Rheumatoid arthritis, involving unspecified site, unspecified whether rheumatoid factor present (CMS/HCC) (HCC); Fibromyalgia; Chronic right shoulder pain; Chronic pain of right knee; Chronic constipation; Vaginal itching; Healthcare maintenance; Dietary counseling; Exercise counseling; Encounter for immunization; Encounter for vaccination Social History Tobacco Use Types Packs/Day Years Used Date Smoking Tobacco: Former Cigarettes Passive Smoke Exposure: Past Smokeless Tobacco: Never Alcohol Use Standard Drinks/Week Comments Never 0 (1 standard drink = 0.6 oz pur e alcohol) Depression Answer Date Recorded Patient Health Questionnaire-9 Score 4 06/23/2025 Patient Health Questionnaire-9 Score 4 06/23/2025 Last PHQ-9: Questionnaire Data Not on file 1 08/23/2024 Housing Stability Answer Date Recorded What is [...] Date Recorded Patient Health Questionnaire-2 Score 0 06/23/2025 Internet Access Answer Date Recorded Internet Access Q1 Yes 04/10/2024 Internet Access Q2 Not on file 04/10/2024 Comments No Sex and Gender Information Value Date Recorded Sex Assigned at Female 06/11/2022 10:21 AM EDT Legal Sex Female 10:21 AM EDT Gender Identity Female 06/11/2022 10:21 AM EDT Sexual Orientation Straight 06/11/2022 10 :21 AM EDT documented as of this encounter Last Filed Vital Signs Vital Sign Reading Time Taken Comments Blood Pressure 124/70 06/23/2025 3:43 PM EST Pulse 87 06/23/2025 3:43 PM EST Temperature 36.2 C (97.1 F) 06/23/2025 3:43 PM EST Respiratory Rate 21 06/23/2025 3:43 PM EST Oxygen Saturation 98% 06/23/2025 3:43 PM EST Inhaled Oxygen Concentration - - Weight 69.4 kg (153 lb) 06/23/2025 3:43 PM EST Height 157.5 cm (5' 2 ) 06/23/2025 3:43 PM EST Body Mass Index 27.98 06/23/2025 3:43 PM EST documented in this encounter Functional Status * Over the past 2 weeks, how often have you been bothered by any of the following problems? Question Answer Date of Assessment Author Patient Health Questionnaire -2 Score 0 06/23/2025 4:36 PM EST Geraldine Smiley MA * Little interest or pleasure in doing things Answer Date of Assessment Author Not at all 06/23/2025 4:36 PM Cm Arboleda MA * Feeling down, depressed, or hopeless Answer Date of Assessment Author Not at all 06/23/2025 4:36 PM Cm Arboleda MA * Trouble falling or staying asleep, or sleeping too much Answer Date of Assessment Author Several days 06/23/2025 4:36 PM Cm Arboleda MA * Feeling tired or having little energy Answer Date of Assessment Author More than half the days 06/23/2025 4:36 PM Geraldine Murillo MA * Poor appetite or overeating Answer Date of Assessment Author Several days 06/23/2025 4:36 PM Cm Arboleda [place] * Feeling bad about yourself - or that you are a failure or have let yourself or your family down Answer Date of Assessment Author Not at all 06/23/2025 4:36 PM Cm Arboleda MA * Trouble concentrating on things, such as reading the newspaper or watching television Answer Date of Assessment Author Not at all 06/23/2025 4:36 PM Cm Arboleda MA * Moving or speaking so slowly that other people could have noticed? Or the opposite - being so fidgety or restless that you have been moving around a lot more than usual. Answer Date of Assessment Author Not at all 06/23/2025 4:36 PM Cm Arboleda MA * Thoughts that you would be better off or hurting yourself in some way Answer Date of Assessment Author Not at all 06/23/2025 4:36 PM Cm Arboleda MA * Patient Health Questionnaire-9 Score Answer Date of Assessment Author 4 06/23/2025 4:36 PM Cm Arboleda MA * Over the last 2 weeks, how often have you been bothered by any of the following problems? Question Answer Date of Assessment Author Feeling nervous, anxious, or on edge 1 06/23/2025 4:36 PM Geraldine Arboleda MA Not being able to stop or co ntrol worrying 2 06/23/2025 4:36 PM Geraldine Arboleda MA Worrying too much about diff erent things 2 06/23/2025 4:36 PM EST Geraldine Smiley MA Trouble relaxing 1 06/23/2025 4:36 PM EST Geraldine Moran MA Becoming easily annoyed or irritable 1 06/23/2025 4:36 PM EST Geraldine Smiley MA Feeling afraid as if somethi ng awful might happen 0 06/23/2025 4:36 PM EST Geraldine Smiley MA * How difficult have these problems made it for you to do your work, take care of things at home, or get along with other people? Answer Date of Assessment Author Somewhat difficult 06/23/2025 4:36 PM EST Geraldine Smiley MA documented as of this encounter Plan of Treatment Upcoming Encounters Date Type Department Care Team (Late st Contact Info) Description 07/22/2025 2:00 PM EST Office Visit [facility] [address] [place] [address] Inez Waddell, OD 230 [place] [address] 07/29/2025 8:30 AM EST Clinical Support [facility] [address] [place] [address] Annalise Barajas RN documented as of this encounter Procedures Procedure Name Priority Date/Time Associated Diagnosis Comments BACTERIAL VAGINOSIS PANEL Routine 06/23/2025 4:25 PM EST Vaginal itching CHLAMYDIA/N. GONORRHOEAE RNA, TMA, UROGENITAL Routine 06/23/2025 4:25 PM EST Vaginal itching documented in this encounter Results * Chlamydia/N. Gonorrhoeae RNA, TMA, Vaginal (06/23/2025 4:25 PM EST) CT PCR NOT DETECTED Not Detect. [facility] Comment:A not detected test result does not exclude the possibilityof infection because test results can be affected byimproper specimen collection, concurrent antibiotic therapy,or the number of organisms in the specimen which may bebelow the sensitivity of the test. As with many diagnostictests, results from the Xpert CT/NG assay should beinterpreted in conjunction with other laboratory andclinical data available to the clinician.Xpert CT/NG performance has not been evaluated in patientsless than 14 years of age. The assay should not be used forthe evaluationof suspected sexual abuse or for other medico-legalindications. Additional testing is recommended in anycircumstance when false positive or false negative resultscould lead to adverse medical, social or psychologicalconsequences. NG PCR NOT DETECTED Not Detect. [facility] Comment:A not detected test result does not exclude the possibilityof infection because test results can be affected byimproper specimen collection, concurrent antibiotic therapy,or the number of organisms in the specimen which may bebelow the sensitivity of the test. As with many diagnostictests, results from the Xpert CT/NG assay should beinterpreted in conjunction with other laboratory andclinical data available to the clinician.Xpert CT/NG performance has not been evaluated in patientsless than 14 years of age. The assay should not be used forthe evaluationof suspected sexual abuse or for other medico-legalindications. Additional testing is recommended in anycircumstance when false positive or false negative resultscould lead to adverse medical, social or psychologicalconsequences. Swab (Vaginal Swab) 06/23/2025 4:25 PM EST 06/24/2025 11:41 AM EST us Yasmin Ortiz DO LAB MICROBIOLOGY - GENERAL O RDERABLES Final Result [facility] [address] [place] [phone] * (ABNORMAL) Bacterial Vaginosis (06/23/2025 4:25 PM EST) TRICHOMONAS VAGINALIS DETECTION BY PCR NOT DETECTED Not Detect [facility] BACTERIAL VAGINOSIS DETECTION BY PCR POSITIVE(A) Negative [facility] Comment:The BV organism targ ets of the Xpert Xpress MVP test can becommensal in women; Xpert Xpress MVP positive results forbacterial vaginosis should be considered in conjunction withother clinical and patient information to determine thedisease status. Organisms that are not detected by the XpertXpress MVP test have also been reported to be associatedwith BV and aerobic vaginitis.The Xpert Xpress MVP test performance has not been evaluatedin patients under the age of 14. SIOMARA GROUP DETECTION BY PCR NOT DETECTED Not Detect [facility] Siomara glab krusei PCR NOT DETECTED Not Detect [facility] Swab Vaginal structure / Unknown 06/23/2025 4:25 PM EST 06/24/2025 11:41 AM EST us Yasmin Ortiz DO LAB MICROBIOLOGY - GENERAL O RDERABLES Final Result [facility] [address] [place] [phone] [phone] documented in this encounter Visit Diagnoses Diagnosis Anxiety- Primary Anxiety state, unspecified Anemia, unspecified type Chronic migraine Rheumatoid arthritis, involving unspecified site, unspecified whether rheumatoid factor present (CMS/HCC) (HCC) Fibromyalgia Unspecified myalgia and myositis Chronic right shoulder pain Pain in joint, shoulder region Chronic pain of right knee Chronic constipation Unspecified constipation Vaginal itching Pruritus of genital organs Healthcare maintenance Dietary counseling Dietary surveillance and counseling Exercise counseling Encounter for immunization Encounter for vaccination documented in this encounter Additional Health Concerns Assessment Noted Time PHQ-9 Depression Total Score: 4 06/23/20 25 4:36 PM EST documented as of this encounter Care Teams Product Manager E Commerce Relationship Specialty Start Date End Date Yasmin Ortiz DO [address] [place] [phone] PCP - General Family Medicine 06/22/13 documented as of this encounter
[2025-06-24 13:33] LABS: Bacterial Vaginosis PCR POSITIVE (Negative); Candida Group PCR NOT DETECTED (Not Detect); Candida glab krusei PCR NOT DETECTED (Not Detect); Trichomonas vaginalis PCR NOT DETECTED (Not Detect)
[2025-06-24 14:03] LABS: CT PCR NOT DETECTED (Not Detect.); NG PCR NOT DETECTED (Not Detect.)
--- OUTSIDE RECORDS SUMMARY | 2025-06-24 14:48 | XMS_ITS | Encounter Summary ---
Author Organization [employer] Address [address] [place] [address] Care Team Providers Care Poultry Hatchery Laborer Name Role Phone Marva Ortizfer Primary Care Provider + [phone] Reason for Visit * Reason Comments Med Refill Encounter Details Date Type Department Care Team ([facility] st Contact Info) Description 09/19/2023 Refill [facility] [address] [place], [place] [phone] Vashti Niño MD [address] [place] [address] Nonintractable chronic migraine Social History Tobacco Use [...] Description 07/22/2025 2:00 PM EST Office Visit [facility] [address] [place] [address] Inez Waddell, OD [address] [place] [address] 07/29/2025 8:30 AM EST Clinical Support [facility] [address] [place] [address] Annalise Barajas RN documented as of this encounter Visit Diagnoses Diagnosis Nonintractable chronic migraine documented in this encounter Additional Health Concerns Assessment Noted Time PHQ-9 Depression Total Score: 13 024 9:49 AM EST documented as of this encounter Care Teams Poultry Hatchery Laborer Relationship Specialty Start Date End Date Yasmin Ortiz DO [address] [place] [address] PCP - General Family Medicine 06/22/13 documented as of this encounter
--- OUTSIDE RECORDS SUMMARY | 2025-06-24 14:48 | XMS_ITS | Encounter Summary ---
Author Organization [employer] Address [address] [place] [address] Care Team Providers Care Plug Stitcher Name Role Phone Diana Yasmin Primary Care Provider + [phone] Encounter Details Date Type Department Care Team (Latest Contact Info) Description 06/22/2025 Travel Social History Tobacco Use Types Packs/Day [...] Description 07/22/2025 2:00 PM EST Office Visit [facility] [address] [place], [place] [phone] Inez Waddell, OD 230 [place] [address] 07/29/2025 8:30 AM EST Clinical Support [facility] [address] [place] [address] Annalise Barajas, SUMIT documented as of this encounter Visit Diagnoses Not on filedocumented in this encounter Additional Health Concerns Assessment Noted Time PHQ-9 Depression Total Score: 2 04/20/20 24 9:42 AM EDT documented as of this encounter Care Teams Plug Stitcher Relationship Specialty Start Date End Date Yasmin Ortiz DO 230 [place] [address] PCP - General Family Medicine 06/22/13 documented as of this encounter
--- OUTSIDE RECORDS SUMMARY | 2025-06-24 14:48 | XMS_ITS | Encounter Summary ---
Author Organization [employer] Address [address] [facility] 7t [place] [address] Care Team Providers Care Rn Orthopaedic Name Role Phone Yasmin Ortiz DO Primary Care Provider + [phone] Reason for Referral * Imaging (Routine) - Closed Specialty Diagnoses / Procedures Referred By Vivian banerjee Referred To Contact Diagnoses Abnormal uterine bleeding Procedures US Pelvis Transvaginal Yasmin Ortiz DO [address] [place] [address] Phone: tel: fax: [facility] MRI and CT Scan [address] [place], [place] Phone: tel: fax: Referral ID Status Reason Start Date Expiration Date Visits Re quested Visits Authorized [id number] Closed 10/18/2022 04/16/2023 1 1 * Imaging (Routine) - Closed Specialty Diagnoses / Procedures Referred By Contac t Referred To Contact Diagnoses Abnormal uterine bleeding Procedures Us Pelvis complete Yasmin Ortiz DO [address] [place] [address] Phone: tel: fax: [facility] MRI and CT Scan [address] [place], [place] Phone: tel: fax: Referral ID Status Reason Start Date Expiration Date Visits Re quested Visits Authorized [id number] Closed 10/18/2022 04/16/2023 1 1 Encounter Details Date Type Department Care Team (Late Contact Info) Description 10/18/2022 Orders Only [facility] [address] [place] [address] Yasmin Ortiz DO [address] [place] [address] Abnormal uterine bleeding (Primary Dx) Social History [...] Department Care Team (Late Contact Info) Description 07/22/2025 2:00 PM EST Office Visit [facility] [address] [place] [address] Bairon, Inez, OD [address] [place] [address] 07/29/2025 8:30 AM EST Clinical Support [facility] [address] [place] [address] Annalise Barajas, SUMIT Scheduled Orders Name Type [...] tract documented in this encounter Care Teams Rn Orthopaedic Relationship Specialty Start Date End Date Yasmin Ortiz DO [address] [place] [address] PCP - General Family Medicine 06/22/13 documented as of this encounter
--- OUTSIDE RECORDS SUMMARY | 2025-06-24 14:48 | XMS_ITS | Clinical Summary ---
Author Organization [facility] Address [address] [place] [address] Care Team Providers Care Accounting Policy Consultant Name Role Phone Yasmin Ortiz DO Primary [...] ap Smear) 2001 Influenza Vaccine (#1) 2025 Colon Cancer Screening (Colonoscopy) 2025 Pneumococcal Vaccine Aged Out No long er eligible based on patient's age to complete this topic RSV Ped < 20 months Aged Out No longe r eligible based on patient's age to complete this topic Care Teams Accounting Policy Consultant Relationship Specialty Start Date End Date Yasmin Ortiz DO [address] [place] [phone] PCP - General Family Medicine 04/28/19
--- OUTSIDE RECORDS SUMMARY | 2025-06-24 14:48 | XMS_ITS | Encounter Summary ---
Author Organization [employer] Address [address] [place] [address] Care Team Providers Care Menswear Salesperson Name Role Phone Yasmin Ortiz DO Primary Care Provider + [phone] Reason for Visit * Reason Comments Med Refill Encounter Details Date Type Department Care Team ([facility] st Contact Info) Description 07/19/2023 Refill [facility] [address] [place], [place] [phone] Yasmin Ortiz DO [address] [place] [address] Seborrheic dermatitis Social History Tobacco Use Types [...] Description 07/22/2025 2:00 PM EST Office Visit [facility] [address] [place] [address] Inez Waddell, OD [address] [place] [address] 07/29/2025 8:30 AM EST Clinical Support [facility] [address] [place] [address] Annalise Barajas RN documented as of this encounter Visit Diagnoses Diagnosis Seborrheic dermatitis Unspecified seborrheic dermatitis documented in this encounter Additional Health Concerns Assessment Noted Time PHQ-9 Depression Total Score: 10 023 8:17 AM EDT documented as of this encounter Care Teams Menswear Salesperson Relationship Specialty Start Date End Date Yasmin Ortiz DO [address] [place] [address] PCP - General Family Medicine 06/22/13 documented as of this encounter
--- OUTSIDE RECORDS SUMMARY | 2025-06-24 14:48 | XMS_ITS | Encounter Summary ---
Author Organization [employer] Address [address] [address] [facility] [address] [facility] [address] [place] [address] Care Team Providers Care Geometry Teacher Name Role Phone Yasmin Ortiz DO Primary Care Provider [phone]- [phone] Reason for Visit * Reason Onset Date Comments Appointment Request 04/09/2024 Encounter Details Date Type Department Care Team ([facility] st Contact Info) Description 04/09/2024 Telephone [facility] [address] [place], [place] [phone] Yasmin Ortiz DO [address] [place], [place] [phone] Appointment Request Social History Tobacco Use Types [...] PE with pcp. Please contact pt at [phone]. documented in this encounter Plan of Treatment Upcoming Encounters Date Type Department Care Team (Late st Contact Info) Description 07/22/2025 2:00 PM EST Office Visit [facility] [address] [place] [address] Bairon, Inez, OD [address] [place] [address] 07/29/2025 8:30 AM EST Clinical Support [facility] [address] [place] [address] Annalise Barajas RN documented as of this encounter Visit Diagnoses Not on filedocumented in this encounter Additional Health Concerns Assessment Noted Time PHQ-9 Depression Total Score: 13 024 9:49 AM EST documented as of this encounter Care Teams Geometry Teacher Relationship Specialty Start Date End Date Yasmin Ortiz DO [address] [place] [address] PCP - General Family Medicine 06/22/13 documented as of this encounter
--- OUTSIDE RECORDS SUMMARY | 2025-06-24 14:48 | XMS_ITS | Encounter Summary ---
Author Organization [employer] Address [address] [facility] 7t [place] [address] Care Team Providers Care Tax Preparer Name Role Phone Yasmin Ortiz DO Primary Care Provider [phone]- [phone] Reason for Visit * Reason Onset Date Comments Nurse Triage 04/12/2023 Encounter Details Date Type Department Care Team ([facility] st Contact Info) Description 04/12/[address] [facility] [address] [place], [place] [phone] Yasmin Ortiz DO [address] [place], [place] [phone] Nurse Triage Social History Tobacco Use Types [...] The caller accepted this outcome Patient speaks vietnamese. documented in this encounter Plan of Treatment Upcoming Encounters Date Type Department Care Team (Late st Contact Info) Description 07/22/2025 2:00 PM EST Office Visit [facility] OPT[facility] [address] [place] [address] Inez Waddell, OD [address] [place] [address] 07/29/2025 8:30 AM EST Clinical Support [facility] [address] [place], [place] [phone] Annalise Barajas RN documented as of this encounter Visit Diagnoses Not on filedocumented in this encounter Additional Health Concerns Assessment Noted Time PHQ-9 Depression Total Score: 0 12/22/19 23 10:44 AM EDT documented as of this encounter Care Teams Tax Preparer Relationship Specialty Start Date End Date Yasmin Ortiz DO [address] [place], [place] [phone] PCP - General Family Medicine 06/22/13 documented as of this encounter
--- OUTSIDE RECORDS SUMMARY | 2025-06-24 14:48 | XMS_ITS | Encounter Summary ---
Author Organization [employer] Address [address] [place] [address] Care Team Providers Care It Program Engagement Director Name Role Phone Yasmin Ortiz DO Primary Care Provider [phone]- [phone] Reason for Visit * Reason Onset Date Comments Reschedule 07/08/2023 Encounter Details Date Type Department Care Team ([facility] [place] Contact Info) Description 07/08/2023 Telephone [facility] [address] [place], [place] [phone] Yasmin Ortiz DO [address] [place], [place] [phone] Reschedule Social History Tobacco Use Types Packs/Day [...] enough money to get more: Never True 10/ Transportation Answer Date Recorded In the past [...] Tc from pt requesting to r/s 07/01 [facility] appointment. Please contact pt for scheduling at [phone] (Urdu) documented in this encounter Plan of Treatment Upcoming Encounters Date Type Department Care Team (Late st Contact Info) Description 07/22/2025 2:00 PM EST Office Visit [facility] [address] [place] [address] Bairon, Inez, OD [address] [place] [address] 07/29/2025 8:30 AM EST Clinical Support [facility] [address] [place] [address] Annalise Barajas, SUMIT documented as of this encounter Visit Diagnoses Not on filedocumented in this encounter Additional Health Concerns Assessment Noted Time PHQ-9 Depression Total Score: 10 023 8:17 AM EDT documented as of this encounter Care Teams It Program Engagement Director Relationship Specialty Start Date End Date Yasmin Ortiz DO [address] [place] [address] PCP - General Family Medicine 06/22/13 documented as of this encounter
--- OUTSIDE RECORDS SUMMARY | 2025-06-24 14:48 | XMS_ITS | Encounter Summary ---
Author Organization [employer] Address [address] [place] [address] Care Team Providers Care Ship Rigger Name Role Phone Yasmin Ortiz DO Primary Care Provider [phone]- [phone] Reason for Visit * Reason Onset Date Comments Chart Prep 06/22/2025 Encounter Details Date Type Department Care Team ([facility] st Contact Info) Description 06/22/2025 Telephone [facility] [address] [place], [place] [phone] Yasmin Ortiz DO [address] [place], [place] [phone] Chart Prep Social History Tobacco Use Types Packs/Day Years [...] encounter Miscellaneous Notes * Telephone Encounter - Geraldine Smiley MA - 06/22/2025 11:08 AM EST Chart Prep Labs: done Images: done Referrals: appointment pending Vaccines due: Flu, Hep B, and HPV Screenings: colonoscopy and PISQ Overdue care gaps: SBIRT, PHQ-9, VALENTINA-7, and Disability screen documented in this encounter Plan of Treatment Upcoming Encounters Date Type Department Care Team (Late st Contact Info) Description 07/22/2025 2:00 PM EST Office Visit [facility] [address] [place] [address] Inez Waddell, XOCHITL [address] [place] [address] 07/29/2025 8:30 AM EST Clinical Support [facility] [address] [place] [address] Annalise Barajas, SUMIT documented as of this encounter Visit Diagnoses Not on filedocumented in this encounter Additional Health Concerns Assessment Noted Time PHQ-9 Depression Total Score: 2 04/20/20 24 9:42 AM EDT documented as of this encounter Care Teams Ship Rigger Relationship Specialty Start Date End Date Yasmin Ortiz DO [address] [place] [address] PCP - General Family Medicine 06/22/13 documented as of this encounter
--- OUTSIDE RECORDS SUMMARY | 2025-06-24 14:48 | XMS_ITS | Encounter Summary ---
Author Organization [employer] Address [address] [facility] [place] [address] Care Team Providers Care Paddle Dyeing Machine Operator Name Role Phone Diana Yasmin Primary Care Provider + [phone] Encounter Details Date Type Department Care Team (Latest Contact Info) Description 06/23/2025 Travel Social History Tobacco Use Types Packs/Day [...] AM EDT documented as of this encounter Functional Status * Over the past 2 weeks, how often have you been bothered by any of the following problems? Question Answer Date of Assessment Author Patient Health Questionnaire -2 Score 0 06/23/2025 4:36 PM Geraldine Arboleda MA * Little interest or pleasure in [...] diff erent things 2 06/23/2025 4:36 PM Geraldine Arboleda MA Trouble relaxing 1 06/23/2025 4:36 PM Geraldine Murillo MA Becoming easily annoyed or irritable 1 06/23/2025 4:36 PM Geraldine Arboleda MA Feeling afraid as if somethi ng awful might happen 0 06/23/2025 4:36 PM Geraldine Arboleda MA * How difficult have these problems made it for you to do your work, take care of things at home, or get along with other people? Answer Date of Assessment Author Somewhat difficult 06/23/2025 4:36 PM Geraldine Arboleda MA documented as of this encounter Plan of Treatment Upcoming Encounters Date Type Department Care Team (Late st Contact Info) Description 07/22/2025 2:00 PM EST Office Visit [facility] [address] [place] [address] Inez Waddell, OD [address] [place] [address] 07/29/2025 8:30 AM EST Clinical Support [facility] [address] [place] [address] Jenn, Annalise, RN documented as of this encounter Visit Diagnoses Not on filedocumented in this encounter Additional Health Concerns Assessment Noted Time PHQ-9 Depression Total Score: 4 06/23/20 25 4:36 PM EST documented as of this encounter Care Teams Paddle Dyeing Machine Operator Relationship Specialty Start Date End Date Yasmin Ortiz DO [address] [place] [address] PCP - General Family Medicine 06/22/13 documented as of this encounter
--- OUTSIDE RECORDS SUMMARY | 2025-06-24 14:48 | XMS_ITS | Clinical Summary ---
Author Organization [employer] Address [address] [place] [address] Care Team Providers Care Turkey Boner Name Role Phone Diana Yasmin Primary Care Provider [phone] Allergies No known active allergies Medications * [...] affected nostril(s). 05/31/20 22 Active sodium chloride ([place]) 0.65 % nasal spray 1-2 spray on each nostril every 2-3 hours as needed for nasal congestion 10/05/19 22 Active ketoconazole (NIZOral) 2 % shampooIndicati ons:Seborrheic dermatitis APPLY TOPICALLY 1 (ONE) TIME PER WEEK. 120 mL 1 07/19/20 23 Active Clobetasol Propionate 0.05 % shampooIndicati ons:Seborrheic [...] sleep. 60 tablet 3 11/15/19 24 Active betamethasone dipropionate 0.05 % creamIndication s:Acne vulgaris Apply topically if needed in the morning and at bedtime for rash. 45 g 1 03/12/20 24 Active Diclofenac Sodium 1 % gelIndications: Chronic right shoulder pain APPLY (2G) BY TOPICAL ROUTE 2 TIMES EVERY DAY TO THE AFFECTED AREA(S) 100 g 1 04/20/20 24 Active SUMAtriptan (Imitrex) 50 MG tabletIndicatio ns:Nonintractab le chronic migraine take 1 Tablet by oral route once at onset of PORTER, may repeat after 2 hours if headache returns 9 tablet 2 04/20/20 24 Active triamcinolone (Nasacort Allergy 24HR) 55 MCG/ACT nasal inhaler Administer 2 sprays into each nostril Once per day. 16.5 g 3 04/20/20 24 Active lactulose (Chronulac) 10 GM/15ML solution Take 15 mL (10 g) by mouth if needed in the morning and at bedtime (constipation) . 473 mL 2 04/20/20 24 Active naloxone (Narcan) 4 mg/0.1 mL nasal sprayIndication s:Chronic right shoulder pain Administer 1 spray (4 mg) into affected nostril(s) if needed for opioid reversal. May repeat every 2-3 minutes if needed, alternating nostrils, until medical assistance becomes available. 2 each 3 08/19/19 25 2025 Active docusate sodium (Stool Softener) 100 MG capsule TAKE 1 CAPSULE BY MOUTH TWICE A DAY 180 capsule 1 01/08/20 25 Active pantoprazole (ProtoNix) 40 MG EC tablet take 1 tablet by oral route every day before meal 90 tablet 1 01/08/20 25 Active cetirizine (ZyrTEC) 10 MG tablet Take 1 tablet (10 mg) by mouth Once per day. 90 tablet 1 01/08/20 25 Active lidocaine (Lidoderm) 5 % patch Apply 1 patch topically Once per day. 30 patch 3 03/17/20 25 2025 Active naproxen (Naprosyn) 500 MG tabletIndicatio ns:Pain,Lumbar back pain take 1 tablet (500MG) by oral route 2 times every day with food as needed for PAIN 40 tablet 03/17/20 25 Active baclofen (Lioresal) 20 MG tabletIndicatio ns:Muscle spasm TAKE 1 TABLET BY MOUTH EVERY MORNING AND EVERY NIGHT AT BEDTIME FOR MUSCLE SPASM 60 tablet 3 04/08/20 25 Active senna (Senokot) 8.6 MG tablet TAKE 2 TABLETS BY MOUTH DAILY NEEDED 60 tablet 3 04/08/20 25 Active busPIRone (Buspar) 5 MG tablet TAKE 1 TABLET BY MOUTH TWICE A DAY 60 tablet 3 04/08/20 25 Active gabapentin (Neurontin) 800 MG tabletIndicatio ns:Other chronic pain Take 1 tablet by mouth three times a day 90 tablet 3 05/10/20 25 Active melatonin 5 MG tablet Take 1-2 tablets (5-10 mg) by mouth if needed at bedtime (insomnia). 60 tablet 3 05/10/20 25 Active cyclobenzaprine (Flexeril) 10 MG tabletIndicatio ns:Other chronic pain TAKE 1 TABLET BY MOUTH AT BEDTIME NEEDED FOR MUSCLE SPASM OR PAIN 30 tablet 3 06/06/20 25 Active sertraline (Zoloft) 100 MG tablet Take 1 tablet (100 mg) by mouth in the morning. 90 tablet 06/06/20 25 Active acetaminophen (Tylenol 8 Hour) 650 MG ER tablet TAKE 1 TABLET BY MOUTH EVERY 8 HOURS NEEDED FOR MILD PAIN 60 tablet 06/18/20 25 Active oxyCODONE (Roxicodone) 5 MG immediate release tabletIndicatio ns:Chronic right shoulder pain Take 1 tablet (5 mg) by mouth every 6 (six) hours if needed for severe pain for up to 7 days. Patient needs appointment with doctor. Do not start before June 21, 2025. 28 tablet 06/21/20 25 2024 Active acetaminophen (Tylenol 8 Hour) 650 MG ER tablet Take 1 tablet (650 mg) by mouth every 8 (eight) hours if needed for mild pain. 50 tablet 1 04/20/20 24 2024 Discontinued(R eorder (will not trigger notification to Pharmacy)) cyclobenzaprine (Flexeril) 10 MG tabletIndicatio ns:Other chronic pain take 1 tablet by oral route at bedtime as needed for MM SPASM or PAIN 30 tablet 3 01/14/20 25 2024 Discontinued sertraline (Zoloft) 100 MG tablet TAKE 1 TABLET BY MOUTH EVERY MORNING 90 tablet 03/17/20 25 2024 Discontinued(R eorder (will not trigger notification to Pharmacy)) oxyCODONE (Roxicodone) 5 MG immediate release tabletIndicatio ns:Chronic right shoulder pain Take 1 tablet (5 mg) by mouth every 6 (six) hours if needed for severe pain for up to 7 days. NEEDS TO SCHEDULE APPOINTMENT WITH DOCTOR. Do not start before May 24, 2025. 28 tablet 05/24/20 25 2024 Active Problems Problem Noted Date Diagnosed Date Long-term current use of opiate analgesic 2024 Seropositive rheumatoid arthritis ([facility]) 04/2024 Seborrheic keratosis 04/20/2024 half-way methotrexate user 04/20/2024 Fibromyalgia 04/20/2024 Depression 06/03/2023 [...] Encounters Date Type Department Care Team Description 06/23/2025 3:15 PM EST Office Visit [facility] [address] [place] [phone] Yasmin Ortiz DO Anxiety (Primary Dx); Anemia, unspecified type; Chronic migraine; Rheumatoid arthritis, involving unspecified site, unspecified whether rheumatoid factor present ([facility]) ([facility]); Fibromyalgia; Chronic right shoulder pain; Chronic pain of right knee; Chronic constipation; Vaginal itching; Healthcare maintenance; Dietary counseling; Exercise counseling; Encounter for immunization; Encounter for vaccination 06/23/2025 Travel 06/22/2025 Telephone [facility] [address] [place] [phone] Yasmin Ortiz DO Chart Prep 06/22/2025 Travel 06/18/2025 Telephone [facility] [address] [place] [phone] Yasmin Ortiz DO Appointment Request 06/18/2025 Refill [facility] [address] [place] [phone] Yasmin Ortiz DO 06/18/2025 Refill [facility] [address] [place] [address] Yasmin Ortiz DO Chronic right shoulder pain (Primary Dx) 06/04/2025 Refill [facility] [address] [place] [phone] Juany Montoya NP 06/04/2025 Refill [facility] [address] [place] [address] Yasmin Ortiz DO Other chronic pain 05/19/2025 Refill [facility] [address] [place] [phone] Yasmin Ortiz DO Chronic right shoulder pain 05/10/2025 Refill [facility] [address] [place] [address] Yasmin Ortiz DO Other chronic pain 04/22/2025 9:00 AM EDT Clinical Support [facility] [address] [place] [phone] Annalise Barajas, RN Long-term current use of opiate analgesic (Primary Dx) 04/22/2025 Refill [facility] [address] [place] [phone] Annalise Barajas RN Chronic right shoulder pain 04/22/2025 Travel 04/16/2025 Refill [facility] [address] [place] [address] Yasmin Ortiz, DO Chronic right shoulder pain 04/07/2025 Refill [facility] [address] [place] [address] Yasmin Ortiz, DO Muscle spasm from Last 3 Months Immunizations Immunization Administration Dates Next Due Influenza injectable quadriv alent IIV4 with preservative 04/29/2018,05/03/2016,06/22/2015 Influenza injectable quadriv alent preservative free 05/21/2023,09/12/2022,05/05/2021,2019,05/11/2019 Influenza, IIV3, injectable 04/19/2014 Influenza, Split (incl. shahab fied surface antigen) 06/22/2013 Influenza, seasonal, injecta ble, preservative free 06/23/2025,05/12/2024 [place] SARS-CoV-2 Vaccination 11/19/2020 MMR 04/09/2024 Pfizer Covid-19 Vaccine 12+ 06/23/2025,1 ,05/21/2023,2021 Pfizer Covid-19 Vaccine 12+ Bivalent 08/03/2022 Tdap [...] Mass Index 27.98 06/23/2025 3:43 PM EST Plan of Treatment Upcoming Encounters Date Type Department Care Team (Late st Contact Info) Description 07/22/2025 2:00 PM EST Office Visit [facility] [address] [place] [address] Bairon, Inez, OD [address] [place], [place] [phone] 07/29/2025 8:30 AM EST Clinical Support [facility] [address] [place] [address] Annalise Barajas, [place] Health Maintenance Due Date Last Done Comments CT Colonography 1980 Colonoscopy 1980 Colorectal Cancer Screening 1980 FIT DNA/Cologuard 1980 FIT 1980 FOBT 1980 Sigmoidoscopy 1980 Alcohol/Substance Use Screening 1992 Family Planning (PISQ) 1995 HPV Vaccines (1 - 3-dose series) 1995 Hepatitis B Vaccines (1 of 3 - 19+ 3-dose series) 1999 Pap Smear 11/07/2025 11/07/2022, 10/27/2021 SDOH Screening 11/13/2025 11/13/2024 Depression Screening 06/23/2026 06/23/2025, 06/23/20 25 Disability Screening 06/23/2026 06/23/2025 Tobacco Screening 06/23/2026 06/23/2025 Mammogram 03/18/2027 03/18/2025, 04/12, 05/03/2021, Additional history exists Cervical Cancer Screening 11/08/2027 HPV/Cotest 11/08/2027 11/07/2022, [...] 12/19/2022, Additional history exists COVID-19 Vaccine Completed 06/23/2025, 08/2023, 05/21/2023, Additional history exists Influenza Vaccine Completed 06/23/2025, , 05/21/2023, Additional history exists HIB Vaccines Aged Out [...] Years) and At-Risk Patients (6 to 49) Years Aged Out No longer eligible based on patient's age to complete this topic RSV under 20 months Aged Out No longe r eligible based on patient's age to complete this topic Rotavirus Vaccines Aged Out No longer eligible based on patient's age to complete this topic Procedures Procedure Name Priority Date/Time Associated Diagnosis Comments CHLAMYDIA/N. GONORRHOEAE RNA, TMA, UROGENITAL Routine 06/23/2025 4:25 PM EST Vaginal itching BACTERIAL VAGINOSIS PANEL Routine 06/23/2025 4:25 PM EST Vaginal itching POCT YOEL-14 URINE DRUG SCREEN Routine 04/22/2025 8:40 AM EDT Long-term current use of opiate analgesic BI MAMMOGRAM SCREENING TOMOSYNTHESIS BILATERAL Routine 03/18/2025 12:40 PM EDT Encounter for screening mammogram for malignant neoplasm of breast HEPATITIS C AB W/REFL TO HCV RNA, [...] Chronic constipation BMI 29.0-29.9,adult Encounter for immunization HPV MRNA E6/E7 REFLEX TO HPV 16, 18/45 Routine 11/07/2022 9:53 AM EDT PAP SMEAR Routine 11/07/2022 9:53 AM EDT from Last 3 Months or Most Recently Relevant to Health Maintenance Results * (ABNORMAL) Bacterial Vaginosis (06/23/2025 4:25 PM EST) TRICHOMONAS VAGINALIS DETECTION BY PCR NOT DETECTED Not Detect [facility] BACTERIAL VAGINOSIS DETECTION BY PCR POSITIVE(A) Negative [facility] Comment:The BV organism targ ets of [...] DETECTION BY PCR NOT DETECTED Not Detect [facility] Siomara glab krusei PCR NOT DETECTED Not Detect [facility] Swab Vaginal structure / Unknown 06/23/2025 4:25 PM EST 06/24/2025 11:41 AM EST us Yasmin Ortiz DO LAB MICROBIOLOGY - GENERAL O RDERABLES Final Result [facility] [address] [place] [phone] * Chlamydia/N. Gonorrhoeae RNA, TMA, Vaginal (06/23/2025 4:25 PM EST) CT PCR NOT DETECTED Not Detect. [facility] Comment:A not detected test result does [...] psychologicalconsequences. NG PCR NOT DETECTED Not Detect. [facility] Comment:A not detected test result does [...] MICROBIOLOGY - GENERAL O RDERABLES Final Result [facility] [address] [place], [place] [phone] * POCT YOEL-14 Urine Drug Screen (04/22/2025 8:40 AM EDT) THC Negative Negative Cocaine Screen, Urine Negative Negative Opiate Screen, Urine Negative Negative Methamphetamine Screen Urine Negative Negative Amphetamine Screen, Urine Negative Negative Benzodiazepines Screen, Urine Negative Negative Barbiturate Screen, Urine Negative Negative Methadone Screen, Urine Negative Negative Buprenophine Screen, Urine Negative Negative TCA, Urine Negative Negative MDMA Urine Negative Negative ng/mL Oxycodone Screen, Urine Positive Negative Phencyclidine (PCP), Urine Negative Negative Propoxyphene, Urine Negative Negative Fentanyl, Urine Negative Negative Urine Urine specimen obtained by clean catch procedure / Unknown 04/22/2025 8:40 AM EDT Narrative Annalise Barajas RN - 04/22/2025 8:40 AM EDT UTOX cup Lot#[id number] Exp. 05/18/26 Internal Pass Control Yasmin Ortiz DO POINT OF CARE TEST ENTER/ELLI T ORDERABLES Final Result * BI Mammogram Screening Tomosynthesis Bilateral (03/18/2025 12:40 PM EDT) Anatomical Region Laterality Modality Breast Bilateral Mammography 03/18/2025 12:4 0 PM EDT Narrative 03/29/2025 7:57 AM EDT [facility] [address] [place] [address] Mammography Report Signed Patient: Dilcia Martinez MR#: [id number] : 1980 Acct:[id number] Age/Sex: 44 / F ADM Date: 03/18/25 Loc: HO.MAMMO Attending Dr: Yasmin Ortiz DO Ordering Physician: Yasmin Ortiz DO Results: 1N egative Date of Service: 03/18/25 Follow Up: 1 Year From [facility] Mammogram Procedure(s): MM tomosynthesis screening BI Accession Number(s): [id number] cc: Yasmin Ortiz DO EXAMINATION: MM SCREENING DIGITAL BREAST TOMOSYNTHESIS, BILATERAL CLINICAL INFORMATION: Screening. Asymptomatic. COMPARISON: Comparison made to multiple prior, most recent April 23, 2023, and most remote May 20, 2019. TECHNIQUE: Digital breast tomosynthesis is performed in both the craniocaudal and mediolateral oblique views along with computer-aided detection (CAD). FINDINGS: BREAST COMPOSITION: The breasts are heterogeneously dense, which may obscure small masses (ACR BI-RADS breast composition Category c). BILATERAL BREASTS: No significant masses, suspicious calcifications or other abnormalities are seen in either breast. MM/MM tomosynthesis screening BI IMPRESSION: BILATERAL BREASTS: Negative, no mammographic evidence of malignancy. Normal interval follow-up is recommended in 12 months. ASSESSMENT: BI-RADS 1 - Negative RECOMMENDATION: Routine annual mammography screening. FOLLOW-UP: 1 year F/U This examination should not preclude the clinical evaluation of a suspicious palpable abnormality. This patient's information was entered into a reminder system with a target due date for their next mammogram. Electronically signed by: Pat Villela MD 03/29/2025 07:54 AM EDT RP Dictated By: Pat Villela MD Signed By: <Electronically signed by Pat Villela MD in OV> 03/29/25 0754 DD/ 1240 TD/TT: 03/18/25 1254 Instrumentation Designer: Procedure Note Donotuseinterpreter, Image - 03/29/2025 [place] [facility] [address] [place] [address] Mammography Report Signed Patient: Ivania Martinez#: [id number] : 1980Acct:[id number] Age/Sex: 44 / FADM Date: 03/18/25 Loc: HO.MAMMO Attending Dr: Yasmin Ortiz DO Ordering Physician: Yasmin Ortiz DOResults: 1N egative Date of Service: 03/18/25Follow Up: 1 Year From Orig inal Mammogram Procedure(s): MM tomosynthesis screening BI Accession Number(s): [id number] cc: Yasmin Ortiz DO EXAMINATION: MM SCREENING DIGITAL BREAST TOMOSYNTHESIS, BILATERAL CLINICAL INFORMATION: Screening. Asymptomatic. COMPARISON: Comparison made to multiple prior, most recent April 23, 2023, and most remote May 20, 2019. TECHNIQUE: Digital breast tomosynthesis is performed in both the craniocaudal and mediolateral oblique views along with computer-aided detection (CAD). FINDINGS: BREAST COMPOSITION: The breasts are heterogeneously dense, which may obscure small masses (ACR BI-RADS breast composition Category c). BILATERAL BREASTS: No significant masses, suspicious calcifications or other abnormalities are seen in either breast. MM/MM tomosynthesis screening BI IMPRESSION: BILATERAL BREASTS: Negative, no mammographic evidence of malignancy. Normal interval follow-up is recommended in 12 months. ASSESSMENT: BI-RADS 1 - Negative RECOMMENDATION: Routine annual mammography screening. FOLLOW-UP: 1 year F/U This examination should not preclude the clinical evaluation of a suspicious palpable abnormality. This patient's information was entered into a reminder system with a target due date for their next mammogram. Electronically signed by: Pat Villela MD 03/29/2025 07:54 AM EDT RP Dictated By: Pat Villela MD Signed By: <Electronically signed by Pat Villela MD in OV> 03/29/25 0754 DD/ 1240 TD/TT: 03/18/25 1254 Instrumentation Designer: us Yasmin Ortiz DO IMG BI PROCEDURES Final Resu lt * Hepatitis C Antibody with Reflex to HCV, RNA, Quantitative, Real-Time PCR (05/01/2024 9:04 AM EDT) Pathologist [facility] Hepatitis C Antibody Nonreactive Nonreactive [facility] Comment:Antibodies to HCV no t detected; does not exclude early acuteHCV infection. Blood Venous blood specimen / Unknown 05/01/2024 9:04 AM EDT 05/01/2024 11:27 AM EDT us Yasmin Ortiz DO LAB BLOOD ORDERABLES Final R esult [facility] [address] [place] [phone] * HIV-1/2 Antigen and Antibodies, Fourth Generation, with Reflexes (05/01/2024 9:04 AM EDT) HIV AB/AG Nonreactive Nonreactive [facility] Comment:HIV-1 p24 Ag and/or HIV-1/HIV-2 Ab not detected.A test result that is nonreactive does not exclude thepossibility of exposure to or infection with HIV-1 and/orHIV-2. Nonreactive results in this assay for individualswith prior exposure to HIV-1 and/or HIV-2 may be due toantigen and antibody levels that are below the limit ofdetection of this assay.The milog HIV Ag/Ab Combo assay result andsupplemental assay results should be interpreted inconjunction with the patient's clinical presentation,history and other laboratory results. If the results areinconsistent with clinical evidence, additional testing issuggested to confirm the result. Blood Venous blood specimen / Unknown 05/01/2024 9:04 AM EDT 05/01/2024 11:27 AM EDT Yasmin Ortiz DO LAB BLOOD ORDERABLES Final R esult [facility] [address] [place] [phone] * HPV mRNA E6/E7 w/Reflex to HPV Genotypes 16, 18/45 (11/07/2022 9:53 AM EDT) Pathologist [facility] HPV nRNA E6/E7 Not Detected Not Detected [facility] Comment:Methodology: Transcr iption-Mediated AmplificationThis assay detects E6/E7 viral messenger RNA (mRNA) from 14high-risk HPV types (16,18,31,33,35,39,45,51,52,56,58,59,66,68).Cervical sources are required for HPV testing.If a vaginal source from a patient who has had atotal hysterectomy with removal of cervix wassubmitted, please contact the testing laboratoryfor alternative testing options.For additional information, please refer [email or web address](This link if provided for information/educational purposes only.)THIS TEST WAS PERFORMED AT:[facility] [place] [phone] ASCENCIO MD HPV mRNA E6/E7 TNP [facility] HPV 16 RNA TNP [facility] HPV 18/45 RNA TNP [facility] 11/07/2022 9:53 AM EDT 11/07/2022 11:30 AM EDT us [facility] External Provider LAB CYT OLOGY ORDERABLES Final Result [facility] [address] [place] [phone] * Pap Smear (11/07/2022 9:53 AM EDT) 11/07/2022 9:53 AM EDT 11/07/2022 11:30 AM EDT Narrative [facility] - 11/12/2022 12:10 PM EDT ----- ------- Name: Dilcia Martinez Age/Sex: 42/F : 1980 Unit#: [id number] Attend Dr: Maxwell Strauss MD Re11/07/22 Status: DEP REF Location: HO.LNP Disch: ----- ------- SPEC : [id number] RECD: 11/07/22 STATUS: SUPRIYA ROBLES NUM: [id number] BRANDON: 11/07/22 [facility] DR: Maxwell Strauss MD ENTERED: 11/07/22 SP TYPE: Pap Smr OTHR DR: ORDERED: Pap Smear Interpretation Satisfactory for evaluation. Negative for intraepithelial lesion or malignancy. HPV mRNA E6/E7: NOT DETECTED This assay detects E6/E7 viral messenger RNA (mRNA) from 14 high-risk HPV types (16, 18, 31, 33, 35, 39, 45, 51, 52, 56, 58, 59, 66, 68) HPV testing performed by [facility], [place], [place]. See reference laboratory portion of the EMR for entire report. Clinical Information LMP: Unknown Previous PAP test: Unknown Material Received ThinPrep-Cervical ----- ------- Signed (signature on file) Raisa Pena 11/12/22 1210 ----- ------- END OF REPORT [facility] External Provider LAB CYT OLEVERETTE ORDERABLES Final Result [facility] [address] [place] [phone] from Last 3 Months or Most Recently Relevant to Health Maintenance Insurance [facility] C3 Care Teams Turkey Boner Relationship Specialty Start Date End Date Yasmin Ortiz DO [address] [place] [phone] PCP - General Family Medicine 06/22/13
== END 2025-06-24 11:40 | disposition home or self-care (01) ==
LOC: HO.LNP 11:39
PROVIDERS: Visit Provider Family Medicine
DX: Z20.2 Contact with and (suspected) exposure to infections with a predominantly sexual mode of transmission (principal); N89.8 Other specified noninflammatory disorders of vagina
CPT/HCPCS: 81515; 87491; 87591

== ENCOUNTER 2025-06-29 07:27 | Outpatient (AMB) | payer MEDICAID, SELFPAY ==
--- NOTE | 2025-06-29 07:28 | A.OFFVIS_ITS ---
Vital Signs 06/29/25 07:30 Height 5 ft 2 in Weight 150 lb BMI 27.4 BP 111/70 Intake Visit Reasons: [employer] PIL[employer] annual exam/DO NOT RS Ditto Machine Operator Required: Yes Ditto Machine Operator Language: Rubber Mill Operator Services: Ditto Machine Operator Present (in person) Ditto Machine Operator Name: Mary Alice TURPIN Information Interpreted: non-clinical & clinical Psychotherapist: Psychotherapist Present (Mary Alice TURPIN) Accompanied by: Self / Same As Patient Allergies No Known Allergies (No Known Allergies*) Allergy (Verified 06/29/25 07:33) Is last menstrual period known: No (mirena ) HPI Comments Details: Presenting for annual exam. No complaints. Last Pap/HPV was negative in 11/01 Last Mammogram was BI-RADS 1 in 04/05 [facility], [facility] Medical History Screen for STD (sexually transmitted disease) IUD (intrauterine device) in place Right shoulder pain Rheumatoid arthritis Hx of nausea and vomiting Constipation History of blood transfusion Anemia GERD (gastroesophageal reflux disease) Migraines Fibromyalgia Abnormal TSH Seropositive rheumatoid arthritis Surgical History Hx of cervical discectomy Hx of appendectomy Family History Father Cancer Mother Diabetes Hypertension Stroke Hypothyroidism Hypercholesteremia Social History Household Members: Significant Other and Children Household Members Other:: son Housing: Apartment Are you a primary intensive care anaesthetist to a significant other at home: No Do you presently have visiting nurse or other home services: No Alcohol intake: current Alcohol intake frequency: does not drink Patient Tobacco Use Status: Former Tobacco user Tobacco use type: Cigarette Advance Directives Date on File: 05/31/20 Female Reproductive History Menstrual control method: progestin IUCD Date of last pap smear: 11/07/22 Date of Mammogram: 03/18/25 Review of Systems Const All systems reviewed & are unremarkable except as noted in HPI and below Card Reports as per HPI Resp Reports as per HPI GI Reports as per HPI and Reports no additional complaints Reports as per HPI Physical Exam Vital Signs: Last Vital Signs BP 111/70 06/29/25 07:30 BMI result Body Mass Index 27.4 Const General: cooperative, healthy appearing and comfortable Chest Chest palpation & inspection: normal inspection of the chest and normal palpation of entire chest wall Breast/axilla inspection: normal inspection of the breasts and normal inspection of the axillae Breast/axilla palpation: normal palpation of the breasts, normal palpation of the axillae and no axillary lymphadenopathy Resp Effort & Inspection: normal respiratory effort Auscultation: clear to auscultation bilaterally Percussion: percussion normal Cardio Palpation: normal PMI Rate: regular rate Rhythm: regular rhythm Heart sounds: no murmurs and no rubs Peripheral pulses: Peripheral pulses 2+ throughout GI Inspection: Yes normal to inspection Palpation (GI): Soft to palpation, nontender, no guarding, not rigid and No hepatosplenomegaly present Percussion: Yes normal to percussion Auscultation: normal bowel sounds Rectal Exam - Female: deferred General: Yes bladder normal to palpation External Female Exam: No lesion Speculum Exam - Vagina: normal appearance of the vagina, normal palpation, normal vaginal discharge and not erythematous Speculum Exam - Cervix: normal appearance of the cervix and normal palpation Bimanual exam- vagina & uterus: normal bimanual exam, normal palpation, uterine size normal, bladder normal to palpation, consistency normal and normal palpation Bimanual Exam- Adnexa, other: normal adnexae, no masses and no tenderness Assessment & Plan Assessment & Plan (1) Well woman exam: Code(s): Z01.419 - Encounter for gynecological examination (general) (routine) without abnormal findings Category: Medical Plan: Cotesting not indicated this year Instructions given the patient to schedule next screening Mammogram in 04/06. Counseled the patient about the recommended dietary allowance of 1000 mg of Calcium & 600 IU of vitamin D. The patient was instructed to perform monthly self-breast exams and to schedule an annual exam in a year; All questions answered and the patient verbalized understanding. Instructed the patient to schedule annual exam in a year Orders: Referrals Gastroenterology Referral Z12.11 - Encounter for screening for malignant neoplasm of colon Coding Level of Care Code Est Pt Prev Care 40-64y([id number]) Diagnoses Well woman exam Z01.419
[2025-06-29 07:30] VITALS: BP 111/70; BMI 27.4
== END 2025-06-29 09:19 | disposition home or self-care (01) ==
LOC: HO.HWS 07:27
PROVIDERS: PCP Family Medicine; Visit Provider Obstetrics & Gynecology
DX: Z01.419 Encounter for gynecological examination (general) (routine) without abnormal findings (principal)
CPT/HCPCS: 99396; 99459

== ENCOUNTER → 2025-06-29 07:27 | Outpatient (BNVA) | payer MEDICAID, SELFPAY | PROVIDERS: PCP Family Medicine; Visit Provider Obstetrics & Gynecology | DX: Z01.419 Encounter for gynecological examination (general) (routine) without abnormal findings (principal) | CPT/HCPCS: 99396 ==